=== PATIENT | female | born 1950 | race Caucasian/White ===

== ENCOUNTER → 2017-07-10 10:59 | Outpatient (CLI) | payer MEDICARE, MEDICAID, SELFPAY ==
[2017-06-26 13:13] VITALS: BMI 29.0
--- NOTE | 2017-07-10 11:12 | PCM.CR.ITP ---
Exercise - Initial Assessment - Visit Date of Eval: 07/10/17 Session #:: 0 - initial evaluation - Stages of Change Stages of Change:: Action - Exercise Prescription Mode:: Treadmill, Biodyne, Rower, Airdyne, NuStep Angina with exercise?: No - Hypertension Do any of the following apply?: Yes Resting Blood Pressure:: 130/64 - Intervention Home Exercise/Activity Goal:: Sitting Time <3 hrs/day - Education Goals:: Warm-up, RPE KALE Scale, S/S, Safe Exercise, Self-Monitoring - Exercise Program Goals Exercise Program Goals: Aerobic Activity >30 min Exercise - Final/Discharge - Hypertension Do any of the following apply?: Yes Nutrition - Initial Assessment - Program Goals Nutrition Program Goals: LDL <70. Total Cholesterol <200. HDL >45. Triglycerides <150. HgbA1C <7%. BMI <25 - Visit Date of Assessment:: 07/10/17 - initial evaluation - Stages of Change Stages of Change:: Action - Lipids HDL Cholesterol (mg/dL) Goal = less than 45 mg/dL: 45 LDL Cholesterol (mg/dL) Goal = less than 70 mg/dL: 103 - Diabetes Diabetes:: No - Weight Management Height: 5 ft 5.5 in Weight:: 84.368 kg Body Fat %:: 30.48 Total Score:: 3 - Intervention Referral to dietitian:: No Referral to Diabetic Clinic:: No Will attend diet classes:: Yes - Education Gave educational materials for:: Healthy eating Nutrition - 30-Day Assessment - Program Goals Nutrition Program Goals: LDL <70. Total Cholesterol <200. HDL >45. Triglycerides <150. HgbA1C <7%. BMI <25 - Diabetes Diabetes:: No - Intervention Referral to dietitian:: No Referral to Diabetic Clinic:: No Will attend diet classes:: Yes - Education Attended class for:: Healthy eating Nutrition - 60-Day Assessment - Program Goals Nutrition Program Goals: LDL <70. Total Cholesterol <200. HDL >45. Triglycerides <150. HgbA1C <7%. BMI <25 - Diabetes Diabetes:: No - Intervention Referral to dietitian:: No Referral to Diabetic Clinic:: No Will attend diet classes:: Yes - Education Attended class for:: Healthy eating Nutrition - 90-Day Assessment - Program Goals Nutrition Program Goals: LDL <70. Total Cholesterol <200. HDL >45. Triglycerides <150. HgbA1C <7%. BMI <25 - Diabetes Diabetes:: No - Intervention Referral to dietitian:: No Referral to Diabetic Clinic:: No Will attend diet classes:: Yes - Education Attended class for:: Healthy eating Nutrition - Final Assessment - Program Goals Nutrition Program Goals: LDL <70. Total Cholesterol <200. HDL >45. Triglycerides <150. HgbA1C <7%. BMI <25 - Diabetes Diabetes:: No - Weight Management Total Score:: 3 - Intervention Referral to dietitian:: No Referral to Diabetic Clinic:: No Will attend diet classes:: Yes Tobacco - Initial Assessment - Program Goals Tobacco Program Goals: Complete smoking cessation. Attend education classes. Improve Knowledge Test score - Stage of Change Stages of Change:: Action - Learning Barriers Learning Barriers: Vision, Ready to Learn Total Score:: 0 - Family Support Do you have family support?: Yes - Tobacco Use Tobacco Use: Non-smoker How long ago did you quit using tobacco products?: Greater than or equal to 6 months ago Do you use smokeless tobacco?: No - Intervention Smoking Cessation Referral:: No Individual Education/Counseling:: No Education Schedule Given:: Yes - Education Gave educational material for:: Coronary artery disease, Risk factors, Sexuality, Medical compliance, Cardiac A&P, Angina signs & symptoms Tobacco - 30-Day Assessment - Program Goals Tobacco Program Goals: Complete smoking cessation. Attend education classes. Improve Knowledge Test score - Family Support Do you have family support?: Yes - Tobacco Use Do you use smokeless tobacco?: No - Intervention Smoking Cessation Referral:: No Individual Education/Counseling:: No Education Schedule Given:: Yes - Education Attended class for:: Coronary artery disease, Risk factors, Sexuality, Medical compliance, Cardiac A&P, Angina signs & symptoms Tobacco - 60-Day Assessment - Program Goals Tobacco Program Goals: Complete smoking cessation. Attend education classes. Improve Knowledge Test score - Family Support Do you have family support?: Yes - Tobacco Use Do you use smokeless tobacco?: No - Intervention Smoking Cessation Referral:: No Individual Education/Counseling:: No Education Schedule Given:: Yes - Education Attended class for:: Coronary artery disease, Risk factors, Sexuality, Medical compliance, Cardiac A&P, Angina signs & symptoms Tobacco - 90-Day Assessment - Program Goals Tobacco Program Goals: Complete smoking cessation. Attend education classes. Improve Knowledge Test score - Family Support Do you have family support?: Yes - Tobacco Use Do you use smokeless tobacco?: No - Intervention Smoking Cessation Referral:: No Individual Education/Counseling:: No Education Schedule Given:: Yes - Education Attended class for:: Coronary artery disease, Risk factors, Sexuality, Medical compliance, Cardiac A&P, Angina signs & symptoms Tobacco - Final Assessment - Program Goals Tobacco Program Goals: Complete smoking cessation. Attend education classes. Improve Knowledge Test score - Learning Barriers Cardiac Knowledge Test Score:: 0 - Family Support Do you have family support?: Yes - Tobacco Use Do you use smokeless tobacco?: No - Intervention Smoking Cessation Referral:: No Individual Education/Counseling:: No Education Schedule Given:: Yes Psychosocial - Initial Assess - Target Goals Target Goals: Assess presence or absence of depression. Using a valid screening tool, maximizes coping skills. Positive support system - Stages of Change Stages of Change:: Action - Psychosocial Test Tool Used:: HANDS Depression Questionnaire Self-reported stress:: none Tests Completed: SF - 36 survey completed, Mood Scale Test Total Mood Screening Score:: 0 Self-Efficacy Score:: 0 - Intervention PS - Interventions: Yes Attend Stress Management Classes, Yes Uses Stress Management Skills, No Referral to Mental Health, No Referral to [facility] Case Management, No Referral to Physician - Education Gave educational materials for:: Coping techniques, Signs & symptoms of depression, Stress management, Relaxation techniques - Patient/Program Goal Preventative Medication(s):: Aspirin, TIM inhibitor, Clopidogrel, Beta maggy, Statin/lipid - Assistive Devices Assistive Devices:: None Fall Risk Assessed:: Yes Psychosocial - 30-Day Assess - Target Goals Target Goals: Assess presence or absence of depression. Using a valid screening tool, maximizes coping skills. Positive support system - Psychosocial Test Tool Used:: HANDS Depression Questionnaire Total Mood Screening Score:: 0 Self-Efficacy Score:: 0 - Patient/Program Goal Preventative Medication(s):: Aspirin, TIM inhibitor, Clopidogrel, Beta maggy, Statin/lipid - Assistive Devices Assistive Devices:: None Fall Risk Assessed:: Yes Psychosocial - 60-Day Assess - Target Goals Target Goals: Assess presence or absence of depression. Using a valid screening tool, maximizes coping skills. Positive support system - Psychosocial Test Tool Used:: HANDS Depression Questionnaire Total Mood Screening Score:: 0 Self-Efficacy Score:: 0 - Education Attended classes for:: Coping techniques, Signs & symptoms of depression, Stress management, Relaxation techniques - Patient/Program Goal Preventative Medication(s):: Aspirin, TIM inhibitor, Clopidogrel, Beta maggy, Statin/lipid - Assistive Devices Assistive Devices:: None Fall Risk Assessed:: Yes Psychosocial - 90-Day Assess - Target Goals Target Goals: Assess presence or absence of depression. Using a valid screening tool, maximizes coping skills. Positive support system - Psychosocial Test Tool Used:: HANDS Depression Questionnaire Total Mood Screening Score:: 0 Self-Efficacy Score:: 0 - Education Attended classes for:: Coping techniques, Signs & symptoms of depression, Stress management, Relaxation techniques - Patient/Program Goal Preventative Medication(s):: Aspirin, TIM inhibitor, Clopidogrel, Beta maggy, Statin/lipid - Assistive Devices Assistive Devices:: None Fall Risk Assessed:: Yes Psychosocial - Final Assessmen - Target Goals Target Goals: Assess presence or absence of depression. Using a valid screening tool, maximizes coping skills. Positive support system - Psychosocial Test Tool Used:: HANDS Depression Questionnaire Tests Completed: SF - 36 survey completed, Mood Scale Test Total Mood Screening Score:: 0 Self-Efficacy Score:: 0 - Patient/Program Goal Preventative Medication(s):: Aspirin, TIM inhibitor, Clopidogrel, Beta maggy, Statin/lipid - Assistive Devices Assistive Devices:: None Fall Risk Assessed:: Yes Patient Health Questionnaire Initial Assessment 1. Little interest or pleasure in doing things: More than half the days 2. Feeling down, depressed, or hopeless: More than half the days 3. Trouble falling or staying asleep, or sleeping too much: Nearly every day 4. Feeling tired or having little energy: Nearly every day 5. Poor appetite or overeating: Not at all 6. Feeling bad about yourself -- or that you are a failure or have let yourself or your family down: More than half the days 7. Trouble concentrating on things, such as reading the newspaper or watching television: More than half the days 8. Moving or speaking so slowly that other people could have noticed. Or the opposite - being so fidgety or restless that you have been moving around a lot more than usual: Not at all 9. Thoughts that you would be better off , or of hurting yourself in some way: Not at all How difficult have these problems made it for you to do your work, take care of things at home, or get along with other people?: Very difficult Total Score: 14 Knowledge Test - Check your knowledge Initial The #1 cause of in the [place] each year is:: Heart disease Which of the following is a common treatment for heart disease?: All of the above The arteries that feed the heart are called:: Radial arteries HDL cholesterol is known as the good cholesterol.: False What disease increases your risk for heart disease?: Diabetes What food product raises blood cholesterol level the most?: Carbohydrates The bad cholesterol in the blood is called:: HDL Hypertension is another word for:: High blood pressure A blood pressure reading of 148/88 is considered normal.: False Exercise will only benefit your health when your heart rate reaches a target level.: True Total Score:: 5 Self-Efficacy Initial Assessment We would like to know how confident you are in doing certain activities. Please select your confidence level for:: Select your confidence level for the following using the scale 1-10 where 1 is not at all confident and 10 is totally confident. Your score is the average of all 6 responses. Fatigue: How confident are you that you can keep the fatigue caused by your disease from interfering with the things you want to do? Select Number: 4 Physical Discomfort or Pain: How confident are you that you can keep the physical discomfort or pain of your disease from interfering with the things you want to do? Select Number: 4 Emotional Distress: How confident are you that you can keep the emotional distress caused by your disease from interfering with the things you want to do? Select Number: 4 Other Symptoms or Health Problems: How confident are you that you can keep other symptoms or health problems from interfering with the things you want to do? Select Number: 4 Different Tasks and Activities: How confident are you that you can do the different tasks and activities needed to manage your health condition so as to reduce your need to see a doctor? Select Number: 6 Medication: How confident are you that you can do things other than just taking medication to reduce how much your illness affects your everyday life? Select Number: 6 Total Score:: 4 Nutrition Survey - Nutrition Survey Instructions Scoring Instructions: Scoring is as follows: Yes = 1 points. No = 0 point. Patient score that is >/=12 is considered to be at potential nutritional risk and could benefit from a referral to a registered dietitian. - Nutrition Survey Initial Have you lost >10 lbs over the past 2 months without trying?: No Are you following a special diet at home for diabetes, low fat, or low salt?: No Are you interested in meeting with a dietitian for help understanding your diet?: Yes Do you eat less than 3 meals a day?: No Do you eat fatty meats (membreno, sausage, ribs, etc), fried foods, desserts, large amounts of salad dressings, margarine, butter, or cheese most days?: Yes Do you have food allergies? [Enter types in comment field]: Yes Do you eat in restaurants more than 3 times a week?: No Do you season food with salt, seasoning salt, or garlic salt?: Yes Do you used canned, boxed, frozen meals, or soups, seasoning packets?: No Total Score:: 4 Cardiac Rehabilitation Goals - Cardiac Rehab Goals Cardiac Rehabilitation Goals: 1. Maintain the individual as the primary focus of care. 2. To improve the patient's quality of life. 3. Identification of cardiac risk factors and provide cardiac risk factor management. 4. Enhance the psychosocial status of the patient. 5. Reconditioning enough to allow the patient to resume customary activities. 6. Control symptoms of cardiac disease - Scale Scale for measuring improvement of personal goals: Enter appropriate number in Comments. 2 = Unchanged. 3 = Slightly Better. 4 = Moderate Improvement. 5 = Met my Goal Initial Assessment Personal Goals: 30-day Re-assessment: Improve management of stress and emotions, Improve energy level, Improve muscle strength and endurance, Improve diet and eating habits (eat healthier), Control risk factors (learn risk factor modification)
--- NOTE | 2017-07-10 11:13 | PCM.CR.HP2 ---
CR - History & Physical - General Arrival date:: 07/10/17 Arrival time:: 11:14 Date of Admission: 07/10/17 Referring Physician: DR. JUAN SINGH Primary Diagnosis: NSTEMI w/PCI-SOLOMON 06/26/2017 - History of Present Cardiac Event Onset Date: Enter Onset Date of cardiac illnesses in Comment field below [place]:: Yes - NSTEMI 06/26/2017 PTCA:: Yes - 06/26/2017 Type of Symptoms:: CHEST PAIN, SHORTNESS OF BREATH Interventions with present event:: PCI-SOLOMON to the distal RCA - Medications Home Medications: Ambulatory Orders Medication Instructions Recorded Famotidine [Pepcid] 20 mg PO DAILY 10/02/15 Losartan/Hydrochlorothiazide 1 tab PO DAILY 10/02/15 [Hyzaar 50-12.5 Tablet] Aspirin [Adult Low Dose Aspirin EC] 81 mg PO DAILY 01/20/16 Ezetimibe [Zetia] 10 mg PO DAILY 05/13/16 Glucosamine/MSM/Chondroitin A 1 ea PO DAILY 08/26/16 [Glucosamine Chondroit MSM Tab] Paxil 20 mg PO DAILY 06/26/17 Carvedilol [Coreg (Beta Juvenal)] 3.125 mg PO BID #60 tab 06/27/17 Nitroglycerin [Nitrostat] 0.4 mg SUBLINGUAL Q5M PRN #1 bottle 06/27/17 Potassium Chloride 10 meq PO BID #60 capsule.er 06/27/17 Ticagrelor [Brilinta] 90 mg PO BID #60 tab 06/27/17 clopidogrel 75 mg tablet 75 mg PO QDAY 07/01/17 paroxetine 10 mg tablet 10 mg PO QDAY 07/01/17 Potassium Chloride [Klor-Con 10] 10 meq PO 07/10/17 Simvastatin [Zocor] 5 mg PO 07/10/17 Tramadol HCl [Ultram] 50 mg PO 07/10/17 - Allergies Allergies/Adverse Reactions: Allergies venom-honey bee [bee venom (honey bee)] Allergy (Severe, Verified 06/25/17 19:08) Anaphylaxis atorvastatin Allergy (Unknown, Verified 06/25/17 19:08) Unknown Penicillins Allergy (Unknown, Verified 06/25/17 19:08) Unknown strawberry Allergy (Verified 06/25/17 19:08) Anaphylaxis oxycodone HCl [From Percocet] Adverse Reaction (Verified 06/25/17 19:08) Vomiting - Sleep Disorder Evaluation Hx of Sleep Apnea: No Do you snore loudly (louder than talking or can be heard through closed doors)?: Yes - daytime somnolence Do you often feel tired/ fatigued/ sleepy during daytime?: Yes Has anyone observed you stop breathing during sleep?: No History of Hypertension (for STOP score): Yes STOP Results: Positive Advanced Directives - Advanced Directives Power of Special Trackwork Blacksmith: No Living Will: No Advance Directives Information Provided: Yes Advance Directives on File: No DNR Order?:: No Past Medical History - Problems and Co-Morbidities Problems & Co-Morbidities: Smoking - 20 pack year history 1PPD. , Dyslipidemia, Obesity - BMI 29.0-29.9%, Hypertension, Anxiety - Past Medical Illness Past Medical Illness: Back Problems - chronic back pain, angiomyoma left kidney, RSD, COPD. Other Medical Illnesses:: daytime somnolence, RSD, COPD, asthma. 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 - Cardiology Procedures/Interventions Cardiology Procedures/Interventions: Angioplasty, PCI w/Stenting, Heart Catheterization, Echocardiogram - Past Surgical History Surgical History: angioplasty, appendectomy - In addition to salpingectomy w/ tubal , unsure which side., - - Cervical C5-6 surgery, Microdiscectemy L4-L5, L hand surgery following trauma, T+A, PCI x 1. - Family History Summary Additional Family History: Father FH of CAD heart transplant age 65, Brother FH of A-Fib. Review of Systems - Review of Systems Hints: Right click = Denies (Slash). Left click = Reports ([place]) Review of Present Symptoms: Reports: Shortness of Breath with Exertion, Angina - questionable if actually angina or if simply over did it., Fatigue, Appetite - Normal. Denies: Shortness of Breath at Rest, Dizziness/Lightheadedness, Heart Arrhythmia/Irregularities, Appetite - Special Diet, Sleep - Normal - never been normal, sometimes have periods of insomnia and then will sleep for two days. Risk Factor Assessment - Chief Complaint Chief Complaint: Patient is a pleasent 67 year old female patient under the care of Dr. Juan Singh following a recent NSTEMI and another PTCA. - Pulse Pulse Rate: 74 Pulse Rhythm: Regular - Hypertension How long have you been treated?: been along time On medication(s)?: yes Blood Pressure Sitting - Right Arm: 130/64 - Blood Cholesterol/Lipids HDL Cholesterol (mg/dL) Goal = less than 40 mg/dL: 45 - 01/29/2017 LDL Cholesterol (mg/dL) Goal = less than 70 mg/dL: 103 - 01/29/2017 - Diabetes Nutrition Referral for Diabetes: No - Obesity Height: 5 ft 5 in Weight:: 84.395 kg Weight in Pounds: 186.1 lbs Body Mass Index (BMI): 30.9 Nutritional Referral for Obesity: Yes - Physical Inactivity Physical Inactivity: None Exercise Limitations: chronic back pain - Risk Stratification Risk Guidelines: Lowest Risk: Risk Factor for Smoking, Risk Factor for Dyslipidemia, Risk Factor for Diabetes, Risk Factor for Hypertension, Risk Factor for Depression, Highest Risk: Risk Factor for Obesity, Risk Factor for Sedentary Lifestyle - For Smoking Smoking Risk Guidelines: Smoking Low Risk: None or quit greater than 6 months ago. Smoking Moderate Risk: Smoker or quit 6 months or less ago. Smoking High Risk: Smoker - For Dyslipidemia Dyslipidemia Risk Guidelines: Low Risk: Moderate Risk: High Risk: 15-25% fat 25.1-29% fat >/= 30% fat. <7% sat fat 7-9% sat fat >9% sat fat. <150 mg chol 150-299 mg chol >/= 300 mg chol. LDL <100 LDL 100-129 LDL >/= 130. Chol/HDL ratio <5.0 Chol/HDL ratio 5.0-6.0 Chol/HDL ratio >6.0. Triglycerides <100 Triglycerides 100-149 Triglycerides >/= 150 - For Diabetes Mellitus Diabetes Risk Guidelines: Diabetes Low Risk: HgA1c <6.5% and/or FBG <120. Diabetes Moderate Risk: HgA1c 6.6-7.9% and/or FBG 120-180. Diabetes High Risk: HgA1c >/= 8% and/or FBG >180 - For Obesity/Overweight Obesity/Overweight Risk Guidelines: Obesity Low Risk: BMI <25.0. Obesity Moderate Risk: BMI 25-29.9. Obesity High Risk: BMI >/= 30.0 - For Hypertension Hypertension Risk Guidelines: Hypertension Low Risk: Systolic <120 and Diastolic <80. Hypertension Moderate Risk: Systolic 120-139 and Diastolic 80-89. Hypertension High Risk: Systolic >/= 140 and Diastolic >/= 90 - For Sedentary Lifestyle Sedentary Lifestyle Risk Guidelines: Sedentary Lifestyle Low Risk: >/= 1,500 kcal/week. Sedentary Lifestyle Moderate Risk: 700-1,499 kcal/week. Sedentary Lifestyle High Risk: < 700 kcal/week - For Depression Depression Risk Guidelines: Depression Low Risk: Not clinically depressed. Depression Moderate Risk: Mildly depressed. Depression High Risk: Clinically depressed Social History - Smoking History Smoking Status: Former smoker Years Smokin Packs Smoked per Day: 1 Hx Smoking Cessation Date: quit a while ago Hx Tobacco Use: Yes Hx Smoking Exposure: Yes - passive smoke exposure. - Alcohol Use Alcohol Usage: Yes - socially-infrequent - Substance Abuse Hx Substance Use: Yes - yes, rukhsana quit 2015. - Occupation Occupation (List type of work in comments):: Retired - Hobbies, Recreation, Social Activities Hobbies: Other - knit, lizeth, beading, coloring, nails, crafts. Recreational Activities: I am able to engage in most, but not all activities - feels like my concentration is off, can't seem to stay focused. Marital Status - Status Marital Status: - Current Living Arrangements Living Environment:: Family - brother lives with her. - Children How many children do you have?: 0 Do any of your children live nearby?: No - Safety Do you feel safe in your surroundings?: Yes - Assistance Do you need any assistance at home?: none
--- NOTE | 2017-07-10 11:23 | CR.HP_ITS ---
CR - History & Physical - General Arrival date:: 07/10/17 Arrival time:: 11:14 Date of Admission: 07/10/17 Referring Physician: DR. JUAN SINGH Primary Diagnosis: NSTEMI w/PCI-SOLOMON 06/26/2017 - History of Present Cardiac Event Onset Date: Enter Onset Date of cardiac illnesses in Comment field below [place]:: Yes - NSTEMI 06/26/2017 PTCA:: Yes - 06/26/2017 Type of Symptoms:: CHEST PAIN, SHORTNESS OF BREATH Interventions with present event:: PCI-SOLOMON to the distal RCA - Medications Home Medications: Ambulatory Orders Medication Instructions Recorded Famotidine [Pepcid] 20 mg PO DAILY 10/02/15 Losartan/Hydrochlorothiazide 1 tab PO DAILY 10/02/15 [Hyzaar 50-12.5 Tablet] Aspirin [Adult Low Dose Aspirin EC] 81 mg PO DAILY 01/20/16 Ezetimibe [Zetia] 10 mg PO DAILY 05/13/16 Glucosamine/MSM/Chondroitin A 1 ea PO DAILY 08/26/16 [Glucosamine Chondroit MSM Tab] Paxil 20 mg PO DAILY 06/26/17 Carvedilol [Coreg (Beta Juvenal)] 3.125 mg PO BID #60 tab 06/27/17 Nitroglycerin [Nitrostat] 0.4 mg SUBLINGUAL Q5M PRN #1 bottle 06/27/17 Potassium Chloride 10 meq PO BID #60 capsule.er 06/27/17 Ticagrelor [Brilinta] 90 mg PO BID #60 tab 06/27/17 clopidogrel 75 mg tablet 75 mg PO QDAY 07/01/17 paroxetine 10 mg tablet 10 mg PO QDAY 07/01/17 Potassium Chloride [Klor-Con 10] 10 meq PO 07/10/17 Simvastatin [Zocor] 5 mg PO 07/10/17 Tramadol HCl [Ultram] 50 mg PO 07/10/17 - Allergies Allergies/Adverse Reactions: Allergies venom-honey bee [bee venom (honey bee)] Allergy (Severe, Verified 06/25/17 19:08 ) Anaphylaxis atorvastatin Allergy (Unknown, Verified 06/25/17 19:08) Unknown Penicillins Allergy (Unknown, Verified 06/25/17 19:08) Unknown strawberry Allergy (Verified 06/25/17 19:08) Anaphylaxis oxycodone HCl [From Percocet] Adverse Reaction (Verified 06/25/17 19:08) Vomiting - Sleep Disorder Evaluation Hx of Sleep Apnea: No Do you snore loudly (louder than talking or can be heard through closed doors)? : Yes - daytime somnolence Do you often feel tired/ fatigued/ sleepy during daytime?: Yes Has anyone observed you stop breathing during sleep?: No History of Hypertension (for STOP score): Yes STOP Results: Positive Advanced Directives - Advanced Directives Power of General Education Instructor: No Living Will: No Advance Directives Information Provided: Yes Advance Directives on File: No DNR Order?:: No Past Medical History - Problems and Co-Morbidities Problems & Co-Morbidities: Smoking - 20 pack year history 1PPD. , Dyslipidemia, Obesity - BMI 29.0-29.9%, Hypertension, Anxiety - Past Medical Illness Past Medical Illness: Back Problems - chronic back pain, angiomyoma left kidney , RSD, COPD. Other Medical Illnesses:: daytime somnolence, RSD, COPD, asthma. 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 - Cardiology Procedures/Interventions Cardiology Procedures/Interventions: Angioplasty, PCI w/Stenting, Heart Catheterization, Echocardiogram - Past Surgical History Surgical History: angioplasty, appendectomy - In addition to salpingectomy w/ tubal , unsure which side., - - Cervical C5-6 surgery, Microdiscectemy L4-L5, L hand surgery following trauma, T+A, PCI x 1. - Family History Summary Additional Family History: Father FH of CAD heart transplant age 65, Brother FH of A-Fib. Review of Systems - Review of Systems Hints: Right click = Denies ([place]). Left click = Reports ([place]) Review of Present Symptoms: Reports: Shortness of Breath with Exertion, Angina - questionable if actually angina or if simply over did it., Fatigue, Appetite - Normal. Denies: Shortness of Breath at Rest, Dizziness/Lightheadedness, Heart Arrhythmia/Irregularities, Appetite - Special Diet, Sleep - Normal - never been normal, sometimes have periods of insomnia and then will sleep for two days. Risk Factor Assessment - Chief Complaint Chief Complaint: Patient is a pleasent 67 year old female patient under the care of Dr. Juan Singh following a recent NSTEMI and another PTCA. - Pulse Pulse Rate: 74 Pulse Rhythm: Regular - Hypertension How long have you been treated?: been along time On medication(s)?: yes Blood Pressure Sitting - Right Arm: 130/64 - Blood Cholesterol/Lipids HDL Cholesterol (mg/dL) Goal = less than 40 mg/dL: 45 - 01/29/2017 LDL Cholesterol (mg/dL) Goal = less than 70 mg/dL: 103 - 01/29/2017 - Diabetes Nutrition Referral for Diabetes: No - Obesity Height: 5 ft 5 in Weight:: 84.395 kg Weight in Pounds: 186.1 lbs Body Mass Index (BMI): 30.9 Nutritional Referral for Obesity: Yes - Physical Inactivity Physical Inactivity: None Exercise Limitations: chronic back pain - Risk Stratification Risk Guidelines: Lowest Risk: Risk Factor for Smoking, Risk Factor for Dyslipidemia, Risk Factor for Diabetes, Risk Factor for Hypertension, Risk Factor for Depression, Highest Risk: Risk Factor for Obesity, Risk Factor for Sedentary Lifestyle - For Smoking Smoking Risk Guidelines: Smoking Low Risk: None or quit greater than 6 months ago. Smoking Moderate Risk: Smoker or quit 6 months or less ago. Smoking High Risk: Smoker - For Dyslipidemia Dyslipidemia Risk Guidelines: Low Risk: Moderate Risk: High Risk: 15-25% fat 25.1-29% fat >/= 30% fat. <7% sat fat 7-9% sat fat >9% sat fat. <150 mg chol 150-299 mg chol >/= 300 mg chol. LDL <100 LDL 100-129 LDL >/= 130. Chol/HDL ratio <5.0 Chol/HDL ratio 5.0-6.0 Chol/HDL ratio >6.0. Triglycerides <100 Triglycerides 100-149 Triglycerides >/= 150 - For Diabetes Mellitus Diabetes Risk Guidelines: Diabetes Low Risk: HgA1c <6.5% and/or FBG <120. Diabetes Moderate Risk: HgA1c 6.6-7.9% and/or FBG 120-180. Diabetes High Risk: HgA1c >/= 8% and/or FBG >180 - For Obesity/Overweight Obesity/Overweight Risk Guidelines: Obesity Low Risk: BMI <25.0. Obesity Moderate Risk: BMI 25-29.9. Obesity High Risk: BMI >/= 30.0 - For Hypertension Hypertension Risk Guidelines: Hypertension Low Risk: Systolic <120 and Diastolic <80. Hypertension Moderate Risk: Systolic 120-139 and Diastolic 80-89. Hypertension High Risk: Systolic >/= 140 and Diastolic >/= 90 - For Sedentary Lifestyle Sedentary Lifestyle Risk Guidelines: Sedentary Lifestyle Low Risk: >/= 1 ,500 kcal/week. Sedentary Lifestyle Moderate Risk: 700-1,499 kcal/week. Sedentary Lifestyle High Risk: < 700 kcal/week - For Depression Depression Risk Guidelines: Depression Low Risk: Not clinically depressed. Depression Moderate Risk: Mildly depressed. Depression High Risk: Clinically depressed Social History - Smoking History Smoking Status: Former smoker Years Smokin Packs Smoked per Day: 1 Hx Smoking Cessation Date: quit a while ago Hx Tobacco Use: Yes Hx Smoking Exposure: Yes - passive smoke exposure. - Alcohol Use Alcohol Usage: Yes - socially-infrequent - Substance Abuse Hx Substance Use: Yes - yes, rukhsana quit 2015. - Occupation Occupation (List type of work in comments):: Retired - Hobbies, Recreation, Social Activities Hobbies: Other - knit, lizeth, beading, coloring, nails, crafts. Recreational Activities: I am able to engage in most, but not all activities - feels like my concentration is off, can't seem to stay focused. Marital Status - Status Marital Status: - Current Living Arrangements Living Environment:: Family - brother lives with her. - Children How many children do you have?: 0 Do any of your children live nearby?: No - Safety Do you feel safe in your surroundings?: Yes - Assistance Do you need any assistance at home?: none
[2017-07-10 11:42] VITALS: BP 130/64; PULSE 74; BMI 30.9
[2017-07-10 12:17] VITALS: BP 130/64
== END ==
PROVIDERS: Family Provider Family Medicine; PCP Family Medicine; Visit Provider Internal Medicine Cardiovascular Disease
DX: I25.2 Old myocardial infarction (principal)

== ENCOUNTER 2017-07-16 18:07 | Emergency (ER) | payer MEDICARE, MEDICAID, SELFPAY ==
[2017-06-26 13:13] VITALS: BMI 29.0
[2017-07-14 13:45] VITALS: BP 110/74; BMI 28.6
[2017-07-16 18:08] VITALS: BP 155/90; PULSE 67; RESP 16; TEMP 36.9; O2SAT 97; BMI 29.0
--- NOTE | 2017-07-16 18:28 | RAD_ITS ---
XR Chest 1 View INDICATION: CHEST PAIN, NECK PAIN, [place] SYMPTOMS COMPARISON: June 25, 2017 TECHNIQUE: Portable chest x-ray FINDINGS: Stable platelike atelectasis is seen at the left lung base, lungs are otherwise clear. Heart size and pulmonary vascularity remain within normal limits. Osseous structures are grossly unremarkable. RAD/Chest 1 View (Portable) IMPRESSION: Stable examination. No radiographic evidence of acute intrathoracic disease. at 1856 Reported and signed by: Nia Woo MD Electronically Signed: Nia Woo MD at 17:55 EST Tel , Service support ,
--- NOTE | 2017-07-16 18:28 | EKG12_ITS ---
Test Reason : NECK PAIN Blood Pressure : / mmHG Vent. Rate : 064 BPM Atrial Rate : 064 BPM P-R Int : 166 ms QRS Dur : 090 ms QT Int : 436 ms P-R-T Axes : 042 050 046 degrees QTc Int : 449 ms Normal sinus rhythm Nonspecific T wave abnormality Abnormal ECG Confirmed by SUDHIR OLIVEROS, VEE ([id number]), business editor NIRMALA HALL ([id number] on 07/18/2017 2:22:27 PM Referred By: Juan Singh Confirmed By:VEE PEGUERO MD
[2017-07-16 18:44] VITALS: PULSE 68; RESP 15; O2SAT 98
[2017-07-16 18:45] LABS: Absolute Lymphocyte Count 1.49 X10^3/ul (0.83-4.51); Absolute Neutrophil Count 3.3 X10^3/uL (2.0-7.7); Basophil# 0.04 X10^3/uL; Basophil% 0.7 % (0-1); Eosinophil# 0.14 X10^3/uL; Eosinophils% 2.5 % (0-5); Hematocrit 43.4 % (37-47); Hemoglobin 14.4 g/dl (12.0-15.0); Lymphocyte # 1.49 X10^3/ul (4.0); Lymphocyte % 26.1 % (19-41); Mean Corp Hgb Conc 33.2 g/gl (32-36); Mean Corpuscular Hgb 27.4 pg (27.0-32.0); Mean Corpuscular Volume 82.7 fL (81-99); Mean Platelet Vol. 9.7 fl (6.2-12.0); Monocyte# 0.69 X10^3/uL; Monocyte% 12.1 % (0-10); Neutrophil # 3.34 X10^3/uL (2.7-7.7); Neutrophil % 58.6 % (47-70); Platelet Count 243 K/mm3 (150-450); RBC Distribution Width CV 13.6 % (11.6-14.6); RBC Distribution Width SD 40.7 fl (35.1-43.9); Red Blood Count 5.25 M/mm3 (4.2-5.4); White Blood Count 5.7 K/mm3 (4.4-11.0)
[2017-07-16 18:47] LABS: POSITIVE COUNT NO; POSITIVE DIFFERENTIAL NO; POSITIVE MORPHOLOGY NO
[2017-07-16] MEDS: 0.9% Normal Saline 1,000 ML 150 ML IV (18:47)
[2017-07-16 19:05] LABS: Anion Gap 6 (5-15); BUN 16 mg/dL (7-18); BUN/Creat Ratio 15.8 RATIO (10-20); Calcium,Total 8.7 mg/dL (8.5-10.1); Chloride 105 mmol/L (98-107); Creatinine, Serum 1.01 mg/dL (0.55-1.02); EST Glomerular Filtration Rate 58 mL/min (>60); Est Glom Filt Rate - Afr Amer 71 mL/min (>60); Estimated Creatinine Clearance 51.99 ml/min; Glucose 91 mg/dL (74-106); Potassium 3.4 mmol/L (3.5-5.1); Sodium Level 142 mmol/L (136-145)
--- NOTE | 2017-07-16 19:37 | ED.VISSUMM ---
- ER Visit Summary Date of Service: 07/16/17 Chief Complaint: [Neck pain] History of Present Illness: The patient is a 67 F [to the emergency department with complaint of left-sided neck pain ?3 weeks. Patient is concerned about her heart because she had a heart attack 3 weeks ago that required a stent. Patient states that at the time of her heart attack she had chest discomfort that radiated into her neck and down both arms. Patient states that the neck pain never left. Patient has been going through cardiac rehab. Patient has taken Ultram at home for the pain but does not resolve it. Patient states that it is not made worse by movement. Patient has no exertional symptoms. She is not been having chest pain. Patient states that she has been more anxious than usual since her heart attack. Patient really cannot describe the pain. Describes it as mild and just more annoying than anything.] Physical Examination: [HEENT-PERRLA, EOMI. Cranial nerves II through XII grossly intact. TMs clear. Mucous membranes moist. No adenopathy. Left anterior neck appears normal without any masses palpated. No bruits auscultated. I cannot reproduce her pain with palpation of the left side of the neck. Cardiovascular-regular rate and rhythm without murmur or ectopy Lungs-clear to auscultation, chest wall stable without crepitus or subcu emphysema Abdomen-normoactive bowel sounds, soft, nontender, no rebound or rigidity, no peritoneal signs. Extremities-intact ?4, normal range of motion, normal pulses, atraumatic] Test Results: [EKG obtained on arrival shows sinus rhythm with a ventricular rate of 64 bpm with some nonspecific ST changes noted in the anterior leads. When compared with prior EKG from June 27 no new changes are noted. CBC with differential was normal. Chemistries were normal. Troponin was less than 0.02. Chest x-ray showed nothing acute.] Emergency Department Course and Treatment: [None] Treatment Plan: [Was discussed with Dr. Bernabe Melendez who was covering for Dr. Singh. At this point it is felt that her symptoms are noncardiac and patient will be discharged home without any further treatment at this time. I did advise patient to attempt to use some warm heat to the area. Patient will also try to use a different pillow to sleep on.] Disposition: [Discharged home in stable condition. Patient advised to follow-up with her primary care physician or Dr. Singh within next 5-7 days. Patient advised to return if chest pain, shortness of breath, exertional symptoms, or condition should worsen in any way.] Impression: [Neck Pain-etiology uncertain] This note was generated with [employer] dictation software. It may contain incorrect words, spelling, and punctuation that were not noted in review of the chart prior to signing ED Disposition - Plan for ED Patient: Chief Complaint: Other, Pain/Inj Referrals: Hussein Tidwell MD [Primary Care Provider] -
--- NOTE | 2017-07-16 19:41 | ED.DEP ---
ED Disposition - Plan for ED Patient: Chief Complaint: Other, Pain/Inj Instructions: ED Neck Pain No Trauma Referrals: Hussein Tidwell MD [Primary Care Provider] - 3-5 Days
[2017-07-16 19:53] VITALS: BP 150/76; PULSE 69; RESP 17; O2SAT 94
--- NOTE | 2017-07-16 19:53 | ED.RN ---
PT GIVEN WRITTEN AND VERBAL DISCHARGE INSTRUCTIONS. PT VERBALIZES UNDERSTANDING. TOLD TO RETURN TO ED FOR ANY NEW OR WORSENED SX. IV D/C AND COVERED WITH 2X2 GAUZE. PRESSURE HELD BECAUSE PT ON BLOOD THINNERS. MINIMAL BLEEDING NOTED. PT DRESSES SELF AND IS AMBULATORY HOME WITH FAMILY.
== END 2017-07-16 19:56 | disposition home or self-care (01) ==
PROVIDERS: Emergency Provider Emergency Medicine; Family Provider Family Medicine; PCP Family Medicine
DX: M54.2 Cervicalgia (principal); I25.10 Atherosclerotic heart disease of native coronary artery without angina pectoris; J44.9 Chronic obstructive pulmonary disease, unspecified; I10 Essential (primary) hypertension; E78.00 Pure hypercholesterolemia, unspecified
CPT/HCPCS: 71045; 80048; 84484; 85025; 93005; 93798; 99284; J7030; A4216

== ENCOUNTER 2017-08-06 10:15 | Outpatient (RCR) | payer MEDICARE, MEDICAID, SELFPAY ==
[2017-06-26 13:13] VITALS: BMI 29.0
[2017-07-10 11:42] VITALS: BMI 30.9
--- NOTE | 2017-08-05 10:24 | PCM.CR.ITP ---
Exercise - Initial Assessment - Stages of Change Stages of Change:: Action - Exercise Prescription Mode:: Treadmill, Biodyne, Rower, Airdyne, NuStep Angina with exercise?: No - Hypertension Do any of the following apply?: Yes - Intervention Home Exercise/Activity Goal:: Sitting Time <3 hrs/day - Education Goals:: Warm-up, RPE KALE Scale, S/S, Safe Exercise, Self-Monitoring - Exercise Program Goals Exercise Program Goals: Aerobic Activity >30 min Exercise - 30-day Assessment - Visit Date of Eval: 08/05/17 Session #:: - 07/14/17-08/04/17 - Stages of Change Stages of Change:: Action - Exercise Prescription Mode:: Treadmill, Rower, Airdyne, NuStep Frequency (x/week): 3 Duration:: 30 METs - Progression: 0.5-1 MET as tolerated: 4 Target Heart Rate:: 108-116 w/ max HR 101 - Hypertension Resting Blood Pressure:: 124/76 Peak Exercise Blood Pressure:: 130/64 Medication Changes:: No - Intervention Home Exercise/Activity Goal:: Moderate Exercise 30 min/day x 5 days/wk - Education Goals:: Warm-up, RPE KALE Scale, S/S, Safe Exercise, Self-Monitoring - Exercise Program Goals Exercise Program Goals: Aerobic Activity >30 min Exercise - Final/Discharge - Hypertension Do any of the following apply?: Yes Nutrition - Initial Assessment - Program Goals Nutrition Program Goals: LDL <70. Total Cholesterol <200. HDL >45. Triglycerides <150. HgbA1C <7%. BMI <25 - Stages of Change Stages of Change:: Action - Lipids Total Cholesterol (mg/dL) Goal = less than 200 mg/dL: 230 HDL Cholesterol (mg/dL) Goal = less than 45 mg/dL: 45 LDL Cholesterol (mg/dL) Goal = less than 70 mg/dL: 103 - Diabetes Diabetes:: No - Weight Management Body Fat %:: 30.48 Total Score:: 3 - Intervention Referral to dietitian:: No Referral to Diabetic Clinic:: No Will attend diet classes:: Yes - Education Gave educational materials for:: Healthy eating Nutrition - 30-Day Assessment - Program Goals Nutrition Program Goals: LDL <70. Total Cholesterol <200. HDL >45. Triglycerides <150. HgbA1C <7%. BMI <25 - Visit Date of Eval: 08/05/17 - Stages of Change Stages of Change:: Action - Lipids Has the patient seen the dietitian?: No - Diabetes Diabetes:: No Insulin: No Non-Insulin Dependent?: No - Weight Management Weight:: 81.873 kg - Intervention Referral to dietitian:: No Referral to Diabetic Clinic:: No Will attend diet classes:: Yes - Education Attended class for:: Healthy eating Nutrition - 60-Day Assessment - Program Goals Nutrition Program Goals: LDL <70. Total Cholesterol <200. HDL >45. Triglycerides <150. HgbA1C <7%. BMI <25 - Diabetes Diabetes:: No - Intervention Referral to dietitian:: No Referral to Diabetic Clinic:: No Will attend diet classes:: Yes - Education Attended class for:: Healthy eating Nutrition - 90-Day Assessment - Program Goals Nutrition Program Goals: LDL <70. Total Cholesterol <200. HDL >45. Triglycerides <150. HgbA1C <7%. BMI <25 - Diabetes Diabetes:: No - Intervention Referral to dietitian:: No Referral to Diabetic Clinic:: No Will attend diet classes:: Yes - Education Attended class for:: Healthy eating Nutrition - Final Assessment - Program Goals Nutrition Program Goals: LDL <70. Total Cholesterol <200. HDL >45. Triglycerides <150. HgbA1C <7%. BMI <25 - Diabetes Diabetes:: No - Weight Management Body Fat %:: 30.48 Total Score:: 3 - Intervention Referral to dietitian:: No Referral to Diabetic Clinic:: No Will attend diet classes:: Yes Tobacco - Initial Assessment - Program Goals Tobacco Program Goals: Complete smoking cessation. Attend education classes. Improve Knowledge Test score - Stage of Change Stages of Change:: Action - Learning Barriers Learning Barriers: Vision, Ready to Learn Total Score:: 0 - Family Support Do you have family support?: Yes - Tobacco Use Tobacco Use: Non-smoker How long ago did you quit using tobacco products?: Greater than or equal to 6 months ago Do you use smokeless tobacco?: No - Intervention Smoking Cessation Referral:: No Individual Education/Counseling:: No Education Schedule Given:: Yes - Education Gave educational material for:: Coronary artery disease, Risk factors, Sexuality, Medical compliance, Cardiac A&P, Angina signs & symptoms Tobacco - 30-Day Assessment - Program Goals Tobacco Program Goals: Complete smoking cessation. Attend education classes. Improve Knowledge Test score - Stage of Change Stages of Change:: Action - Learning Barriers Learning Barriers: Participates in education - Family Support Do you have family support?: Yes - Tobacco Use Tobacco Use: Non-smoker Do you use smokeless tobacco?: No - Intervention Smoking Cessation Referral:: No Individual Education/Counseling:: No Education Schedule Given:: Yes - Education Attended class for:: Coronary artery disease, Risk factors, Sexuality, Medical compliance, Cardiac A&P, Angina signs & symptoms Tobacco - 60-Day Assessment - Program Goals Tobacco Program Goals: Complete smoking cessation. Attend education classes. Improve Knowledge Test score - Family Support Do you have family support?: Yes - Tobacco Use Do you use smokeless tobacco?: No - Intervention Smoking Cessation Referral:: No Individual Education/Counseling:: No Education Schedule Given:: Yes - Education Attended class for:: Coronary artery disease, Risk factors, Sexuality, Medical compliance, Cardiac A&P, Angina signs & symptoms Tobacco - 90-Day Assessment - Program Goals Tobacco Program Goals: Complete smoking cessation. Attend education classes. Improve Knowledge Test score - Family Support Do you have family support?: Yes - Tobacco Use Do you use smokeless tobacco?: No - Intervention Smoking Cessation Referral:: No Individual Education/Counseling:: No Education Schedule Given:: Yes - Education Attended class for:: Coronary artery disease, Risk factors, Sexuality, Medical compliance, Cardiac A&P, Angina signs & symptoms Tobacco - Final Assessment - Program Goals Tobacco Program Goals: Complete smoking cessation. Attend education classes. Improve Knowledge Test score - Learning Barriers Cardiac Knowledge Test Score:: 0 - Family Support Do you have family support?: Yes - Tobacco Use Do you use smokeless tobacco?: No - Intervention Smoking Cessation Referral:: No Individual Education/Counseling:: No Education Schedule Given:: Yes Psychosocial - Initial Assess - Target Goals Target Goals: Assess presence or absence of depression. Using a valid screening tool, maximizes coping skills. Positive support system - Stages of Change Stages of Change:: Action - Psychosocial Test Tool Used:: HANDS Depression Questionnaire Self-reported stress:: none Tests Completed: SF - 36 survey completed, Mood Scale Test Total Mood Screening Score:: 0 Self-Efficacy Score:: 0 - Intervention PS - Interventions: Yes Attend Stress Management Classes, Yes Uses Stress Management Skills, No Referral to Mental Health, No Referral to [facility] Case Management, No Referral to Physician - Education Gave educational materials for:: Coping techniques, Signs & symptoms of depression, Stress management, Relaxation techniques - Patient/Program Goal Preventative Medication(s):: Aspirin, TIM inhibitor, Clopidogrel, Beta maggy, Statin/lipid - Assistive Devices Assistive Devices:: None Fall Risk Assessed:: Yes Psychosocial - 30-Day Assess - Target Goals Target Goals: Assess presence or absence of depression. Using a valid screening tool, maximizes coping skills. Positive support system - Stages of Change Stages of Change:: Action - Psychosocial Test Tool Used:: HANDS Depression Questionnaire Total Mood Screening Score:: 0 Self-Efficacy Score:: 0 - Intervention PS - Interventions: Yes Referral to Mental Health - already seen professional counseling, Yes Attend Stress Management Classes, Yes Uses Stress Management Skills, No Referral to [facility] Case Management, No Referral to Physician - Education Attended classes for:: Coping techniques, Signs & symptoms of depression, Stress management, Relaxation techniques - Patient/Program Goal Preventative Medication(s):: Aspirin, TIM inhibitor, Clopidogrel, Beta maggy, Statin/lipid - Assistive Devices Assistive Devices:: None Fall Risk Assessed:: Yes Psychosocial - 60-Day Assess - Target Goals Target Goals: Assess presence or absence of depression. Using a valid screening tool, maximizes coping skills. Positive support system - Psychosocial Test Tool Used:: HANDS Depression Questionnaire Total Mood Screening Score:: 0 Self-Efficacy Score:: 0 - Education Attended classes for:: Coping techniques, Signs & symptoms of depression, Stress management, Relaxation techniques - Patient/Program Goal Preventative Medication(s):: Aspirin, TIM inhibitor, Clopidogrel, Beta maggy, Statin/lipid - Assistive Devices Assistive Devices:: None Fall Risk Assessed:: Yes Psychosocial - 90-Day Assess - Target Goals Target Goals: Assess presence or absence of depression. Using a valid screening tool, maximizes coping skills. Positive support system - Psychosocial Test Tool Used:: HANDS Depression Questionnaire Total Mood Screening Score:: 0 Self-Efficacy Score:: 0 - Education Attended classes for:: Coping techniques, Signs & symptoms of depression, Stress management, Relaxation techniques - Patient/Program Goal Preventative Medication(s):: Aspirin, TIM inhibitor, Clopidogrel, Beta maggy, Statin/lipid - Assistive Devices Assistive Devices:: None Fall Risk Assessed:: Yes Psychosocial - Final Assessmen - Target Goals Target Goals: Assess presence or absence of depression. Using a valid screening tool, maximizes coping skills. Positive support system - Psychosocial Test Tool Used:: HANDS Depression Questionnaire Tests Completed: SF - 36 survey completed, Mood Scale Test Total Mood Screening Score:: 0 Self-Efficacy Score:: 0 - Patient/Program Goal Preventative Medication(s):: Aspirin, TIM inhibitor, Clopidogrel, Beta maggy, Statin/lipid - Assistive Devices Assistive Devices:: None Fall Risk Assessed:: Yes Patient Health Questionnaire 30-Day Re-eval Assessment 1. Little interest or pleasure in doing things: Several days 2. Feeling down, depressed, or hopeless: Several days 3. Trouble falling or staying asleep, or sleeping too much: More than half the days 4. Feeling tired or having little energy: More than half the days 5. Poor appetite or overeating: Not at all 6. Feeling bad about yourself -- or that you are a failure or have let yourself or your family down: Several days 7. Trouble concentrating on things, such as reading the newspaper or watching television: Several days 8. Moving or speaking so slowly that other people could have noticed. Or the opposite - being so fidgety or restless that you have been moving around a lot more than usual: Not at all 9. Thoughts that you would be better off , or of hurting yourself in some way: Not at all How difficult have these problems made it for you to do your work, take care of things at home, or get along with other people?: Somewhat difficult Total Score: 8 Self-Efficacy 30-Day Re-eval Assessment We would like to know how confident you are in doing certain activities. Please select your confidence level for:: Select your confidence level for the following using the scale 1-10 where 1 is not at all confident and 10 is totally confident. Your score is the average of all 6 responses. Fatigue: How confident are you that you can keep the fatigue caused by your disease from interfering with the things you want to do? Select Number: 5 Physical Discomfort or Pain: How confident are you that you can keep the physical discomfort or pain of your disease from interfering with the things you want to do? Select Number: 6 Emotional Distress: How confident are you that you can keep the emotional distress caused by your disease from interfering with the things you want to do? Select Number: 5 Other Symptoms or Health Problems: How confident are you that you can keep other symptoms or health problems from interfering with the things you want to do? Select Number: 7 Different Tasks and Activities: How confident are you that you can do the different tasks and activities needed to manage your health condition so as to reduce your need to see a doctor? Select Number: 7 Medication: How confident are you that you can do things other than just taking medication to reduce how much your illness affects your everyday life? Select Number: 7 Total Score:: 6
[2017-08-05 10:27] VITALS: BP 124/76; BP 130/64
== END 2017-08-06 23:59 ==
LOC: CR 10:15
PROVIDERS: Family Provider Family Medicine; PCP Family Medicine; Visit Provider Internal Medicine Cardiovascular Disease
DX: Z95.5 Presence of coronary angioplasty implant and graft (principal)
CPT/HCPCS: 93798

== ENCOUNTER 2017-09-05 10:15 | Outpatient (RCR) | payer MEDICARE, MEDICAID, SELFPAY ==
[2017-06-26 13:13] VITALS: BMI 29.0
[2017-08-07 01:01] VITALS: BP 124/76; BP 130/64; BMI 30.9
[2017-08-08 12:42] LABS: AST(SGOT) 13 U/L (15-37); Alanine Aminotransfer ALT/SGPT 24 U/L (13-56); Albumin, Serum 3.5 g/dL (3.2-5.0); Alkaline Phosphatase 83 U/L (45-117); Bilirubin, Direct 0.12 mg/dL (0.00-0.30); Cholesterol 128 mg/dL (200); Globulin 3.9 g/dL (2.2-4.2); High Density Lipoprotein 42 mg/dL; Protein, Total 7.4 g/dL (6.4-8.2); Triglycerides 200 mg/dL; Very Low Density Lipoprotein 40 mg/dL (5-40)
--- NOTE | 2017-09-01 15:25 | PCM.CR.ITP ---
Exercise - Initial Assessment - Stages of Change Stages of Change:: Action - Exercise Prescription Mode:: Treadmill, Biodyne, Rower, Airdyne, NuStep Angina with exercise?: No - Hypertension Do any of the following apply?: Yes - Intervention Home Exercise/Activity Goal:: Sitting Time <3 hrs/day - Education Goals:: Warm-up, RPE KALE Scale, S/S, Safe Exercise, Self-Monitoring - Exercise Program Goals Exercise Program Goals: Aerobic Activity >30 min Exercise - 30-day Assessment - Visit Date of Eval: 08/05/17 - Stages of Change Stages of Change:: Action - Exercise Prescription Mode:: Treadmill, Rower, Airdyne, NuStep Frequency (x/week): 3 Duration:: 30 METs - Progression: 0.5-1 MET as tolerated: 4 Target Heart Rate:: 108-116 w/ max HR 101 - Intervention Home Exercise/Activity Goal:: Moderate Exercise 30 min/day x 5 days/wk - Education Goals:: Warm-up, RPE KALE Scale, S/S, Safe Exercise, Self-Monitoring - Exercise Program Goals Exercise Program Goals: Aerobic Activity >30 min Exercise - 60-Day Assessment - Visit Date of Eval: 09/01/17 - 08/04/2017-08/29/2017 Session #:: 21 - Stages of Change Stages of Change:: Action - Exercise Prescription Mode:: Biodyne, Rower, NuStep Frequency (x/week): 3 Duration:: 30 METs: 5 Target Heart Rate:: 108-116 Max HR 101 - Hypertension Resting Blood Pressure:: 118/78 Peak Exercise Blood Pressure:: 138/80 Medication Changes:: No - Intervention Home Exercise/Activity Goal:: Sitting Time <3 hrs/day - Education Goals:: Warm-up, RPE KALE Scale, S/S, Safe Exercise - Exercise Program Goals Exercise Program Goals: Aerobic Activity >30 min Exercise - Final/Discharge - Hypertension Do any of the following apply?: Yes Nutrition - Initial Assessment - Program Goals Nutrition Program Goals: LDL <70. Total Cholesterol <200. HDL >45. Triglycerides <150. HgbA1C <7%. BMI <25 - Stages of Change Stages of Change:: Action - Lipids Total Cholesterol (mg/dL) Goal = less than 200 mg/dL: 230 HDL Cholesterol (mg/dL) Goal = less than 45 mg/dL: 45 LDL Cholesterol (mg/dL) Goal = less than 70 mg/dL: 103 - Diabetes Diabetes:: No Non-Insulin Dependent?: No - Weight Management Body Fat %:: 30.48 Total Score:: 3 - Intervention Referral to dietitian:: No Referral to Diabetic Clinic:: No Will attend diet classes:: Yes - Education Gave educational materials for:: Healthy eating Nutrition - 30-Day Assessment - Program Goals Nutrition Program Goals: LDL <70. Total Cholesterol <200. HDL >45. Triglycerides <150. HgbA1C <7%. BMI <25 - Stages of Change Stages of Change:: Action - Lipids Has the patient seen the dietitian?: No - Diabetes Diabetes:: No Insulin: No Non-Insulin Dependent?: No - Intervention Referral to dietitian:: No Referral to Diabetic Clinic:: No Will attend diet classes:: Yes - Education Attended class for:: Healthy eating Nutrition - 60-Day Assessment - Program Goals Nutrition Program Goals: LDL <70. Total Cholesterol <200. HDL >45. Triglycerides <150. HgbA1C <7%. BMI <25 - Visit Date of Eval: 09/01/17 - 08/04/2017-08/29/2017 - Stages of Change Stages of Change:: Action - Lipids Has the patient seen the dietitian?: No - Diabetes Diabetes:: No Insulin: No Non-Insulin Dependent?: No - Weight Management Weight:: 82.327 kg - Intervention Referral to dietitian:: No Referral to Diabetic Clinic:: No Will attend diet classes:: Yes - Education Attended class for:: Healthy eating Nutrition - 90-Day Assessment - Program Goals Nutrition Program Goals: LDL <70. Total Cholesterol <200. HDL >45. Triglycerides <150. HgbA1C <7%. BMI <25 - Lipids Has the patient seen the dietitian?: No - Diabetes Diabetes:: No Insulin: No Non-Insulin Dependent?: No - Intervention Referral to dietitian:: No Referral to Diabetic Clinic:: No Will attend diet classes:: Yes - Education Attended class for:: Healthy eating Nutrition - Final Assessment - Program Goals Nutrition Program Goals: LDL <70. Total Cholesterol <200. HDL >45. Triglycerides <150. HgbA1C <7%. BMI <25 - Diabetes Diabetes:: No Insulin: No Non-Insulin Dependent?: No - Weight Management Body Fat %:: 30.48 Total Score:: 3 - Intervention Referral to dietitian:: No Referral to Diabetic Clinic:: No Will attend diet classes:: Yes Tobacco - Initial Assessment - Program Goals Tobacco Program Goals: Complete smoking cessation. Attend education classes. Improve Knowledge Test score - Stage of Change Stages of Change:: Action - Learning Barriers Learning Barriers: Vision, Ready to Learn Total Score:: 0 - Family Support Do you have family support?: Yes - Tobacco Use Tobacco Use: Non-smoker How long ago did you quit using tobacco products?: Greater than or equal to 6 months ago Do you use smokeless tobacco?: No - Intervention Smoking Cessation Referral:: No Individual Education/Counseling:: No Education Schedule Given:: Yes - Education Gave educational material for:: Coronary artery disease, Risk factors, Sexuality, Medical compliance, Cardiac A&P, Angina signs & symptoms Tobacco - 30-Day Assessment - Program Goals Tobacco Program Goals: Complete smoking cessation. Attend education classes. Improve Knowledge Test score - Stage of Change Stages of Change:: Action - Learning Barriers Learning Barriers: Participates in education - Family Support Do you have family support?: Yes - Tobacco Use Tobacco Use: Non-smoker Do you use smokeless tobacco?: No - Intervention Smoking Cessation Referral:: No Individual Education/Counseling:: No Education Schedule Given:: Yes - Education Attended class for:: Coronary artery disease, Risk factors, Sexuality, Medical compliance, Cardiac A&P, Angina signs & symptoms Tobacco - 60-Day Assessment - Program Goals Tobacco Program Goals: Complete smoking cessation. Attend education classes. Improve Knowledge Test score - Stage of Change Stages of Change:: Action - Learning Barriers Learning Barriers: Participates in education - Family Support Do you have family support?: Yes - Tobacco Use Tobacco Use: Non-smoker Do you use smokeless tobacco?: No - Intervention Smoking Cessation Referral:: No Individual Education/Counseling:: No Education Schedule Given:: Yes - Education Attended class for:: Coronary artery disease, Risk factors, Sexuality, Medical compliance, Cardiac A&P, Angina signs & symptoms Tobacco - 90-Day Assessment - Program Goals Tobacco Program Goals: Complete smoking cessation. Attend education classes. Improve Knowledge Test score - Family Support Do you have family support?: Yes - Tobacco Use Tobacco Use: Non-smoker Do you use smokeless tobacco?: No - Intervention Smoking Cessation Referral:: No Individual Education/Counseling:: No Education Schedule Given:: Yes - Education Attended class for:: Coronary artery disease, Risk factors, Sexuality, Medical compliance, Cardiac A&P, Angina signs & symptoms Tobacco - Final Assessment - Program Goals Tobacco Program Goals: Complete smoking cessation. Attend education classes. Improve Knowledge Test score - Learning Barriers Cardiac Knowledge Test Score:: 0 - Family Support Do you have family support?: Yes - Tobacco Use Tobacco Use: Non-smoker Do you use smokeless tobacco?: No - Intervention Smoking Cessation Referral:: No Individual Education/Counseling:: No Education Schedule Given:: Yes Psychosocial - Initial Assess - Target Goals Target Goals: Assess presence or absence of depression. Using a valid screening tool, maximizes coping skills. Positive support system - Stages of Change Stages of Change:: Action - Psychosocial Test Tool Used:: HANDS Depression Questionnaire Self-reported stress:: none Tests Completed: SF - 36 survey completed, Mood Scale Test Total Mood Screening Score:: 0 Self-Efficacy Score:: 0 - Education Gave educational materials for:: Coping techniques, Signs & symptoms of depression, Stress management, Relaxation techniques - Patient/Program Goal Preventative Medication(s):: Aspirin, TIM inhibitor, Clopidogrel, Beta maggy, Statin/lipid - Assistive Devices Assistive Devices:: None Fall Risk Assessed:: Yes Psychosocial - 30-Day Assess - Target Goals Target Goals: Assess presence or absence of depression. Using a valid screening tool, maximizes coping skills. Positive support system - Stages of Change Stages of Change:: Action - Psychosocial Test Tool Used:: HANDS Depression Questionnaire Total Mood Screening Score:: 0 Self-Efficacy Score:: 0 - Patient/Program Goal Preventative Medication(s):: Aspirin, TIM inhibitor, Clopidogrel, Beta maggy, Statin/lipid - Assistive Devices Assistive Devices:: None Fall Risk Assessed:: Yes Psychosocial - 60-Day Assess - Target Goals Target Goals: Assess presence or absence of depression. Using a valid screening tool, maximizes coping skills. Positive support system - Stages of Change Stages of Change:: Action - Psychosocial Test Tool Used:: HANDS Depression Questionnaire Total Mood Screening Score:: 0 Self-Efficacy Score:: 0 - Intervention PS - Interventions: Yes Attend Stress Management Classes, Yes Uses Stress Management Skills, No Referral to Mental Health, No Referral to [facility] Case Management, No Referral to Physician - Education Attended classes for:: Coping techniques, Signs & symptoms of depression, Stress management, Relaxation techniques - Patient/Program Goal Preventative Medication(s):: Aspirin, TIM inhibitor, Clopidogrel, Beta maggy, Statin/lipid - Assistive Devices Assistive Devices:: None Fall Risk Assessed:: Yes Psychosocial - 90-Day Assess - Target Goals Target Goals: Assess presence or absence of depression. Using a valid screening tool, maximizes coping skills. Positive support system - Psychosocial Test Tool Used:: HANDS Depression Questionnaire Total Mood Screening Score:: 0 Self-Efficacy Score:: 0 - Education Attended classes for:: Coping techniques, Signs & symptoms of depression, Stress management, Relaxation techniques - Patient/Program Goal Preventative Medication(s):: Aspirin, TIM inhibitor, Clopidogrel, Beta maggy, Statin/lipid - Assistive Devices Assistive Devices:: None Fall Risk Assessed:: Yes Psychosocial - Final Assessmen - Target Goals Target Goals: Assess presence or absence of depression. Using a valid screening tool, maximizes coping skills. Positive support system - Psychosocial Test Tool Used:: HANDS Depression Questionnaire Tests Completed: SF - 36 survey completed, Mood Scale Test Total Mood Screening Score:: 0 Self-Efficacy Score:: 0 - Patient/Program Goal Preventative Medication(s):: Aspirin, TIM inhibitor, Clopidogrel, Beta maggy, Statin/lipid - Assistive Devices Assistive Devices:: None Fall Risk Assessed:: Yes Patient Health Questionnaire 60-Day Re-eval Assessment 1. Little interest or pleasure in doing things: Not at all 2. Feeling down, depressed, or hopeless: Several days 3. Trouble falling or staying asleep, or sleeping too much: Several days 4. Feeling tired or having little energy: Several days 5. Poor appetite or overeating: Not at all 6. Feeling bad about yourself -- or that you are a failure or have let yourself or your family down: Not at all 7. Trouble concentrating on things, such as reading the newspaper or watching television: Not at all 8. Moving or speaking so slowly that other people could have noticed. Or the opposite - being so fidgety or restless that you have been moving around a lot more than usual: Not at all 9. Thoughts that you would be better off , or of hurting yourself in some way: Not at all Total Score: 3 Self-Efficacy 60-Day Re-eval Assessment We would like to know how confident you are in doing certain activities. Please select your confidence level for:: Select your confidence level for the following using the scale 1-10 where 1 is not at all confident and 10 is totally confident. Your score is the average of all 6 responses. Fatigue: How confident are you that you can keep the fatigue caused by your disease from interfering with the things you want to do? Select Number: 8 Physical Discomfort or Pain: How confident are you that you can keep the physical discomfort or pain of your disease from interfering with the things you want to do? Select Number: 8 Emotional Distress: How confident are you that you can keep the emotional distress caused by your disease from interfering with the things you want to do? Select Number: 8 Other Symptoms or Health Problems: How confident are you that you can keep other symptoms or health problems from interfering with the things you want to do? Select Number: 7 Different Tasks and Activities: How confident are you that you can do the different tasks and activities needed to manage your health condition so as to reduce your need to see a doctor? Select Number: 8 Medication: How confident are you that you can do things other than just taking medication to reduce how much your illness affects your everyday life? Select Number: 7 Total Score:: 7 Cardiac Rehabilitation Goals - Cardiac Rehab Goals Cardiac Rehabilitation Goals: 1. Maintain the individual as the primary focus of care. 2. To improve the patient's quality of life. 3. Identification of cardiac risk factors and provide cardiac risk factor management. 4. Enhance the psychosocial status of the patient. 5. Reconditioning enough to allow the patient to resume customary activities. 6. Control symptoms of cardiac disease - Scale Scale for measuring improvement of personal goals: Enter appropriate number in Comments. 2 = Unchanged. 3 = Slightly Better. 4 = Moderate Improvement. 5 = Met my Goal 60-Day Re-eval Assessment Personal Goals: 60-day Re-assessment: Improve management of stress and emotions, Improve energy level, Get back to work, or to resume activities faster
[2017-09-01 15:30] VITALS: BP 118/78; BP 138/80
== END 2017-09-06 23:59 ==
LOC: CR 10:15
PROVIDERS: Family Provider Family Medicine; PCP Family Medicine; Visit Provider Internal Medicine Cardiovascular Disease
DX: Z95.5 Presence of coronary angioplasty implant and graft (principal); E78.5 Hyperlipidemia, unspecified
CPT/HCPCS: 36415; 80061; 80076; 93798

== ENCOUNTER 2017-10-03 10:15 | Outpatient (RCR) | payer MEDICARE, MEDICAID, SELFPAY ==
[2017-06-26 13:13] VITALS: BMI 29.0
[2017-09-07 00:50] VITALS: BP 118/78; BP 138/80; BMI 30.9
[2017-09-29 13:16] VITALS: BP 110/68; BP 118/58
--- NOTE | 2017-09-29 13:17 | CR.ITP_ITS ---
General Information - General Information Admitting Diagnosis: NSTEMI, PCI with coronary stenting - Education/Goals Barriers to Learning: Vision Impairment Individual Counseling: Discharge Assessment: Abnormal Cholesterol Levels, High Blood Pressure Cardiac Rehabilitation Goals: 1. Maintain the individual as the primary focus of care. 2. To improve the patient's quality of life. 3. Identification of cardiac risk factors and provide cardiac risk factor management. 4. Enhance the psychosocial status of the patient. 5. Reconditioning enough to allow the patient to resume customary activities. 6. Control symptoms of cardiac disease Scale for measuring improvement of personal goals: Enter appropriate number in Comments. 2 = Unchanged. 3 = Slightly Better. 4 = Moderate Improvement. 5 = Met my Goal Personal Goals: Discharge Reassessment: Improve management of stress and emotions, Improve energy level, Participate in home exercise program, Improve diet and eating habits (eat healthier) Exercise - 90-Day Assessment - Visit Date of Eval: 09/29/17 Session #:: 33 - Stages of Change Stages of Change:: Action - Exercise Prescription Mode:: Anh, Amrita Brink Frequency (x/week): 3 Duration:: 30 METs: 5 Target Heart Rate:: 108-116 - Hypertension Resting Blood Pressure:: 110/68 Peak Exercise Blood Pressure:: 118/58 Medication Changes:: No - Intervention Home Exercise/Activity Goal:: Sitting Time <3 hrs/day - Education Goals:: Warm-up, RPE KALE Scale, S/S, Safe Exercise, Self-Monitoring - Exercise Program Goals Exercise Program Goals: Aerobic Activity >30 min, B/P <140/90 Nutrition - 90-Day Assessment - Program Goals Nutrition Program Goals: LDL <70. Total Cholesterol <200. HDL >45. Triglycerides <150. HgbA1C <7%. BMI <25 - Visit Date of Eval: 09/29/17 - Stages of Change Stages of Change:: Action - Lipids Has the patient seen the dietitian?: No - Diabetes Diabetes:: No - Weight Management Weight:: 81.42 kg - Intervention Referral to dietitian:: No Referral to Diabetic Clinic:: No Will attend diet classes:: Yes - Education Attended class for:: Signs & symptoms of hypoglycemia, Signs & symptoms of hyperglycemia, Relate diabetes to coronary artery disease, Healthy eating Tobacco - Initial Assessment - Program Goals Tobacco Program Goals: Complete smoking cessation. Attend education classes. Improve Knowledge Test score - Learning Barriers Learning Barriers: Vision, Ready to Learn Tobacco - 90-Day Assessment - Program Goals Tobacco Program Goals: Complete smoking cessation. Attend education classes. Improve Knowledge Test score - Stage of Change Stages of Change:: Action - Learning Barriers Learning Barriers: Participates in education - Family Support Do you have family support?: Yes - Tobacco Use Tobacco Use: Non-smoker Do you use smokeless tobacco?: No - Intervention Smoking Cessation Referral:: No Individual Education/Counseling:: No Education Schedule Given:: Yes - Education Attended class for:: Tobacco triggers, Coronary artery disease, Risk factors, Sexuality, Cardiac A&P, Angina signs & symptoms Psychosocial - Initial Assess - Target Goals Target Goals: Assess presence or absence of depression. Using a valid screening tool, maximizes coping skills. Positive support system - Psychosocial Test Tool Used:: HANDS Depression Questionnaire - Assistive Devices Fall Risk Assessed:: Yes Psychosocial - 90-Day Assess - Target Goals Target Goals: Assess presence or absence of depression. Using a valid screening tool, maximizes coping skills. Positive support system - Stages of Change Stages of Change:: Action - Psychosocial Test Tool Used:: HANDS Depression Questionnaire - Intervention PS - Interventions: Yes Attend Stress Management Classes, Yes Uses Stress Management Skills, No Referral to Mental Health, No Referral to [facility] Case Management, No Referral to Physician - Education Attended classes for:: Coping techniques, Stress management, Relaxation techniques - Assistive Devices Assistive Devices:: None Fall Risk Assessed:: Yes Patient Health Questionnaire 90-Day Re-eval Assessment 1. Little interest or pleasure in doing things: Not at all 2. Feeling down, depressed, or hopeless: Several days 3. Trouble falling or staying asleep, or sleeping too much: More than half the days 4. Feeling tired or having little energy: Several days 5. Poor appetite or overeating: Not at all 6. Feeling bad about yourself -- or that you are a failure or have let yourself or your family down: Not at all 7. Trouble concentrating on things, such as reading the newspaper or watching television: Several days 8. Moving or speaking so slowly that other people could have noticed. Or the opposite - being so fidgety or restless that you have been moving around a lot more than usual: Not at all 9. Thoughts that you would be better off , or of hurting yourself in some way: Not at all How difficult have these problems made it for you to do your work, take care of things at home, or get along with other people?: Somewhat difficult Total Score: 5 Self-Efficacy 90-Day Re-eval Assessment We would like to know how confident you are in doing certain activities. Please select your confidence level for:: Select your confidence level for the following using the scale 1-10 where 1 is not at all confident and 10 is totally confident. Your score is the average of all 6 responses. Fatigue: How confident are you that you can keep the fatigue caused by your disease from interfering with the things you want to do? Select Number: 7 Physical Discomfort or Pain: How confident are you that you can keep the physical discomfort or pain of your disease from interfering with the things you want to do? Select Number: 7 Emotional Distress: How confident are you that you can keep the emotional distress caused by your disease from interfering with the things you want to do? Select Number: 7 Other Symptoms or Health Problems: How confident are you that you can keep other symptoms or health problems from interfering with the things you want to do? Select Number: 7 Different Tasks and Activities: How confident are you that you can do the different tasks and activities needed to manage your health condition so as to reduce your need to see a doctor? Select Number: 7 Medication: How confident are you that you can do things other than just taking medication to reduce how much your illness affects your everyday life? Select Number: 7 Total Score:: 7
== END 2017-10-06 23:59 ==
LOC: CR 10:15
PROVIDERS: Family Provider Family Medicine; PCP Family Medicine; Visit Provider Internal Medicine Cardiovascular Disease
DX: Z95.5 Presence of coronary angioplasty implant and graft (principal)
CPT/HCPCS: 93798

== ENCOUNTER → 2017-10-08 10:19 | Outpatient (CLI) | payer MEDICARE, MEDICAID, SELFPAY ==
[2017-06-26 13:13] VITALS: BMI 29.0
--- NOTE | 2017-10-08 10:21 | STE_ITS ---
Reason For Study: CAD/ASHD Stress Results Protocol: Dobutamine Maximum Predicted HR: 155 bpm Target HR: 132 bpm% Maximum Predicted HR: 93 % DurationHeart Rate Stage (mm:ss) (bpm) BPDos eComment BASELINE 61 145/93 STAGE 1 3:00 61 125/7010.00 STAGE 2 3:00 90 128/6620.00 STAGE 3 3:00 13 7 132/7130.000.25 MG ATROPINE STAGE 4 1:39 14 4 / 40. 00 RECOVERY 99 150/66 Stress Duration: 10:39 mm:ss Maximum Stress HR: 144 bpm Baseline Echocardiogram Findings The estimated ejection fraction is 65 %. Stress Echo Wall motion Data Resting WMIntermediate WMStress WM Resting Wall Motion Wall Motion Stress No regional wall motion No regional wall motion abnormalities noted. abnormalities noted. EKG Data The baseline ECG demonstrates normal sinus rhythm with at rate of _ beats per minute. At peak infusion, upsloping ST changes only were noted, which did not meet the criteria for ischemia. Interpretation Summary The estimated ejection fraction is 65 %. Normal, adequate, dobutamine echocardiogram. Negative for ischemia by EKG and echocardiographic anterior. No anginal symptoms noted. Rare PVCs noted. Excellent heart rate response to dobutamine. Final LVEF is 75%. Appropriate blood pressure response to dobutamine. No complications. Ordering Physician: Juan Singh Referring Physician: Juan Singh Performed By: Che Johansen RDCS
== END ==
PROVIDERS: Family Provider Family Medicine; PCP Family Medicine; Visit Provider Internal Medicine Cardiovascular Disease
DX: I25.10 Atherosclerotic heart disease of native coronary artery without angina pectoris (principal); R06.09 Other forms of dyspnea; Z95.5 Presence of coronary angioplasty implant and graft
CPT/HCPCS: 93017; 93350; A4216

== ENCOUNTER 2018-01-29 21:32 | Emergency (ER) | payer MEDICARE, MEDICAID, SELFPAY ==
[2017-06-26 13:13] VITALS: BMI 29.0
[2018-01-29 21:34] VITALS: BP 154/85; PULSE 68; RESP 18; TEMP 37.1; O2SAT 95; BMI 29.9
--- NOTE | 2018-01-29 23:17 | ED.DCSUM_ITS ---
- ER Visit Summary Date of Service: 01/29/18 Chief Complaint: Right shoulder pain History of Present Illness: The patient is a [address] Hussein Tidwell. She reports that she has pain in her right shoulder that began approximately 1 month ago. She denies any trauma. No fall, MVA, or change in activity. She does report she had shingles in this area approximately 1 month ago and was on Z acyclovir. However, this seemed to resolve. She has no rash. Patient claims of a sharp pain in her shoulder is 10 out of 10 severity. Is worsened by movement relieved by rest. She is not taking anything for pain. She denies any paresthesias or weakness. Her review of systems is negative. Physical Examination: Vitals: Stable. Afebrile. General: Well-nourished and well-developed. Head: Normocephalic atraumatic. Neck: Supple, no lymphadenopathy. No JVD. Nontender. Cardiovascular: Regular rate and rhythm. No murmurs. Respiratory: No respiratory distress. Clear to auscultation bilaterally. Abdominal: Soft, nontender, nondistended, normal bowel sounds. No guarding, rebound, or peritoneal signs. Back: Nontender. Extremities: Moderate tenderness palpation over her right deltoid. She has pain with range of motion active much greater than passive. There is no overlying erythema or warmth to suggest a septic joint. She has 2+ radial pulse. She has normal sensation light touch. Skin: Normal color, no rash. Neurologic: Alert and oriented ?3. Cranial nerves II through XII are intact. Normal strength and sensation. Psych: Normal affect. Test Results: X-ray shows calcific tendinitis. Emergency Department Course and Treatment: Patient was placed in a sling. She is resting comfortably. Treatment Plan: Patient will be discharged with Bouse and Colace. She is instructed to follow-up with her orthopedic surgeon is [facility] within a week for another exam. Return to the emergency department for any worsening symptoms. Disposition: To home in improved and stable condition. Impression: 1. Calcific tendinitis right shoulder. This note was generated with [employer] software. It may contain incorrect words, spelling, and punctuation that were not noted in review of the chart prior to signing ED Disposition - Plan for ED Patient: Disposition: Home or Assisted Living Chief Complaint: Upper Extremity Injury Instructions: ED Tendinitis Calcific Prescriptions: Docusate Sodium [Colace] 100 mg PO DAILY #20 capsule Hydrocodone/Acetaminophen [Bouse 5-325 Tablet] 1 - 2 each PO 4X/DAY PRN PRN 5 Days #20 tablet PRN Reason: Pain Referrals: Doctor,Your [STAFF PHYSICIAN] - 1 Week
[2018-01-29] MEDS: HYDROcodone Bitartrate/Apap 5/325 Tablet PO (23:51)
== END 2018-01-29 23:52 | disposition home or self-care (01) ==
LOC: ED 22:16
PROVIDERS: Emergency Provider Emergency Medicine; Family Provider Family Medicine; PCP Family Medicine
DX: M75.31 Calcific tendinitis of right shoulder (principal); I25.10 Atherosclerotic heart disease of native coronary artery without angina pectoris; I10 Essential (primary) hypertension; E78.00 Pure hypercholesterolemia, unspecified; Z87.891 Personal history of nicotine dependence
CPT/HCPCS: 73030; 99283

== ENCOUNTER 2018-01-31 20:08 | Emergency (ER) | payer MEDICARE, MEDICAID, SELFPAY ==
[2017-06-26 13:13] VITALS: BMI 29.0
[2018-01-31 20:08] VITALS: PULSE 85; RESP 16; TEMP 36.9; O2SAT 96; BMI 29.3
[2018-01-31] MEDS: morphine 10 MG/ML Syringe 4 MG SC (20:39)
[2018-01-31] MEDS: Triamcinolone Acetonide 40 MG/ML Vial IM (20:39)
[2018-01-31 20:45] VITALS: PULSE 83; RESP 16; O2SAT 97
--- NOTE | 2018-01-31 20:47 | ED.VISSUMM ---
- ER Visit Summary Date of Service: 01/31/18 Chief Complaint: Right shoulder pain History of Present Illness: The patient is a 68 F persistent right shoulder pain for 2 days. No falls or injuries. Seen 2 days ago in the ED with x-rays that were negative. Prescription for [place] and Colace, states no improvement. She was prescribed a sling however states it made it worse therefore threw it away. She does follow [facility] orthopedist, has not made an appointment. Allergy to oxycodone. He states that shingles a month ago however is in her axilla not on her shoulder. X-ray reviewed, had calcified tendinitis of the shoulder. Patient requests direct shoulder injection. Physical Examination: General: Alert and oriented ?3, no acute distress HEENT: Normocephalic, atraumatic. Moist mucosa membranes Neck: supple, nontender. Cardiovascular: Regular rate and rhythm, no murmurs Respiratory: Normal breath sounds, symmetric, no distress Abdomen: Soft, nontender, nondistended Extremities: Right upper extremity: Tender palpation proximal shoulder with no deformities. No rash. Pain worse with abduction. Distal pulse and sensation intact. Neuro: no focal neurological deficits. Test Results: [] Emergency Department Course and Treatment: X-ray reviewed from 2 days ago, there is no new injuries. She has persistent symptoms. Her shingles were in her axilla therefore not likely neuropathic pain. She is not a diabetic. Discussed with patient we will give Kenalog injection with the subcu morphine for comfort. She does have [place]. Discussed with patient to call her orthopedist for outpatient follow-up for direct injections as indicated. Patient understands and agrees with plan. Treatment Plan: [] Disposition: Discharge Impression: Calcific tendinitis right shoulder, subsequent encounter This note was generated with TuneCore dictation software. It may contain incorrect words, spelling, and punctuation that were not noted in review of the chart prior to signing ED Disposition - Plan for ED Patient: Disposition: Home or Assisted Living Chief Complaint: Upper Extremity Injury Diagnosis: Calcific tendinitis of right shoulder Instructions: ED Tendinitis Calcific Referrals: Hussein Tidwell MD [Primary Care Provider] - Additional Instructions: Take your medications as prescribed. Call your orthopedist for follow-up.
--- NOTE | 2018-01-31 21:03 | ED.RN ---
PT GIVEN WRITTEN AND VERBAL DISCHARGE INSTRUCTIONS AND VERBALIZES UNDERSTANDING. PT REFUSED D/C VITALS AND AMBULATED OUT OF DEPT WITH FRIEND.
== END 2018-01-31 21:04 | disposition home or self-care (01) ==
PROVIDERS: Emergency Provider Emergency Medicine; Family Provider Family Medicine; PCP Family Medicine
DX: M75.31 Calcific tendinitis of right shoulder (principal); I25.10 Atherosclerotic heart disease of native coronary artery without angina pectoris; I25.2 Old myocardial infarction; E78.00 Pure hypercholesterolemia, unspecified; I10 Essential (primary) hypertension
CPT/HCPCS: 96361; 96372; 96374; 96375; 99283

== ENCOUNTER → 2018-03-04 10:22 | Outpatient (CLI) | payer MEDICARE, MEDICAID, SELFPAY ==
[2017-06-26 13:13] VITALS: BMI 29.0
[2018-03-04 12:08] LABS: Absolute Lymphocyte Count 1.32 X10^3/ul (0.83-4.51); Absolute Neutrophil Count 3.4 X10^3/uL (2.0-7.7); Basophil# 0.02 X10^3/uL; Basophil% 0.4 % (0-1); Eosinophil# 0.11 X10^3/uL; Hematocrit 43.4 % (37-47); Hemoglobin 14.3 g/dl (12.0-15.0); Lymphocyte # 1.32 X10^3/ul (4.0); Lymphocyte % 24.5 % (19-41); Mean Corp Hgb Conc 32.9 g/gl (32-36); Mean Corpuscular Hgb 28.3 pg (27.0-32.0); Mean Corpuscular Volume 85.8 fL (81-99); Mean Platelet Vol. 9.4 fl (6.2-12.0); Monocyte# 0.54 X10^3/uL; Neutrophil # 3.38 X10^3/uL (2.7-7.7); Neutrophil % 62.9 % (47-70); Platelet Count 199 K/mm3 (150-450); RBC Distribution Width CV 14.1 % (11.6-14.6); Red Blood Count 5.06 M/mm3 (4.2-5.4); White Blood Count 5.4 K/mm3 (4.4-11.0)
[2018-03-04 12:12] LABS: POSITIVE COUNT NO; POSITIVE DIFFERENTIAL NO; POSITIVE MORPHOLOGY NO
[2018-03-04 12:38] LABS: ALB/GLOB Ratio 0.9 RATIO (0.9-2.4); AST(SGOT) 8 U/L (15-37); Alanine Aminotransfer ALT/SGPT 28 U/L (13-56); Albumin, Serum 3.3 g/dL (3.2-5.0); Alkaline Phosphatase 79 U/L (45-117); Anion Gap 8 (5-15); BUN 20 mg/dL (7-18); BUN/Creat Ratio 24.2 RATIO (10-20); Calcium,Total 8.8 mg/dL (8.5-10.1); Chloride 106 mmol/L (98-107); Cholesterol 128 mg/dL (200); Creatinine, Serum 0.83 mg/dL (0.55-1.02); EST Glomerular Filtration Rate 74 mL/min (>60); Est Glom Filt Rate - Afr Amer 89 mL/min (>60); Globulin 3.8 g/dL (2.2-4.2); Glucose 97 mg/dL (74-106); High Density Lipoprotein 54 mg/dL; Potassium 3.8 mmol/L (3.5-5.1); Protein, Total 7.1 g/dL (6.4-8.2); Sodium Level 141 mmol/L (136-145); T4 Free Direct 1.02 ng/dL (0.76-1.46); Triglycerides 104 mg/dL; Very Low Density Lipoprotein 21 mg/dL (5-40)
== END ==
PROVIDERS: Family Provider Family Medicine; PCP Family Medicine; Visit Provider Family Medicine
DX: I10 Essential (primary) hypertension (principal); E78.5 Hyperlipidemia, unspecified; I25.10 Atherosclerotic heart disease of native coronary artery without angina pectoris
CPT/HCPCS: 36415; 80053; 80061; 84439; 84443; 85025

== ENCOUNTER 2018-05-08 18:34 | Emergency (ER) | payer MEDICARE, MEDICAID, SELFPAY ==
[2017-06-26 13:13] VITALS: BMI 29.0
[2018-05-08 18:34] VITALS: BMI 29.0
[2018-05-08 18:37] VITALS: BP 130/71; PULSE 83; RESP 17; TEMP 36.1; O2SAT 97; BMI 30.7
--- NOTE | 2018-05-08 18:59 | CT_ITS ---
STUDY: CT SOFT TISSUE NECK WITH CONTRAST REASON FOR EXAM: Female, 68 years old. Lump in throat RADIATION DOSAGE (If Supplied By Facility): CTDIvol = ( 20.76 ) mGy, DLP = ( 616.99 ) mGycm TECHNIQUE: The patient was scanned in a multi-detector CT scanner. High resolution transaxial imaging was performed following intravenous administration of 75 ml of Isovue 300 contrast material. Sagittal and coronal images were reconstructed. Individualized dose optimization techniques were used for this CT. COMPARISON: None. FINDINGS: Normal bilateral parotid glands. Normal bilateral pediatric dentist spaces. Normal bilateral parapharyngeal spaces. Normal bilateral carotid spaces. Normal bilateral sublingual and submandibular glands and spaces. Normal visualized nasopharynx. Normal retropharyngeal space. Normal perivertebral space. Irregular soft tissue density within the left side of the vallecula possibly representing a slightly prominent lingual tonsil. The visualized tongue, tongue base and oropharynx are normal. 1 cm submental node is noted. There is no demonstrated solid or cystic mass lesion. There is no abnormal contrast enhancement. Normal epiglottis and hypopharynx. The pre-epiglottic and paraglottic adipose spaces are normal. Normal visualized bilateral piriform sinuses, aryepiglottic folds, vocal cords, and arytenoid-cricoid articulations. Normal subglottic trachea. Complex, cystic and solid centimeter nodular lesions are noted within the bilateral lobes of the thyroid gland. Normal visualized pulmonary apices. Normal visualized paranasal sinuses. Degenerative changes of the visualized cervical spine. CT/Soft Tissue Neck WITH Contrast IMPRESSION: Slightly prominent lingual tonsil extending into the left side of the vallecula. Direct visualization is recommended. Thyroid nodules bilaterally. Electronically Signed: Jordy Branch DO at 20:12 EST Tel [phone], Service support ,
[2018-05-08 19:24] LABS: Absolute Lymphocyte Count 1.09 X10^3/ul (0.83-4.51); Absolute Neutrophil Count 4.8 X10^3/uL (2.0-7.7); Basophil# 0.03 X10^3/uL; Basophil% 0.4 % (0-1); Eosinophil# 0.16 X10^3/uL; Eosinophils% 2.4 % (0-5); Hemoglobin 13.8 g/dl (12.0-15.0); Lymphocyte # 1.09 X10^3/ul (4.0); Lymphocyte % 16.2 % (19-41); Mean Corp Hgb Conc 33.7 g/gl (32-36); Mean Corpuscular Hgb 28.5 pg (27.0-32.0); Mean Corpuscular Volume 84.5 fL (81-99); Mean Platelet Vol. 9.1 fl (6.2-12.0); Monocyte# 0.59 X10^3/uL; Monocyte% 8.8 % (0-10); Neutrophil # 4.84 X10^3/uL (2.7-7.7); Neutrophil % 72.2 % (47-70); Platelet Count 216 K/mm3 (150-450); RBC Distribution Width CV 13.3 % (11.6-14.6); Red Blood Count 4.85 M/mm3 (4.2-5.4); White Blood Count 6.7 K/mm3 (4.4-11.0)
[2018-05-08 19:25] LABS: POSITIVE COUNT NO; POSITIVE DIFFERENTIAL NO; POSITIVE MORPHOLOGY NO
[2018-05-08 19:36] LABS: Anion Gap 8 (5-15); BUN 10 mg/dL (7-18); BUN/Creat Ratio 10.9 RATIO (10-20); Calcium,Total 8.6 mg/dL (8.5-10.1); Chloride 108 mmol/L (98-107); Creatinine, Serum 0.92 mg/dL (0.55-1.02); EST Glomerular Filtration Rate 65 mL/min (>60); Est Glom Filt Rate - Afr Amer 79 mL/min (>60); Estimated Creatinine Clearance 56.31 ml/min; Glucose 119 mg/dL (74-106); Potassium 3.3 mmol/L (3.5-5.1); Sodium Level 144 mmol/L (136-145)
--- NOTE | 2018-05-08 20:45 | ED.DCSUM_ITS ---
- ER Visit Summary Date of Service: 05/08/18 Chief Complaint: [Swelling to anterior aspect of throat] History of Present Illness: The patient is a 68 F [presents to the emergency department complaint of swelling underneath her chin that started earlier today when she woke up. Patient states that yesterday she developed a small what she thought was pimple on the left side of her chin. Patient's not had any fevers. She denies recent illness. She denies any trauma. She denies difficulty swallowing.] Physical Examination: [HEENT-PERRLA, EOMI. Cranial nerves II through XII grossly intact. TMs clear. Mucous membranes moist. No adenopathy. Anterior submental space has an area of soft tissue swelling but slightly tender to palpation slightly erythematous. Area of swelling measures approximately 2.5 x 3 cm. Patient also has small superficial ulceration on the left anterior chin. Thyroid does not appear enlarged and freely mobile when she swallows. Pharynx not erythematous. Uvula midline with no trismus. Patient has no tenderness to the floor the mouth and she is able to touch her tongue to the roof of her mouth without difficulty. Cardiovascular-regular rate and rhythm without murmur or ectopy Lungs-clear to auscultation, chest wall stable without crepitus or subcu emphysema Abdomen-normoactive bowel sounds, soft, nontender, no rebound or rigidity, no peritoneal signs. Extremities-intact ?4, normal range of motion, normal pulses, atraumatic] Test Results: [CBC with differential obtained showed a white count 6.7, hemoglobin 13.8, hematocrit 41, platelets 216. Chemistries unremarkable. CT scan soft tissue neck with IV contrast obtained showed slightly prominent lingual tonsil extending into the left side of the vallecula. Direct visualization recommended. Patient also noted to have thyroid nodules bilaterally. Patient had a 1 cm submental node noted.] Emergency Department Course and Treatment: [Patient had results discussed with her. At this point I suspect she may have a reactive lymph node that is becoming cellulitic and I will cover her with antibiotics. Patient is allergic to penicillin therefore I will start her on clindamycin. Patient will be referred to ear nose and throat for follow-up as she has a relationship with Dr. Rocky Fajardo.] Treatment Plan: [Clindamycin and follow-up with ENT] Disposition: [Discharged home in stable condition] Impression: [Adenitis Cellulitis] This note was generated with Filecubed dictation software. It may contain incorrect words, spelling, and punctuation that were not noted in review of the chart prior to signing ED Disposition - Plan for ED Patient: Chief Complaint: Other, Pain/Inj Referrals: Hussein Tidwell MD [Primary Care Provider] -
--- NOTE | 2018-05-08 20:45 | ED.DEP ---
ED Disposition - Plan for ED Patient: Chief Complaint: Other, Pain/Inj Instructions: ED Cervical Adenitis Abx Tx, ED Cellulitis Facial Prescriptions: Clindamycin HCl [Cleocin] 300 mg PO Q6H #40 cap Referrals: Hussein Tidwell MD [Primary Care Provider] - Rocky Fajardo MD [STAFF PHYSICIAN] - 3-5 Days
[2018-05-08 21:40] VITALS: BP 148/86; PULSE 88; RESP 16; O2SAT 100
--- OUTSIDE RECORDS SUMMARY | 2018-07-03 16:40 | XMS RPT_ITS ---
:1950 Author Organization [facility] Address [address] [place] [phone] Phone Care Team Providers Name Role Phone Prashant Jordan MD Unavailable Reason for Visit Reason For Visit Description Start Date New/Est - 1st visit with physician Preliminary reason for visit data, not yet signed by the author as of right shoulder pain Preliminary reason for visit data, not yet signed by the author as of Chief Complaint Chief Complaint Description Start Date right shoulder pain Preliminary chief complaint data, not yet signed by the author as of Instructions Instruction Description Start Date Patient advised to follow-up with Primary Care Physician for BMI management. Plan of Care Type Date Detail Appointment 01:00 PM Prashant Jordan MD, [address], [address], Pending order XR SHOULDER 2 VWS-RT Patient education [email or web address] Medications Medication Instructions Start Stop Generic Name NDC Provider Date Date MEDROL 4 MG Take by mouth METHYLPREDNISOLONE 55116936757 Prashant Merida TBPK daily as 30 Julian OLIVEROS directed ASPIRIN ADULT 1 tablet daily ASPIRIN 32259689270 Prashant Merida LOW DOSE 81 30 Julian OLIVEROS MG TBEC Conditions or Problems Problem Name Problem Code Onset Status Entry Provider Comment Standard Annotate Date Date Description Calcific 72093131 Active Prashant Merida Calcific right tendinitis (SNOMED CT) 02/05 02/05 Julian OLIVEROS tendinitis shoulder History of 037978471133 Active Prashant Merida History of shingles 108 (SNOMED 02/05 02/05 Julian OLIVEROS herpes zoster CT) Status post 192236659 Active Nadiya History of lumbar (SNOMED CT) 07/17 07/17 Opsitnick operative microdiscect 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 procedure on [place]ward lumbar spinal structure Lumbar disc 675252847 Active Scot D 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, 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 Kelsey DO lumbar left intervertebral disc Allergies, Adverse Reactions, Alerts Allergy Name Reaction Start Date Severity Status Provider Description MORPHINE SULFATE rash Severe Active Prashant Jordan MD PERCOCET rash Severe Active Prashant Merida (OXYCODONE-ACETAMI Julian CARDONA TABS) BEE STINGS swelling, Severe Active Prashant Jordan MD STRAWBERRIES anaphylaxis Critical Active Prashant Jordan MD CODEINE PHOSPHATE rash, hives Severe Active Prashant Jordan MD PENICILLIN as child Severe Active Prashant Jordan MD NORCO blisters Severe Active Prashant Jordan MD Social History No information available. Vital Signs Date Name Value Unit Description BMI (Body Mass 28.35 kg/m2 Body Mass Index Index) [Ratio] Preliminary vital sign data, not yet signed by the author as of BP Diastolic 99 mm[Hg] blood pressure, diastolic Preliminary vital sign data, not yet signed by the author as of BP Systolic 149 mm[Hg] blood pressure, systolic Preliminary vital sign data, not yet signed by the author as of Heart Rate 63 /min pulse rate E&M Preliminary vital sign data, not yet signed by the author as of Height 66 [in_us] height E&M Preliminary vital sign data, not yet signed by the author as of Height 168 cm height in centimeters E&M Preliminary vital sign data, not yet signed by the author as of Weight Measured 175 [lb_av] weight E&M Preliminary vital sign data, not yet signed by the author as of Weight Measured 80 kg weight in kilograms E&M Preliminary vital sign data, not yet signed by the author as of Results Date Name Value Unit Range Flag Description Office Visit: New/Est - 1st visit with physician, Rm: 14 MEDS REVIEW Done Documentation of current medications (procedure) Preliminary observation data, not yet signed by the author as of Preliminary observation data, not yet signed by the author as of XRAY HX of the right xray history shoulder on 01/29/2018 at [facility] Preliminary observation data, not yet signed by the author as of Clinical Summary: HMSPatientID OOP account number Procedures Code Procedure Name Date Entry Date G8730 Pain assessment documented as positive - follow-up documented G8427 Current medications documented 1036F Tobacco screening was negative - non user G8417 BMI documented as above normal parameters - follow-up documented [id number] Patient Encounter Medications Administered No information available. Immunizations No information available. Advance Directives There may be information available, but it has not been provided by the sender. Assessments There may be information available, but it has not been provided by the sender. Review of Systems There may be information available, but it has not been provided by the sender. Family History There may be information available, but it has not been provided by the sender. History of Past Illness There may be information available, but it has not been provided by the sender. History of Present Illness There may be information available, but it has not been provided by the sender.
--- OUTSIDE RECORDS SUMMARY | 2018-07-03 16:40 | XMS RPT_ITS ---
:1950 Author Organization [employer] Address [address] [place] [phone] Phone Care Team Providers Name Role Phone Julian OLIVEROS, Prashant Thomas Reason for Visit Reason For Visit Description Start Date Follow-up by complaint Preliminary reason for visit data, not yet [...] Plan of Care Type Date Detail Appointment 11:00 AM Prashant Jordan MD, [address] [address], [place], [address], Medications Medication Instructions Start Stop Generic Name NDC Provider Date Date SIMVASTATIN 5 MG 1 tablet daily / SIMVASTATIN [id number] Millicent TABS 30 Albrecht CLOTH MERCERIZING SUPERVISOR FAMOTIDINE 20 MG 1 tablet daily / FAMOTIDINE 33151028802 Millicent TABS 30 Albrecht CLOTH MERCERIZING SUPERVISOR PAROXETINE HCL 1 tablet daily / PAROXETINE HCL 21770740553 Millicent 20 MG TABS 30 Albrecht CLOTH MERCERIZING SUPERVISOR EZETIMIBE 10 MG 1 tablet daily / EZETIMIBE 82192013210 Millicent TABS 30 Albrecht CLOTH MERCERIZING SUPERVISOR CARVEDILOL 3.125 1 tablet twice / CARVEDILOL 79442741239 [employer]ent MG TABS daily 30 Albrecht CLOTH MERCERIZING SUPERVISOR LOSARTAN 1 tablet daily / LOSARTAN 70545632920 Mill[employer]ent POTASSIUM-HCTZ 30 POTASSIUM-HCTZ Albrecht CLOTH MERCERIZING SUPERVISOR 50-12.5 MG TABS VENTOLIN HFA 108 as needed / ALBUTEROL 95971900667 Millicent (90 Base) 30 SULFATE Albrecht CLOTH MERCERIZING SUPERVISOR MCG/ACT AERS POTASSIUM 1 tablet twice / POTASSIUM 73832507771 [employer]ent CHLORIDE ER 10 daily 30 CHLORIDE Albrecht CLOTH MERCERIZING SUPERVISOR MEQ CR-TABS BRILINTA 90 MG 1 tablet twice / TICAGRELOR 70134140300 Millicent TABS daily 30 Albrecht CLOTH MERCERIZING SUPERVISOR NITROGLYCERIN as needed / NITROGLYCERIN 86018288862 Mill[employer]ent 0.4 MG SUBL 30 Albrecht CLOTH MERCERIZING SUPERVISOR ASPIRIN ADULT 1 tablet daily / ASPIRIN 35180319696 Prashant Merida LOW DOSE 81 MG 30 Julian OLIVEROS TBE Conditions or Problems Problem Name Problem Code Onset Status Entry Provider Comment Standard Annotate Date Date Description Calcific 39757183 Active Prashant Merida Calcific right tendinitis (SNOMED CT) 02/05 02/05 Julian OLIVEROS tendinitis shoulder History of 893223299008 Active Prashant Merida History of shingles 108 (SNOMED 02/05 02/05 Julian OLIVEROS herpes zoster CT) Status post 717413293 Active Nadiya History of lumbar (SNOMED CT) 07/17 07/17 Opsitnick 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 procedure on [place] lumbar spinal structure Lumbar disc 982845006 Active Scot D 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, 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 Kelsey DO lumbar left intervertebral disc Allergies, Adverse Reactions, Alerts Allergy Name Reaction Start Date Severity Status Provider Description MORPHINE SULFATE rash Severe Active Prashant Jordan MD PERCOCET rash Severe Active Prashant Merida (OXYCODONE-ACETAMI Julian OLIVEROS NOPHEN TABS) BEE STINGS swelling, Severe Active Prashant Jordan MD STRAWBERRIES anaphylaxis Critical Active Prashant Jordan MD CODEINE PHOSPHATE rash, hives Severe Active Prashant Jordan MD PENICILLIN as child Severe Active Prashant Jordan MD NORCO blisters Severe Active Prashant Jordan MD Social History No information available. Vital Signs Date Name Value Unit Description BMI (Body Mass 28.56 kg/m2 Body Mass Index Index) [Ratio] Preliminary vital sign data, not yet signed by the author as of BP Diastolic 86 mm[Hg] blood pressure, diastolic Preliminary vital sign data, not yet signed by the author as of BP Systolic 135 mm[Hg] blood pressure, systolic Preliminary vital sign data, not yet signed by the author as of Heart Rate 60 /min pulse rate E&M Preliminary vital sign data, not yet signed by the author as of Height 66.941680 [in_us] height E&M Preliminary vital sign data, not yet signed by the author as of Height 169 cm height in centimeters E&M Preliminary vital sign data, not yet signed by the author as of Weight Measured 179 [lb_av] weight E&M Preliminary vital sign data, not yet signed by the author as of Weight Measured 81 kg weight in kilograms E&M Preliminary vital sign data, not yet signed by the author as of Results Date Name Value Unit Range Flag Description Office Visit: Follow-up by shabbir, Rm: 14 MEDS REVIEW Done Documentation of current medications (procedure) Preliminary observation data, not yet signed by the author as of Preliminary observation data, not yet signed by the author as of Clinical Summary: HMSPatientID OOP account number Procedures Code Procedure Name Date Entry Date G8731 Pain assessment documented as negative - follow-up not required G8427 Current medications documented 1036F Tobacco screening was negative - non user G8417 BMI documented as above normal parameters - follow-up documented G8783 Blood pressure within normal parameters - no follow-up required [id number] Patient Encounter Medications Administered No information available. [...]
--- OUTSIDE RECORDS SUMMARY | 2018-07-03 16:41 | XMS RPT_ITS ---
:1950 Author Organization OHIP Support Name Relationship Address Phone LLUVIA TONIE OSMAN Unavailable . + [place] [address] PILSITZ, RUSH Unavailable . + [place] [address] R Unavailable Unavailable Unavailable LLUVIA OSMANTONIE Unavailable . + [place] [address] PILSITZ, RUSH Unavailable . + [place] [address] R Unavailable Unavailable Unavailable LLUVIA OSMANTONIE Unavailable Unavailable + [place] [address] PILSITZ, RUSH Unavailable Unavailable + [place] [address] R Unavailable Unavailable Unavailable TONIE TEIXEIRA JR Unavailable Unavailable + [place] [address] PILSITZ, RUSH Unavailable Unavailable + [place] [address] R Unavailable Unavailable Unavailable TONIE TEIXEIRA JR Unavailable Unavailable + [place] [address] PILSITZ, RUSH Unavailable Unavailable + [place] [address] R Unavailable Unavailable Unavailable LLUVIA OSMANTONIE Unavailable Unavailable + [place] [address] PILSITZ, RUSH Unavailable Unavailable + [place] [address] R Unavailable Unavailable Unavailable LLUVIA TONIE OSMAN Unavailable Unavailable + [place] [address] PILSITZ, RUSH Unavailable Unavailable + [place] [address] R Unavailable Unavailable Unavailable LLUVIA JRTONIE Unavailable Unavailable + [place] [address] PILSITZ, RUSH Unavailable Unavailable + [place] [address] R Unavailable Unavailable Unavailable TONIE TEIXEIRA JR Unavailable Unavailable + [place] [address] PILSITZ, RUSH Unavailable Unavailable + [place] [address] R Unavailable Unavailable Unavailable TONIE TEIXEIRA JR Unavailable . + [place] [address] PILSITZ, RUSH Unavailable . + [place] [address] R Unavailable Unavailable Unavailable TONIE TEIXEIRA JR Unavailable Unavailable + PILSITZ, RUSH Unavailable Unavailable + R Unavailable Unavailable Unavailable TONIE TEIXEIRA JR Unavailable NA + [place], [place] PILSITZ, RUSH Unavailable NA + [place], [place] R Unavailable Unavailable Unavailable TONIE TEIXEIRA JR Unavailable NA + [place], [place] PILSITZ, RUSH Unavailable NA + [place], [place] R Unavailable Unavailable Unavailable LLUVIA TONIE OSMAN Unavailable NA + [place], [place] PILSITZ, RUSH Unavailable NA + [place], [place] R Unavailable Unavailable Unavailable TONIE TEIXEIRA JR Unavailable NA + [place], [place] PILSITZ, RUSH Unavailable NA + [place], [place] R Unavailable Unavailable Unavailable TONIE TEIXEIRA JR Unavailable [address] + [place] [address] PILSITZ, RUSH Unavailable [address] [facility] + [place] [address] R Unavailable Unavailable Unavailable LLUVIA TONIE OSMAN Unavailable [address] + [place] [address] PILSITZ, RUSH Unavailable [address] + [place] [address] R Unavailable Unavailable Unavailable LLUVIA OSMAN TONIE Unavailable [address] + [place] [address] PILSITZ, RUSH Unavailable [address] + [place] [address] R Unavailable Unavailable Unavailable TONIE TEIXEIRA JR Unavailable [address] + [place] [address] PILSITZ, RUSH Unavailable [address] + [place] [address] R Unavailable Unavailable Unavailable TONIE TEIXEIRA JR Unavailable [address] + [place] [address] PILSITZ, RUSH Unavailable [address] + [place] [address] R Unavailable Unavailable Unavailable TONIE TEIXEIRA JR Unavailable [address] + [place] [address] PILSITZ, RUSH Unavailable [address] + [place] [address] R Unavailable Unavailable Unavailable TONIE TEIXEIRA JR Unavailable [address] + [place] [address] PILSITZ, RUSH Unavailable [address] + [place] [address] R Unavailable Unavailable Unavailable TONIE TEIXEIRA JR Unavailable [address] + [place] [address] PILSITZ, RUSH Unavailable [address] + [place] [address] R Unavailable Unavailable Unavailable TONIE TEIXEIRA JR Unavailable [address] + [place] [address] PILSITZ, RUSH Unavailable [address] + [place] [address] R Unavailable Unavailable Unavailable TONIE TEIXEIRA JR Unavailable [address] + [place] [address] PILSITZ, RUSH Unavailable [address] + [place] [address] R Unavailable Unavailable Unavailable Care Team Providers Name Role Phone [facility] Unavailable CRISTOFER VELASQUEZ Attending [facility]available [facility] Un[facility] White, Stacy Admitting Unavailable Moodbrooke, Alberto Consulting Unavailable Monica Shankar Attending Unavailable White, Stacy Admitting Unavailable White, Stacy Attending Unavailable [facility] Unavailable White, Stacy Consulting Unavailable White, Stacy Admitting Unavailable Layla Alberto Attending [facility]available [facility] Layla, Alberto Consulting Unavailable Monica Shankar Consulting Unavailable White, Stacy Admitting Unavailable Layla Alberto Attending Unavailable [facility] Unavailable Moodispaw, Alberto Consulting Unavailable Sementi, Monica Consulting Unavailable White, Stacy Admitting Unavailable Sementi, Monica Attending Unavailable Yaw, [facility] Unavailable Moodispaw, Alberto Consulting Unavailable Sementi, Monica Consulting Unavailable White, Stacy Admitting Unavailable Sementi, Monica Attending Unavailable Yaw, [facility] Unavailable Moodispaw, Alberto Consulting Unavailable Sementi, Monica Consulting Unavailable Juan Gan Attending Unavailable Yaw, Hussein Referring Unavailable Juan Gan Attending Unavailable Juan Gan Referring Unavailable Yaw, [facility] Unavailable Juan Gan Attending Unavailable Yaw, [facility] Unavailable Gisselle Julian Attending Unavailable Tonie Duque Attending Unavailable Yaw, Hussein Referring Unavailable Yaw, [facility] Unavailable [facility], [facility] Unavailable Lincoln Haines Attending Unavailable Juan Gan Attending Unavailable Yaw, [facility] Unavailable Juan Gan Attending Unavailable Yaw, [facility] Unavailable Sil Combs Attending Unavailable Juan Gan Attending Unavailable Yaw, Hussein Referring Unavailable Yaw, [facility] Unavailable Juan Gan Attending Unavailable Juan Gan Referring Unavailable Yaw, Hussein [facility] Unavailable Juan Gan Attending Unavailable Yaw, [facility] Unavailable Juan Gan Attending Unavailable Juan Gan Referring Unavailable Yaw, [facility] Unavailable Cyrus Sales Attending Unavailable Yaw, [facility] Unavailable Alec Norris Attending Unavailable Yaw, Hussein Attending Unavailable Yaw, Hussein [facility] Unavailable Juan Gan Attending Unavailable Yaw, Hussein Referring Unavailable Yaw, Hussein [facility] Unavailable Ungramesh, Lincoln Attending Unavailable PROBLEMS PROBLEMS DATE TYPE CONDITION / CODE ATTENDING STATUS SOURCE 01/29/2018 Unknown M75.31 - Calcific Cyrus Sales Active [place] tendinitis of right [facility] shoulder / Hospital M75.31(ICD-10) Repository 10/07/2017 Unknown Z95.5 - Presence of Juan Gan Active [place] coronary angioplasty Community implant and graft / Hospital Z95.5(ICD-10) Repository 09/11/2017 Unknown I25.10 - Juan Gan Active [place] Atherosclerotic heart [facility] disease [facility] coronary artery Repository without angina pectoris / I25.10(ICD-10) 09/11/2017 Unknown R06.09 - Other forms Juan Gan Active [place] of dyspnea / Community R06.09(ICD-10) Hospital Repository 07/14/2017 Unknown Z98.61 - Coronary Tonie Duque Active [place] angioplasty status / Community Z98.61(ICD-10) Hospital Repository 07/14/2017 Unknown I25.2 - Old Tonie Duque Active [place] myocardial infarction Community / I25.2(ICD-10) Hospital Repository 07/14/2017 Unknown I10 - Essential Tonie Duque Active [place] (primary) Community hypertension / Hospital I10(ICD-10) Repository 07/14/2017 Unknown E78.5 - Tonie Duque Active [place] Hyperlipidemia, Community unspecified / Hospital E78.5(ICD-10) Repository 07/14/2017 Unknown Z79.899 - Other long Tonie Duque Active [place] term (current) drug Community therapy / Hospital Z79.899(ICD-10) Repository 06/30/2017 Unknown I21.4 - Non-ST Sementi, Active [place] elevation (NSTEMI) [facility] myocardial infarction Hospital / I21.4(ICD-10) Repository 06/13/2017 Unknown K52.9 - Noninfective CRISTOFER VELASQUEZ Active [place] gastroenteritis and Community colitis, unspecified Hospital / K52.9(ICD-10) Repository PROCEDURES PROCEDURES No Procedure Records FoundRESULTS RESULTS DISCHARGE INSTRUCTION Observed: 05/08/2018 Status: F Source: [place] 8:47 PM [facility] REPOSITORY [facility] Medical Records Department [address] [place] [address] Discharge Instruction 05/08/182044 MR#: [id number] Acct: [id number] Name: PRISCILA TEIXEIRA Pradeep Rep #: [id number] : 1950 68 From: Lincoln Haines DO PCP: Hussein Tidwell MD Status: REG ER ED Disposition - Plan for ED Patient: Chief Complaint: Other, Pain/Inj Instructions: ED Cervical Adenitis Abx Tx, ED Cellulitis Facial Prescriptions: Clindamycin HCl [Cleocin] 300 mg PO Q6H #40 cap Referrals: Hussein Tidwell MD [Primary Care Provider] - Rocky Fajardo MD [STAFF PHYSICIAN] - 3-5 Days What to do if you have Problems For any increased pain, shortness of breath, bleeding, nausea or vomiting, chest pain, or any unexpected problems, contact your Primary Care Provider. Call [facility] ([phone]) or report to the closest Emergency Room. Call 911 if necessary. 05/08/182046 <Electronically signed by Lincoln Haines DO> Date Lincoln Haines DO Cosigner Signature (If Indicated): Date CC: Hussein Tidwell MD EMERGENCY DEPARTMENT Observed: 05/08/2018 Status: F Source: [place] SUMMARY 8:45 PM [facility] REPOSITORY [facility] Medical Records Department [address] [place] [address] Emergency Department Summary 05/08/182039 MR#: [id number] Acct: [id number] Name: PRISCILA TEIXEIRA Rep #: [id number] : 1950 68 From: Lincoln Haines DO PCP: Hussein Tidwell MD Status: REG ER - ER Visit Summary Date of Service: 05/08/18 Chief Complaint: [Swelling to anterior aspect of throat] History of Present Illness: The patient is a 68 F [presents to the emergency department complaint of swelling underneath her chin that started earlier today when she woke up. Patient states that yesterday she developed a small what she thought was pimple on the left side of her chin. Patient's not had any fevers. She denies recent illness. She denies any trauma. She denies difficulty swallowing.] Physical Examination: [HEENT-PERRLA, EOMI. Cranial nerves II through XII grossly intact. TMs clear. Mucous membranes moist. No adenopathy. Anterior submental space has an area of soft tissue swelling but slightly tender to palpation slightly erythematous. Area of swelling measures approximately 2.5 x 3 cm. Patient also has small superficial ulceration on the left anterior chin. Thyroid does not appear enlarged and freely mobile when she swallows. Pharynx not erythematous. Uvula midline with no trismus. Patient has no tenderness to the floor the mouth and she is able to touch her tongue to the roof of her mouth without difficulty. Cardiovascular-regular rate and rhythm without murmur or ectopy Lungs-clear to auscultation, chest wall stable without crepitus or subcu emphysema Abdomen-normoactive bowel sounds, soft, nontender, no rebound or rigidity, no peritoneal signs. Extremities-intact 4, normal range of motion, normal pulses, atraumatic] Test Results: [CBC with differential obtained showed a white count 6.7, hemoglobin 13.8, hematocrit 41, platelets 216. Chemistries unremarkable. CT scan soft tissue neck with IV contrast obtained showed slightly prominent lingual tonsil extending into the left side of the vallecula. Direct visualization recommended. Patient also noted to have thyroid nodules bilaterally. Patient had a 1 cm submental node noted.] Emergency Department Course and Treatment: [Patient had results discussed with her. At this point I suspect she may have a reactive lymph node that is becoming cellulitic and I will cover her with antibiotics. Patient is allergic to penicillin therefore I will start her on clindamycin. Patient will be referred to ear nose and throat for follow-up as she has a relationship with Dr. Rocky Fajardo.] Treatment Plan: [Clindamycin and follow-up with ENT] Disposition: [Discharged home in stable condition] Impression: [Adenitis Cellulitis] This note was generated with [employer] dictation software. It may contain incorrect words, spelling, and punctuation that were not noted in review of the chart prior to signing ED Disposition - Plan for ED Patient: Chief Complaint: Other, Pain/Inj Referrals: Hussein Tidwell MD [Primary Care Provider] - What to do if you have Problems For any increased pain, shortness of breath, bleeding, nausea or vomiting, chest pain, or any unexpected problems, contact your Primary Care Provider. Call [facility] ([phone]) or report to the closest Emergency Room. Call 911 if necessary. 05/08/182044 <Electronically signed by Lincoln Haines DO> Date Lincoln Haines DO Cosigner Signature (If Indicated): Date CC: Hussein Tidwell MD CBC W/DIFF, AUTOMATED Collected: 05/08/2018 Status: F Source: [place] 7:20 PM [facility] REPOSITORY TYPE CODE TESTS RESULT OUT OF RANGE REFERENCE UNITS LAB L100.1000 4.4-11.0 K/mm3 Normal WBC 6.7 LAB L100.1200 4.2-5.4 M/mm3 Normal RBC 4.85 LAB L100.1300 12.0-15.0 g/dl Normal HGB 13.8 LAB L100.1400 37-47 % Normal HCT 41.0 LAB L100.1500 81-99 fL Normal MCV 84.5 LAB L100.1600 27.0-32.0 pg Normal MCH 28.5 LAB L100.1700 32-36 g/gl Normal MCHC 33.7 LAB L100.1810 11.6-14.6 % Normal RDW CV 13.3 LAB L100.1820 35.1-43.9 fl Normal RDW SD 41.0 LAB L100.1900 150-450 K/mm3 Normal PLT 216 LAB L100.2000 6.2-12.0 fl Normal MPV 9.1 LAB L100.2100 47-70 % High NEUT% 72.2 LAB L100.2200 19-41 % Low LY% 16.2 LAB L100.2300 0-10 % Normal MONO% 8.8 LAB L100.2400 0-5 % Normal EO% 2.4 LAB L100.2500 0-1 % Normal BASO% 0.4 LAB L100.2550 0.0-0.9 % Normal IM GRAN % 0.000 Result Comment: IG% - Immature Granulocytes (promyelocytes, myelocytes and metamyelocytes) > 1% indicates that a LEFT SHIFT is Present. LAB L100.2620 2.0-7.7 X10 3/uL Normal Absolute Neut 4.8 LAB L100.2720 0.83-4.51 X10 3/ul Normal Absolute Lymph 1.09 Performed By: #### L100.0100 #### [facility] [place], [address] BASIC METABOLIC Collected: 05/08/2018 Status: F Source: [place] PROFILE (BMP) 7:20 PM [facility] REPOSITORY TYPE CODE TESTS RESULT OUT OF RANGE REFERENCE UNITS LAB L501.0100 74-106 mg/dL High GLU 119 Result Comment: Fasting Glucose result from 100 to 125 mg/dL suggests IMPAIRED HOMEOSTASIS per A.D.A. criteria. Please note revised GLUCOSE reference range effective 2017. LAB L501.1000 7-18 mg/dL Normal BUN 10 LAB L501.1100 0.55-1.02 mg/dL Normal CREAT,SERUM 0.92 Result Comment: The validity of the calculated GFR AND GFRAA in patients over 70 years has not been determined. Clinical correlation is essential. LAB L501.1110 >60 mL/min Normal EST GFR 65 Result Comment: Non- GFR Calc LAB L501.1115 >60 mL/min Normal EST GFR - AA 79 Result Comment: GFR Calc LAB L501.1255 ml/min Normal Estimated CRCL 56.31 LAB L501.1300 10-20 RATIO Normal BUN/CRE 10.9 LAB L501.2200 8.5-10 mg/dL Normal .1 CA 8.6 LAB L501.5300 136-14 mmol/L Normal 5 NA 144 LAB L501.5600 3.5-5. mmol/L Low 1 K 3.3 LAB L501.5900 98-107 mmol/L High CL 108 LAB L501.6100 21.0-3 mmol/L Normal 2.0 CO2 28.0 LAB L501.6200 5-15 Normal GAP 8 Performed By: #### L500.2500 #### [facility] [address] [place], [address] SOFT TISSUE NECK WITH Observed: 05/08/2018 Status: F Source: [place] CONTRAST 7:00 PM [facility] REPOSITORY [facility] Imaging Services [address] [place] [address] Soft Tissue Neck WITH Contrast MR#: [id number] Acct: [id number] Name: PRISCILA TEIXEIRA Pradeep Rep #: [id number] : 1950 F 68 From: Jordy Branch DO PCP: Hussein Tidwell MD Status: REG ER Study: Soft Tissue Neck WITH Contrast Date of Exam: 05/08/18 Exam# [id number] Ordering Dr: Lincoln Haines DO STUDY: CT SOFT TISSUE NECK WITH CONTRAST REASON FOR EXAM: Female, 68 years old. Lump in throat RADIATION DOSAGE (If Supplied By Facility): CTDIvol = ( 20.76 ) mGy, DLP = ( 616.99 ) mGycm TECHNIQUE: The patient was scanned in a multi-detector CT scanner. High resolution transaxial imaging was performed following intravenous administration of 75 ml of Isovue 300 contrast material. Sagittal and coronal images were reconstructed. Individualized dose optimization techniques were used for this CT. COMPARISON: None. FINDINGS: Normal bilateral parotid glands. Normal bilateral inker machine spaces. Normal bilateral parapharyngeal spaces. Normal bilateral carotid spaces. Normal bilateral sublingual and submandibular glands and spaces. Normal visualized nasopharynx. Normal retropharyngeal space. Normal perivertebral space. Irregular soft tissue density within the left side of the vallecula possibly representing a slightly prominent lingual tonsil. The visualized tongue, tongue base and oropharynx are normal. 1 cm submental node is noted. There is no demonstrated solid or cystic mass lesion. There is no abnormal contrast enhancement. Normal epiglottis and hypopharynx. The pre-epiglottic and paraglottic adipose spaces are normal. Normal visualized bilateral piriform sinuses, aryepiglottic folds, vocal cords, and arytenoid-cricoid articulations. Normal subglottic trachea. Complex, cystic and solid centimeter nodular lesions are noted within the bilateral lobes of the thyroid gland. Normal visualized pulmonary apices. Normal visualized paranasal sinuses. Degenerative changes of the visualized cervical spine. CT/Soft Tissue Neck WITH Contrast IMPRESSION: Slightly prominent lingual tonsil extending into the left side of the vallecula. Direct visualization is recommended. Thyroid nodules bilaterally. Electronically Signed: Jordy Branch DO at 20:12 EST Tel [phone], Service support , CC: Lincoln Haines DO; Hussein Tidwell MD Dampener: Signed CARDIOLOGY VISIT Observed: 04/20/2018 Status: F Source: [place] REPORT 1:44 PM [facility] REPOSITORY [facility] [address] [place] [address] OFFICE VISIT Date of Service: 04/20/18 MR#: [id number] Acct: [id number] Name: PRISCILA TEIXEIRA Rep #: [id number] : 1950 Provider: Juan Gan MD Age/Sex: 68/F Location: [facility] Status: Signed HPI HPI Chief Complaint: routine f/u Details: Referring physician: Dr. Hussein Tidwell Mrs. Celeste is a very pleasant 68-year-old nondiabetic previous tobacco smoker who quit around 1984 after a 99-mvoc-ulop smoking history, previous THC user, subsequently quit after her non-STEMI. Patient was admitted to [facility] with new onset chest pain described as a 10 out of 10 radiating to the inside portion of her left arm but no associated shortness of breath. Her EKG was negative and her enzymes are negative 3. She had decreased exercise capacity at that time over the last year. I recommended a stress test which was abnormal, followed by direct angiography that same day. No stress test was performed at that time. Patient underwent left heart catheterization by myself on 08/28/15 which demonstrated a critical 90% stenosis in the proximal LAD nonobstructive disease of the left circumflex and RCA. Patient was transferred to [facility] where she underwent successful angioplasty and drug-eluting stenting to the proximal LAD receiving a 2.5X 33 Xience Alpine drug-eluting stent, with mild compromise of a small diagonal branch. Her peak troponin was 4.0 and she was subsequently discharged. Patient was doing well when she began developing generalized muscle aches with increased and her Pravachol, fatigue, and decreased energy levels. She also complained of substernal chest pressure which was dissimilar to her previous angina. This precipitated a visit to the emergency room on 01/21/16. at that time her EKG and troponins were negative. She underwent a non-walking nuclear stress test which was deemed negative for inducible ischemia. nonetheless she was set up for her catheterization in January but did not show up for the procedure and canceled it on her own. Patient underwent a stress test on 08/21/16 in which only went 4 minutes and 35 seconds and due to her poor exercise capacity and profound dyspnea she was referred for repeat catheterization. Patient underwent repeat catheterization at [facility] on 08/27/16. This demonstrated nonobstructive coronary disease and a widely patent proximal and mid LAD stent with preserved LV function and normal LVEDP. He has been under a significant amount of stress taking care of her bipolar brother who also has recently been found to have Alzheimer's disease. She complains of panic attacks and shortness of breath similar to her presentation initially in 2015. She occasionally has substernal chest pain although this appears to be without exertion. She is taking and tolerating her medicines well. She does complain of feeling tired and request evaluation of her medicines. In our office today her blood pressure is 104/60 pulse is 76 and regular. Her physical exam is as below. Her lipids as of 12/14/2015 show an LDL of 94 and HDL of 41. Repeat lipid profile After switching to Zetia showed an LDL of 122 and an HDL of 42 as of 05/06/16.repeat lipids as of 01/29/17 shown LDL 103 and HDL 45. Lipids as of 08/08/17 show an LDL of 46 and HDL of 42. EKG dated 01/20/16 showed normal sinus rhythm, normal axis, normal intervals, no acute changes. Intake Vital Signs04/20/18 Height 5 ft 6 in 04/20/18 Weight: 185 lb 04/20/18 Body Mass Index (BMI) 29.8 04/20/18 Blood Pressure 104/60 Intake Visit Reasons: 6 M Shoe Repair Cobbler Required: No Is patient in pain?: No Allergies venom-honey bee [bee venom (honey bee)] Allergy (Severe, Verified 04/17/18 09:45) Anaphylaxis atorvastatin Allergy (Unknown, Verified 04/17/18 09:45) Unknown Penicillins Allergy (Unknown, Verified 04/17/18 09:45) Unknown strawberry Allergy (Verified 04/17/18 09:45) Anaphylaxis oxycodone HCl [From Percocet] Adverse Reaction (Verified 04/17/18 09:45) Vomiting Medications Famotidine [Pepcid] 20 mg PO DAILY 10/02/15 [History Confirmed 04/20/18] Aspirin [Adult Low Dose Aspirin EC] 81 mg PO DAILY 01/20/16 [History Confirmed 04/20/18] Glucosamine/MSM/Chondroitin A [Glucosamine Chondroit MSM Tab] 1 ea PO DAILY 08/26/16 [History Confirmed 04/20/18] Nitroglycerin [Nitrostat] 0.4 mg SUBLINGUAL Q5M PRN #1 bottle 06/27/17 [Rx Confirmed 04/20/18] Tramadol HCl [Ultram] 50 mg PO PRN PRN 07/10/17 [History Confirmed 04/20/18] albuterol sulfate HFA 90 mcg/actuation aerosol inhaler 2 puff INHALATION Q6H PRN 07/14/17 [History Confirmed 04/20/18] fluticasone 50 mcg/actuation nasal spray,suspension 50 mcg INTRANASAL QDAY PRN 07/14/17 [History Confirmed 04/20/18] paroxetine 20 mg tablet 20 mg PO QDAY 07/14/17 [History Confirmed 04/20/18] carvedilol 3.125 mg tablet 3.125 mg PO BID #180 tab 07/25/17 [Rx Confirmed 04/20/18] ticagrelor 90 mg tablet 90 mg PO BID #180 tab 07/25/17 [Rx Confirmed 04/20/18] simvastatin 5 mg tablet 5 mg PO QPM 09/11/17 [History Confirmed 04/20/18] potassium chloride ER 10 mEq capsule,extended release 10 meq PO BID #180 cap 09/30/17 [Rx Confirmed 04/20/18] losartan 50 mg-hydrochlorothiazide 12.5 mg tablet 1 tab PO DAILY #90 tab 01/05/18 [Rx Confirmed 04/20/18] Docusate Sodium [Colace] 100 mg PO DAILY #20 cap 01/29/18 [Rx Confirmed 04/20/18] Hydrocodone/Acetaminophen [[place] 5-325 Tablet] 1 - 2 ea PO 4X/DAY PRN PRN 5 Days #20 tab 01/29/18 [Rx Confirmed 04/20/18] ezetimibe 10 mg tablet 10 mg PO DAILY #90 tab 03/02/18 [Rx Confirmed 04/20/18] [facility] Atherosclerotic heart disease of [place] coronary artery without angina pectoris (Chronic) Nonrheumatic tricuspid (valve) insufficiency (Chronic) Old myocardial infarction (Chronic) Daytime somnolence (Chronic) Dyspnea on exertion (Chronic) Obesity (BMI 30.0-34.9) (Chronic) NSTEMI (non-ST elevated myocardial infarction) (Chronic) HTN (hypertension) (Chronic) HLD (hyperlipidemia) (Chronic) COPD (chronic obstructive pulmonary disease) (Chronic) Angiomyoma (Chronic) Chronic back pain (Chronic) RSD (reflex sympathetic dystrophy) (Chronic) Surgical History History of coronary artery stent placement (Chronic 06/26/17) History of back surgery (Chronic) left hand surgery (Chronic) Family History Father CAD (coronary artery disease) Brother Afib Social History Smoking Status: Never smoker alcohol intake: current substance use type: former substance user Date of last use: 2015, marijuana caffeine: Yes Type: coffee, carbonated beverages, tea what type of physical activity do you participate in: none seatbelt use: always do you feel safe at home: Yes ROS Const Const: Positive for other (Feels well); negative for fatigue, weakness, body ache, fever(s), headache(s), chills, frequent falls, night sweats, daytime sleepiness, difficulty sleeping, excessive sweating, weight gain, weight loss, increased appetite, poor appetite or anorexia Eyes Eyes: Negative for blind spots, loss of peripheral vision, transient loss of vision, blurry vision, change in vision, double vision, floaters, tunnel vision or other ENT ENT: Negative for dizziness, hearing loss, tinnitus, Nosebleed/epistaxis, balance problems, post nasal drip, lip swelling, tongue swelling, bleeding gums, hoarseness, neck pain, dry mouth, other or headache(s) Cardio Chest Pain: No Palpitations: No Edema: None Muscle aches with walking: None Resp Respiratory: Negative for SOB with activity, SOB at rest, SOB orthopnea\SOB lying down, Cough, Coughing up blood/hemoptysis, chest congestion, pain on inspiration, snoring, stridor, wheezing, crackles, paroxysmal nocturnal dyspnea or other GI GI: Negative nausea, vomiting, heartburn, constipation, belching, bloating, cramping, vomiting blood/hematemesis, bright, red blood in stools, black,tarry stools, loose stools, Difficulty Swallowing or other : Negative for hematuria, frequent nighttime urination/ nocturia, erectile dysfunction or abnormal vaginal bleeding Musc Musc: Negative for balance problems, muscle aches/ myalgia, muscle weakness or joint pain Skin Skin: Negative redness, non-healing lesions, rash, unusual bruising, skin ulcer, wounds, jaundice or other Neuro Neuro: Negative for blurry vision, double vision, dizziness, lightheadedness, near syncope, syncope, orthostatic symptoms, confusion, memory loss, restless legs, vertigo, seizures, lack of coordination, other, weakness, headache(s) or frequent falls Axel Hematologic/Lymphatic: Negative for easy bleeding, easy bruising, enlarged lymph nodes or other Endo Endo: Negative for cold intolerance, heat intolerance, flushing, increased thirst/drinking, increased hunger, hair loss, hair growth, other, fatigue or excessive sweating Psych Psych: Negative for anxiety, depression, thoughts of harming anyone, thoughts of harming yourself, visual hallucinations, panic attacks or audible hallucinations Allergy Allergy/Immunology: Negative for lip swelling, Negative for tongue swelling, Negative for rash, Negative for throat swelling, Negative for hives Cardiology Exam Const Appearance: cooperative, healthy appearing and no acute distress Nutritional Appearance: well nourished Orientation: alert, oriented x3 and oriented to person Head Head: normal to inspection, atraumatic and normocephalic Nose: external nose normal Face and Sinus: face symmetric Mouth: oral mucosae normal Eyes General: appearance normal, both eyes and all related structures Eyelids: eyelids normal Conjunctivae: conjunctivae normal Pupils: PERRL and normal by confrontation EOM: EOM intact bilaterally Neck Neck: normal visual inspection and full ROM Carotids: normal carotid upstroke Chest Chest inspection: normal inspection of the chest Auscultation: Bilateral: Clear to Auscultation Cardio Palpation: normal PMI Rate: regular rate Rhythm: regular rhythm Heart sounds: S1 normal and S2 normal GI GI: normal to inspection, no hepatosplenomegaly and bowel sounds present Neuro General: alert, oriented x3, awake, CN's II-XI intact bilaterally and moves all extremities Skin Skin: no rashes or lesions noted Extremities Pulses: Normal: Right Femoral Pulse, Left Femoral Pulse, Right Dorsalis Pedis Pulse, Left Dorsalis Pedis Pulse, Right Posterior Tibial Pulse, Left Posterior Tibial Pulse, Right Radial Pulse, Left Radial Pulse Lower Extremity Edema: None: Bilateral Psych Psychological: normal affect Assessment AND Plan 1. Atherosclerosis of [place] coronary artery of [place] heart without angina pectoris I25.10 PCI-SOLOMON-LAD 08/28/15 @ [facility]; PTCA/SOLOMON of the distal RCA 06/26/2017. Plan 1. Coronary artery disease: She has no exertional anginal symptoms at this time. No indication for any additional testing. Her blood pressure and heart rate are fairly well-controlled. Although the patient does complain of fatigue, she is at the lower end of most of her medications including her Coreg and Hyzaar. Recommend continuing Coreg and Hyzaar as described. In addition she has a history of drug-eluting stent to the proximal LAD, and nonobstructive disease of her circumflex and RCA. Recommend continuing baby aspirin for life and Brilinta at least for 1 more year. 2. Hyperlipidemia, unspecified hyperlipidemia type E78.5 Plan 2. Hyperlipidemia: Her LDL and HDL cholesterol are fairly well-controlled. Continue Zetia and Zocor. 3. Return office in 6 months. This note was generated using a voice recognition system and there may be incorrect words, spelling or punctuation that were not noted when reviewing the office note prior to saving. Plan Detail Follow Up +6M (Francisco) Coding Level of Care Code Off vis,est,level 3 Diagnoses Atherosclerosis of [place] coronary artery of [place] heart without angina pectoris I25.10 [place] vs. transplanted heart: [place] heart Hyperlipidemia, unspecified hyperlipidemia type E78.5 Hyperlipidemia type: unspecified Coding Level of Care Code Off vis,est,level 3 Diagnoses Atherosclerosis of [place] coronary artery of [place] heart without angina pectoris I25.10 [place] vs. transplanted heart: [place] heart Hyperlipidemia, unspecified hyperlipidemia type E78.5 Hyperlipidemia type: unspecified 04/20/18 1344 <Electronically signed by Juan Gan MD> Date Juan Gan MD Cosigner Signature: Date (if applicable) CC: Hussein Tidwell MD CBC W/DIFF, AUTOMATED Collected: 03/04/2018 Status: F Source: [place] 10:24 AM [facility] [place] REPOSITORY TYPE CODE TESTS RESULT OUT OF RANGE REFERENCE UNITS LAB L100.1000 4.4-11.0 K/mm3 Normal WBC 5.4 LAB L100.1200 4.2-5.4 M/mm3 Normal RBC 5.06 LAB L100.1300 12.0-15.0 g/dl Normal HGB 14.3 LAB L100.1400 37-47 % Normal HCT 43.4 LAB L100.1500 81-99 fL Normal MCV 85.8 LAB L100.1600 27.0-32.0 pg Normal MCH 28.3 LAB L100.1700 32-36 g/gl Normal MCHC 32.9 LAB L100.1810 11.6-14.6 % Normal RDW CV 14.1 LAB L100.1820 35.1-43.9 fl High RDW SD 44.0 LAB L100.1900 150-450 K/mm3 Normal PLT 199 LAB L100.2000 6.2-12.0 fl Normal MPV 9.4 LAB L100.2100 47-70 % Normal NEUT% 62.9 LAB L100.2200 19-41 % Normal LY% 24.5 LAB L100.2300 0-10 % Normal MONO% 10.0 LAB L100.2400 0-5 % Normal EO% 2.0 LAB L100.2500 0-1 % Normal BASO% 0.4 LAB L100.2550 0.0-0.9 % Normal IM GRAN % 0.200 Result Comment: IG% - Immature Granulocytes (promyelocytes, myelocytes and metamyelocytes) > 1% indicates that a LEFT SHIFT is Present. LAB L100.2620 2.0-7.7 X10 3/uL Normal Absolute Neut 3.4 LAB L100.2720 0.83-4.51 X10 3/ul Normal Absolute Lymph 1.32 Performed By: #### L100.0100 #### [facility] [address] [place], [address] COMPREHENSIVE METABOLIC Collected: 03/04/2018 Status: F Source: [place] 10:24 AM [facility] [place] REPOSITORY TYPE CODE TESTS RESULT OUT OF RANGE REFERENCE UNITS LAB L501.0100 74-106 mg/dL Normal GLU 97 Result Comment: Please note revised GLUCOSE reference range effective 2017. LAB L501.1000 7-18 mg/dL High BUN 20 LAB L501.1100 0.55-1.02 mg/dL Normal CREAT,SERUM 0.83 Result Comment: The validity of the calculated GFR AND GFRAA in patients over 70 years has not been determined. Clinical correlation is essential. LAB L501.1110 >60 mL/min Normal EST GFR 74 Result Comment: Non- GFR Calc LAB L501.1115 >60 mL/min Normal EST GFR - AA 89 Result Comment: GFR Calc LAB L501.1300 10-20 RATIO High BUN/CRE 24.2 LAB L501.1500 6.4-8.2 g/dL T Normal PROT 7.1 LAB L501.1800 3.2-5.0 g/dL Normal ALB 3.3 LAB L501.1950 2.2-4.2 g/dL Normal GLOB 3.8 LAB L501.2000 0.9-2.4 RATIO Normal A/G 0.9 LAB L501.2200 8.5-10.1 mg/dL CA Normal 8.8 LAB L501.4100 15-37 U/L Low AST 8 LAB L501.4305 45-117 U/L Normal ALK P 79 LAB L501.4405 13-56 U/L Normal ALT 28 LAB L501.4600 0.20-1.00 mg/dL T Normal BILI 0.70 LAB L501.5300 136-145 mmol/L NA Normal 141 LAB L501.5600 3.5-5.1 mmol/L K Normal 3.8 LAB L501.5900 98-107 mmol/L CL Normal 106 LAB L501.6100 21.0-32.0 mmol/L Normal CO2 27.0 LAB L501.6200 5-15 Normal GAP 8 Performed By: #### L500.4050, L500.4100, L501.9520, L506.0400 #### [facility] [address] [place], [place], [address] LIPID PROFILE Collected: 03/04/2018 Status: F Source: [place] 10:24 AM [facility] [place] REPOSITORY TYPE CODE TESTS RESULT OUT OF RANGE REFERENCE UNITS LAB L501.4900 200 mg/dL Normal CHOL 128 Result Comment: <200 mg/dL Desirable 200-240 mg/dL Borderline >240 mg/dL High Risk LAB L501.5000 mg/dL Normal TRIG 104 Result Comment: The drugs N-Acetylcysteine and Metamizole may falsely depress this assay. Serum Triglycerides Reference Interval Normal <150 mg/dL Borderline high 150 - 199 mg/dL High 200 - 499 mg/dL Very High > or = 500 mg/dL LAB L501.6400 mg/dL Normal HDL 54 Result Comment: The drugs N-Acetylcysteine and Metamizole may falsely depress this assay. Reference Range HDL <40 mg/dL Low HDL Cholesterol HDL >or= 60 mg/dL High HDL Cholesterol LAB L501.6500 0-130 mg/dL Normal LDL 53 LAB L501.6600 5-40 mg/dL Normal VLDL 21 Performed By: #### L500.4050, L500.4100, L501.9520, L506.0400 #### [facility] [address] [place], [place], [id number] THYROID STIM HORMONE Collected: 03/04/2018 Status: F Source: [place] (T[place]) 10:24 AM [facility] [place] REPOSITORY TYPE CODE TESTS RESULT OUT OF RANGE REFERENCE UNITS LAB L501.9520 0.358-3.74 uIU/mL Normal TSH 1.60 Performed By: #### L500.4050, L500.4100, L501.9520, L506.0400 #### [facility] [address] [facility] [place], [place], [id number] T4 FREE DIRECT Collected: 03/04/2018 Status: F Source: [place] 10:24 AM [facility] [place] REPOSITORY TYPE CODE TESTS RESULT OUT OF RANGE REFERENCE UNITS LAB L506.0400 0.76-1.46 ng/dL Normal T4 FREE 1.02 DIRECT Performed By: #### L500.4050, L500.4100, L501.9520, L506.0400 #### [facility] [address] [place], [address] EMERGENCY DEPARTMENT Observed: 01/31/2018 Status: F Source: [place] 8:51 PM [facility] [place] REPOSITORY [facility] Medical Records Department [address] [place] [address] Emergency Department Summary 01/31/182046 MR#: [id number] Acct: [id number] Name: PRISCILA TEIXEIRA Rep #: [id number] : 1950 68 From: Alec Edge PCP: Hussein Tidwell MD Status: REG ER - ER Visit Summary Date of Service: 01/31/18 Chief Complaint: Right shoulder pain History of Present Illness: The patient is a 68 F persistent right shoulder pain for 2 days. No falls or injuries. Seen 2 days ago in the ED with x-rays that were negative. Prescription for Houston and Colace, states no improvement. She was prescribed a sling however states it made it worse therefore threw it away. She does follow [facility] orthopedist, has not made an appointment. Allergy to oxycodone. He states that shingles a month ago however is in her axilla not on her shoulder. X-ray reviewed, had calcified tendinitis of the shoulder. Patient requests direct shoulder injection. Physical Examination: General: Alert and oriented 3, no acute distress HEENT: Normocephalic, atraumatic. Moist mucosa membranes Neck: supple, nontender. Cardiovascular: Regular rate and rhythm, no murmurs Respiratory: Normal breath sounds, symmetric, no distress Abdomen: Soft, nontender, nondistended Extremities: Right upper extremity: Tender palpation proximal shoulder with no deformities. No rash. Pain worse with abduction. Distal pulse and sensation intact. Neuro: no focal neurological deficits. Test Results: [] Emergency Department Course and Treatment: X-ray reviewed from 2 days ago, there is no new injuries. She has persistent symptoms. Her shingles were in her axilla therefore not likely neuropathic pain. She is not a diabetic. Discussed with patient we will give Kenalog injection with the subcu morphine for comfort. She does have Houston. Discussed with patient to call her orthopedist for outpatient follow-up for direct injections as indicated. Patient understands and agrees with plan. Treatment Plan: [] Disposition: Discharge Impression: Calcific tendinitis right shoulder, subsequent encounter This note was generated with [employer] dictation software. It may contain incorrect words, spelling, and punctuation that were not noted in review of the chart prior to signing ED Disposition - Plan for ED Patient: Disposition: Home or Assisted Living Chief Complaint: Upper Extremity Injury Diagnosis: Calcific tendinitis of right shoulder Instructions: ED Tendinitis Calcific Referrals: Hussein Tidwell MD [Primary Care Provider] - Additional Instructions: Take your medications as prescribed. Call your orthopedist for follow-up. What to do if you have Problems For any increased pain, shortness of breath, bleeding, nausea or vomiting, chest pain, or any unexpected problems, contact your Primary Care Provider. Call [facility] ([phone]) or report to the closest Emergency Room. Call 911 if necessary. 01/31/182050 <Electronically signed by Alec Edge> Date Alec Edge Cosigner Signature (If Indicated): Date CC: Hussein Tidwell MD EMERGENCY DEPARTMENT Observed: 01/30/2018 Status: F Source: [place] SUMMARY 12:26 AM [facility] Medical Records Department [address] [place] [address] Emergency Department Summary 01/29/18 2315 MR#: [id number] Acct: [id number] Name: PRISCILA TEIXEIRA Rep #: [id number] : 1950 68 From: Cyrus Sales MD PCP: Hussein Tidwell MD Status: DEP ER - ER Visit Summary Date of Service: 01/29/18 Chief Complaint: Right shoulder pain History of Present Illness: The patient is a [address] Hussein Tidwell. She reports that she has pain in her right shoulder that began approximately 1 month ago. She denies any trauma. No fall, MVA, or change in activity. She does report she had shingles in this area approximately 1 month ago and was on Z acyclovir. However, this seemed to resolve. She has no rash. Patient claims of a sharp pain in her shoulder is 10 out of 10 severity. Is worsened by movement relieved by rest. She is not taking anything for pain. She denies any paresthesias or weakness. Her review of systems is negative. Physical Examination: Vitals: Stable. Afebrile. General: Well-nourished and well-developed. Head: Normocephalic atraumatic. Neck: Supple, no lymphadenopathy. No JVD. Nontender. Cardiovascular: Regular rate and rhythm. No murmurs. Respiratory: No respiratory distress. Clear to auscultation bilaterally. Abdominal: Soft, nontender, nondistended, normal bowel sounds. No guarding, rebound, or peritoneal signs. Back: Nontender. Extremities: Moderate tenderness palpation over her right deltoid. She has pain with range of motion active much greater than passive. There is no overlying erythema or warmth to suggest a septic joint. She has 2+ radial pulse. She has normal sensation light touch. Skin: Normal color, no rash. Neurologic: Alert and oriented 3. Cranial nerves II through XII are intact. Normal strength and sensation. Psych: Normal affect. Test Results: X-ray shows calcific tendinitis. Emergency Department Course and Treatment: Patient was placed in a sling. She is resting comfortably. Treatment Plan: Patient will be discharged with Houston and Colace. She is instructed to follow-up with her orthopedic surgeon is [facility] within a week for another exam. Return to the emergency department for any worsening symptoms. Disposition: To home in improved and stable condition. Impression: 1. Calcific tendinitis right shoulder. This note was generated with [employer] dictation software. It may contain incorrect words, spelling, and punctuation that were not noted in review of the chart prior to signing ED Disposition - Plan for ED Patient: Disposition: Home or Assisted Living Chief Complaint: Upper Extremity Injury Instructions: ED Tendinitis Calcific Prescriptions: Docusate Sodium [Colace] 100 mg PO DAILY #20 capsule Hydrocodone/Acetaminophen [Houston 5-325 Tablet] 1 - 2 each PO 4X/DAY PRN PRN 5 Days #20 tablet PRN Reason: Pain Referrals: Doctor,Your [STAFF PHYSICIAN] - 1 Week What to do if you have Problems For any increased pain, shortness of breath, bleeding, nausea or vomiting, chest pain, or any unexpected problems, contact your Primary Care Provider. Call [facility] ([phone]) or report to the closest Emergency Room. Call 911 if necessary. 01/30/18 0026 <Electronically signed by Cyrus Sales MD> Date Cyrus Sales MD Cosigner Signature (If Indicated): Date CC: Hussein Tidwell MD SHOULDER MIN 2 VIEWS Observed: 01/29/2018 Status: F Source: [place] 10:04 PM [facility] [place] REPOSITORY [facility] Imaging Services [address] [place] [id number] Shoulder min 2 Views MR#: [id number] Acct: [id number] Name: PRISCILA TEIXEIRA Pradeep Rep #: [id number] : 1950 F 68 From: Fab Armijo DO PCP: Hussein Tidwell MD Status: REG ER Study: Shoulder min 2 Views Date of Exam: 01/29/18 Exam# [id number] Ordering Dr: Cyrus Sales MD STUDY: X-RAY - RIGHT SHOULDER REASON FOR EXAM: Female, 68 years old. Right arm pain worsens with movement. TECHNIQUE: 4 view(s) of the shoulder. COMPARISON: None. FINDINGS: Normal glenohumeral articulation. There is degenerative arthrosis of the acromioclavicular joint without inferior osseous spur formation. Normal acromion. Normal humeral head and visualized proximal humerus. There is periarticular soft tissue calcification consistent with a calcific tendinitis. Normal visualized pulmonary apex. RAD/Shoulder min 2 Views IMPRESSION: Findings concerning for calcific tendinitis in the appropriate clinical setting. Mild arthrosis as above. Electronically Signed: Fab ArmijoDO at 22:53 EDT , Service support , CC: Cyrus Sales MD; Hussein Tidwell MD Dampener: Signed PROGRESS Observed: 12/01/2017 Status: COMPLETED Source: [place] 6:08 PM [facility] [place] REPOSITORY O ID: [id number] Author: Margy Rawls) Maribell Service: (none) Author Type: Nurse Practitioner Type: Progress Notes Filed: 12/01/2017 6:34 PM Note Text: Subjective HPI Priscila Teixeira is a 67 year old female who presents with right shoulder pain at night, and states her right shoulder locks up, states it happens quite frequently, every day. She describes the pain as an aching/burning pain. She has RSD in left arm, thinks she may be overusing right arm. She denies any trauma or injury to the arm/shoulder. She also has a rash on her right armpit present for 2 weeks, it has some burning pain and itching. She has used Gold Smith powder. No new detergents, soaps, deodorants, etc. She states the rash appeared around the same time as the shoulder pain. She has noted some new smaller blisters that have appeared in the last few days. She also notes some scattered red spots and blisters that have appeared on her right cheek, also present on and off for the past 2 weeks. She is currently caring for her older brother who has multiple medical issues. He is living with her. She admits to quite a lot of stress related to this situation. Review of Systems Constitutional: Positive for malaise/fatigue. Negative for fever. Respiratory: Negative. Cardiovascular: Negative. Gastrointestinal: Negative. Negative for nausea and vomiting. Skin: Positive for itching and rash. BP 120/78 Pulse 68 Temp 36.4 ?C (97.6 ?F) Resp 16 Wt 81.6 kg (180 lb) BMI 28.62 kg/m? 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 - Pure hypercholesterolemia - Reflex sympathetic dystrophy of other specified site left lower arm - Restless leg syndrome - Synovial cyst of popliteal space see 08/18/06 (solorzano's cyst, per MRI 03/24/06 @ [facility]--see ortho/sports med notes 08/18/06) PAST SURGICAL HISTORY Procedure Laterality Date - COLONOS W/REM POLYP SNARE 03/16/07 Pt having a BA Enema 03-17-07 at [facility] - COLONOSCOP W/ OR W/O [facility] SPEC 01/15/2010 - EGD W/O [facility] SPECIMEN W/BX 01/15/2010 - LIGATE FALLOPIAN TUBE Tubal ligation - PAST SURGICAL HISTORY OF left hand surgery - PAST SURGICAL HISTORY OF nerve blocks x 10 - PAST SURGICAL HISTORY OF 04/16 Left medial meniscus (arthroscopy), Dr. Cedeño - PAST SURGICAL HISTORY OF 07/20/2010 aspirate left breast cyst ALLERGIES Bees; Codeine; Cymbalta [Duloxetine]; Darvon [Propoxyphene Hcl]; Demerol [Meperidine (Pf)]; Lisinopril; Morphine; Penicillins; Percocet [Oxycodone-Acetaminophen]; Strawberries MEDICATIONS ticagrelor (BRILINTA) 90 mg tablet Take 90 mg by mouth twice daily. carvedilol (COREG) 3.125 mg tablet Take 3.125 mg by mouth twice daily with meals. simvastatin (ZOCOR) 5 mg tablet Take 5 mg by mouth daily at bedtime. aspirin, enteric coated (ASPIRIN, ENTERIC COATED) 81 mg EC tablet Take 81 mg by mouth once daily. famotidine (PEPCID) 20 mg tablet Take 20 mg by mouth twice daily. losartan-hydrochlorothiazide (HYZAAR) 50-12.5 mg per tablet Take 1 tablet by mouth once daily. PARoxetine (PAXIL) 10 mg tablet Take 20 mg by mouth once daily. potassium chloride SR (MICRO-K) 10 mEq CR capsule Take 10 mEq by mouth twice daily. ezetimibe (ZETIA) 10 mg tablet Take 10 mg by mouth once daily. fluticasone (FLONASE) 50 mcg/actuation NASAL nasal spray Use 2 Sprays in each nostril once daily. EPINEPHrine 0.3 mg/0.3 mL INTRAMUSC. PnIj Inject subcutaneously. use as needed, as directed for bee sting clopidogrel (PLAVIX) 75 mg tablet Take 75 mg by mouth once daily. Glucosamine HCl 1,500 mg tab Take by mouth. triamcinolone acetonide (KENALOG) 0.1 % cream Apply 1 application to affected area three times daily. Apply sparingly to area for rash/itching. clindamycin (CLEOCIN) 300 mg capsule Take 1 capsule by mouth four times daily. azithromycin (ZITHROMAX Z-RAOUL) 250 mg tablet TAKE 2 TABS ON THE FIRST DAY, THEN ONE TAB DAILY FOR 4 DAYS. guaiFENesin (MUCINEX) 600 mg 12 hr tablet Take 2 tablets by mouth twice daily. celecoxib (CELEBREX) 200 mg capsule Take 200 mg by mouth once daily. hydrochlorothiazide 25 mg tablet Take 0.5 tablets by mouth once daily. amLODIPine (NORVASC) 5 mg tablet Take 1 tablet by mouth once daily. clonazePAM 1 mg tablet Take 1 tablet by mouth at bedtime as needed (for restless legs). cyclobenzaprine 10 mg tablet Take 1 tablet by mouth three times daily as needed for Muscle Spasm. hydrocodone bit/acetaminophen(VICODIN 5 MG-500 MG TAB) Take 1-2 tablet's) every six(6) hours as needed for pain. FAMILY HISTORY Problem Relation Age of Onset - Diabetes Other - Colon Cancer Other - Allergies Brother - Coronary Artery Disease Father - Diabetes Brother - Ischemic Heart Disease Brother - Other [Other] [OTHER] No breast/educational technology specialist cancer - Psychiatry Father bipolar - Thyroid Mother - ALS [Other] [OTHER] Aunt, cousin Social History Substance Use Topics - Smoking status: Former Smoker Packs/day: 1.00 Years: 30.00 Types: Cigarettes Quit date: 07/12/1997 - Smokeless tobacco: Never Used - Alcohol use No Objective Physical Exam Constitutional: She is well-developed, well-nourished, and in no distress. HENT: Head: Cardiovascular: Normal rate. Pulmonary/Chest: Effort normal. Musculoskeletal: Right shoulder: She exhibits tenderness and pain. She exhibits normal range of motion, no bony tenderness, no swelling, no effusion, no crepitus, no deformity, no spasm and normal strength. Arms: Neurological: She is alert. Skin: Skin is warm and dry. Rash noted. There is erythema. Nursing note and vitals reviewed. ASSESSMENT/PLAN: 1. Herpes zoster without complication - ICD9: 053.9, ICD10: B02.9 (primary diagnosis) - VALACYCLOVIR 1 GRAM TABLET - TRIAMCINOLONE ACETONIDE 0.025 % TOPICAL CREAM 2. Acute pain of right shoulder - ICD9: 719.41, ICD10: M25.511 - likely related to shingles rash. - Follow-up with your PCP in 3-5 days if symptoms have not improved or sooner if symptoms worsen - Discussed red flags and need for immediate medical evaluation if any occur. - Discussed supportive care treatment with fluids, rest and analgesia. - Discussed expected course of illness Margy Reyna APRN.CNP CNOV Observed: 12/01/2017 Status: COMPLETED Source: [place] 5:45 PM [facility] REPOSITORY Office Visit (WSTR) PRISCILA TEIXEIRA ([id number]) 1950 F Date Time Provider Department 12/01/17 5:45 PM MARGY REYNA ([facility]) [facility] During your visit today, we recorded the following information about you: Temperature Pulse Respiration Blood pressure 97.6 degrees 68/minute 16/minute 120/78 Weight 81.6 kg Margy Reyna APRN.CNP 12/01/2017 6:34 PM Signed Subjective HPI Priscila Fernández Lluvia is a 67 year old female who presents with right shoulder pain at night, and states her right shoulder locks up, states it happens quite frequently, every day. She describes the pain as an aching/burning pain. She has RSD in left arm, thinks she may be overusing right arm. She denies any trauma or injury to the arm/shoulder. She also has a rash on her right armpit present for 2 weeks, it has some burning pain and itching. She has used [place] powder. No new detergents, soaps, deodorants, etc. She states the rash appeared around the same time as the shoulder pain. She has noted some new smaller blisters that have appeared in the last few days. She also notes some scattered red spots and blisters that have appeared on her right cheek, also present on and off for the past 2 weeks. She is currently caring for her older brother who has multiple medical issues. He is living with her. She admits to quite a lot of stress related to this situation. Review of Systems Constitutional: Positive for malaise/fatigue. Negative for fever. Respiratory: Negative. Cardiovascular: Negative. Gastrointestinal: Negative. Negative for nausea and vomiting. Skin: Positive for itching and rash. BP 120/78 Pulse 68 Temp 36.4 ?C (97.6 ?F) Resp 16 Wt 81.6 kg (180 lb) BMI 28.62 kg/m? 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 - Pure hypercholesterolemia - Reflex sympathetic dystrophy of other specified site left lower arm - Restless leg syndrome - Synovial cyst of popliteal space see 08/18/06 (solorzano's cyst, per MRI 03/24/06 @ [facility]--see ortho/sports med notes 08/18/06) PAST SURGICAL HISTORY Procedure Laterality Date - COLONOS W/REM POLYP SNARE 03/16/07 Pt having a BA Enema 03-17-07 at [facility] - COLONOSCOP W/ OR W/O [facility] SPEC 01/15/2010 - EGD W/O [facility] SPECIMEN W/BX 01/15/2010 - LIGATE FALLOPIAN TUBE Tubal ligation - PAST SURGICAL HISTORY OF left hand surgery - PAST SURGICAL HISTORY OF nerve blocks x 10 - PAST SURGICAL HISTORY OF 04/16 Left medial meniscus (arthroscopy), Dr. Cedeño - PAST SURGICAL HISTORY OF 07/20/2010 aspirate left breast cyst ALLERGIES Bees; Codeine; Cymbalta [Duloxetine]; Darvon [Propoxyphene Hcl]; Demerol [Meperidine (Pf)]; Lisinopril; Morphine; Penicillins; Percocet [Oxycodone-Acetaminophen]; Strawberries MEDICATIONS ticagrelor (BRILINTA) 90 mg tablet Take 90 mg by mouth twice daily. carvedilol (COREG) 3.125 mg tablet Take 3.125 mg by mouth twice daily with meals. simvastatin (ZOCOR) 5 mg tablet Take 5 mg by mouth daily at bedtime. aspirin, enteric coated (ASPIRIN, ENTERIC COATED) 81 mg EC tablet Take 81 mg by mouth once daily. famotidine (PEPCID) 20 mg tablet Take 20 mg by mouth twice daily. losartan-hydrochlorothiazide (HYZAAR) 50-12.5 mg per tablet Take 1 tablet by mouth once daily. PARoxetine (PAXIL) 10 mg tablet Take 20 mg by mouth once daily. potassium chloride SR (MICRO-K) 10 mEq CR capsule Take 10 mEq by mouth twice daily. ezetimibe (ZETIA) 10 mg tablet Take 10 mg by mouth once daily. fluticasone (FLONASE) 50 mcg/actuation NASAL nasal spray Use 2 Sprays in each nostril once daily. EPINEPHrine 0.3 mg/0.3 mL INTRAMUSC. PnIj Inject subcutaneously. use as needed, as directed for bee sting clopidogrel (PLAVIX) 75 mg tablet Take 75 mg by mouth once daily. Glucosamine HCl 1,500 mg tab Take by mouth. triamcinolone acetonide (KENALOG) 0.1 % cream Apply 1 application to affected area three times daily. Apply sparingly to area for rash/itching. clindamycin (CLEOCIN) 300 mg capsule Take 1 capsule by mouth four times daily. azithromycin (ZITHROMAX Z-RAOUL) 250 mg tablet TAKE 2 TABS ON THE FIRST DAY, THEN ONE TAB DAILY FOR 4 DAYS. guaiFENesin (MUCINEX) 600 mg 12 hr tablet Take 2 tablets by mouth twice daily. celecoxib (CELEBREX) 200 mg capsule Take 200 mg by mouth once daily. hydrochlorothiazide 25 mg tablet Take 0.5 tablets by mouth once daily. amLODIPine (NORVASC) 5 mg tablet Take 1 tablet by mouth once daily. clonazePAM 1 mg tablet Take 1 tablet by mouth at bedtime as needed (for restless legs). cyclobenzaprine 10 mg tablet Take 1 tablet by mouth three times daily as needed for Muscle Spasm. hydrocodone bit/acetaminophen(VICODIN 5 MG-500 MG TAB) Take 1-2 tablet's) every six(6) hours as needed for pain. FAMILY HISTORY Problem Relation Age of Onset - Diabetes Other - Colon Cancer Other - Allergies Brother - Coronary Artery Disease Father - Diabetes Brother - Ischemic Heart Disease Brother - Other [Other] [OTHER] No breast/educational technology specialist cancer - Psychiatry Father bipolar - Thyroid Mother - ALS [Other] [OTHER] Aunt, cousin Social History Substance Use Topics - Smoking status: Former Smoker Packs/day: 1.00 Years: 30.00 Types: Cigarettes Quit date: 07/12/1997 - Smokeless tobacco: Never Used - Alcohol use No Objective Physical Exam Constitutional: She is well-developed, well-nourished, and in no distress. HENT: Head: Cardiovascular: Normal rate. Pulmonary/Chest: Effort normal. Musculoskeletal: Right shoulder: She exhibits tenderness and pain. She exhibits normal range of motion, no bony tenderness, no swelling, no effusion, no crepitus, no deformity, no spasm and normal strength. Arms: Neurological: She is alert. Skin: Skin is warm and dry. Rash noted. There is erythema. Nursing note and vitals reviewed. ASSESSMENT/PLAN: 1. Herpes zoster without complication - ICD9: 053.9, ICD10: B02.9 (primary diagnosis) - VALACYCLOVIR 1 GRAM TABLET - TRIAMCINOLONE ACETONIDE 0.025 % TOPICAL CREAM 2. Acute pain of right shoulder - ICD9: 719.41, ICD10: M25.511 - likely related to shingles rash. - Follow-up with your PCP in 3-5 days if symptoms have not improved or sooner if symptoms worsen - Discussed red flags and need for immediate medical evaluation if any occur. - Discussed supportive care treatment with fluids, rest and analgesia. - Discussed expected course of illness BETSEY Mccann APRN.CNP 12/01/2017 6:20 PM Signed [facility] PATIENT INFO SHINGLES Shingles (Herpes Zoster) What is shingles? Shingles is an infection caused by the same virus that causes chickenpox. This virus is called varicella zoster. You cannot develop shingles unless you have had a previous infection of chickenpox (usually as a child). Shingles is also called herpes zoster. This infection is most common in people over 60 years of age, but young people can have it as well. How does it occur? After you recover from chickenpox, the chickenpox virus is not destroyed. It moves back to the roots of your nerve cells (near the spinal cord) and becomes inactive (dormant). Later, if the virus is reactivated, the symptoms are called shingles. What exactly causes the reactivation of the virus is not known. A weakened immune system seems to allow reactivation of the virus. Advancing age and chronic use of cortisone-type drugs may trigger shingles. The virus may also become active again after the skin is injured or sunburned. Emotional stress seems to be a common trigger as well. What are the symptoms? The first sign of shingles is often burning, sharp pain, tingling, or numbness in or under your skin on one side of your body or face. The most common site is the back or upper abdomen. You may have severe itching or aching. You also may feel tired and ill with fever, chills, headache, and upset stomach. After several days, you will notice a rash of small, clear, fluid- filled blisters on reddened skin. Within 3 days after they appear, the blisters will turn yellow, then dry and crust over. Over the next 2 weeks the crusts will drop off, sometimes leaving small, pitted scars. Because they tend to follow nerve paths, the blisters are usually found in a line, often extending from the back or flank around to the abdomen, just on one side. Shingles usually doesn't cross the midline of the body. (The word shingles comes from the Latin word for belt or girdle.) The rash also may appear on one side of your face. Some people have painful eye inflammations and infections. Is shingles contagious? You can't get shingles from someone else, but you may get chickenpox from contact with shingles blisters if you have not had chickenpox before. The shingles virus is in the blister fluid. The virus can spread by direct contact with a blister. It can also be spread by indirect contact, for example, if you use a washcloth that has blister fluid on it. If you have shingles, avoid contact with infants, children, women, and adults who have never had chickenpox or the chickenpox shot until your blisters are completely dry. How is shingles diagnosed? Your health care provider will ask about your symptoms and examine you. Your provider may order lab tests to look for the virus in fluid from a blister. How is it treated? It is best to start treatment within 24 to 48 hours after symptoms start. Your health care provider may prescribe: -an antiviral drug, such as acyclovir, to speed recovery and lessen the chance of prolonged symptoms from nerve inflammation -painkillers for more serious discomfort if nonprescription painkillers are not helping enough -antibacterial salves or lotions to help prevent bacterial infection of the blisters -capsaicin cream for pain How long will the effects last? The rash from shingles will heal in 1 to 2 weeks and the pain or irritation will usually disappear within 3 to 5 weeks. If the virus damages a nerve, you may have pain, numbness, or tingling for months or even years after the rash is healed. This is a condition called postherpetic neuralgia. It is most likely to occur after a shingles outbreaks in people over 50 years old. Antiviral medicine prescribed at the time the shingles is diagnosed and taken for 7 days can help prevent this problem. How can I take care of myself? -Take a pain relief medicine such as acetaminophen. Take other medicine as prescribed by your health care provider. -Put a cool compress on the rash (such as a cool, moist washcloth). -Rest in bed during the early stages if you have fever and other symptoms. -Try to avoid having clothing or bed linens rubbing against the rash, which might irritate it. Call your health care provider if: -You develop worsening pain or fever. -The blisters show signs of bacterial infection, such as increasing pain or redness, or milky yellow drainage from the blister sites. -The blisters are close to the eyes. How can I help prevent shingles? -If you have never had chickenpox, you can get a shot to help prevent infection with the chickenpox virus. -You can protect your immune system and lessen your chances of getting shingles by trying to keep your stress under control Referring Provider: SELF [[id number]] Allergies As of Date: 12/01/2017 Noted Allergy Reaction BEES 12/07/2007 10 - Anaphylaxis CODEINE 11/21/2006 CYMBALTA (DULOXETINE) 03/13/2012 8 - GI Upset DARVON (PROPOXYPHENE HCL) 07/12/2005 5 - Intolerance DEMEROL (MEPERIDINE (PF)) 07/12/2005 9 - Itching LISINOPRIL 05/14/2010 5 - Intolerance Comments: white spots in mouth MORPHINE 07/12/2005 11 - Vomiting PENICILLINS 08/08/2005 PERCOCET (OXYCODONE-ACETAMINOPHEN)07/12/2005 11 - Vomiting STRAWBERRIES 11/30/2008 4 - Hives 9 - Itching Date Reviewed: 12/01/2017 Reviewed by: Margy ([facility]) [place] - Fully Assessed Reason for Visit: Rash [1087] Cmt: x 2 weeks in right axilla Pain (Shoulder Pain) [1343] Cmt: x 2 weeks right shoulder pain and locks up Primary Visit Diagnosis:Herpes zoster without complication [B02.9] Other Visit Diagnosis:Acute pain of right shoulder [M25.511] Order(s):valACYclovir (VALTREX) 1 gram tabTake 1 tablet by mouth three times daily for 7 days.Disp: 21 tabletRfl: 0 triamcinolone (KENALOG) 0.025 % creamApply 1 application to affected area twice daily.Disp: 30 gRfl: 0 Prescriptions as of 12/01/2017 Sig: TICAGRELOR 90 MG TABLET Take 90 mg by mouth twice evert* CARVEDILOL 3.125 MG TABLET Take 3.125 mg by mouth twice * SIMVASTATIN 5 MG TABLET Take 5 mg by mouth daily at b* ASPIRIN 81 MG TABLET,DELAYED * Take 81 mg by mouth once pattie* FAMOTIDINE 20 MG TABLET Take 20 mg by mouth twice evert* LOSARTAN 50 MG-HYDROCHLOROTHI* Take 1 tablet by mouth once d* PAROXETINE 10 MG TABLET Take 20 mg by mouth once pattie* POTASSIUM CHLORIDE ER 10 MEQ * Take 10 mEq by mouth twice da* EZETIMIBE 10 MG TABLET Take 10 mg by mouth once pattie* * FLUTICASONE 50 MCG/ACTUATION * Use 2 Sprays in each nostril * * EPINEPHRINE 0.3 MG/0.3 ML INJ* Inject subcutaneously. use a* VALACYCLOVIR 1 GRAM TABLET Take 1 tablet by mouth three * TRIAMCINOLONE ACETONIDE 0.025* Apply 1 application to affect* CLOPIDOGREL 75 MG TABLET Take 75 mg by mouth once pattie* GLUCOSAMINE HCL 1,500 MG TABL* Take by mouth. TRIAMCINOLONE ACETONIDE 0.1 %* Apply 1 application to affect* Patient not taking: Reported on 12/01/2017 AMLODIPINE 5 MG TABLET Take 1 tablet by mouth once d* Medication notes this encounter EPINEPHRINE 0.3 MG/0.3 ML INJECTION, AUTO-INJECTOR >> Tiesha Kline LPN 12/01/2017 6:02 PM >> TIESHA KLINE LPN FriDec 01, 2017 6:02 PM Problem List As Of Date 12/01/2017 Noted Resolved Reflex sympathetic dystrophy of the upper limb *INVALID FOR* Priority: Severe More... Synovial cyst of popliteal space [M71.20] Priority: B More... Adjustment disorder with depressed mood [F43.21] Priority: A PURE HYPERCHOLESTEROLEM [E78.00] 09/04/2007 Unspecified essential hypertension [I10] INVALID FOR* Priority: A LOC OSTEOARTH NOS-L/LEG [M17.10] More... BENIGN HYPERTENSION [I10] 09/04/2007 BENIGN NEOPLASM LG BOWEL [D12.6] INVALID FOR* More... 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 Mixed hyperlipidemia [E78.2] INVALID FOR* Priority: A More... ALLERGIC RHINITIS NOS [J30.9] INVALID FOR* TORN MEDIAL MENISCUS, LEFT KNEE [IVT8015] INVALID FOR* Priority: B More... More... Routine gynecological examination [Z01.419] INVALID FOR* Class: Chronic More... Acute gastritis without mention of hemorrhage [*INVALID FOR*03/13/2012 Abdominal pain, unspecified site [R10.9] INVALID FOR* Diverticulosis of colon (without mention of hem*INVALID FOR* Axillary pain [M79.629] INVALID FOR*03/13/2012 Solitary cyst of breast [N60.09] INVALID FOR* More... Impaired fasting glucose [R73.01] INVALID FOR* Priority: A More... Sprain of lumbar region [S33.5XXA] INVALID FOR*03/13/2012 Lumbago [M54.5] INVALID FOR* Panic attack [F41.0] Restless leg syndrome [G25.81] Kidney mass [N28.89] INVALID FOR* Angiomyolipoma [D17.9] INVALID FOR* Urgency of urination [R39.15] INVALID FOR* Frequency of urination [R35.0] INVALID FOR* Other instructions from your clinician: [facility] PATIENT INFO SHINGLES Shingles (Herpes Zoster) What is shingles? Shingles is an infection caused by the same virus that causes chickenpox. This virus is called varicella zoster. You cannot develop shingles unless you have had a previous infection of chickenpox (usually as a child). Shingles is also called herpes zoster. This infection is most common in people over 60 years of age, but young people can have it as well. How does it occur? After you recover from chickenpox, the chickenpox virus is not destroyed. It moves back to the roots of your nerve cells (near the spinal cord) and becomes inactive (dormant). Later, if the virus is reactivated, the symptoms are called shingles. What exactly causes the reactivation of the virus is not known. A weakened immune system seems to allow reactivation of the virus. Advancing age and chronic use of cortisone- type drugs may trigger shingles. The virus may also become active again after the skin is injured or sunburned. Emotional stress seems to be a common trigger as well. What are the symptoms? The first sign of shingles is often burning, sharp pain, tingling, or numbness in or under your skin on one side of your body or face. The most common site is the back or upper abdomen. You may have severe itching or aching. You also may feel tired and ill with fever, chills, headache, and upset stomach. After several days, you will notice a rash of small, clear, fluid-filled blisters on reddened skin. Within 3 days after they appear, the blisters will turn yellow, then dry and crust over. Over the next 2 weeks the crusts will drop off, sometimes leaving small, pitted scars. Because they tend to follow nerve paths, the blisters are usually found in a line, often extending from the back or flank around to the abdomen, just on one side. Shingles usually doesn't cross the midline of the body. (The word shingles comes from the Latin word for belt or girdle.) The rash also may appear on one side of your face. Some people have painful eye inflammations and infections. Is shingles contagious? You can't get shingles from someone else, but you may get chickenpox from contact with shingles blisters if you have not had chickenpox before. The shingles virus is in the blister fluid. The virus can spread by direct contact with a blister. It can also be spread by indirect contact, for example, if you use a washcloth that has blister fluid on it. If you have shingles, avoid contact with infants, children, women, and adults who have never had chickenpox or the chickenpox shot until your blisters are completely dry. How is shingles diagnosed? Your health care provider will ask about your symptoms and examine you. Your provider may order lab tests to look for the virus in fluid from a blister. How is it treated? It is best to start treatment within 24 to 48 hours after symptoms start. Your health care provider may prescribe: -an antiviral drug, such as acyclovir, to speed recovery and lessen the chance of prolonged symptoms from nerve inflammation -painkillers for more serious discomfort if nonprescription painkillers are not helping enough -antibacterial salves or lotions to help prevent bacterial infection of the blisters -capsaicin cream for pain How long will the effects last? The rash from shingles will heal in 1 to 2 weeks and the pain or irritation will usually disappear within 3 to 5 weeks. If the virus damages a nerve, you may have pain, numbness, or tingling for months or even years after the rash is healed. This is a condition called postherpetic neuralgia. It is most likely to occur after a shingles outbreaks in people over 50 years old. Antiviral medicine prescribed at the time the shingles is diagnosed and taken for 7 days can help prevent this problem. How can I take care of myself? -Take a pain relief medicine such as acetaminophen. Take other medicine as prescribed by your health care provider. -Put a cool compress on the rash (such as a cool, moist washcloth). -Rest in bed during the early stages if you have fever and other symptoms. -Try to avoid having clothing or bed linens rubbing against the rash, which might irritate it. Call your health care provider if: -You develop worsening pain or fever. -The blisters show signs of bacterial infection, such as increasing pain or redness, or milky yellow drainage from the blister sites. -The blisters are close to the eyes. How can I help prevent shingles? -If you have never had chickenpox, you can get a shot to help prevent infection with the chickenpox virus. -You can protect your immune system and lessen your chances of getting shingles by trying to keep your stress under control Prescriptions ordered this encounter Disp Refills Start End VALACYCLOVIR 1 GRAM TABLET 21 t* 0 12/01/2017 12/08/2017 Route: ORAL Sig: Take 1 tablet by mouth three times daily for 7 days. TRIAMCINOLONE ACETONIDE 0.025 % TOPI* 30 g 0 12/01/2017 Route: TOPICAL Sig: Apply 1 application to affected area twice daily. Medications Discontinued During This Encounter azithromycin (ZITHROMAX Z-RAOUL) 250 m* 1 Pa* 0 10/02/2014 12/01/2017 Sig: TAKE 2 TABS ON THE FIRST DAY, THEN ONE TAB DAILY FOR 4 DAYS. Disc: Reason for discontinue is not on file. clindamycin (CLEOCIN) 300 mg capsule 40 c* 0 07/01/2015 12/01/2017 Route: ORAL Sig: Take 1 capsule by mouth four times daily. Disc: Reason for discontinue is not on file. guaiFENesin (MUCINEX) 600 mg 12 hr t* 20 t* 0 10/02/2014 12/01/2017 Route: ORAL Sig: Take 2 tablets by mouth twice daily. Disc: Reason for discontinue is not on file. celecoxib (CELEBREX) 200 mg capsule 12/01/2017 Class: Historical Med Route: ORAL Sig: Take 200 mg by mouth once daily. Disc: Reason for discontinue is not on file. hydrochlorothiazide 25 mg tablet 30 t* 3 09/08/2012 12/01/2017 Route: ORAL Sig: Take 0.5 tablets by mouth once daily. Disc: Reason for discontinue is not on file. clonazePAM 1 mg tablet 30 t* 3 03/13/2012 12/01/2017 Class: Print RX Route: ORAL Sig: Take 1 tablet by mouth at bedtime as needed (for restless legs). Disc: Reason for discontinue is not on file. cyclobenzaprine 10 mg tablet 20 t* 0 01/21/2012 12/01/2017 Route: ORAL Sig: Take 1 tablet by mouth three times daily as needed for Muscle Spasm. Disc: Reason for discontinue is not on file. hydrocodone bit/acetaminophen(VICODI* 180 5 08/08/2008 12/01/2017 Class: Print RX Route: ORAL Sig: Take 1-2 tablet's) every six(6) hours as needed for pain. Disc: Reason for discontinue is not on file. Encounter Status:Closed by MARGY REYNA on 12/01/17 STRESS TEST ECHO W/O Observed: 10/09/2017 Status: F Source: [place] [facility] 12:42 PM [facility] [place] REPOSITORY [facility] Cardiovascular Services [address] [place] [id number] Stress Test Echo w/o Contrast MR#: [id number] Acct: [id number] Name: PRISCILA TEIXEIRA Rep #: [id number] : 1950 67 From: Juan Gan MD Primary Care: Hussein Tidwell Status: REG CLI Ordering Dr: Juan Gan MD Sex: F C Reason For Study: CAD/ASHD Stress Results Protocol: Dobutamine Maximum Predicted HR: 155 bpm Target HR: 132 bpm% Maximum Predicted HR: 93 % DurationHeart Rate Stage (mm:ss) (bpm) BPDos eComment BASELINE 61 145/93 STAGE 1 3:00 61 125/7010.00 STAGE 2 3:00 90 128/6620.00 STAGE 3 3:00 13 7 132/7130.000.25 MG ATROPINE STAGE 4 1:39 14 4 / 40. 00 RECOVERY 99 150/66 Stress Duration: 10:39 mm:ss Maximum Stress HR: 144 bpm Baseline Echocardiogram Findings The estimated ejection fraction is 65 %. Stress Echo Wall motion Data Resting WMIntermediate WMStress WM Resting Wall Motion Wall Motion Stress No regional wall motion No regional wall motion abnormalities noted. abnormalities noted. EKG Data The baseline ECG demonstrates normal sinus rhythm with at rate of _ beats per minute. At peak infusion, upsloping ST changes only were noted, which did not meet the criteria for ischemia. Interpretation Summary The estimated ejection fraction is 65 %. Normal, adequate, dobutamine echocardiogram. Negative for ischemia by EKG and echocardiographic anterior. No anginal symptoms noted. Rare PVCs noted. Excellent heart rate response to dobutamine. Final LVEF is 75%. Appropriate blood pressure response to dobutamine. No complications. Ordering Physician: Juan Gan Referring Physician: Juan Gan Performed By: Che Johansen RDCS 10/09/17 1241 Date Juan Gan MD CC: Juan Gan MD; Hussein Tidwell Date Dictated: 10/08/17 1040 Date Transcribed: 10/09/17 1241 Dampener: Signed CARDIOLOGY VISIT Observed: 09/11/2017 Status: F Source: [place] REPORT 3:56 PM [facility] REPOSITORY [facility] [address] [place] [address] OFFICE VISIT Date of Service: 09/11/17 MR#: [id number] Acct: [id number] Name: PRISCILA TEIXEIRA Rep #: [id number] : 1950 Provider: Juan Gan MD Age/Sex: 67/F [place] [facility] [place]: Signed HPI HPI Chief Complaint: Routine f/u Details: Referring physician: Dr. Hussein Tidwell Mrs. Celeste is a very pleasant 67-year-old nondiabetic previous tobacco smoker who quit around 1984 after a [id number] smoking history, previous THC user, subsequently quit after her non-STEMI. Patient was admitted to [facility] with new onset chest pain described as a 10 out of 10 radiating to the inside portion of her left arm but no associated shortness of breath. Her EKG was negative and her enzymes are negative 3. She had decreased exercise capacity at that time over the last year. I recommended a stress test which was abnormal, followed by direct angiography that same day. No stress test was performed at that time. Patient underwent left heart catheterization by myself on 08/28/15 which demonstrated a critical 90% stenosis in the proximal LAD nonobstructive disease of the left circumflex and RCA. Patient was transferred to [facility] where she underwent successful angioplasty and drug-eluting stenting to the proximal LAD receiving a 2.5X 33 Xience Alpine drug-eluting stent, with mild compromise of a small diagonal branch. Her peak troponin was 4.0 and she was subsequently discharged. Patient was doing well when she began developing generalized muscle aches with increased and her Pravachol, fatigue, and decreased energy levels. She also complained of substernal chest pressure which was dissimilar to her previous angina. This precipitated a visit to the emergency room on 01/21/16. at that time her EKG and troponins were negative. She underwent a non-walking nuclear stress test which was deemed negative for inducible ischemia. nonetheless she was set up for her catheterization in January but did not show up for the procedure and canceled it on her own. Patient underwent a stress test on 08/21/16 in which only went 4 minutes and 35 seconds and due to her poor exercise capacity and profound dyspnea she was referred for repeat catheterization. Patient underwent repeat catheterization at [facility] on 08/27/16. This demonstrated nonobstructive coronary disease and a widely patent proximal and mid LAD stent with preserved LV function and normal LVEDP. He has been under a significant amount of stress taking care of her bipolar brother who also has recently been found to have Alzheimer's disease. She complains of panic attacks and shortness of breath similar to her presentation initially in 2016. She occasionally has substernal chest pain although this appears to be without exertion. She is taking and tolerating her medicines well. In our office today her blood pressure is 132/70 pulse is 66 and regular. Her physical exam is as below. Her lipids as of 12/14/2015 show an LDL of 94 and HDL of 41. Repeat lipid profile After switching to Zetia showed an LDL of 122 and an HDL of 42 as of 05/06/16.repeat lipids as of 01/29/17 shown LDL 103 and HDL 45. Lipids as of 08/08/17 show an LDL of 46 and HDL of 42. EKG dated 01/20/16 showed normal sinus rhythm, normal axis, normal intervals, no acute changes. Intake Vital Signs09/11/17 Height 5 ft 6 in Intake Visit Reasons: 6 M FU Allergies venom-honey bee [bee venom (honey bee)] Allergy (Severe, Verified 09/11/17 15:20) Anaphylaxis atorvastatin Allergy (Unknown, Verified 09/11/17 15:20) Unknown Penicillins Allergy (Unknown, Verified 09/11/17 15:20) Unknown strawberry Allergy (Verified 09/11/17 15:20) Anaphylaxis oxycodone HCl [From Percocet] Adverse Reaction (Verified 09/11/17 15:20) Vomiting Medications Famotidine [Pepcid] 20 mg PO DAILY 10/02/15 [History Confirmed 09/11/17] Losartan/Hydrochlorothiazide [Hyzaar 50-12.5 Tablet] 1 tab PO DAILY 10/02/15 [History Confirmed 09/11/17] Aspirin [Adult Low Dose Aspirin EC] 81 mg PO DAILY 01/20/16 [History Confirmed 09/11/17] Ezetimibe [Zetia] 10 mg PO DAILY 05/13/16 [History Confirmed 09/11/17] Glucosamine/MSM/Chondroitin A [Glucosamine Chondroit MSM Tab] 1 ea PO DAILY 08/26/16 [History Confirmed 09/11/17] Nitroglycerin [Nitrostat] 0.4 mg SUBLINGUAL Q5M PRN #1 bottle 06/27/17 [Rx Confirmed 09/11/17] Potassium Chloride 10 meq PO BID #60 capsule.er 06/27/17 [Rx Confirmed 09/11/17] Tramadol HCl [Ultram] 50 mg PO PRN PRN 07/10/17 [History Confirmed 09/11/17] albuterol sulfate HFA 90 mcg/actuation aerosol inhaler 2 puff INHALATION Q6H PRN 07/14/17 [History Confirmed 09/11/17] fluticasone 50 mcg/actuation nasal spray,suspension 50 mcg INTRANASAL QDAY PRN 07/14/17 [History Confirmed 09/11/17] paroxetine 20 mg tablet 20 mg PO QDAY 07/14/17 [History Confirmed 09/11/17] carvedilol 3.125 mg tablet 3.125 mg PO BID #180 tab 07/25/17 [Rx Confirmed 09/11/17] ticagrelor 90 mg tablet 90 mg PO BID #180 tab 07/25/17 [Rx Confirmed 09/11/17] simvastatin 5 mg tablet 5 mg PO QPM 09/11/17 [History Confirmed 09/11/17] [facility] Medical History Atherosclerotic heart disease of [place] coronary artery without angina pectoris (Chronic) Nonrheumatic tricuspid (valve) insufficiency (Chronic) Old myocardial infarction (Chronic) Daytime somnolence (Chronic) Dyspnea on exertion (Chronic) Obesity (BMI 30.0-34.9) (Chronic) NSTEMI (non-ST elevated myocardial infarction) (Chronic) HTN (hypertension) (Chronic) HLD (hyperlipidemia) (Chronic) COPD (chronic obstructive pulmonary disease) (Chronic) Angiomyoma (Chronic) Chronic back pain (Chronic) RSD (reflex sympathetic dystrophy) (Chronic) Surgical History History of coronary artery stent placement (Chronic 06/2017) History of back surgery (Chronic) left hand surgery (Chronic) Family History Father CAD (coronary artery disease) Brother Afib Social History Smoking Status: Former smoker alcohol intake: current substance use type: former substance user Date of last use: 2015, marijuana caffeine: Yes Type: coffee, carbonated beverages, tea what type of physical activity do you participate in: none seatbelt use: always do you feel safe at home: Yes ROS Const Const: Positive for fatigue; negative for weakness, difficulty sleeping, frequent falls, headache(s) or excessive sweating Eyes Eyes: Negative for loss of peripheral vision, transient loss of vision, blurry vision or double vision ENT ENT: Negative for headache(s), dizziness, Nosebleed/epistaxis or balance problems Cardio Chest Pain: No Edema: None Muscle aches with walking: None Resp Respiratory: Negative for SOB with activity, SOB at rest, SOB orthopnea\SOB lying down or paroxysmal nocturnal dyspnea GI GI: Negative nausea or heartburn : Negative for hematuria Musc Musc: Negative for muscle aches/ myalgia, muscle weakness, joint pain or balance problems Skin Skin: Negative non-healing lesions, unusual bruising or rash Neuro Neuro: Negative for weakness, frequent falls, blurry vision, headache(s), dizziness, lightheadedness, orthostatic symptoms or double vision Axel Hematologic/Lymphatic: Negative for easy bruising Endo Endo: Positive for fatigue; negative for excessive sweating or increased thirst/drinking Psych Psych: Positive for anxiety; negative for depression Allergy Allergy/Immunology: Negative for hives, Negative for rash Cardiology Exam Const Appearance: cooperative, healthy appearing and no acute distress Nutritional Appearance: well nourished Orientation: alert, oriented x3 and oriented to person Head Head: normal to inspection, atraumatic and normocephalic Nose: external nose normal Face and Sinus: face symmetric Mouth: oral mucosae normal Eyes General: appearance normal, both eyes and all related structures Eyelids: eyelids normal Conjunctivae: conjunctivae normal Pupils: PERRL and normal by confrontation EOM: EOM intact bilaterally Neck Neck: normal visual inspection and full ROM Carotids: normal carotid upstroke Chest Chest inspection: normal inspection of the chest Auscultation: Bilateral: Clear to Auscultation Cardio Palpation: normal PMI Rate: regular rate Rhythm: regular rhythm Heart sounds: S1 normal and S2 normal GI GI: normal to inspection, no hepatosplenomegaly and bowel sounds present Neuro General: alert, oriented x3, awake, CN's II-XI intact bilaterally and moves all extremities Skin Skin: no rashes or lesions noted Extremities Pulses: Normal: Right Femoral Pulse, Left Femoral Pulse, Right Dorsalis Pedis Pulse, Left Dorsalis Pedis Pulse, Right Posterior Tibial Pulse, Left Posterior Tibial Pulse, Right Radial Pulse, Left Radial Pulse Lower Extremity Edema: None: Bilateral Psych Psychological: normal affect Assessment AND Plan 1. Atherosclerosis of [place] coronary artery of [place] heart without angina pectoris I25.10 PCI-SOLOMON-LAD 08/28/15 @ [facility]; PTCA/SOLOMON of the distal RCA 06/26/2017. Plan 1. Coronary artery disease: I am concerned that the patient's shortness of breath, and panic-like attacks may be anginal equivalents. Patient had a unique presentation in 2016 with shortness of breath as her anginal equivalent. She is unfortunately unable to walk on a treadmill as she had a traumatic hand injury and a mechanical machine at work, which is similar to the treadmill, and therefore she is scared to walk on it. I recommended that she undergo a debridement echocardiogram to determine if she has any ischemia either of the anterior wall where her previous stent was placed or in the left circumflex or right coronary territories where she had nonobstructive 50% disease. In the meantime her blood pressure is well-controlled and I recommended that she continue her antihypertensive medications of carvedilol, and losartan/hydrochlorothiazide. I recommended she continue baby aspirin and Brilinta in the event that she may require repeat catheterization. If her stress test is even remotely abnormal, I would have a low threshold for repeat catheterization. Orders Orders: 2. Hyperlipidemia, unspecified hyperlipidemia type E78.5 Plan 2. Hyperlipidemia: Her LDL and HDL cholesterol are at goal. Continue Zocor. 3. Return office in 6 month This note was generated using a voice recognition system and there may be incorrect words, spelling or punctuation that were not noted when reviewing the office note prior to saving. Plan Detail Other Orders Orders: Follow Up +6m (Francisco) Coding Level of Care Code Off vis,est,level 3 Diagnoses Atherosclerosis of [place] coronary artery of [place] heart without angina pectoris I25.10 [place] vs. transplanted heart: [place] heart Hyperlipidemia, unspecified hyperlipidemia type E78.5 Hyperlipidemia type: unspecified Coding Level of Care Code Off vis,est,level 3 Diagnoses Atherosclerosis of [place] coronary artery of [place] heart without angina pectoris I25.10 [place] vs. transplanted heart: [place] heart Hyperlipidemia, unspecified hyperlipidemia type E78.5 Hyperlipidemia type: unspecified 09/11/17 1556 <Electronically signed by Juan Gan MD> Date Juan Gan MD Cosigner Signature: Date (if applicable) CC: LIVER PROFILE Collected: 08/08/2017 Status: F Source: [place] 10:48 AM [facility] REPOSITORY TYPE CODE TESTS RESULT OUT OF RANGE REFERENCE UNITS LAB L501.1500 6.4-8.2 g/dL Normal T PROT 7.4 LAB L501.1800 3.2-5.0 g/dL Normal ALB 3.5 LAB L501.1950 2.2-4.2 g/dL Normal GLOB 3.9 LAB L501.4100 15-37 U/L Low AST 13 LAB L501.4305 45-117 U/L Normal ALK P 83 LAB L501.4405 13-56 U/L Normal ALT 24 Result Comment: Please note revised ALT reference range effective 2017. LAB L501.4600 0.20-1.00 mg/dL Normal T BILI 0.70 LAB L501.4700 0.00-0.30 mg/dL Normal D BILI 0.12 Performed By: #### L500.3400, L500.4100 #### [facility] [address] [place], [place], [address] LIPID PROFILE Collected: 08/08/2017 Status: F Source: [place] 10:48 AM [facility] REPOSITORY TYPE CODE TESTS RESULT OUT OF RANGE REFERENCE UNITS LAB L501.4900 200 mg/dL Normal CHOL 128 Result Comment: <200 mg/dL Desirable 200-240 mg/dL Borderline >240 mg/dL High Risk LAB L501.5000 mg/dL High TRIG 200 Result Comment: The drugs N-Acetylcysteine and Metamizole may falsely depress this assay. Serum Triglycerides Reference Interval Normal <150 mg/dL Borderline high 150 - 199 mg/dL High 200 - 499 mg/dL Very High > or = 500 mg/dL LAB L501.6400 mg/dL Normal HDL 42 Result Comment: The drugs N-Acetylcysteine and Metamizole may falsely depress this assay. Reference Range HDL <40 mg/dL Low HDL Cholesterol HDL >or= 60 mg/dL High HDL Cholesterol LAB L501.6500 0-130 mg/dL Normal LDL 46 LAB L501.6600 5-40 mg/dL Normal VLDL 40 Performed By: #### L500.3400, L500.4100 #### [facility] [address] [place], [address] 12 LEAD ELECTROCARDIOGRAM Observed: 07/18/2017 Status: F Source: [place] 2:22 PM [facility] REPOSITORY [facility] Cardiovascular Services [address] [place] [address] 12 Lead EKG 07/16/17 1841 MR#: [id number] Acct: [id number] Name: LLUVIA,PRISCILA P Rep #: [id number] : 1950 67 From: Alberto Peguero MD Attending Dr: Status: DEP ER Ordering Dr: Lincoln Haines DO Date: 07/16/17 Location: ED Sex: F C Admitted: Test Reason : NECK PAIN Blood Pressure : / mmHG Vent. Rate : 064 BPM Atrial Rate : 064 BPM P-R Int : 166 ms QRS Dur : 090 ms QT Int : 436 ms P-R-T Axes : 042 050 046 degrees QTc Int : 449 ms Normal sinus rhythm Nonspecific T wave abnormality Abnormal ECG Confirmed by LAYLA OLIVEROS, ALBERTO ([id number]), editorial clerk NIA HALL ([id number]) on 07/18/2017 2:22:27 PM Referred By: Juan Gan Confirmed By:ALBERTO PEGUERO MD 07/18/17 1422 Date Alberto Peguero MD CC: Lincoln Haines DO; Hussein Tidwell Signed EMERGENCY DEPARTMENT Observed: 07/16/2017 Status: F Source: [place] 7:41 PM [facility] REPOSITORY [facility] Medical Records Department [address] [place] [address] Emergency Department Summary 07/16/17 193 MR#: [id number] Acct: [id number] Name: LLUVIAPRISCILA Rep #: [id number] : 1950 67 From: Lincoln Haines DO PCP: Hussein Tidwell Status: REG ER - ER Visit Summary Date of Service: 07/16/17 Chief Complaint: [Neck pain] History of Present Illness: The patient is a 67 F [to the emergency department with complaint of left-sided neck pain 3 weeks. Patient is concerned about her heart because she had a heart attack 3 weeks ago that required a stent. Patient states that at the time of her heart attack she had chest discomfort that radiated into her neck and down both arms. Patient states that the neck pain never left. Patient has been going through cardiac rehab. Patient has taken Ultram at home for the pain but does not resolve it. Patient states that it is not made worse by movement. Patient has no exertional symptoms. She is not been having chest pain. Patient states that she has been more anxious than usual since her heart attack. Patient really cannot describe the pain. Describes it as mild and just more annoying than anything.] Physical Examination: [HEENT-PERRLA, EOMI. Cranial nerves II through XII grossly intact. TMs clear. Mucous membranes moist. No adenopathy. Left anterior neck appears normal without any masses palpated. No bruits auscultated. I cannot reproduce her pain with palpation of the left side of the neck. Cardiovascular-regular rate and rhythm without murmur or ectopy Lungs-clear to auscultation, chest wall stable without crepitus or subcu emphysema Abdomen-normoactive bowel sounds, soft, nontender, no rebound or rigidity, no peritoneal signs. Extremities-intact 4, normal range of motion, normal pulses, atraumatic] Test Results: [EKG obtained on arrival shows sinus rhythm with a ventricular rate of 64 bpm with some nonspecific ST changes noted in the anterior leads. When compared with prior EKG from June 27 no new changes are noted. CBC with differential was normal. Chemistries were normal. Troponin was less than 0.02. Chest x-ray showed nothing acute.] Emergency Department Course and Treatment: [None] Treatment Plan: [Was discussed with Dr. Bernabe Melendez who was covering for Dr. Gan. At this point it is felt that her symptoms are noncardiac and patient will be discharged home without any further treatment at this time. I did advise patient to attempt to use some warm heat to the area. Patient will also try to use a different pillow to sleep on.] Disposition: [Discharged home in stable condition. Patient advised to follow-up with her primary care physician or Dr. Gan within next 5-7 days. Patient advised to return if chest pain, shortness of breath, exertional symptoms, or condition should worsen in any way.] Impression: [Neck Pain-etiology uncertain] This note was generated with RealDation software. It may contain incorrect words, spelling, and punctuation that were not noted in review of the chart prior to signing ED Disposition - Plan for ED Patient: Chief Complaint: Other, Pain/Inj Referrals: Hussein Tidwell MD [Primary Care Provider] - What to do if you have Problems For any increased pain, shortness of breath, bleeding, nausea or vomiting, chest pain, or any unexpected problems, contact your Primary Care Provider. Call [facility] ([phone]) or report to the closest Emergency Room. Call 911 if necessary. 07/16/171940 <Electronically signed by Lincoln Haines DO> Date Lincoln Haines DO Cosigner Signature (If Indicated): Date CC: Hussein Tidwell DISCHARGE INSTRUCTION Observed: 07/16/2017 Status: F Source: [place] 7:41 PM [facility] REPOSITORY [facility] Medical Records Department [address] [place] [address] Discharge Instruction 07/16/171940 MR#: [id number] Acct: [id number] Name: PRISCILA TEIXEIRA Pradeep Rep #: [id number] : 1950 67 From: Lincoln Haines DO PCP: Hussein Tidwell Status: REG ER ED Disposition - Plan for ED Patient: Chief Complaint: Other, Pain/Inj Instructions: ED Neck Pain No Trauma Referrals: Hussein Tidwell MD [Primary Care Provider] - 3-5 Days What to do if you have Problems For any increased pain, shortness of breath, bleeding, nausea or vomiting, chest pain, or any unexpected problems, contact your Primary Care Provider. Call [facility] ([phone]) or report to the closest Emergency Room. Call 911 if necessary. 07/16/171940 <Electronically signed by Lincoln Haines DO> Date Lincoln Haines DO Cosigner Signature (If Indicated): Date CC: Hussein Tidwell CBC W/DIFF, AUTOMATED Collected: 07/16/2017 Status: F Source: [place] 6:35 PM [facility] REPOSITORY TYPE CODE TESTS RESULT OUT OF RANGE REFERENCE UNITS LAB L100.1000 4.4-11.0 K/mm3 Normal WBC 5.7 LAB L100.1200 4.2-5.4 M/mm3 Normal RBC 5.25 LAB L100.1300 12.0-15.0 g/dl Normal HGB 14.4 LAB L100.1400 37-47 % Normal HCT 43.4 LAB L100.1500 81-99 fL Normal MCV 82.7 LAB L100.1600 27.0-32.0 pg Normal MCH 27.4 LAB L100.1700 32-36 g/gl Normal MCHC 33.2 LAB L100.1810 11.6-14.6 % Normal RDW CV 13.6 LAB L100.1820 35.1-43.9 fl Normal RDW SD 40.7 LAB L100.1900 150-450 K/mm3 Normal PLT 243 LAB L100.2000 6.2-12.0 fl Normal MPV 9.7 LAB L100.2100 47-70 % Normal NEUT% 58.6 LAB L100.2200 19-41 % Normal LY% 26.1 LAB L100.2300 0-10 % High MONO% 12.1 LAB L100.2400 0-5 % Normal EO% 2.5 LAB L100.2500 0-1 % Normal BASO% 0.7 LAB L100.2550 0.0-0.9 % Normal IM GRAN % 0.000 Result Comment: IG% - Immature Granulocytes (promyelocytes, myelocytes and metamyelocytes) > 1% indicates that a LEFT SHIFT is Present. LAB L100.2620 2.0-7.7 X10 3/uL Normal Absolute Neut 3.3 LAB L100.2720 0.83-4.51 X10 3/ul Normal Absolute Lymph 1.49 Performed By: #### L100.0100 #### [facility] [address] [place], [place], [address] BASIC METABOLIC Collected: 07/16/2017 Status: F Source: [place] PROFILE (BMP) 6:35 PM [facility] REPOSITORY Order Comment: 'TROP' Serial specimen #1, #2, #3, or #4: 1 TYPE CODE TESTS RESULT OUT OF RANGE REFERENCE UNITS LAB L501.0100 74-106 mg/dL Normal GLU 91 LAB L501.1000 7-18 mg/dL Normal BUN 16 LAB L501.1100 0.55-1.02 mg/dL Normal 1.01 CREAT,SERUM Result Comment: The validity of the calculated GFR AND GFRAA in patients over 70 years has not been determined. Clinical correlation is essential. LAB L501.1110 >60 mL/min Low EST GFR 58 Result Comment: Non- GFR Calc LAB L501.1115 >60 mL/min Normal EST GFR - AA 71 Result Comment: GFR Calc LAB L501.1255 ml/min Normal Estimated CRCL 51.99 LAB L501.1300 10-20 RATIO Normal BUN/CRE 15.8 LAB L501.2200 8.5-10 mg/dL Normal .1 CA 8.7 LAB L501.5300 136-14 mmol/L Normal 5 NA 142 LAB L501.5600 3.5-5. mmol/L Low 1 K 3.4 LAB L501.5900 98-107 mmol/L Normal CL 105 LAB L501.6100 21.0-3 mmol/L Normal 2.0 CO2 31.0 LAB L501.6200 5-15 Normal GAP 6 Performed By: #### L500.2500, L501.4010 #### [facility] [address] [place], [place], [address] TROPONIN-I Collected: 07/16/2017 Status: F Source: [place] 6:35 PM [facility] REPOSITORY Order Comment: 'TROP' Serial specimen #1, #2, #3, or #4: 1 TYPE CODE TESTS RESULT OUT OF RANGE REFERENCE UNITS LAB L501.4010 <0.06 ng/mL Normal < 0.02 TROPONIN-I Result Comment: TROPONIN-I EXPECTED VALUES <0.05 NEGATIVE 0.06 - 0.59 AT RISK OF VT > OR = 0.60 SUGGEST VT Performed By: #### L500.2500, L501.4010 #### [facility] [address] [place], [address] CHEST 1 VIEW Observed: 07/16/2017 Status: F Source: [place] (PORTABLE) 6:29 PM [facility] REPOSITORY [facility] Imaging Services [address] [place] [address] Chest 1 View (Portable) MR#: [id number] Acct: [id number] Name: INO TEIXEIRATessy Fernández Rep #: [id number] : 1950 F 67 From: Nia Woo MD PCP: Hussein Tidwell Status: PRE ER Study: Chest 1 View (Portable) Date of Exam: 07/16/17 Exam# [id number] Ordering Dr: Lincoln Haines Chest 1 View INDICATION: CHEST PAIN, NECK PAIN, VT SYMPTOMS COMPARISON: June 25, 2017 TECHNIQUE: Portable chest x-ray FINDINGS: Stable platelike atelectasis is seen at the left lung base, lungs are otherwise clear. Heart size and pulmonary vascularity remain within normal limits. Osseous structures are grossly unremarkable. RAD/Chest 1 View (Portable) IMPRESSION: Stable examination. No radiographic evidence of acute intrathoracic disease. at 1856 Reported and signed by: Nia Woo MD Electronically Signed: Nia Woo MD at 17:55 EST Tel , Service support , CC: Lincoln Hianes DO; Hussein Tidwell Dampener: Signed CARDIOLOGY VISIT Observed: 07/15/2017 Status: F Source: [place] REPORT 10:44 AM [facility] REPOSITORY [facility] [address] [place] [address] OFFICE VISIT Date of Service: 07/14/17 MR#: [id number] Acct: [id number] Name: PRISCILA TEIXEIRA Rep #: [id number] : 1950 Provider: ALEX Duque Age/Sex: 67/F Location: [facility] Status: Signed HPI HPI Details: PRISCILA TEIXEIRA, is a 67 F who presents to the office today for a cardiovascular outpatient follow-up. Patient has a history of coronary artery disease status post stenting to LAD in August 2015 at [facility], hypertension, hyperlipidemia, and COPD. Patient presented to [facility] in June 2017 with waxing and waning chest pain. She underwent a heart catheterization and received a drug-eluting stent to her RCA. She is here for follow-up. Pt. denies arm, or jaw pain. Prior to most recent PCI she had diffuse chest pain and bilateral neck pain. Her exercise tolerance is stable. Pt. denies symptoms of CHF, palpitations, lightheadedness, dizziness, near syncope, or syncopal episodes. Pt. denies edema or claudication issues. Pt. denies orthopnea, PND, fever, chills, blood in urine, blood in stool, myalgia, or unexplainable fatigue. Pt. states when reaching down she noticed a pain across her chest that was relieved instantly. She denies any secondary symptoms during this episode. This has happened twice. She states a constant left side neck pain at times. She denies any symptoms during cardiac rehab. Pt. states SOB with anxiety episodes. Echocardiogram from June 2017 showed an estimated ejection fraction 55%. 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: No Accompanied by: None Is patient in pain?: Yes (nerve pain, stabbing, burning, RSD.) Pain scale (1-10): 5 Allergies venom-honey bee [bee venom (honey bee)] Allergy (Severe, Verified 07/14/17 12:48) Anaphylaxis atorvastatin Allergy (Unknown, Verified 07/14/17 12:48) Unknown Penicillins Allergy (Unknown, Verified 07/14/17 12:48) Unknown strawberry Allergy (Verified 07/14/17 12:48) Anaphylaxis oxycodone HCl [From Percocet] Adverse Reaction (Verified 07/14/17 12:48) Vomiting Medications Famotidine [Pepcid] 20 mg PO DAILY 10/02/15 [History Confirmed 07/01/17] Losartan/Hydrochlorothiazide [Hyzaar 50-12.5 Tablet] 1 tab PO DAILY 10/02/15 [History Confirmed 07/01/17] Aspirin [Adult Low Dose Aspirin EC] 81 mg PO DAILY 01/20/16 [History Confirmed 07/01/17] Ezetimibe [Zetia] 10 mg PO DAILY 05/13/16 [History Confirmed 07/01/17] Glucosamine/MSM/Chondroitin A [Glucosamine Chondroit MSM Tab] 1 ea PO DAILY 08/26/16 [History Confirmed 07/01/17] Carvedilol [Coreg (Beta Maggy)] 3.125 mg PO BID #60 tab 06/27/17 [Rx Confirmed 07/14/17] Nitroglycerin [Nitrostat] 0.4 mg SUBLINGUAL Q5M PRN #1 bottle 06/27/17 [Rx Confirmed 07/01/17] Potassium Chloride 10 meq PO BID #60 capsule.er 06/27/17 [Rx Confirmed 07/01/17] Ticagrelor [Brilinta] 90 mg PO BID #60 tab 06/27/17 [Rx Confirmed 07/14/17] Simvastatin [Zocor] 5 mg PO 07/10/17 [History Confirmed 07/14/17] Tramadol HCl [Ultram] 50 mg PO 07/10/17 [History Confirmed 07/14/17] albuterol sulfate HFA 90 mcg/actuation aerosol inhaler 2 puff INHALATION Q6H PRN 07/14/17 [History Confirmed 07/14/17] fluticasone 50 mcg/actuation nasal spray,suspension 50 mcg INTRANASAL QDAY PRN 07/14/17 [History Confirmed 07/14/17] paroxetine 20 mg tablet 20 mg PO QDAY 07/14/17 [History Confirmed 07/14/17] Ejection fraction %: 65 to 70 PFSH Medical History Atherosclerotic heart disease of [place] coronary artery without angina pectoris (Chronic) Nonrheumatic tricuspid (valve) insufficiency (Chronic) Old myocardial infarction (Chronic) Daytime somnolence (Chronic) Dyspnea on exertion (Chronic) HTN (hypertension) (Chronic) HLD (hyperlipidemia) (Chronic) Surgical History S/P PTCA (percutaneous transluminal coronary angioplasty) (Chronic) Family History Father CAD (coronary artery disease) Brother Afib Social History Smoking Status: Former smoker alcohol intake: current substance use type: former substance user Date of last use: 2015, marijuana caffeine: Yes Type: coffee, carbonated beverages, tea what type of physical activity do you participate in: none seatbelt use: always do you feel safe at home: Yes ROS Const Const: Negative for fatigue, weakness, body ache, fever(s) or chills ENT ENT: Negative for dizziness Cardio Chest Pain: Yes (When reaching, twice) Palpitations: Positive for Yes (one episode of palpitation after drinking coffee) Edema: None Muscle aches with walking: None Resp Respiratory: Negative for SOB with activity, SOB at rest, SOB orthopnea\SOB lying down or paroxysmal nocturnal dyspnea GI GI: Negative nausea, black,tarry stools, bright, red blood in stools or vomiting blood/hematemesis : Negative for hematuria or frequent nighttime urination/ nocturia Musc Musc: Positive for muscle aches/ myalgia (left neck pain) Neuro Neuro: Negative for weakness, Negative for dizziness, Negative for lightheadedness, Negative for near syncope, Negative for syncope, Negative for orthostatic symptoms Endo Endo: Negative for fatigue Cardiology Exam Const Appearance: cooperative, healthy appearing, comfortable and no acute distress Orientation: alert, awake and oriented x3 Head Head: normal to inspection Mouth: oral mucosae normal Neck Neck: no JVD and normal visual inspection Carotids: normal carotid upstroke Chest Chest inspection: normal inspection of the chest and normal respiratory effort Auscultation: Bilateral: Clear to Auscultation Cardio Rate: regular rate Rhythm: regular rhythm Heart sounds: S1 normal and S2 normal; negative rub or gallop GI GI: normal to inspection Neuro General: alert, awake, oriented x3 and CN's II-XI intact bilaterally Skin Skin: no rashes or lesions noted Extremities Pulses: Normal: Right Posterior Tibial Pulse, Left Posterior Tibial Pulse, Right Radial Pulse, Left Radial Pulse Lower Extremity Edema: None: Bilateral Psych Psychological: normal affect Assessment AND Plan 1. Atherosclerosis of [place] coronary artery of [place] heart without angina pectoris I25.10 PCI-SOLOMON-LAD 08/28/15 @ [facility]; PTCA/SOLOMON of the distal RCA 06/26/2017. Plan - GAVIN Rodrigues Patient denies any arm pain, jaw pain, shortness of breath, or fatigue suggestive of angina at this time. And left-sided neck pain to be atypical and noncardiogenic in nature. She denies any symptoms during cardiac rehab. We will continue to monitor this. We will not make any medication regimen changes and will continue risk factor modification. Orders Orders: 2. Essential hypertension I10 Plan - GAVIN Rodrigues Patient's blood pressure is well-controlled today in the office. We will continue to monitor this. We will not make any medication regimen changes. 3. Hyperlipidemia, unspecified hyperlipidemia type E78.5 Plan - GAVIN Rodrigues Patient's most recent lipid panel from June 2017 show cholesterol: 137, HDL: 39, LDL: 74, and triglycerides: 120. Patient states this is being managed by her primary care physician. We will continue current cholesterol medication. Patient is scheduled to repeat both lipid and liver profile in January 2018. Plan Detail Other Orders Orders: Additional Comments - GAVIN Rodrigues Patient is will keep her appointment with Dr. Gan for further evaluation. Discussed the above patient with Dr. Gan he agrees with the plan of care. Thank you for allowing us to participate in the patients plan of care, if you have any questions please do not hesitate to call. This note was generated using a voice recognition system and there may be incorrect words, spelling or punctuation that were not noted when reviewing the office note prior to saving. Coding Level of Care Code Off vis,est,level 3 Diagnoses Atherosclerosis of [place] coronary artery of [place] heart without angina pectoris I25.10 [place] vs. transplanted heart: [place] heart Essential hypertension I10 Hypertension type: essential hypertension Hyperlipidemia, unspecified hyperlipidemia type E78.5 Hyperlipidemia type: unspecified Coding Level of Care Code Off vis,est,level 3 Diagnoses Atherosclerosis of [place] coronary artery of [place] heart without angina pectoris I25.10 [place] vs. transplanted heart: [place] heart Essential hypertension I10 Hypertension type: essential hypertension Hyperlipidemia, unspecified hyperlipidemia type E78.5 Hyperlipidemia type: unspecified 07/14/17 1539 <Electronically signed by Tonie Duque PROMOTIONAL ADVERTISING ASSISTANT-C> Date Tonie Duque PROMOTIONAL ADVERTISING ASSISTANT-C 07/15/17 1044<Electronically signed by Juan Gan MD> Cosigner Signature: Date (if applicable) Juan Gan MD CC: Hussein Tidwell CR - HISTORY AND Observed: 07/15/2017 Status: F Source: [place] [facility] 10:44 AM [facility] REPOSITORY [facility] Cardiac Rehab [address] [place] [address] CR - History AND Physical MR#: [id number] Acct: [id number] Name: INO TEIXEIRATessy Fernández Rep #: [id number] : 1950 67 From: Dusty Perez FARM OPERATIONS MANAGER, COMPANION, BS PCP: Hussein Tidwell DOS: 07/10/17 CR - History AND Physical - General Arrival date:: 07/10/17 Arrival time:: 11:14 Date of Admission: 07/10/17 Referring Physician: DR. JUAN GAN Primary Diagnosis: NSTEMI w/PCI-SOLOMON 06/26/2017 - History of Present Cardiac Event Onset Date: Enter Onset Date of cardiac illnesses in Comment field below VT:: Yes - NSTEMI 06/26/2017 PTCA:: Yes - 06/26/2017 Type of Symptoms:: CHEST PAIN, SHORTNESS OF BREATH Interventions with present event:: PCI-SOLOMON to the distal RCA - Medications Home Medications: Ambulatory Orders Medication Instructions Recorded Famotidine [Pepcid] 20 mg PO DAILY 10/02/15 - Allergies Allergies/Adverse Reactions: Allergies venom-honey bee [bee venom (honey bee)] Allergy (Severe, Verified 06/25/17 19:08) Anaphylaxis atorvastatin Allergy (Unknown, Verified 06/25/17 19:08) Unknown Penicillins Allergy (Unknown, Verified 06/25/17 19:08) Unknown strawberry Allergy (Verified 06/25/17 19:08) Anaphylaxis oxycodone HCl [From Percocet] Adverse Reaction (Verified 06/25/17 19:08) Vomiting - Sleep Disorder Evaluation Hx of Sleep Apnea: No Do you snore loudly (louder than talking or can be heard through closed doors)?: Yes - daytime somnolence Do you often feel tired/ fatigued/ sleepy during daytime?: Yes Has anyone observed you stop breathing during sleep?: No History of Hypertension (for STOP score): Yes STOP Results: Positive Advanced Directives - Advanced Directives Power of Sole Blacker: No Living Will: No Advance Directives Information Provided: Yes Advance Directives on File: No DNR Order?:: No Past Medical History - Problems and Co-Morbidities Problems AND Co-Morbidities: Smoking - 20 pack year history 1PPD. , Dyslipidemia, Obesity - BMI 29.0-29.9%, Hypertension, Anxiety - Past Medical Illness Past Medical Illness: Back Problems - chronic back pain, angiomyoma left kidney, RSD, COPD. Other Medical Illnesses:: daytime somnolence, RSD, COPD, asthma. - Past Cardiac Illness Past Cardiac Illness: Valve Disorders - nonrheumatic tricuspid valve insufficiency, , Ejection Fraction - EF 65% per ECHO , Previous PCI w/Stent Other Cardiac Illnesses:: athersclerotic heart disease of [place] coronary artery with other forms of angina pectoris, old [place], status post coronary stent placement, - Other Other: Vision/Eye Problems - wears glasses at all times. - Cardiology Procedures/Interventions Cardiology Procedures/Interventions: Angioplasty, PCI w/Stenting, Heart Catheterization, Echocardiogram - Past Surgical History Surgical History: angioplasty, appendectomy - In addition to salpingectomy w/ tubal , unsure which side., - - Cervical C5-6 surgery, Microdiscectemy L4-L5, L hand surgery following trauma, T+A, PCI x 1. - Family History Summary Additional Family History: Father FH of CAD heart transplant age 65, Brother FH of A-Fib. Review of Systems - Review of Systems Hints: Right click = Denies (Slash). Left click = Reports ([place]) Review of Present Symptoms: Reports: Shortness of Breath with Exertion, Angina - questionable if actually angina or if simply over did it., Fatigue, Appetite - Normal. Denies: Shortness of Breath at Rest, Dizziness/Lightheadedness, Heart Arrhythmia/Irregularities, Appetite - Special Diet, Sleep - Normal - never been normal, sometimes have periods of insomnia and then will sleep for two days. Risk Factor Assessment - Chief Complaint Chief Complaint: Patient is a pleasent 67 year old female patient under the care of Dr. Juan Gan following a recent NSTEMI and another PTCA. - Pulse Pulse Rate: 74 Pulse Rhythm: Regular - Hypertension How long have you been treated?: been along time On medication(s)?: yes Blood Pressure Sitting - Right Arm: 130/64 - Blood Cholesterol/Lipids HDL Cholesterol (mg/dL) Goal = less than 40 mg/dL: 45 - 01/29/2017 LDL Cholesterol (mg/dL) Goal = less than 70 mg/dL: 103 - 01/29/2017 - Diabetes Nutrition Referral for Diabetes: No - Obesity Height: 5 ft 5 in Weight:: 84.395 kg Weight in Pounds: 186.1 lbs Body Mass Index (BMI): 30.9 Nutritional Referral for Obesity: Yes - Physical Inactivity Physical Inactivity: None Exercise Limitations: chronic back pain - Risk Stratification Risk Guidelines: Lowest Risk: Risk Factor for Smoking, Risk Factor for Dyslipidemia, Risk Factor for Diabetes, Risk Factor for Hypertension, Risk Factor for Depression, Highest Risk: Risk Factor for Obesity, Risk Factor for Sedentary Lifestyle - For Smoking Smoking Risk Guidelines: Smoking Low Risk: None or quit greater than 6 months ago. Smoking Moderate Risk: Smoker or quit 6 months or less ago. Smoking High Risk: Smoker - For Dyslipidemia Dyslipidemia Risk Guidelines: Low Risk: Moderate Risk: High Risk: 15-25% fat 25.1-29% fat >/= 30% fat. <7% sat fat 7-9% sat fat >9% sat fat. <150 mg chol 150-299 mg chol >/= 300 mg chol. LDL <100 LDL 100-129 LDL >/= 130. Chol/HDL ratio <5.0 Chol/HDL ratio 5.0-6.0 Chol/HDL ratio >6.0. Triglycerides <100 Triglycerides 100-149 Triglycerides >/= 150 - For Diabetes Mellitus Diabetes Risk Guidelines: Diabetes Low Risk: HgA1c <6.5% and/or FBG <120. Diabetes Moderate Risk: HgA1c 6.6-7.9% and/or FBG 120- 180. Diabetes High Risk: HgA1c >/= 8% and/or FBG >180 - For Obesity/Overweight Obesity/Overweight Risk Guidelines: Obesity Low Risk: BMI <25.0. Obesity Moderate Risk: BMI 25-29.9. Obesity High Risk: BMI >/= 30.0 - For Hypertension Hypertension Risk Guidelines: Hypertension Low Risk: Systolic <120 and Diastolic <80. Hypertension Moderate Risk: Systolic 120-139 and Diastolic 80-89. Hypertension High Risk: Systolic >/= 140 and Diastolic >/= 90 - For Sedentary Lifestyle Sedentary Lifestyle Risk Guidelines: Sedentary Lifestyle Low Risk: >/= 1,500 kcal/week. Sedentary Lifestyle Moderate Risk: 700-1,499 kcal/week. Sedentary Lifestyle High Risk: < 700 kcal/week - For Depression Depression Risk Guidelines: Depression Low Risk: Not clinically depressed. Depression Moderate Risk: Mildly depressed. Depression High Risk: Clinically depressed Social History - Smoking History Smoking Status: Former smoker Years Smokin Packs Smoked per Day: 1 Hx Smoking Cessation Date: quit a while ago Hx Tobacco Use: Yes Hx Smoking Exposure: Yes - passive smoke exposure. - Alcohol Use Alcohol Usage: Yes - socially-infrequent - Substance Abuse Hx Substance Use: Yes - yes, rukhsana quit 2015. - Occupation Occupation (List type of work in comments):: Retired - Hobbies, Recreation, Social Activities Hobbies: Other - knit, lizeth, beading, coloring, nails, crafts. Recreational Activities: I am able to engage in most, but not all activities - feels like my concentration is off, can't seem to stay focused. Marital Status - Status Marital Status: - Current Living Arrangements Living Environment:: Family - brother lives with her. - Children How many children do you have?: 0 Do any of your children live nearby?: No - Safety Do you feel safe in your surroundings?: Yes - Assistance Do you need any assistance at home?: none 07/10/17 1142 <Electronically signed by Dusty Perez FARM OPERATIONS MANAGER, COMPANION, BS> Date Dusty Perez FARM OPERATIONS MANAGER, COMPANION, BS Outcome assessment reviewed. Exercise plan approved as documented. Treatment plan and goals support patient needs/abilities. Continue with current plan. I certify the patient demonstrates improvement and remains willing and capable of participation. the patient continues to benefit from cardiac rehab services/training. The patient may continue at current intensity, endurance and modality and progress per protocol. 07/15/17 1044 <Electronically signed by Juan Gan MD> Cosigner Signature: Date Juan Gan MD CC: Signed 12 LEAD EKG PERFORMED Observed: 07/14/2017 Status: F Source: [facility] [place] 1:39 PM [facility] REPOSITORY [address] [address] 12 Lead EKG performed by [facility] 07/14/17 1337 MR#: [id number] Acct: [id number] Name: PRISCILA TEIXEIRA Rep #: [id number] : 1950 67 From: Tonie Duque NP-C Attending Dr: Tonie Duque NP Status: DEP AMB Ordering Dr: Tonie Duque PROMOTIONAL ADVERTISING ASSISTANTElvaC Date: 07/14/17 [place] [facility] [place] Sex: F C Admitted: BMS/12 Lead EKG performed by [facility] ECG Report Interpretation Sinus Rhythm - Nonspecific T-abnormality. Low voltage -possible pulmonary disease. ABNORMAL Electronically signed on 07/28/2017 at 13:52 by Juan Gan 07/28/17 1353 Date Tonie Duque PROMOTIONAL ADVERTISING ASSISTANT-C CC: Hussein Tidwell Date Dictated: 07/14/17 133 Date Transcribed: 07/14/171336 Dampener: SILVIA Signed 12 LEAD ELECTROCARDIOGRAM Observed: 07/04/2017 Status: F Source: [place] 11:57 AM [facility] HOSPITAL REPOSITORY [facility] Cardiovascular Services [address] [place] [address] 12 Lead EKG 06/26/17 1114 MR#: [id number] Acct: [id number] Name: PRISCILA TEIXEIRA P Rep #: [id number] : 1950 67 From: Bernabe Melendez MD Attending Dr: Monica Shankar Status: DIS IN Ordering Dr: Tashi Smith MD Date: 06/26/17 Location: ICU Sex: F C Admitted: 06/25/17 Test Reason : POST-PCI Blood Pressure : / mmHG Vent. Rate : 055 BPM Atrial Rate : 055 BPM P-R Int : 170 ms QRS Dur : 084 ms QT Int : 448 ms P-R-T Axes : 047 070 026 degrees QTc Int : 428 ms Sinus bradycardia Otherwise normal ECG When compared with ECG of 26-JUN-2017 04:54, MANUAL COMPARISON REQUIRED, DATA IS UNCONFIRMED Confirmed by BERNABE MELENDEZ MD ([id number]), editorial clerk NIA HALL ([id number]) on 07/04/2017 11:57:42 AM Referred By: LAYLA Confirmed By:BERNABE MELENDEZ MD 07/04/17 1157 Date Bernabe Melendez MD CC: Hussein Tidwell Signed 12 LEAD ELECTROCARDIOGRAM Observed: 07/02/2017 Status: F Source: [place] 11:33 AM [facility] HOSPITAL REPOSITORY [facility] Cardiovascular Services [address] [place] [address] 12 Lead EKG 06/26/17 0454 MR#: [id number] Acct: [id number] Name: INO TEIXEIRATessy P Rep #: [id number] : 1950 67 From: Alberto Peguero MD Attending Dr: Monica Shankar Status: DIS IN Ordering Dr: Stacy Richards Date: 06/26/17 Location: ICU Sex: F C Admitted: 06/25/17 Test Reason : MORNING EKG Blood Pressure : / mmHG Vent. Rate : 059 BPM Atrial Rate : 059 BPM P-R Int : 164 ms QRS Dur : 086 ms QT Int : 398 ms P-R-T Axes : 065 089 011 degrees QTc Int : 394 ms Sinus bradycardia Nonspecific T wave abnormality Abnormal ECG Confirmed by ALBERTO PEGUERO MD ([id number]), editorial clerk NIA HALL ([id number]) on 07/02/2017 11:32:57 AM Referred By: VERNA Confirmed By:ALBERTO PEGUERO MD 07/02/17 1133 Date Alberto Peguero MD CC: Hussein Tidwell Signed 12 LEAD ELECTROCARDIOGRAM Observed: 07/02/2017 Status: F Source: [place] 11:22 AM [facility] REPOSITORY [facility] Cardiovascular Services [address] [place] [address] 12 Lead EKG 06/27/17 0541 MR#: [id number] Acct: [id number] Name: PRISCILA TEIXEIRA Rep #: [id number] : 1950 67 From: Alberto Peguero MD Attending Dr: Monica Shankar Status: DIS IN Ordering Dr: Tashi Smith MD Date: 06/27/17 Location: ICU Sex: F C Admitted: 06/25/17 Test Reason : AM EKG Blood Pressure : / mmHG Vent. Rate : 060 BPM Atrial Rate : 060 BPM P-R Int : 166 ms QRS Dur : 086 ms QT Int : 422 ms P-R-T Axes : 049 069 001 degrees QTc Int : 422 ms Normal sinus rhythm Nonspecific T wave abnormality Abnormal ECG Confirmed by ALBERTO PEGUERO MD ([id number]), editorial clerk NIA HALL ([id number]) on 07/02/2017 11:21:42 AM Referred By: MIGUELITO Confirmed By:ALBERTO PEGUERO MD 07/02/17 1121 Date Alberto Peguero MD CC: Hussein Tidwell Signed 12 LEAD ELECTROCARDIOGRAM Observed: 06/30/2017 Status: F Source: [place] 3:30 PM [facility] REPOSITORY [facility] Cardiovascular Services [address] [place] [address] 12 Lead EKG 06/25/17 2141 MR#: [id number] Acct: [id number] Name: PRISCILA TEIXEIRA P Rep #: [id number] : 1950 67 From: Alberto Peguero MD Attending Dr: Monica Shankar Status: DIS IN Ordering Dr: Meghan Jaramillo MD Date: 06/25/17 Location: ICU Sex: F C Admitted: 06/25/17 Test Reason : REPEAT Blood Pressure : / mmHG Vent. Rate : 078 BPM Atrial Rate : 078 BPM P-R Int : 158 ms QRS Dur : 086 ms QT Int : 244 ms P-R-T Axes : 037 055 175 degrees QTc Int : 278 ms Normal sinus rhythm Nonspecific ST and T wave abnormality Abnormal ECG Confirmed by LAYLA OLIVEROS, ALBERTO ([id number]), editorial clerk NIA HALL ([id number]) on 06/30/2017 3:29:36 PM Referred By: [facility] Confirmed By:ALBERTO PEGUERO MD 06/30/17 1529 Date Alberto Peguero MD CC: Hussein Tidwell Signed 12 LEAD ELECTROCARDIOGRAM Observed: 06/30/2017 Status: F Source: [place] 3:30 PM [facility] HOSPITAL REPOSITORY [facility] Cardiovascular Services [address] [place] [address] 12 Lead EKG 06/25/17 1908 MR#: [id number] Acct: [id number] Name: PRISCILA TEIXEIRA P Rep #: [id number] : 1950 67 From: Alberto Peguero MD Attending Dr: Monica Shankar Status: DIS IN Ordering Dr: Meghan Jaramillo MD Date: 06/25/17 Location: ICU Sex: F C Admitted: 06/25/17 Test Reason : CP Blood Pressure : / mmHG Vent. Rate : 077 BPM Atrial Rate : 077 BPM P-R Int : 170 ms QRS Dur : 086 ms QT Int : 406 ms P-R-T Axes : 049 054 059 degrees QTc Int : 459 ms Normal sinus rhythm Nonspecific T wave abnormality Abnormal ECG Confirmed by LAYLA OLIVEROS, ALBERTO ([id number]), editorial clerk NIA HALL ([id number]) on 06/30/2017 3:29:51 PM Referred By: RON Confirmed By:ALBERTO PEGUERO MD 06/30/17 1529 Date Alberto Peguero MD CC: Hussein Tidwell Signed DISCHARGE SUMMARY Observed: 06/27/2017 Status: F Source: [place] 11:37 AM [facility] REPOSITORY [facility] Medical Records Department [address] [place] [address] Discharge Summary 06/27/17 1126 MR#: [id number] Acct: [id number] Name: PRISCILA TEIXEIRA Pradeep Rep #: [id number] : 1950 67 From: Neno Shankar DO PCP: Hussein Tidwell Status: ADM IN Location: ICU ICU02-1 Discharge Date and Diagnosis - Problem List Patient Problems: Active and Suspected Problems Hypokalemia (Acute) NSTEMI (non-ST elevated myocardial infarction) (Acute) Date of Admission: 06/25/17 Date of Discharge: 06/27/17 - Primary Discharge Diagnosis Active and Suspected Problems NSTEMI (non-ST elevated myocardial infarction) (Acute) Hypokalemia (Acute) Status post PTCA/SOLOMON RCA on 06/26/[address] Smith - Secondary Discharge Diagnosis Chronic Problems Obesity (BMI 30.0-34.9) (Chronic) CAD (coronary artery disease) (Chronic) 08/31/15 PTCA following w/ Dr. Gan. H/O heart artery stent (Chronic) HTN (hypertension) (Chronic) HLD (hyperlipidemia) (Chronic) Former tobacco use (Chronic) COPD (chronic obstructive pulmonary disease) (Chronic) Hospital Course and Treatment Imaging Results: Clinical Impression(s) from Imaging Studies Chest X-Ray 06/25/17 19:38 IMPRESSION: No acute cardiopulmonary abnormalities or changes. Electronically Signed: Sharon Escalante MD at 20:02 EST Tel Direct: [phone], Service support , Abnormal Lab Results WBC 5.6 RBC 4.64 Hgb 13.[address] [facility] Group interventionalist Operations: None Procedures: Cardiac catheterization Summary of Care Provided: Patient is a 67-year-old female with a past medical history of coronary artery disease, hypertension, obesity, hyperlipidemia, former smoker, COPD and PTCA on 08/31/2015 who presented to the emergency room at [facility] on 06/25/2017 complaining of intermittent chest pressure and tightness radiating into both arms and her neck. The pain was associated with nausea and diaphoresis. Troponin in the emergency room was increased at 0.60. Chest x-ray had no acute findings. EKG showed normal sinus rhythm with no obvious ischemia. She was started on a heparin drip in the emergency room and given Lopressor, aspirin and nitroglycerin. Troponin peaked at 0.77 and the third troponin was 0.71. LDL was 74 and the HDL was 39 with triglycerides of 120. she is on Zetia. she was taken to the crime lab analyst on 06/26/[address] Smith and had PTCA/SOLOMON to the distal RCA for a 95% occlusion. Post cath she was transferred to the ICU. Post cath course was unremarkable and Dr. Peguero recommended DC home on 06/27/2018. On that date she denied chest pain, back pain, nausea. Had no significant ectopy on telemetry overnight. Vital signs were stable and she denied any lightheadedness. She was discharged on ASA, Brilinta, Coreg, Cozaar and Zetia. She will follow up in [facility] office in 1 week for a groin check. She will follow up with Dr. Hussein Tidwell in 2 weeks. she was encouraged to start an exercise program and work up to walking, bicycling or swimming for 30 minutes daily. She met with Cardiac rehab quality assurance representative while in the hosptal. Physical exam at discharge: Alert and oriented 3, no apparent distress Lungs-clear to auscultation with good air exchange Heart-regular rate and rhythm, normal S1, normal S2, no rub, no gallop Abdomen-soft, nontender, nondistended, bowel sounds present, no guarding with palpation Extremities-no calf tenderness, no edema This note was generated with [employer] dictation software. It may contain incorrect words, spelling, and punctuation that were not noted in checking the note before signing. Discharge Activity: - - You may remove the dressing in 1 day. You may shower in 1 day. No sex for 10-14 days. Do not lift more than 10 pounds until seen in the cardiolgy office for a groin check in 1 week. No strenuous activity. You may start a walking program and work up to 30 minutes daily 5-6 times a week. You could also walk in the water....it offloads the weight and makes it easier on your knee. Another activity you could do is an elliptical or and exercycle......theses are all good options for people with bad knees. Call your doctor if your incision/area has: Continuous Slow Oozing, Sudden Increased Bleeding, Increased Pain/ Swelling, Increased Redness, Foul Smelling Discharge Call your doctor if you observe: Fever of 101 or Higher, Shortness of breath, Dizziness, Fainting spells, Swelling in the ankles, Chest pain Home Medications: Medications to take at Discharge Famotidine [Pepcid] 20 mg PO DAILY 10/02/15 Losartan/Hydrochlorothiazide [Hyzaar 50-12.5 Tablet] 1 tab PO DAILY 10/02/15 Nitroglycerin [Nitrostat] 0.4 mg SUBLINGUAL Q5M PRN 10/02/15 Aspirin [Adult Low Dose Aspirin EC] 81 mg PO DAILY 01/20/16 Ezetimibe [Zetia] 10 mg PO DAILY 05/13/16 Glucosamine/MSM/Chondroitin A [Glucosamine Chondroit MSM Tab] 1 each PO DAILY 08/26/16 Paxil 20 mg PO DAILY 06/26/17 Carvedilol [Coreg (Beta Maggy)] 3.125 mg PO BID #60 tab 06/27/17 Nitroglycerin [Nitrostat] 0.4 mg SUBLINGUAL Q5M PRN #1 bottle 06/27/17 Potassium Chloride 10 meq PO BID #60 capsule.er 06/27/17 Ticagrelor [Brilinta] 90 mg PO BID #60 tab 06/27/17 Following Prescrptions Were Given to Patient: Nitroglycerin [Nitrostat] 0.4 mg SUBLINGUAL Q5M PRN #1 bottle PRN Reason: Chest Pain Carvedilol [Coreg (Beta Maggy)] 3.125 mg PO BID #60 tab Potassium Chloride 10 meq PO BID #60 capsule.er Ticagrelor [Brilinta] 90 mg PO BID #60 tab Primary Care Physician: Hussein Tidwell MD [Primary Care Provider] - Please follow up with your Primary Care Physician in: 2 weeks Please Follow Up With: Juan Gan MD When: 1 week for a groin check Patient Instructions: What Is Angina?, Fast-Acting Nitroglycerin, Recognizing a Heart Attack or Angina, Discharge Instructions: Taking Fast-Acting Nitroglycerin Meaningful Use Info Meaningful Use Diagnoses (Choose all that apply): AMI - AMI Aspirin given w/in 24hrs of arrival?: Yes ASA at discharge?: Yes Statins at discharge?: Yes Marcial/ARB at discharge?: Yes Beta Maggy at discharge?: Yes Done w/ Acute VT measure.: Yes Code Visit Inpatient E AND M: [id number] Disch Hosp 06/27/17 1137 <Electronically signed by Neno Shankar DO> Date Neno Shankar DO Cosigner Signature (if applicable): Date CC: Monica Shankar; Juan Gan MD; Hussein Tidwell Signed DISCHARGE INSTRUCTION Observed: 06/27/2017 Status: F Source: LANCE 11:26 AM [facility] [place] REPOSITORY [facility] Medical Records Department [address] [place] [address] Instructions for Home/Discharge Instructions 06/27/17 1119 MR#: [id number] Acct: [id number] Name: PRISCILA TEIXEIRA Rep #: [id number] : 1950 67 From: Neno Shankar DO PCP: Hussein Tidwell Status: ADM IN - Discharge Diagnoses Current Active Problems: Current Active and Chronic Problems Obesity (BMI 30.0-34.9) (Chronic) NSTEMI (non-ST elevated myocardial infarction) (Acute) You will use the following diet at home:: Cardiac Your food should be the consistency of: Regular Your liquids should be the consistency of: Regular/Thin Discharge Activity: - - You may remove the dressing in 1 day. You may shower in 1 day. No sex for 10-14 days. Do not lift more than 10 pounds until seen in the cardiolgy office for a groin check in 1 week. No strenuous activity. You may start a walking program and work up to 30 minutes daily 5-6 times a week. You could also walk in the water....it offloads the weight and makes it easier on your knee. Another activity you could do is an elliptical or and exercycle......theses are all good options for people with bad knees. Call your doctor if your incision/area has: Continuous Slow Oozing, Sudden Increased Bleeding, Increased Pain/ Swelling, Increased Redness, Foul Smelling Discharge Call your doctor if you observe: Fever of 101 or Higher, Shortness of breath, Dizziness, Fainting spells, Swelling in the ankles, Chest pain Instructions: What Is Angina?, Fast-Acting Nitroglycerin, Recognizing a Heart Attack or Angina, Discharge Instructions: Taking Fast-Acting Nitroglycerin Allergies/Adverse Reactions: Allergies venom-honey bee [bee venom (honey bee)] Allergy (Severe, Verified 06/25/17 19:08) Anaphylaxis atorvastatin Allergy (Unknown, Verified 06/25/17 19:08) Unknown Penicillins Allergy (Unknown, Verified 06/25/17 19:08) Unknown strawberry Allergy (Verified 06/25/17 19:08) Anaphylaxis oxycodone HCl [From Percocet] Adverse Reaction (Verified 06/25/17 19:08) Vomiting Medications to take at Discharge Famotidine [Pepcid] 20 mg PO DAILY 10/02/15 Losartan/Hydrochlorothiazide [Hyzaar 50-12.5 Tablet] 1 tab PO DAILY 10/02/15 Nitroglycerin [Nitrostat] 0.4 mg SUBLINGUAL Q5M PRN 10/02/15 Aspirin [Adult Low Dose Aspirin EC] 81 mg PO DAILY 01/20/16 Ezetimibe [Zetia] 10 mg PO DAILY 05/13/16 Glucosamine/MSM/Chondroitin A [Glucosamine Chondroit MSM Tab] 1 each PO DAILY 08/26/16 Paxil 20 mg PO DAILY 06/26/17 Carvedilol [Coreg (Beta Maggy)] 3.125 mg PO BID #60 tab 06/27/17 Nitroglycerin [Nitrostat] 0.4 mg SUBLINGUAL Q5M PRN #1 bottle 06/27/17 Potassium Chloride 10 meq PO BID #60 capsule.er 06/27/17 Ticagrelor [Brilinta] 90 mg PO BID #60 tab 06/27/17 The following prescriptions were given: Nitroglycerin [Nitrostat] 0.4 mg SUBLINGUAL Q5M PRN #1 bottle PRN Reason: Chest Pain Carvedilol [Coreg (Beta Maggy)] 3.125 mg PO BID #60 tab Potassium Chloride 10 meq PO BID #60 capsule.er Ticagrelor [Brilinta] 90 mg PO BID #60 tab Primary Care Physician: Hussein Tidwell MD [Primary Care Provider] - Please follow up with your Primary Care Physician in: 2 weeks Please Follow Up With: Juan Gan MD When: 1 week for a groin check Proposed Discharge Date: 06/27/17 06/27/17 1126 <Electronically signed by Neno Shankar DO> Date Neno Shankar DO CC: Juan Gan MD; Alberto Peguero MD; Hussein Tidwell CBC-COMPLETE BLOOD CNT Collected: 06/27/2017 Status: F Source: LANCE NO DIFF 4:55 AM [facility] [place] REPOSITORY TYPE CODE TESTS RESULT OUT OF RANGE REFERENCE UNITS LAB L100.1000 4.4-11.0 K/mm3 Normal WBC 5.6 LAB L100.1200 4.2-5.4 M/mm3 Normal RBC 4.64 LAB L100.1300 12.0-15.0 g/dl Normal HGB 13.0 LAB L100.1400 37-47 % Normal HCT 38.2 LAB L100.1500 81-99 fL Normal MCV 82.3 LAB L100.1600 27.0-32.0 pg Normal MCH 28.0 LAB L100.1700 32-36 g/gl Normal MCHC 34.0 LAB L100.1810 11.6-14.6 % Normal RDW CV 13.0 LAB L100.1820 35.1-43.9 fl Normal RDW SD 38.4 LAB L100.1900 150-450 K/mm3 Normal PLT 214 LAB L100.2000 6.2-12.0 fl Normal MPV 9.5 Performed By: #### L100.0500 #### [facility] [address] [place], [place], [address] BASIC METABOLIC Collected: 06/27/2017 Status: F Source: [place] PROFILE (BMP) 4:55 AM [facility] REPOSITORY TYPE CODE TESTS RESULT OUT OF RANGE REFERENCE UNITS LAB L501.0100 70-110 mg/dL Normal GLU 84 LAB L501.1000 7-18 mg/dL Normal BUN 13 LAB L501.1100 0.55-1.02 mg/dL High 1.05 CREAT,SERUM Result Comment: The validity of the calculated GFR AND GFRAA in patients over 70 years has not been determined. Clinical correlation is essential. LAB L501.1110 >60 mL/min Low EST GFR 56 Result Comment: Non- GFR Calc LAB L501.1115 >60 mL/min Normal EST GFR - AA 68 Result Comment: GFR Calc LAB L501.1255 ml/min Normal Estimated CRCL 50.00 LAB L501.1300 10-20 RATIO Normal BUN/CRE 12.4 LAB L501.2200 8.5-10 mg/dL Low .1 CA 8.3 LAB L501.5300 136-14 mmol/L Normal 5 NA 141 LAB L501.5600 3.5-5. mmol/L Normal 1 K 3.7 LAB L501.5900 98-107 mmol/L Normal CL 107 LAB L501.6100 21.0-3 mmol/L Normal 2.0 CO2 26.0 LAB L501.6200 5-15 Normal GAP 8 Performed By: #### L500.2500 #### [facility] [address] [place], [address] ECHOCARDIOGRAM COMPLETE Observed: 06/26/2017 Status: F Source: LANCE 7:17 PM [facility] REPOSITORY [facility] Cardiovascular Services [address] [place] [address] Echo Complete 06/26/17 1522 MR#: [id number] Acct: [id number] Name: PRISCILA TEIXEIRA Rep #: [id number] : 1950 67 From: Alberto Peguero MD Attending Dr: Monica Shankar Status: ADM IN Ordering Dr: Stacy Richards Date: 06/25/17 Location: ICU Sex: F C Admitted: 06/25/17 Reason For Study: Arrhythmia Procedure This was a 2D Doppler, Color Flow transthoracic echocardiogram. Exam performed portable in ICU/CCU. Left Ventricle Normal LV size. Left ventricular systolic function is normal. The estimated ejection fraction is 55 %. No regional wall motion abnormalities noted. Right Ventricle Normal RV size. Normal systolic function. Atria Normal left atrium. Normal right atrium. No doppler evidence for ASD. Mitral Valve There is no mitral annular calcification. Normal mitral valve. Trivial mitral valve insufficiency. Tricuspid Valve Normal tricuspid valve. Trivial tricuspid valve insufficiency. Right ventricular systolic pressure estimated to be 20 mmHg. Aortic Valve Trisinus/trileaflet aortic valve. Normal aortic valve. Pulmonic Valve The pulmonic valve is not well visualized. Great Vessels Normal sized aortic root. Pericardium/Pleural No pericardial effusion. MMode/2D Measurements AND Calculations LVIDd: 4.6 cm IVSd: 1.2 cm Ao root diam: 3.3 cm LVIDs: 3.0 cm LVPWd: 1.3 cm LA dimension: 3.6 cm RVDd: 3.5 cm FS: 34.8 % LAV(MOD-bp): 34.6 ml LA A4 area: 13.8 cm2 RA A4 area: 12.1 cm2 LAV(MOD-bp) Indexed: 18.3 ml/m2 LAV(MOD-sp2): 36.1 ml LAV(MOD-sp4): 31.9 ml Time Measurements MV dec time: 0.19 sec Doppler Measurements AND Calculations MV E max valerie: 63.3 cm/sec MV V2 max: 84.1 cm/sec MV P1/2t max valerie: 53.5 cm/sec MV A max valerie: 75.6 cm/sec MV max P.8 mmHg MV P1/2t: 98.2 msec MV E/A: 0.84 MV V2 mean: 34.0 cm/sec MV dec slope: 159.5 cm/sec2 MV mean P.58 mmHg MVA(P1/2t): 2.2 cm2 MV V2 VTI: 22.4 cm Ao V2 max: 106.2 cm/sec LV V1 max: 96.7 cm/sec PA V2 max: 77.9 cm/sec Ao max P.5 mmHg LV V1 max P.7 mmHg Ao V2 mean: 67.9 cm/sec LV V1 mean P.4 mmHg Ao mean P.1 mmHg LV V1 mean: 52.4 cm/sec Ao V2 VTI: 20.5 cm LV V1 VTI: 19.5 cm PI dec slope: 115.4 cm/sec2 TR max valerie: 204.5 cm/sec TR max P.7 mmHg Interpretation Summary Left ventricular systolic function is normal. The estimated ejection fraction is 55 %. Trivial mitral valve insufficiency. Trivial tricuspid valve insufficiency. Right ventricular systolic pressure estimated to be 20 mmHg. Ordering Physician: Stacy Richards Referring Physician: Juan Gan Performed By: Ervin Mejia RCS 06/26/171915 Date Alberto Peguero MD CC: Stacy Richards; Hussein Tidwell Date Dictated: 06/26/171521 Date Transcribed: 06/26/171915 Dampener: Signed TROPONIN-I Collected: 06/26/2017 Status: F Source: LANCE 2:00 PM [facility] REPOSITORY Order Comment: PT IN HEART CATH [facility] WHEN PT RETURNS. 'TROP' Serial specimen #1, #2, #3, or #4: 4 TYPE CODE TESTS RESULT OUT OF RANGE REFERENCE UNITS LAB L501.4010 <0.06 ng/mL High alert 0.84 TROPONIN-I Result Comment: Critical Result(s) Called at: 14:49:15 06/26/2017 by: [facility] TROPONIN-I EXPECTED VALUES <0.05 NEGATIVE 0.06 - 0.59 AT RISK OF VT > OR = 0.60 SUGGEST VT Performed By: #### L501.4010 #### [facility] [address] [place], [address] M R STAPH AUREUS Collected: 06/26/2017 Status: F Source: LANCE DNA BY PCR 11:15 AM [facility] REPOSITORY TYPE CODE TESTS RESULT OUT OF RANGE REFERENCE UNITS LAB L8200.1100 Negative Normal MRSA Negative RESULT Performed By: #### L8200.1000 #### [facility] [address] [place], [address] ACT ACTIVATED CLOTTING Collected: 06/26/2017 Status: F Source: LANCE TIME 10:49 AM [facility] REPOSITORY TYPE CODE TESTS RESULT OUT OF RANGE REFERENCE UNITS LAB L9100.0100 74-137 sec High ACTk CLOT 235 TIME Performed By: #### L9100.0100 #### [facility] Point of Care [address] [place] [address] ACT ACTIVATED CLOTTING Collected: 06/26/2017 Status: F Source: LANCE TIME 10:18 AM [facility] REPOSITORY TYPE CODE TESTS RESULT OUT OF RANGE REFERENCE UNITS LAB L9100.0100 74-137 sec High ACTk CLOT 257 TIME Performed By: #### L9100.0100 #### [facility] Point of Care [address] [place] [address] CONSULTATION Observed: 06/26/2017 Status: F Source: LANCE 8:18 AM [facility] REPOSITORY [facility] Medical Records Department [address] [place] [address] Consultation 06/26/17 0800 MR#: [id number] Acct: [id number] Name: PRISCILA TEIXEIRA Rep #: [id number] : 1950 67 From: Alberto Peguero MD PCP: Hussein Tidwell Status: ADM IN Location: [place] [address] Problem List (1) NSTEMI (non-ST elevated myocardial infarction) Status: Acute (2) CAD (coronary artery disease) Status: Chronic Qualifiers: Coronary Disease-Associated Artery/Lesion type: unspecified vessel or lesion type [place] vs. transplanted heart: unspecified whether citizen [place] or transplanted heart Associated angina: angina presence unspecified Qualified Code(s): I25.10 - Atherosclerotic heart disease of citizen [place] coronary artery without angina pectoris Comment: 08/31/15 PTCA following viktoriya/ Dr. Gan. (3) H/O heart artery stent Status: Chronic (4) HLD (hyperlipidemia) Status: Chronic Qualifiers: Hyperlipidemia type: unspecified Qualified Code(s): E78.5 - Hyperlipidemia, unspecified (5) HTN (hypertension) Status: Chronic Qualifiers: Hypertension type: essential hypertension Qualified Code(s): I10 - Essential (primary) hypertension (6) COPD (chronic obstructive pulmonary disease) Status: Chronic Qualifiers: COPD type: unspecified COPD Qualified Code(s): J44.9 - Chronic obstructive pulmonary disease, unspecified Reason for Consult Date of Consultation: 06/26/17 History of Present Illness: The patient is a 67 year old white female with a past cardiovascular history which is included hyperlipidemia, hypertension, CAD, LAD PCI (performed at [facility] in [place], [place] on 08/28/2015 with a 2.5 mm x 33 mm Xience Alpine SOLOMON), and COPD who presents for concerns of chest discomfort concerning for angina pectoris and abnormal troponin I levels concerning for non-ST segment elevation VT. She has been following with Juan Gan MD of the [facility]. She states she had been doing well until recently. Over the last 24-48 hours she has noted waxing and waning episodes of chest discomfort. She describes a very uncomfortable sensation radiating across her chest, both upper extremities, and to her neck. She initially thought this may be musculoskeletal and then possibly gastrointestinal related. However she attempted anti-inflammatory therapy and antacid therapy with no significant relief. She noted this time when on her symptoms worsened. She had associated shortness of breath, nausea, and diaphoresis. She subsequently, via EMS, was brought to the emergency department for evaluation. Based upon the EMS records she had an ECG which demonstrated sinus rhythm with a nonspecific T-wave abnormality. Her ECG was repeated in the emergency department which continued to demonstrate evidence of underlying sinus rhythm with nonspecific ST and T-wave abnormalities. She underwent further evaluation with cardiac enzymes. She had an abnormal troponin I levels. She was treated with additional medical therapy with nitroglycerin supplements. She had improvement of her symptoms. She was subsequently placed in the PCU with additional medical management with IV heparin pending further evaluation and care. The present time she states she is symptomatically improved. She has describes no orthopnea, PND, or ongoing peripheral pitting edema. There has been no near syncope or syncope. [] Past Medical History Allergies/Adverse Reactions: Allergies venom-honey bee [bee venom (honey bee)] Allergy (Severe, Verified 06/25/17 19:08) Anaphylaxis atorvastatin Allergy (Unknown, Verified 06/25/17 19:08) Unknown Penicillins Allergy (Unknown, Verified 06/25/17 19:08) Unknown strawberry Allergy (Verified 06/25/17 19:08) Anaphylaxis oxycodone HCl [From Percocet] Adverse Reaction (Verified 06/25/17 19:08) Vomiting Home Medications: Ambulatory Orders Medication Instructions Recorded Clopidogrel Bisulfate [Plavix] 75 mg PO DAILY 10/02/15 Famotidine [Pepcid] 20 mg PO DAILY 10/02/15 Losartan/Hydrochlorothiazide 1 tab PO DAILY 10/02/15 Past Medical History (Chronic Problems): Chronic Problems Obesity (BMI 30.0-34.9) (Chronic) Back pain (Chronic) CAD (coronary artery disease) (Chronic) 08/31/15 PTCA following w/ Dr. Gan. H/O heart artery stent (Chronic) HTN (hypertension) (Chronic) HLD (hyperlipidemia) (Chronic) Former tobacco use (Chronic) COPD (chronic obstructive pulmonary disease) (Chronic) S/P PTCA (percutaneous transluminal coronary angioplasty) (Chronic) Surgical History: angioplasty, appendectomy - In addition to salpingectomy w/ tubal , unsure which side., - - Cervical C5-6 surgery, Microdiscectemy L4-L5, L hand surgery following trauma, T+A, PCI x 1. 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 Paternal History Items: - - Father w/ heart disease, s/p CABG. Lives: Alone Smoking Status: Former smoker Tobacco Use: Non-smoker Alcohol: None Drugs: None Review of Systems - Review of Systems General: Denies: Fever, Night Sweats, Fatigue Cardiovascular: Reports: Chest Discomfort, Chest Discomfort at Rest, Shortness of Breath, Shortness of Breath at Rest, - - Diaphoresis. Denies: Orthopnea, PND, Peripheral Edema, Palpitations, Lightheadedness, Dizziness, Near Syncope, Syncope Respiratory: Reports: Shortness of Breath. Denies: Cough, Sputum Production, Hemoptysis Gastrointestinal: Reports: Nausea. Denies: Hematemesis, Hematochezia, Melena Genitourinary: Denies: Dysuria, Hematuria Skin: Denies: Rash Subjectve: This is a 67-year-old white female who appears to be resting comfortably at the moment in no acute distress. Objective: Vital Signs Temp Pulse Resp BP Pulse Ox 98.1 F 60 16 109/67 94 06/26/17 04:46 06/26/17 07:42 06/26/17 04:46 06/26/17 04:46 06/26/17 04:46 Oxygen Delivery Method Room Air Weight: 180 lb 8.937 oz Body Mass Index (BMI) 28.7 Intake and Output for Last 24 Hours Intake Total 708 / 708 Output Total 0 / 0 Balance 708 / 708 General: Awake, Alert, Oriented x 3, Cooperative, No Acute Distress Neck: No JVD Lungs: Clear to auscultation Cardiovascular: Regular Rhythm, Normal S1, Normal S2, Positive S4 Vascular: No Carotid Bruits, Normal Femoral Pulses, Normal Radial Pulses, Normal Dorsalis Pedal Pulse, Normal Posterior Tibial Pulses Abdomen: Bowel Sounds Present, Soft, Non Tender, No HSM, No Organomegaly Extremities: No Cyanosis, No Clubbing, No edema Neurological: No Focal Motor or Sensory Deficit 06/25/17 23:25: Troponin I 0.77 H* 06/26/17 03:54: WBC 5.5, RBC 4.51, Hgb 12.6, Hct 37.1, MCV 82.3, MCH 27.9, MCHC 34.0, RDW 12.7, RDW Differential 37.7, Plt Count 222, MPV 9.6 06/26/17 03:54: Sodium 141, Potassium 3.4 L, Chloride 106, Carbon Dioxide 28.0, Anion Gap 7, BUN 21 H, Creatinine 0.93, Est GFR (MDRD) Af Amer 77, Est GFR (MDRD) Non-Af 64, BUN/Creatinine Ratio 22.5 H, Glucose 85, Calcium 8.3 L, Troponin I 0.71 H*, Triglycerides 120, Cholesterol 137, LDL Cholesterol 74, VLDL Cholesterol 24, HDL Cholesterol 39 L 06/26/17 03:54: APTT 139.7 H* Rhythm: Sinus Rhythm EKG: As noted above ECHO: 08/26/2015: Left ventricle: Normal with an LVEF of 65%; trivial MR; mild TR; trivial NC; estimated RV systolic pressure 30 mmHg Stress Test: 2016: Stress echocardiogram: Considered negative by ECG criteria and echo criteria for stress-induced myocardial ischemia. A comment was made that the study was terminated due to profound dyspnea which was considered and angina pectoris equivalent. Cardiac Cath: 01/27/2017: [facility]: Left ventricle normal with an LVEF of 65%; left main normal; LAD stent patent; LCx with no significant disease; RCA with mild luminal irregularities PCI: As noted above CXR: Preliminary evaluation: No acute cardiopulmonary disease process appreciated Assessment/Plan 1. Non-ST segment elevation VT Patient presents with symptoms and objective findings concerning for non-ST segment elevation VT. Thus far there is been no other etiology to explain her symptoms or her cardiac enzyme changes other than her underlying cardiovascular disease process. She has been treated medically with symptomatic improvement. The present time she will continue to be monitored. She will continue medical management as deemed appropriate. However it was felt reasonable the patient be reevaluated with diagnostic cardiac catheterization. The procedure and risks were discussed with her and she was agreeable to this approach. 2. CAD status post LAD PCI/SOLOMON-2015 The patient has had previous CAD diagnosis and PCI/SOLOMON as noted above. Again she presents with symptoms concerning for angina pectoris and laboratory findings concerning for non-ST segment elevation VT. She will continue evaluation care as noted above. 3. Hyperlipidemia The patient does have a history of hyperlipidemia. She will continue risk factor modification and medical therapy. 4. Hypertension The patient's blood pressures have been noted. She will continue medical management with adjustment of her medications as deemed appropriate. 5. COPD The patient does have history of underlying COPD. She will need to continue evaluation by her primary care physician. Comment: The above was discussed with patient and the [facility] emergency department staff. This note was generated with [employer] dictation software. It may contain incorrect words, spelling, and punctuation that were not noted in checking the note before signing. 06/26/17 0818 <Electronically signed by Alberto Peguero MD> Date Alberto Peguero MD Cosigner Signature (if applicable): Date CC: Juan Gan MD; Alberto Peguero MD; Hussein Tidwell Signed CBC-COMPLETE BLOOD CNT Collected: 06/26/2017 Status: F Source: [place] NO DIFF 3:54 AM [facility] REPOSITORY TYPE CODE TESTS RESULT OUT OF RANGE REFERENCE UNITS LAB L100.1000 4.4-11.0 K/mm3 Normal WBC 5.5 LAB L100.1200 4.2-5.4 M/mm3 Normal RBC 4.51 LAB L100.1300 12.0-15.0 g/dl Normal HGB 12.6 LAB L100.1400 37-47 % Normal HCT 37.1 LAB L100.1500 81-99 fL Normal MCV 82.3 LAB L100.1600 27.0-32.0 pg Normal MCH 27.9 LAB L100.1700 32-36 g/gl Normal MCHC 34.0 LAB L100.1810 11.6-14.6 % Normal RDW CV 12.7 LAB L100.1820 35.1-43.9 fl Normal RDW SD 37.7 LAB L100.1900 150-450 K/mm3 Normal PLT 222 LAB L100.2000 6.2-12.0 fl Normal MPV 9.6 Performed By: #### L100.0500 #### [facility] [address] [place], [place], [address] PARTIAL THROMBOPLAST Collected: 06/26/2017 Status: F Source: [place] TIME 3:54 AM [facility] REPOSITORY TYPE CODE TESTS RESULT OUT OF REFERENCE UNITS RANGE LAB L300.4310 24.1-36.2 Seconds High alert PTT 139.7 Result Comment: CRITICAL VALUE VERIFIED. CALLED TO SHEREEN AGUIAR 06/26/17 0426 Gretta Bruno. RESULTS READ BACK BY SAME . Performed By: #### L300.4310 #### [facility] [address] [place], [place], [address] BASIC METABOLIC Collected: 06/26/2017 Status: F Source: [place] PROFILE (BMP) 3:54 AM [facility] REPOSITORY Order Comment: 'TROP' Serial specimen #1, #2, #3, or #4: 3 TYPE CODE TESTS RESULT OUT OF RANGE REFERENCE UNITS LAB L501.0100 70-110 mg/dL Normal GLU 85 LAB L501.1000 7-18 mg/dL High BUN 21 LAB L501.1100 0.55-1.02 mg/dL Normal 0.93 CREAT,SERUM Result Comment: The validity of the calculated GFR AND GFRAA in patients over 70 years has not been determined. Clinical correlation is essential. LAB L501.1110 >60 mL/min Normal EST GFR 64 Result Comment: Non- GFR Calc LAB L501.1115 >60 mL/min Normal EST GFR - AA 77 Result Comment: GFR Calc LAB L501.1255 ml/min Normal Estimated CRCL 56.46 LAB L501.1300 10-20 RATIO High BUN/CRE 22.5 LAB L501.2200 8.5-10 mg/dL Low .1 CA 8.3 LAB L501.5300 136-14 mmol/L Normal 5 NA 141 LAB L501.5600 3.5-5. mmol/L Low 1 K 3.4 LAB L501.5900 98-107 mmol/L Normal CL 106 LAB L501.6100 21.0-3 mmol/L Normal 2.0 CO2 28.0 LAB L501.6200 5-15 Normal GAP 7 Performed By: #### L500.2500, L500.4100, L501.4010 #### [facility] [address] [place], [address] LIPID PROFILE Collected: 06/26/2017 Status: F Source: [place] 3:54 AM [facility] REPOSITORY Order Comment: 'TROP' Serial specimen #1, #2, #3, or #4: 3 TYPE CODE TESTS RESULT OUT OF RANGE REFERENCE UNITS LAB L501.4900 200 mg/dL Normal CHOL 137 Result Comment: <200 mg/dL Desirable 200-240 mg/dL Borderline >240 mg/dL High Risk LAB L501.5000 mg/dL Normal TRIG 120 Result Comment: The drugs N-Acetylcysteine and Metamizole may falsely depress this assay. Serum Triglycerides Reference Interval Normal <150 mg/dL Borderline high 150 - 199 mg/dL High 200 - 499 mg/dL Very High > or = 500 mg/dL LAB L501.6400 mg/dL Low HDL 39 Result Comment: The drugs N-Acetylcysteine and Metamizole may falsely depress this assay. Reference Range HDL <40 mg/dL Low HDL Cholesterol HDL >or= 60 mg/dL High HDL Cholesterol LAB L501.6500 0-130 mg/dL Normal LDL 74 LAB L501.6600 5-40 mg/dL Normal VLDL 24 Performed By: #### L500.2500, L500.4100, L501.4010 #### [facility] [address] [place], [address] TROPONIN-I Collected: 06/26/2017 Status: F Source: [place] 3:54 AM [facility] REPOSITORY Order Comment: 'TROP' Serial specimen #1, #2, #3, or #4: 3 TYPE CODE TESTS RESULT OUT OF RANGE REFERENCE UNITS LAB L501.4010 <0.06 ng/mL High alert 0.71 TROPONIN-I Result Comment: Critical Result(s) Called at: 04:34:15 06/26/2017 by: AMRIT RUIZ RN PCU TROPONIN-I EXPECTED VALUES <0.05 NEGATIVE 0.06 - 0.59 AT RISK OF VT > OR = 0.60 SUGGEST VT Performed By: #### L500.2500, L500.4100, L501.4010 #### [facility] [address] [place], [address] EMERGENCY DEPARTMENT Observed: 06/26/2017 Status: F Source: [place] SUMMARY 1:48 AM [facility] REPOSITORY [facility] Medical Records Department [address] [place] [address] Emergency Department Summary 06/25/171939 MR#: [id number] Acct: [id number] Name: PRISCILA TEIXEIRA Pradeep Rep #: [id number] : 1950 67 From: Meghan Jaramillo MD PCP: Hussein Tidwell Status: ADM IN - ER Visit Summary Date of Service: 06/25/17 Chief Complaint: Chest pain History of Present Illness: The patient is a 67 F with significant cardiac history who presents for intermittent chest pain since last night. Patient states at rest she had sudden onset of severe chest tightness and pressure across the entire chest radiating into both arms, and bilateral neck. Patient took a tramadol and a clonazepam, and her symptoms eventually relieved after approximately 1 hour. This morning while sitting at the kitchen table she had return of the symptoms. After approximately 1 hour they subsided but returned again this afternoon. Patient had complete resolution of her symptoms after nitro by EMS. She also was given baby aspirin by EMS. Patient has history of myocardial infarction status post stenting. She also has hypertension, asthma. Physical Examination: Vital signs: afebrile, hemodynamically stable, no hypoxia on room air General: well nourished, well developed, in no distress Skin: warm, dry, no rash, no pallor HEENT: normocephalic and atraumatic; PERRL, EOMI, moist mucous membranes Cardiovascular: regular rate and rhythm without murmurs, no peripheral edema, 2+ pulses all distal extremities Respiratory: No increased work of breathing, lungs are clear to auscultation bilaterally, no rales, rhonchi or wheezing Abdominal: Abdomen is soft, nontender with normoactive bowel sounds, no guarding or rebound, no masses MSK: Moves all extremities, no deformities, normal strength Neuro: Awake and alert, oriented 4. No facial droop, sensation and motor function intact and symmetric Test Results: Abnormal Lab Results Emergency Department Course and Treatment: Patient's story is concerning for possible acute coronary syndrome. EKG showed no ischemic changes and no ST elevation. Troponin was elevated at 0.6. Patient's labs were otherwise unremarkable. She was given aspirin prehospital and 1 nitro prehospital that had almost complete resolution of her pain. Because she still had discomfort radiating into her neck, she was given an additional nitro and had resolution of her symptoms. Her presentation is concerning for NSTEACS, she was discussed with Dr. Peguero, who will consult on her in the morning and determine if she needs to go to the Check Out Clerk. At this time she will be started on IV heparin, low-dose beta- maggy and kept n.p.o. at midnight except for medications. She was discussed with the hospitalist for admission for further management of acute coronary syndrome, NSTEMI. Treatment Plan: [] Disposition: [] Impression: NSTEACS This note was generated with [employer] dictation software. It may contain incorrect words, spelling, and punctuation that were not noted in review of the chart prior to signing ED Disposition - Plan for ED Patient: Disposition: Acute Care Hospital [facility] Chief Complaint: Chest Pain What to do if you have Problems For any increased pain, shortness of breath, bleeding, nausea or vomiting, chest pain, or any unexpected problems, contact your Primary Care Provider. Call [facility] ([phone]) or report to the closest Emergency Room. Call 911 if necessary. 06/26/17 0148 <Electronically signed by Meghan Jaramillo MD> Date Meghan Jaramillo MD Cosigner Signature (If Indicated): Date CC: Hussein Tidwell TROPONIN-I Collected: 06/25/2017 Status: F Source: [place] 11:25 PM [facility] REPOSITORY Order Comment: 'TROP' Serial specimen #1, #2, #3, or #4: 2 TYPE CODE TESTS RESULT OUT OF RANGE REFERENCE UNITS LAB L501.4010 <0.06 ng/mL High alert 0.77 TROPONIN-I Result Comment: Critical Result(s) Called at: 23:56:35 06/25/2017 by: BELINDA RUIZ RN [facility] TROPONIN-I EXPECTED VALUES <0.05 NEGATIVE 0.06 - 0.59 AT RISK OF VT > OR = 0.60 SUGGEST VT Performed By: #### L501.4010 #### [facility] [address] [facility] [place], [place], [address] HISTORY AND PHYSICAL Observed: 06/25/2017 Status: F Source: [place] EXAM 10:11 PM [facility] REPOSITORY [facility] Medical Records Department [address] [facility] [place] [address] History and Physical 06/25/174 MR#: [id number] Acct: [id number] Name: PRISCILA TEIXEIRA Pradeep Rep #: [id number] : 1950 67 From: Stacy Richards PCP: Hussein Tidwell Status: ADM IN [id number] Problem List (1) Obesity (BMI 30.0-34.9) Status: Chronic (2) Back pain Status: Chronic Qualifiers: Back pain location: back pain in unspecified location Chronicity: unspecified Back pain laterality: unspecified Qualified Code(s): M54.9 - Dorsalgia, unspecified (3) CAD (coronary artery disease) Status: Chronic Qualifiers: Coronary Disease-Associated Artery/Lesion type: unspecified vessel or lesion type [place] vs. transplanted heart: unspecified whether citizen [place] or transplanted heart Associated angina: angina presence unspecified Qualified Code(s): I25.10 - Atherosclerotic heart disease of citizen [place] coronary artery without angina pectoris Comment: 08/31/15 PTCA following w/ Dr. Gan. (4) HTN (hypertension) Status: Chronic Qualifiers: Hypertension type: essential hypertension Qualified Code(s): I10 - Essential (primary) hypertension (5) HLD (hyperlipidemia) Status: Chronic Qualifiers: Hyperlipidemia type: unspecified Qualified Code(s): E78.5 - Hyperlipidemia, unspecified (6) Former tobacco use Status: Chronic (7) COPD (chronic obstructive pulmonary disease) Status: Chronic Qualifiers: COPD type: unspecified COPD Qualified Code(s): J44.9 - Chronic obstructive pulmonary disease, unspecified (8) S/P PTCA (percutaneous transluminal coronary angioplasty) Status: Chronic History of Present Illness Date of Admission: 06/25/17 Chief Complaint: Chest Pain The patient is a 67 y/o F w/ PMHx: Obesity, Chronic back pain, CAD s/p PCI (08/31/15 PTCA following viktoriya/ Dr. 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 She does admit to notable recent stress with health of a sibling. In the ED work-up included AF, HR 80s, BP 126/75, RR 18, 98% on 2L NC, unremarkable CBC, BMP w/ BUN/Cr 16/1.04, trop 0.60, CXR without acute process, EKG w/ SR without acute findings of ischemia. In the ED patient administered tylenol, asa, lopressor, NG, NS, heparin drip. Past Medical History Past Medical History (Chronic Problems): Chronic Problems Obesity (BMI 30.0-34.9) (Chronic) Back pain (Chronic) CAD (coronary artery disease) (Chronic) 08/31/15 PTCA following w/ Dr. Gan. H/O heart artery stent (Chronic) HTN (hypertension) (Chronic) HLD (hyperlipidemia) (Chronic) Former tobacco use (Chronic) COPD (chronic obstructive pulmonary disease) (Chronic) S/P PTCA (percutaneous transluminal coronary angioplasty) (Chronic) Allergies venom-honey bee [bee venom (honey bee)] Allergy (Severe, Verified 06/25/17 19:08) Anaphylaxis atorvastatin Allergy (Unknown, Verified 06/25/17 19:08) Unknown Penicillins Allergy (Unknown, Verified 06/25/17 19:08) Unknown strawberry Allergy (Verified 06/25/17 19:08) Anaphylaxis oxycodone HCl [From Percocet] Adverse Reaction (Verified 06/25/17 19:08) Vomiting Home Medications: Ambulatory Orders Medication Instructions Recorded Clopidogrel Bisulfate [Plavix] 75 mg PO DAILY 10/02/15 Famotidine [Pepcid] 20 mg PO DAILY 10/02/15 Losartan/Hydrochlorothiazide 1 tab PO DAILY 10/02/15 Surgical History: angioplasty, appendectomy - In addition to salpingectomy w/ tubal , unsure which side., - - Cervical C5-6 surgery, Microdiscectemy L4-L5, L hand surgery following trauma, T+A, PCI x 1. Psychiatric History: Anxiety SOLE BLACKER History: ectopic Lives: Alone Smoking Status: Former smoker - Several year history, 1 ppd, quit 23-34 years prior. Tobacco Use: Non-smoker Alcohol: None Drugs: None - *Family History Maternal History Items: - - Mother w/ thyroid disease. Paternal History Items: - - Father w/ heart disease, s/p CABG. Review of Systems Constitutional: Reports: Weakness, Fatigue. Denies: Chills, Fever, Weight Change HEENT: Denies: Head Aches, Sinus Congestion, Sinus Drainage Cardiovascular: Reports: Chest Pain, Chest Pressure, Chest Tightness, Heaviness. Denies: Edema, Light Headedness, Orthopnea, Palpitations, Syncope Respiratory: Denies: Cough, Shortness of breath at rest, Sputum production Gastrointestinal: Denies: Abdominal Pain, Nausea, Vomiting Genitourinary: Denies: Dysuria Musculoskeletal: Denies: Joint Pain, Joint Tenderness Skin: Denies: Rash, Wounds Neurological: Denies: Numbness, Tingling, Focal weakness Psychiatric: Reports: Anxiety. Denies: Depression, Homicidal Ideations, Suicidal Ideations Hematologic/ Lymphatic: Denies: Easy Bruising, Easy Bleeding VTE Information - Inpt Only VTE Present on Admission: No VTE Mechan Device Prophylaxis: SCD's VTE Pharm Prophylaxis ordered?: Yes Subjective: Seated upright in the ED bed, NAD currently, resolution of chest pain currently, mild headache after NG. Objective: Physical Examination: General: awake, alert, oriented x 3 and cooperative, seated upright in the ED bed in no apparent distress. Skin: normal color, turgor, no icterus, cyanosis. HEENT: AT/NC, EOMI, PERRLA, MMM, no carotid bruits or JVD noted. Lungs: CTA bilaterally, moderate effort, mild decrease BL bases, no rales, ronchi or wheezing. Heart: Regular rate and rhythm; no gallop, rub audible. Abdomen: soft, obese, NTTP, ND, normal BS, no HSM. Extremities: no cyanosis, clubbing, or edema. Neurological: patient awake, alert, oriented x 3; cognitive function intact; pupils equally reactive to light and accomodation; cranial nerves II-XII grossly normal, moving all 4 extremities, no focal deficits, strength moderately decreased secondary to acute presentation. Psychiatric: affect appears normal, no acute evidence of depressive or anxiety feelings. - Physical Exam Vital Signs Temp Pulse Resp BP Pulse Ox 98.5 F 73 20 H 126/75 H 92 06/25/17 19:08 06/25/17 21:05 06/25/17 21:05 06/25/17 21:05 06/25/17 21:05 Oxygen Flow Rate 2 Oxygen Delivery Method Room Air Weight: 182 lb Body Mass Index (BMI) 30.2 Laboratory Tests Past 24 Hrs WBC 6.9 RBC 5.00 Hgb 13.8 Hct 41.7 MCV 83.4 MCH 27.6 MCHC 33.1 RDW 13.0 Assessment/Plan The patient is a 67 y/o F w/ PMHx: Obesity, Chronic back pain, CAD s/p PCI (08/31/15 PTCA following w/ Dr. 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 (1) Chest Pain w/ concern for NSTEMI: EKG in ED w/ SR without acute evidence of ischemia, repeat pending, CXR w/ unremarkable. Trop elevated, 0.60. Will admit to PCU, maintain on a monitored bed, continue serial cardiac enzymes and EKGs. Obtain magnesium level upon admission. Continue Heparin drip. Continue medical management w/ asa, plavix, BB, statin w/ AM FLP. Cardiology consulted, plan for evaluation in AM, possible cardiac catheterization. Maintain NPO after midnight. ASA, NG, morphine. ECHO ordered, pending. (2) CAD: s/p PCI, follows viktoriya/ Dr. Gan outpatient. Will continue home regimen asa, plavix, statin allergy, add BB. (3) Hypertension: Continue home regimen including add coreg, ARB/HCTZ, PRN hydralazine. (4) Hyperlipidemia: Continue home zetia regimen, statin allergy. FLP in AM. (5) Chronic Asthma/COPD w/ Former Tobacco use: CXR with chronic COPD changes, maintain on oxygen with wean as tolerated to room air, continue ATC duonebs, PRN albuterol, HOB, IS parameters. (6) Obesity: Weight loss and lifestyle changes encouraged. (7) DVT Prophylaxis: SCDs, heparin drip. Code Visit Inpatient E AND M: 07695 Init Hosp L3 06/25/17 5509 <Electronically signed by Stacy Richards > Date Stacy Richards Cosigner Signature: Date (if applicable) CC: Stacy Richards; Hussein Tidwell Signed PROTHROMBIN TIME W/INR Collected: 06/25/2017 Status: F Source: [place] 8:00 PM [facility] REPOSITORY TYPE CODE TESTS RESULT OUT OF RANGE REFERENCE UNITS LAB L300.4150 11.7-14.9 SECONDS Normal PROTIME 12.6 LAB L300.4200 Normal INR 1.0 Performed By: #### L300.3900, L300.4310 #### [facility] [address] [place], [address] PARTIAL THROMBOPLAST Collected: 06/25/2017 Status: F Source: [place] TIME 8:00 PM [facility] REPOSITORY TYPE CODE TESTS RESULT OUT OF RANGE REFERENCE UNITS LAB L300.4310 24.1-36.2 Seconds Normal PTT 35.5 Performed By: #### L300.3900, L300.4310 #### [facility] [address] [place], [address] CHEST 1 VIEW Observed: 06/25/2017 Status: F Source: [place] (PORTABLE) 7:39 PM [facility] REPOSITORY [facility] Imaging Services [address] [place] [address] Chest 1 View (Portable) MR#: [id number] Acct: [id number] Name: LLUVIAPRISCILA Rep #: [id number] : 1950 F 67 From: Sharon Escalante MD PCP: Hussein Tidwell Status: REG ER Study: Chest 1 View (Portable) Date of Exam: 06/25/17 Exam# [id number] Ordering Dr: Meghan Jaramillo MD STUDY: X-RAY CHEST REASON FOR EXAM: Female, 67 years old. Chest pain TECHNIQUE: A single frontal view of the chest was obtained. COMPARISON: February 01, 2017 FINDINGS: The lungs are adequately aerated. There are no focal airspace opacities. There is no demonstrated pleural abnormality. There is stable scarring in the left lung base. The cardiac silhouette is normal in size. The mediastinum and hilar regions are unremarkable. Normal visualized pulmonary arteries. Normal visualized aortic arch and descending thoracic aorta. There are diffuse degenerative changes of the visualized spine. The visualized ribs, clavicles, and shoulders are unremarkable. There is no demonstrated abnormality of the visualized upper abdomen. RAD/Chest 1 View (Portable) IMPRESSION: No acute cardiopulmonary abnormalities or changes. Electronically Signed: Sharon Escalante MD at 20:02 EST Tel Direct: [phone], Service support , CC: Meghan Jaramillo MD; Hussein Tidwell Dampener: Signed CBC W/DIFF, AUTOMATED Collected: 06/25/2017 Status: F Source: [place] 7:35 PM [facility] REPOSITORY TYPE CODE TESTS RESULT OUT OF RANGE REFERENCE UNITS LAB L100.1000 4.4-11.0 K/mm3 Normal WBC 6.9 LAB L100.1200 4.2-5.4 M/mm3 Normal RBC 5.00 LAB L100.1300 12.0-15.0 g/dl Normal HGB 13.8 LAB L100.1400 37-47 % Normal HCT 41.7 LAB L100.1500 81-99 fL Normal MCV 83.4 LAB L100.1600 27.0-32.0 pg Normal MCH 27.6 LAB L100.1700 32-36 g/gl Normal MCHC 33.1 LAB L100.1810 11.6-14.6 % Normal RDW CV 13.0 LAB L100.1820 35.1-43.9 fl Normal RDW SD 38.9 LAB L100.1900 150-450 K/mm3 Normal PLT 246 LAB L100.2000 6.2-12.0 fl Normal MPV 9.9 LAB L100.2100 47-70 % Normal NEUT% 64.1 LAB L100.2200 19-41 % Normal LY% 26.2 LAB L100.2300 0-10 % Normal MONO% 7.8 LAB L100.2400 0-5 % Normal EO% 1.2 LAB L100.2500 0-1 % Normal BASO% 0.4 LAB L100.2550 0.0-0.9 % Normal IM GRAN % 0.300 Result Comment: IG% - Immature Granulocytes (promyelocytes, myelocytes and metamyelocytes) > 1% indicates that a LEFT SHIFT is Present. LAB L100.2620 2.0-7.7 X10 3/uL Normal Absolute Neut 4.4 LAB L100.2720 0.83-4.51 X10 3/ul Normal Absolute Lymph 1.81 Performed By: #### L100.0100 #### [facility] [address] [place], [address] BASIC METABOLIC Collected: 06/25/2017 Status: F Source: [place] PROFILE (BMP) 7:35 PM [facility] REPOSITORY Order Comment: 'TROP' Serial specimen #1, #2, #3, or #4: 1 TYPE CODE TESTS RESULT OUT OF RANGE REFERENCE UNITS LAB L501.0100 70-110 mg/dL Normal GLU 96 LAB L501.1000 7-18 mg/dL Normal BUN 16 LAB L501.1100 0.55-1.02 mg/dL High 1.04 CREAT,SERUM Result Comment: The validity of the calculated GFR AND GFRAA in patients over 70 years has not been determined. Clinical correlation is essential. LAB L501.1110 >60 mL/min Low EST GFR 56 Result Comment: Non- GFR Calc LAB L501.1115 >60 mL/min Normal EST GFR - AA 68 Result Comment: GFR Calc LAB L501.1255 ml/min Normal Estimated CRCL 48.53 LAB L501.1300 10-20 RATIO Normal BUN/CRE 15.4 LAB L501.2200 8.5-10 mg/dL Normal .1 CA 8.9 LAB L501.5300 136-14 mmol/L Normal 5 NA 142 LAB L501.5600 3.5-5. mmol/L Normal 1 K 3.7 LAB L501.5900 98-107 mmol/L Normal CL 106 LAB L501.6100 21.0-3 mmol/L Normal 2.0 CO2 27.0 LAB L501.6200 5-15 Normal GAP 9 Performed By: #### L500.2500, L501.4010 #### [facility] [address] [place], [address] TROPONIN-I Collected: 06/25/2017 Status: F Source: [place] 7:35 PM [facility] REPOSITORY Order Comment: 'TROP' Serial specimen #1, #2, #3, or #4: 1 TYPE CODE TESTS RESULT OUT OF RANGE REFERENCE UNITS LAB L501.4010 <0.06 ng/mL High alert 0.60 TROPONIN-I Result Comment: Critical Result(s) Called at: 20:49:17 06/25/2017 by: Lily WATTS TROPONIN-I EXPECTED VALUES <0.05 NEGATIVE 0.06 - 0.59 AT RISK OF VT > OR = 0.60 SUGGEST VT Performed By: #### L500.2500, L501.4010 #### [facility] [address] [facility] [place], [address] MAGNESIUM Collected: 06/25/2017 Status: F Source: [place] 7:35 PM [facility] REPOSITORY TYPE CODE TESTS RESULT OUT OF RANGE REFERENCE UNITS LAB L501.5200 1.6-2.6 mg/dL Normal MG 1.8 Result Comment: Please note revised Magnesium reference range effective 2017. Performed By: #### L501.5200 #### [facility] [place], [address] EMERGENCY DEPARTMENT Observed: 06/07/2017 Status: F Source: [place] SUMMARY 8:37 PM [facility] REPOSITORY [facility] Medical Records Department [address] [place], [place] [address] [address] Emergency Department Summary 06/07/17 1620 MR#: [id number] Acct: [id number] Name: PRISCILA TEIXEIRA Rep #: [id number] : 1950 67 From: Cristofer Velasquez MD PCP: Hussein Tidwell Status: REG ER - ER Visit Summary Date of Service: 06/07/17 Chief Complaint: Vomiting/diarrhea History of Present Illness: The patient is a 67 F with 3 days of vomiting, diarrhea, fevers and chills, myalgias with malaise. Friend of hers has the same symptoms at the same time. Denies any suspicious food ingestions, recent antibiotics, recent travel, new ground water ingestion. She took a bunch of Pepto-Bismol for 2 days straight and in the next day her stool was black. She denies seeing any blood. She denies any syncopal episodes. No abdominal pain. Physical Examination: Temp is 100.3, tachycardic 118, otherwise vital signs are unremarkable. She is well-appearing in no distress. Mildly dry mucous membranes with a film on her tongue that is nontender. Mild tachycardia. Lungs are clear, abdomen soft nontender nondistended with normal bowel sounds present. No rashes. Test Results: Potassium 2.7, creatinine 1.22. No anion gap acidosis. Blood counts are okay. Emergency Department Course and Treatment: Patient was given IV fluids, Zofran, Toradol for myalgias and fever, and a bolus of IV potassium. On reevaluation she is feeling better and drink some fluid. We will send her home with some potassium pills. Treatment Plan: Supportive, prescription Zofran Disposition: Discharge home Impression: Gastroenteritis, viral Hypokalemia from GI losses Mild dehydration This note was generated with [employer] dictation software. It may contain incorrect words, spelling, and punctuation that were not noted in review of the chart prior to signing ED Disposition - Plan for ED Patient: Disposition: Home or Assisted Living Chief Complaint: Nausea/Vomiting/Diarrhea Instructions: ED Gastroenteritis Viral, ED Potassium Deficiency Prescriptions: Ondansetron HCl [Zofran] 8 mg PO Q8H PRN #12 tab PRN Reason: Nausea Referrals: Hussein Tidwell MD [Primary Care Provider] - Additional Instructions: take 4 of your potassium pills per day for at least the next 2-3 days; take them one, every 4 hrs or so x 4 per day. What to do if you have Problems For any increased pain, shortness of breath, bleeding, nausea or vomiting, chest pain, or any unexpected problems, contact your Primary Care Provider. Call [facility] ([phone]) or report to the closest Emergency Room. Call 911 if necessary. 06/07/172036 <Electronically signed by Cristofer Velasquez MD> Date Cristofer Velasquez MD Cosigner Signature (If Indicated): Date CC: Hussein Tidwell CBC W/DIFF, AUTOMATED Collected: 06/07/2017 Status: F Source: [place]ANCE 4:35 PM [facility] REPOSITORY TYPE CODE TESTS RESULT OUT OF RANGE REFERENCE UNITS LAB L100.1000 4.4-11.0 K/mm3 Normal WBC 6.0 LAB L100.1200 4.2-5.4 M/mm3 Normal RBC 5.34 LAB L100.1300 12.0-15.0 g/dl Normal HGB 15.0 LAB L100.1400 37-47 % Normal HCT 43.3 LAB L100.1500 81-99 fL Normal MCV 81.1 LAB L100.1600 27.0-32.0 pg Normal MCH 28.1 LAB L100.1700 32-36 g/gl Normal MCHC 34.6 LAB L100.1810 11.6-14.6 % Normal RDW CV 13.3 LAB L100.1820 35.1-43.9 fl Normal RDW SD 39.0 LAB L100.1900 150-450 K/mm3 Normal PLT 160 LAB L100.2000 6.2-12.0 fl Normal MPV 10.0 LAB L100.2100 47-70 % High NEUT% 81.2 LAB L100.2200 19-41 % Low LY% 6.3 LAB L100.2300 0-10 % High MONO% 12.1 LAB L100.2400 0-5 % Normal EO% 0.0 LAB L100.2500 0-1 % Normal BASO% 0.2 LAB L100.2550 0.0-0.9 % Normal IM GRAN % 0.200 Result Comment: IG% - Immature Granulocytes (promyelocytes, myelocytes and metamyelocytes) > 1% indicates that a LEFT SHIFT is Present. LAB L100.2620 2.0-7.7 X10 3/uL Normal Absolute Neut 4.9 LAB L100.2720 0.83-4.51 X10 3/ul Low Absolute Lymph 0.38 Performed By: #### L100.0100 #### [facility] [address] [place], [place], [address] BASIC METABOLIC Collected: 06/07/2017 Status: F Source: [place] PROFILE (BMP) 4:35 PM [facility] REPOSITORY TYPE CODE TESTS RESULT OUT OF RANGE REFERENCE UNITS LAB L501.0100 70-110 mg/dL Normal GLU 99 LAB L501.1000 7-18 mg/dL Normal BUN 15 LAB L501.1100 0.55-1.02 mg/dL High 1.22 CREAT,SERUM Result Comment: The validity of the calculated GFR AND GFRAA in patients over 70 years has not been determined. Clinical correlation is essential. LAB L501.1110 >60 mL/min Low EST GFR 47 Result Comment: Non- GFR Calc LAB L501.1115 >60 mL/min Low EST GFR - AA 57 Result Comment: GFR Calc LAB L501.1255 ml/min Normal Estimated CRCL 43.04 LAB L501.1300 10-20 RATIO Normal BUN/CRE 12.3 LAB L501.2200 8.5-10 mg/dL Low .1 CA 7.9 LAB L501.5300 136-14 mmol/L Low 5 NA 134 LAB L501.5600 3.5-5. mmol/L Low 1 K alert 2.7 Result Comment: Critical Result(s) Called at: 17:17:36 06/07/2017 by: Danial winslow LAB L501.5900 98-107 mmol/L Normal CL 99 LAB L501.6100 21.0-32.0 mmol/L Normal CO2 26.0 LAB L501.6200 5-15 Normal GAP 9 Performed By: #### L500.2500 #### [facility] [address], [address] ALLERGIES ALLERGIES DATE TYPE / NAME / CODE REACTION SEVERITY SOURCE CODE 05/08/2018 Drug oxycodone Vomiting Unknown [place] Allergy/41 HCl/[id number](RXN Community 7799295([facility]) Repository 05/08/2018 Drug Penicillins/P75693 Unknown Unknown [place] Allergy/41 0476(RXNORM) Community 1702712([facility]) Repository 05/08/2018 Drug atorvastatin/F0060 Unknown Unknown [place] Allergy/41 14004(RXNORM) Community 8746625([facility]) Repository 05/08/2018 Drug venom-honey Anaphylaxis SV [place] Allergy/41 bee/[id number](RXN Community 5890197([facility] Repository 05/08/2018 Drug strawberry/K255230 Anaphylaxis Unknown [place] Allergy/41 637(RXNORM) [facility] 0323417([facility]) Repository 03/13/2012 DRUG DULOXETINE GI UPSET [place] [address] [address] [place] 5912275(SN Repository OMED CT) 05/14/2010 DRUG LISINOPRIL INTOLERANCE [place] [address] [address] [place] 9863623(SN Repository OMED CT) 11/30/2008 Food/39070 STRAWBERRIES HIVES [facility] 1000([facility] [place] D [place]) Repository 12/07/2007 Environ/42 BEES ANAPHYLAXIS [facility] 6922450( [place] OMED CT) Repository 11/21/2006 DRUG CODEINE [place] [address] [address] [place] 4497884(SN Repository OMED CT) 08/08/2005 Drug PENICILLINS [facility] Class/4195 [place] [address](SNOM Repository ED CT) 07/12/2005 DRUG PROPOXYPHENE HCL INTOLERANCE [place] [address] [address] [place] 0113445(SN Repository OMED CT) 07/12/2005 DRUG/30370 MEPERIDINE (PF) ITCHING [facility] 1003([facility] [place] D [place]) Repository 07/12/2005 DRUG MORPHINE Vomiting [place] [address] [address] [place] 7294714(SN Repository OMED CT) 07/12/2005 DRUG/69150 OXYCODONE-ACETAMIN Vomiting [facility] 1003([facility] OPHEN [place] D [address]) Repository ENCOUNTERS ENCOUNTERS ADMIT/DISCHARGE ACCOUNT ADMITTING ENCOUNTER LOCATION SOURCE NUMBER CLASS 05/08/2018/05/08/20 [id number] Emergency [place] 18 [facility] ing:ED Repository 04/20/2018/04/20/20 [id number] Ambulatory BMSBuilding:B Lance 18 [facility] Repository 03/04/2018 [id number] [facility] ing:BFHLAB Repository 01/31/2018/02/01/20 [id number] Emergency [address] [facility] ing[facility]ED Repository 01/29/2018/01/30/20 [id number] Emergency [address] [facility] Hospital ing:ED Repository 12/01/2017/12/03/19 [id number] Ambulatory [address] Repository 10/17/2017 [id number] Ambulatory [facility] Hospital ing:CR Repository 10/08/2017 [id number] [facility]ulatory [facility] Hospital ing:CVS Repository 10/08/2017 [id number] Ambulatory BMSBuilding:W [place] [facility] Repository 10/03/2017/10/07/19 [id number] Ambulatory [address] [facility]ild Hospital ing:CR Repository 09/11/2017/09/12/19 [id number] Ambulatory BMSBuilding:B [place] 18 [facility] Repository 09/08/2017 [id number] Ambulatory BMSBuilding:B [place] [facility] Repository 09/05/2017/09/07/19 [id number] Ambulatory [address] Hospitalild Hospital ing:CR Repository 08/06/2017/08/06/19 [id number] Ambulatory [address] [facility] Hospital ing:CR Repository 07/16/2017/07/16/19 [id number] Emergency [address] HospitalBuild Hospital ing:ED Repository 07/14/2017/07/14/19 [id number] Ambulatory BMSBuilding:B Lance 18 [facility] Repository 07/14/2017 [id number] Ambulatory BMSBuilding:B [place] [facility] Repository 07/10/2017 [id number] [facility]ulatory [facility] Hospital ing:CR Repository 07/04/2017 [id number] Ambulatory BMSBuilding:B [place] [facility] Repository 06/25/2017/06/27/19 [id number] White, Stacy Inpatient [place] 18 Encounter [facility] ing:ICURoom: Repository RNM70Plh: 1 06/25/2017 [id number] White, Stacy Ambulatory BMSBuilding:B [place] [facility] Repository 06/25/2017 [id number] White, Ambulatory BMSBuilding:W [facility] Repository 06/25/2017 [id number] White, Stacy Ambulatory BMSBuilding:W [facility] Repository 06/25/2017 [id number] White, Stacy Ambulatory BMSBuilding:Nusrat Lucas MS.[facility] Repository 06/25/2017 [id number] White, Ambulatory BMSBuilding:Nusrat Lucas MS.[facility] Repository 06/07/2017/06/07/20 [id number] Emergency [place] 17 [facility] ing:ED Repository PAYERS PAYERS ENCOUNTER GUARANTOR PAYER SUBSCRIBER SOURCE 05/08/2018 GAYLENA P Primary GAYLENA P [place] [id number] Insurance:MEDICARE CARLYDOB: [facility] [id number] Number: Repository 14863Hzb: 330 [id number] [phone] () Date:2018-05-08 05/08/2018 Secondary GAYLENA P [place] Insurance:MEDICAIDSpecial Care HospitalOB: [facility] Number: [id number] Hospital [id number] Repository Date:2018-05-08 05/08/2018 Tertiary NOT GIVENUNK [place] Insurance:SELF PAY [facility] Number: Effective Repository Date:2018-05-08 04/20/2018 GAYLENA P Primary GAYLENA P [place] [id number] Insurance:MEDICARE CARLYDOB: [facility] [id number] Number: Repository [address]Kja: 330 [id number] [phone] () Date:2017-09-11 04/20/2018 Secondary GAYLENA P [place] Insurance:MEDICAIDPol CARLYDOB: Community icy Number: [id number] Hospital [id number] Repository Date:2017-09-11 04/20/2018 Tertiary NOT GIVENUNK [place] Insurance:SELF PAY [facility] Number: Effective Repository Date:2018-04-20 03/04/2018 GAYLENA P Primary GAYLENA P [place] [id number] Insurance:MEDICARE CARLYDOB: Community [place] PART A [facility] [id number] Number: Repository 47091Wlr: 330 [id number] [phone] (HP) Date:2018-03-04 03/04/2018 Secondary GAYLENA P [place] Insurance:MEDICAIDPol CARLYDOB: [facility] icy Number: [id number] Hospital [id number] Repository Date:2018-03-04 03/04/2018 Tertiary NOT GIVENUNK [place] Insurance:SELF PAY [facility] Number: Effective Repository Date:2018-03-04 01/31/2018 GAYLENA P Primary GAYLENA P [place] [id number] Insurance:MEDICARE CARLYDOB: [facility] PART A [facility] [id number] Number: Repository 969[address]Atv: 330 [id number] [phone] (HP) Date:2018-01-31 01/31/2018 Secondary GAYLENA P [place] Insurance:MEDICAIDPol CARLYDOB: [facility] icy Number: [id number] Hospital [id number] Repository Date:2018-01-31 01/31/2018 Tertiary NOT GIVENUNK [place] Insurance:SELF PAY [facility] Number: Effective Repository Date:2018-01-31 01/29/2018 GAYLENA P Primary GAYLENA P [place] [id number] Insurance:MEDICARE CARLYDOB: Community [place] PART A [facility] [id number] Number: Repository 801[address]Fcf: 330 [id number] [phone] (HP) Date:2018-01-29 01/29/2018 Secondary GAYLENA P [place] Insurance:MEDICAIDPol CARLYDOB: Community icy Number: [id number] Hospital [id number] Repository Date:2018-01-29 01/29/2018 Tertiary NOT GIVENUNK [place] Insurance:SELF PAY [facility] Number: Effective Repository Date:2018-01-29 10/17/2017 GAYLENA P Primary GAYLENA P [place] [id number] Insurance:MEDICARE CARLYDOB: Community [place] PART A [facility] [id number] Number: Repository 24892Bhb: 330 [id number] [phone] (HP) Date:2017-07-10 10/17/2017 Secondary GAYLENA P [place] Insurance:MEDICAIDPol CARLYDOB: [facility] icy Number: [id number] Hospital [id number] Repository Date:2017-07-10 10/17/2017 Tertiary NOT GIVENUNK [place] Insurance:SELF PAY [facility] Number: Effective Repository Date:2017-10-07 10/08/2017 GAYLENA P Primary GAYLENA P [place] [id number] Insurance:MEDICARE CARLYDOB: [place] PART A [facility] [id number] [place] Number: Repository [address]Ctl: 330 [id number] [phone] (HP) Date:2017-09-11 10/08/2017 Secondary GAYLENA P [place] Insurance:MEDICAIDPol CARLYDOB: [facility] icy Number: [id number] Hospital [id number] Repository Date:2017-09-11 10/08/2017 Tertiary NOT GIVENUNK [place] Insurance:SELF PAY [facility] Number: Effective Repository Date:2017-09-11 10/08/2017 GAYLENA P Primary GAYLENA P [place] [id number] Insurance:MEDICARE CARLYDOB: Community [place] PART A [facility] [id number] Number: Repository [address]Kkc: 330 [id number] [phone] (HP) Date:2017-09-11 10/08/2017 Secondary GAYLENA P [place] Insurance:MEDICAIDPol CARLYDOB: Community icy Number: [id number] Hospital [id number] Repository Date:2017-09-11 10/08/2017 Tertiary NOT GIVENUNK [place] Insurance:SELF PAY [facility] Number: Effective Repository Date:2017-10-08 10/03/2017 GAYLENA P Primary GAYLENA P [place] [id number] Insurance:MEDICARE [facility] [id number], [place] Number: Repository [address]Crt: 330 [id number] [phone] (HP) Date:2017-07-10 10/03/2017 Secondary GAYLENA P [place] Insurance:MEDICAIDPol CARLYDOB: [facility] icy Number: [id number] Hospital [id number] Repository Date:2017-07-10 10/03/2017 Tertiary NOT GIVENUNK [place] Insurance:SELF PAY [facility] Number: Effective Repository Date:2017-09-07 09/11/2017 GAYLENA P Primary GAYLENA P [place] [id number] Insurance:MEDICARE CARLYDOB: Community [place] PART A [facility] [id number] Number: Repository 17675Yit: 330 [id number] [phone] (HP) Date:2017-05-19 09/11/2017 Secondary GAYLENA P [place] Insurance:MEDICAIDPol CARLYDOB: [facility] icy Number: [id number] Hospital [id number] Repository Date:2017-05-19 09/11/2017 Tertiary NOT GIVENUNK [place] Insurance:SELF PAY [facility] Number: Effective Repository Date:2017-05-19 09/08/2017 GAYLENA P Primary GAYLENA P [place] [id number] Insurance:MEDICARE CARLYDOB: Community [place] PART A [facility] [id number], [place] Number: Repository 308[address]Pdr: 330 [id number] [phone] (HP) Date:2017-09-08 09/08/2017 Secondary GAYLENA P [place] Insurance:MEDICAIDPol CARLYDOB: Community icy Number: [id number] Hospital [id number] Repository Date:2017-09-08 09/08/2017 Tertiary NOT GIVENUNK [place] Insurance:SELF PAY [facility] Number: Effective Repository Date:2017-09-08 09/05/2017 GAYLENA P Primary GAYLENA P [place] [id number] Insurance:MEDICARE CARLYDOB: Community [place] PART A [facility] [id number] Number: Repository [address]Spo: 330 [id number] [phone] (HP) Date:2017-07-10 09/05/2017 Secondary GAYLENA P [place] Insurance:MEDICAIDPol CARLYDOB: [facility] icy Number: [id number] Hospital [id number] Repository Date:2017-07-10 09/05/2017 Tertiary NOT GIVENUNK [place] Insurance:SELF PAY [facility] Number: Effective Repository Date:2017-08-07 08/06/2017 GAYLENA P Primary GAYLENA P [place] [id number] Insurance:MEDICARE CARLYDOB: Community [place] PART A [facility] [id number] Number: Repository 54[address]Eun: 330 [id number] [phone] (HP) Date:2017-07-10 08/06/2017 Secondary GAYLENA P [place] Insurance:MEDICAIDPol CARLYDOB: Community icy Number: [id number] Hospital [id number] Repository Date:2017-07-10 08/06/2017 Tertiary NOT GIVENUNK [place] Insurance:SELF PAY [facility] Number: Effective Repository Date:2017-07-10 07/16/2017 GAYLENA P Primary GAYLENA P [place] [id number] Insurance:MEDICARE CARLYDOB: Community [place] PART A [facility] [id number] Number: Repository 8[address]Loa: 330 [id number] [phone] (HP) Date:2017-07-16 07/16/2017 Secondary GAYLENA P [place] Insurance:MEDICAIDPol CARLYDOB: Community icy Number: [id number] Hospital [id number] Repository Date:2017-07-16 07/16/2017 Tertiary NOT GIVENUNK [place] Insurance:SELF PAY [facility] Number: Effective Repository Date:2017-07-16 07/14/2017 GAYLENA P Primary GAYLENA P [place] [id number] Insurance:MEDICARE CARLYDOB: Community [place] PART A [facility] [id number], [place] Number: Repository 20079Ydj: 330 [id number] [phone] (HP) Date:2017-06-30 07/14/2017 Secondary GAYLENA P [place] Insurance:MEDICAIDPol CARLYDOB: Community icy Number: [id number] Hospital [id number] Repository Date:2017-06-30 07/14/2017 Tertiary NOT GIVENUNK [place] Insurance:SELF PAY [facility] Number: Effective Repository Date:2017-06-30 07/14/2017 Gaylena P Primary Gaylena P [place] [id number] Insurance:MEDICARE CarlyDOB: Community [place] PART A [facility] [id number] Number: Repository [address]Srf: 330 [id number] [phone] (HP) Date:2017-07-14 07/14/2017 Secondary Gaylena P [place] Insurance:MEDICAIDPol CarlyDOB: Community icy Number: [id number] Hospital [id number] Repository Date:2017-07-14 07/14/2017 Tertiary NOT GIVENUNK [place] Insurance:SELF PAY [facility] Number: Effective Repository Date:2017-07-14 07/10/2017 Gaylena P Primary Gaylena P [place] [id number] Insurance:MEDICARE CarlyDOB: Community [place] PART A [facility] [id number], [place] Number: Repository 43080Qcx: 330 [id number] [phone] (HP) Date:2017-07-01 07/10/2017 Secondary Gaylena P [place] Insurance:MEDICAIDPol CarlyDOB: Community icy Number: [id number] Hospital [id number] Repository Date:2017-07-01 07/10/2017 Tertiary NOT GIVENUNK [place] Insurance:SELF PAY [facility] Number: Effective Repository Date:2017-07-01 07/04/2017 Gaylena P Primary Gaylena P [place] [id number] Insurance:MEDICARE CarlyDOB: Community [place] PART A [facility] [id number], [place] Number: Repository 23397Lut: 330 [id number] [phone] (HP) Date:2017-06-27 07/04/2017 Secondary Gaylena P [place] Insurance:MEDICAIDPol CarlyDOB: [facility] icy Number: [id number] Hospital [id number] Repository Date:2017-06-27 07/04/2017 Tertiary NOT GIVENUNK [place] Insurance:SELF PAY [facility] Number: Effective Repository Date:2017-06-27 06/25/2017 Gaylena P Primary Gaylena P [place] [id number] Insurance:MEDICARE CarlyDOB: Community [place] PART A [id number] [place] Number: Repository [address]Bcy: 330 [id number] [phone] (HP) Date:2017-06-25 06/25/2017 Secondary Gaylena P [place] Insurance:MEDICAIDPol CarlyDOB: Community icy Number: [id number] Hospital [id number] Repository Date:2017-06-25 06/25/2017 Tertiary NOT GIVENUNK [place] Insurance:SELF PAY [facility] Number: Effective Repository Date:2017-06-25 06/25/2017 Gaylena P Primary Gaylena P [place] [id number] Insurance:MEDICARE CarlyDOB: Community [place] PART A [facility] [id number] Number: Repository 95806Emx: 330 [id number] [phone] (HP) Date:2017-06-25 06/25/2017 Secondary Gaylena P [place] Insurance:MEDICAIDPol CarlyDOB: Community icy Number: [id number] Hospital [id number] Repository Date:2017-06-25 06/25/2017 Tertiary NOT GIVENUNK [place] Insurance:SELF PAY [facility] Number: Effective Repository Date:2017-06-25 06/25/2017 Gaylena P Primary Gaylena P [place] [id number] Insurance:MEDICARE CarlyDOB: Community [place] PART A [facility] [id number], [place] Number: Repository 7[address]Bgj: 330 [id number] [phone] (HP) Date:2017-06-25 06/25/2017 Secondary Gaylena P [place] Insurance:MEDICAIDPol CarlyDOB: Community icy Number: [id number] Hospital [id number] Repository Date:2017-06-25 06/25/2017 Tertiary NOT GIVENUNK [place] Insurance:SELF PAY [facility] Number: Effective Repository Date:2017-06-25 06/25/2017 Gaylena P Primary Gaylena P [place] [id number] Insurance:MEDICARE CarlyDOB: Community [place] PART A [facility] [id number] [place] Number: Repository [address]Lvc: 330 [id number] [phone] (HP) Date:2017-06-25 06/25/2017 Secondary Gaylena P [place] Insurance:MEDICAIDPol CarlyDOB: Community icy Number: [id number] Hospital [id number] Repository Date:2017-06-25 06/25/2017 Tertiary NOT GIVENUNK [place] Insurance:SELF PAY [facility] Number: Effective Repository Date:2017-06-25 06/25/2017 Gaylena P Primary Gaylena P [place] [id number] Insurance:MEDICARE CarlyDOB: Community [place] PART A [facility] [id number] [place] Number: Repository [address]Hov: 330 [id number] [phone] (HP) Date:2017-06-25 06/25/2017 Secondary Gaylena P [place] Insurance:MEDICAIDPol CarlyDOB: Community icy Number: [id number] Hospital [id number] Repository Date:2017-06-25 06/25/2017 Tertiary NOT GIVENUNK [place] Insurance:SELF PAY [facility] Number: Effective Repository Date:2017-06-25 06/25/2017 Gaylena P Primary Gaylena P [place] [id number] Insurance:MEDICARE CarlyDOB: [facility] PART A [facility] [id number] Number: Repository 354[address]Qfn: (861) [id number] [phone] (HP) Date:2017-06-25 06/25/2017 Secondary Gaylena P [place] Insurance:MEDICAIDPol CarlyDOB: [facility] icy Number: [id number] Hospital [id number] Repository Date:2017-06-25 06/25/2017 Tertiary NOT GIVENUNK [place] Insurance:SELF PAY [facility] Number: Effective Repository Date:2017-06-25 06/07/2017 Gaylena P Primary Gaylena P [place] [id number] Insurance:MEDICARE CarlyDOB: [facility] PART A [facility] [id number] Number: Repository 7[address]Fsu: 330 [id number] [phone] (HP) Date:2017-06-07 06/07/2017 Secondary Gaylena P [place] Insurance:MEDICAIDPol CarlyDOB: Community icy Number: [id number] Hospital [id number] Repository Date:2017-06-07 06/07/2017 Tertiary NOT GIVENUNK [place] Insurance:SELF PAY [facility] Number: Effective Repository Date:2017-06-07
== END 2018-05-08 22:09 | disposition home or self-care (01) ==
LOC: ED 19:04
PROVIDERS: Emergency Provider Emergency Medicine; Family Provider Family Medicine; PCP Family Medicine
DX: L03.211 Cellulitis of face (principal); I88.9 Nonspecific lymphadenitis, unspecified; Z88.0 Allergy status to penicillin; I25.10 Atherosclerotic heart disease of native coronary artery without angina pectoris; E04.2 Nontoxic multinodular goiter
CPT/HCPCS: 70491; 80048; 85025; 99284; Q9967; A4216

== ENCOUNTER 2018-06-01 20:41 | Emergency (ER) | payer MEDICARE, MEDICAID, SELFPAY ==
[2017-06-26 13:13] VITALS: BMI 29.0
[2018-06-01 20:42] VITALS: BP 145/90; PULSE 74; RESP 18; TEMP 36.3; O2SAT 96; BMI 29.3
--- NOTE | 2018-06-01 21:01 | RAD_ITS ---
STUDY: X-RAY - LEFT HIP REASON FOR EXAM: Female, 68 years old. Fall. Left hip pain TECHNIQUE: 2 views of the hip. COMPARISON: 02/01/2017. FINDINGS: There are osteoarthritic changes of the femoral head with marginal osteophyte formation. Sclerotic acetabulum. There is moderate articular joint space narrowing. Normal visualized superior and inferior pubic rami and ischial tuberosities. There is no demonstrated hip fracture. RAD/HIP, UNI W/ Pelvis 2-3 Views IMPRESSION: No acute fracture or dislocation is seen. Osteoarthritis of the left hip, worse than on the previous exam Electronically Signed: Ernesto Sheth MD at 21:38 EST , Service support ,
--- NOTE | 2018-06-01 21:02 | ED.VISSUMM ---
- ER Visit Summary Date of Service: 06/01/18 Chief Complaint: [] Left hip pain after jumping up in the air today History of Present Illness: The patient is a 68 F [] history of RSD, history of AL on [place], reports she stepped on her dog's foot when the dog screamed she jumped up in the air suffering pain to the left hip she is able to walk she holds the hip medially and flex the pain is improved she is able to walk no back pain no fall no direct trauma no numbness weakness or paresthesias prior nonspecific joint aches but no specific issues with her hip Physical Examination: [] 140/90 General, no distress resting comfortably HEENT is generally unremarkable The neck is supple no adenopathy Cardiovascular, regular rate and rhythm Lungs, clear bilateral Abdomen, soft nontender Extremities, no clubbing cyanosis or edema she has full range of motion of the hip she has some very mild discomfort there is no shortening or rotation, her back is nontender again if she A DD the hip she feels better Neurologic, awake alert answering questions appropriately moving all 4 extremities X-ray showed per radiology DJD that is worse than normal no signs of fracture per radiology however given her pain and the possible occult fracture I ordered CT of that hip Explained to her that CT shows fracture she will be admitted if the CT is negative she will be discharged home which is her wish as tomorrow is [place], but she could still have an occult injury I explained to the concept of an occult injury she has walking device she can use at home she is able to take [place] she is given 4 tablets to use if Tylenol is not effective and follow-up with her family doctors for further management she was also given a referral to [facility] Test Results: [] Emergency Department Course and Treatment: [] Treatment Plan: [] Disposition: [] Pending results of CT left hip Impression: [] Left hip injury, CT pending to evaluate for hip fracture This note was generated with DescribeMe dictation software. It may contain incorrect words, spelling, and punctuation that were not noted in review of the chart prior to signing ED Disposition - Plan for ED Patient: Chief Complaint: Other, Pain/Inj Instructions: ED Sprain Hip Prescriptions: Hydrocodone Bitart/Apap 5-325 [[place] 5MG-325MG] 1 tab PO Q4H PRN PRN 2 Days #7 tab PRN Reason: Pain Referrals: Hussein Tidwell MD [Primary Care Provider] -
--- NOTE | 2018-06-01 21:05 | DCINST.ED_ITS ---
ED Disposition - Plan for ED Patient: Chief Complaint: Other, Pain/Inj Instructions: ED Sprain Hip Prescriptions: Hydrocodone Bitart/Apap 5-325 [[place] 5MG-325MG] 1 tab PO Q4H PRN PRN 2 Days #7 tab PRN Reason: Pain Referrals: Hussein Tidwell MD [Primary Care Provider] -
--- NOTE | 2018-06-01 21:06 | DCINST.ED_ITS ---
ED Disposition - Plan for ED Patient: Chief Complaint: Other, Pain/Inj Instructions: ED Sprain Hip Prescriptions: Hydrocodone Bitart/Apap 5-325 [[place] 5MG-325MG] 1 tab PO Q4H PRN PRN 2 Days #7 tab PRN Reason: Pain Referrals: Hussein Tidwell MD [Primary Care Provider] -
[2018-06-01] MEDS: HYDROcodone Bitartrate/Apap 5/325 Tablet PO (21:09)
--- NOTE | 2018-06-01 22:20 | CT_ITS ---
STUDY: CT OF THE HIP WITHOUT CONTRAST, LEFT REASON FOR EXAM: Female, 68 years old. Tripped and twisting injury RADIATION DOSAGE (If Supplied By Facility): CTDIvol = ( 24.24 ) mGy, DLP = ( 794.92 ) mGycm. Individualized dose optimization techniques were used for this CT.? TECHNIQUE: Axial CT images of the hip were performed without contrast followed by sagittal and coronal reconstructions. Individualized dose optimization techniques were used for this CT. COMPARISON: Radiographs 06/01/2018 FINDINGS: Moderate to severe left hip osteoarthritis. No fractures or dislocations are seen. No hemorrhages are seen. Visualized pelvic bowel is intact. Visualized musculature is intact. CT/Extremity Lower without Contra IMPRESSION: No acute osseous injury is evident. Electronically Signed: Sander Moss MD at 23:43 EST Tel , Service support ,
[2018-06-01 22:38] LABS: Bacteria 0 SEEN /hpf (None Seen); Mucous, Urine 0 SEEN /hpf (<or=2+)
[2018-06-01 22:40] LABS: Absolute Lymphocyte Count 1.58 X10^3/ul (0.83-4.51); Absolute Neutrophil Count 3.9 X10^3/uL (2.0-7.7); Basophil# 0.04 X10^3/uL; Basophil% 0.6 % (0-1); Eosinophil# 0.16 X10^3/uL; Eosinophils% 2.5 % (0-5); Hematocrit 40.3 % (37-47); Hemoglobin 13.8 g/dl (12.0-15.0); Lymphocyte # 1.58 X10^3/ul (4.0); Mean Corp Hgb Conc 34.2 g/gl (32-36); Mean Corpuscular Hgb 28.9 pg (27.0-32.0); Mean Corpuscular Volume 84.3 fL (81-99); Mean Platelet Vol. 9.2 fl (6.2-12.0); Monocyte# 0.66 X10^3/uL; Monocyte% 10.4 % (0-10); Neutrophil # 3.88 X10^3/uL (2.7-7.7); Neutrophil % 61.3 % (47-70); Platelet Count 233 K/mm3 (150-450); RBC Distribution Width CV 13.2 % (11.6-14.6); RBC Distribution Width SD 40.1 fl (35.1-43.9); Red Blood Count 4.78 M/mm3 (4.2-5.4); White Blood Count 6.3 K/mm3 (4.4-11.0)
[2018-06-01 22:41] LABS: POSITIVE COUNT NO; POSITIVE DIFFERENTIAL NO; POSITIVE MORPHOLOGY NO
[2018-06-01 22:42] LABS: Color, Urine Yellow (Yellow); Glucose, Dipstick Normal (Normal); Ketone-Dipstick Negative (Negative); Leukocyte Esterase-Dipstick 25 /ul (Negative); Nitrite-Dipstick Negative (Negative); Occult Blood-Urine 10 /ul (Negative); Protein-Dipstick Negative (Negative); Urine Bilirubin Dipstick Negative (Negative); Urine Clarity Clear (Clear); Urine Urobilinogen Normal (Normal)
[2018-06-01 22:48] LABS: Red Blood Cells-Urine 0-5 SEEN /hpf (0-5); Squamous Epithelial Cells - UA 0-5 SEEN /hpf (5-10); White Blood Cells 0-5 SEEN /hpf (0-5)
[2018-06-01 22:54] LABS: Anion Gap 9 (5-15); BUN 17 mg/dL (7-18); Calcium,Total 8.4 mg/dL (8.5-10.1); Chloride 105 mmol/L (98-107); Creatinine, Serum 0.95 mg/dL (0.55-1.02); EST Glomerular Filtration Rate 63 mL/min (>60); Est Glom Filt Rate - Afr Amer 76 mL/min (>60); Estimated Creatinine Clearance 54.53 ml/min; Glucose 113 mg/dL (74-106); Potassium 3.1 mmol/L (3.5-5.1); Sodium Level 141 mmol/L (136-145)
[2018-06-01 23:57] VITALS: BP 122/66; PULSE 74; RESP 18; O2SAT 95
[2018-06-02] MEDS: HYDROcodone Bitartrate/Apap 5/325 Tablet PO ×2
== END 2018-06-02 00:07 | disposition home or self-care (01) ==
LOC: ED 21:08
PROVIDERS: Emergency Provider Emergency Medicine; Family Provider Family Medicine; PCP Family Medicine
DX: S79.912A Unspecified injury of left hip, initial encounter (principal); W54.8XXA Other contact with dog, initial encounter; Y93.9 Activity, unspecified; Y92.9 Unspecified place or not applicable; Y99.9 Unspecified external cause status; I25.2 Old myocardial infarction; I25.10 Atherosclerotic heart disease of native coronary artery without angina pectoris; G90.50 Complex regional pain syndrome I, unspecified
CPT/HCPCS: 73502; 73700; 80048; 81001; 85025; 99283; A4216

== ENCOUNTER 2018-06-02 18:39 | Emergency (ER) | payer MEDICARE, MEDICAID, SELFPAY ==
[2017-06-26 13:13] VITALS: BMI 29.0
[2018-06-01 20:42] VITALS: BMI 29.3
[2018-06-02 18:40] VITALS: BP 146/73; PULSE 73; RESP 18; TEMP 36.2; O2SAT 97; BMI 29.3
--- NOTE | 2018-06-02 19:01 | ED.DCSUM_ITS ---
- ER Visit Summary Date of Service: 06/02/18 Chief Complaint: Left hip pain History of Present Illness: The patient is a 68 F history of RSD, CAD with MIs and cardiac stents. Patient states she was seen in the ER yesterday. Patient stepped on her dog's foot dog barking jumped she jumped when she landed she had pain in her left hip. She did not fall. She denies other areas of injury. She was seen in the emergency department yesterday and an x-ray which showed degenerative arthritis but no fracture. Had a CT of her left hip again showed arthritis but no acute fracture. Both already read by the radiologist. She states she can walk with more uncomfortable and she would like something stronger for the pain in the [place]. She denies any other injuries. Physical Examination: Older female no acute distress vital signs are stable and afebrile. H EENT exam unremarkable atraumatic. C-spine nontender. Lungs clear to auscultation bilaterally. Heart regular rate and rhythm no murmur. Abdomen soft nontender. Normal bowel sounds no peritoneal signs. Pelvic girdle intact. She has mild tenderness over left lateral posterior buttock. There is no ecchymosis or bruising. No redness or warmth. There is no shortening or external rotation to either hip. She has flexion-extension of both hips, knees and ankles. Left foot is neurovascularly intact with DP pulse. Dorsi and plantar flexion. Also sensation left foot intact. Back exam nontender. Neurologically she is awake alert with no focal motor deficits. Test Results: I reviewed the patient's x-rays from yesterday. The pelvis and left hip x-ray shows significant arthritis but no obvious fracture. CT of the left hip again shows arthritis but no obvious fracture. Again both are already read by the radiologist which I reviewed there interpretation. Emergency Department Course and Treatment: I discussed the prior x-rays with the patient. Explained to if this is not improving she may need an MRI but that is very unlikely given that the x-rays and CT were both negative but there is a small percentage of people that CAT scan would miss a nondisplaced fracture. Treatment Plan: Percocet home pack. Otherwise [place] for pain. Ice to her hip. Follow-up with her primary care physician if not improving. Disposition: Discharge Impression: Acute left hip strain and pain secondary to osteoarthritis flare This note was generated with Atamasoft dictation software. It may contain incorrect words, spelling, and punctuation that were not noted in review of the chart prior to signing ED Disposition - Plan for ED Patient: Chief Complaint: Lower Extremity Injury Referrals: Hussein Tidwell MD [Primary Care Provider] -
--- NOTE | 2018-06-02 19:01 | ED.DEP ---
ED Disposition - Plan for ED Patient: Disposition: Home or Assisted Living Chief Complaint: Lower Extremity Injury Instructions: ED Contusion Hip Referrals: Hussein Tidwell MD [Primary Care Provider] - 3-5 Days if not improving Additional Instructions: Ice to the left hip. Percocet for more severe pain otherwise 1-2 [place] every 6 hours for pain. Follow-up if pain is not improving with your primary care physician. Very unlikely but possible that the x-ray and CAT scan could have missed a nondisplaced fracture if you are still having a lot of pain he may need to get an MRI
[2018-06-02] MEDS: oxyCODONE 5 MG Tablet 10 MG PO (19:10)
== END 2018-06-02 19:10 | disposition home or self-care (01) ==
PROVIDERS: Emergency Provider Emergency Medicine; Family Provider Family Medicine; PCP Family Medicine
DX: S76.012A Strain of muscle, fascia and tendon of left hip, initial encounter (principal); W54.8XXA Other contact with dog, initial encounter; Y93.9 Activity, unspecified; Y92.89 Other specified places as the place of occurrence of the external cause; Y99.9 Unspecified external cause status; I25.10 Atherosclerotic heart disease of native coronary artery without angina pectoris; G90.50 Complex regional pain syndrome I, unspecified; I25.2 Old myocardial infarction; Z87.891 Personal history of nicotine dependence; Z95.5 Presence of coronary angioplasty implant and graft; J45.909 Unspecified asthma, uncomplicated
CPT/HCPCS: 99282

== ENCOUNTER → 2018-06-05 14:03 | Outpatient (CLI) | payer MEDICARE, MEDICAID, SELFPAY ==
[2017-06-26 13:13] VITALS: BMI 29.0
[2018-06-02 18:40] VITALS: BMI 29.3
--- NOTE | 2018-06-05 14:08 | RAD_ITS ---
STUDY: X-RAY - LEFT HIP REASON FOR EXAM: Female, 68 years old. Pain after recent fall TECHNIQUE: 3 views of the hip. COMPARISON: 06/01/2018 FINDINGS: There is diffuse demineralization of the osseous structures. Normal femoral head, neck, intertrochanteric region and visualized proximal femur. Normal acetabulum. Normal hip joint. Normal visualized superior and inferior pubic rami and ischial tuberosities. Arthritic changes also noted in the right hip but changes in the left hip are more severe. RAD/HIP, UNI W/ Pelvis 2-3 Views IMPRESSION: Stable degenerative arthrosis, no demonstrated fracture or significant interval change since the previous study. However, hip and pelvic fractures in patients of this age can be subtle, if there is strong clinical concern of a fracture, recommend further evaluation with CT Electronically Signed: Silviano Doe MD at 14:47 EST , Service support ,
== END ==
PROVIDERS: Family Provider Family Medicine; PCP Family Medicine; Referring Provider Family Medicine; Visit Provider Family Medicine
DX: M25.552 Pain in left hip (principal)
CPT/HCPCS: 73502

== ENCOUNTER 2018-06-15 11:45 | Emergency (ER) | payer MEDICARE, MEDICAID, SELFPAY ==
[2017-06-26 13:13] VITALS: BMI 29.0
[2018-06-15 11:47] VITALS: BP 131/79; PULSE 97; RESP 14; TEMP 35.9; BMI 28.8
--- NOTE | 2018-06-15 13:43 | MRI_ITS ---
STUDY: MRI LEFT HIP REASON FOR EXAM: Left hip pain, injury 06/03/2018. TECHNIQUE: Standardized fat and water weighted pulse sequences were obtained in all 3 orthogonal planes. COMPARISON: Radiographs 06/05/2018. FINDINGS: There is left hip arthrosis with marginal osteophytes and chondral thinning (proton-density sagittal images 9, 10). There is an intra-articular body in the inferior posterior aspect of the left hip joint (T2 axial image 16) measuring 0.5 cm in maximal dimension. Normal acetabulum. Normal labrum. Normal femoral head. Normal femoral neck and intratrochanteric region. Normal gluteus minimus, medius and iliopsoas tendons and distal insertions. There is no trochanteric, iliopsoas or iliopectineal bursitis. Normal superior and inferior pubic rami. Normal pubic symphysis. Normal ischial tuberosity. Normal origin of the hamstring tendons. Normal visualized iliac wing, sacroiliac joint, and sacral ala. There is a soft tissue mass in the proximal anterior musculature of the contralateral right thigh with increased inversion recovery signal (inversion recovery coronal images 22, 23) and intermediate T1 signal (T1 coronal images 22, 23) measuring 2.7 cm in length. MRI/Lower Ext/No Jt/w/o IMPRESSION: Left hip arthrosis with intra-articular body. Soft tissue mass in the proximal contralateral right thigh without specific imaging characteristics. Electronically Signed: Salomon Melendez MD at 15:49 EST Tel , Service support ,
[2018-06-15] MEDS: HYDROmorphone 1 MG/ML Syringe SC (15:23)
--- NOTE | 2018-06-15 16:34 | ED.DCSUM_ITS ---
- ER Visit Summary Date of Service: 06/15/18 Chief Complaint: Pain History of Present Illness: The patient is a 68 F with left hip pain. This has been going on for several weeks after a mild trauma when she jumped to avoid her pet. She complains of continued pain in the left hip since then. No other inju avelino or complaints. She has had multiple x-rays which were concerning for fracture. She also had a CAT scan which was unremarkable. Her physician ordered an MRI, but she has not had this done yet. She has continued pain despite taking pain medication at home. Physical Examination: Afebrile and vital signs unremarkable. Pain on palpation over her left hip greater trochanter region. Positive logroll. No shortening or abnormal rotation. She is neurovascular intact distally. Abdomen soft. Test Results: MRI shows a loose foreign body in her left hip intra-articular space. She also has a soft tissue mass in her left thigh. Emergency Department Course and Treatment: Patient received pain medication he re. She was discussed with Dr. Jordan as the patient said she was following up with him. He is going to refer the patient to Dr. Aguilar. She will use her walker at home and she has pain medication. Follow-up for further care. Follow-up with primary care regarding the soft tissue mass. Treatment Plan: As above Disposition: Discharge Impression: 1. Left hip intra-articular foreign body 2. Right thigh soft tissue mass This note was generated with [employer] dictation software. It may contain incorrect words, spelling, and punctuation that were not noted in review of the chart prior to signing ED Disposition - Plan for ED Patient: Chief Complaint: Lower Extremity Injury Referrals: Hussein Tidwell MD [Primary Care Provider] -
--- NOTE | 2018-06-15 16:34 | ED.DEP ---
ED Disposition - Plan for ED Patient: Chief Complaint: Lower Extremity Injury Referrals: Topher Aguilar MD [NON-STAFF] - (at [facility]) Additional Instructions: Follow-up with your doctor regarding the soft tissue mass in your right thigh.
[2018-06-15 17:00] VITALS: BP 115/71; PULSE 76; RESP 16; O2SAT 95
[2018-06-15 17:04] VITALS: BP 115/71; PULSE 73; RESP 16; TEMP -12.7; TEMP 9; O2SAT 95
== END 2018-06-15 17:18 | disposition home or self-care (01) ==
PROVIDERS: Emergency Provider Emergency Medicine; Family Provider Family Medicine; PCP Family Medicine
DX: S70.252A Superficial foreign body, left hip, initial encounter (principal); R22.31 Localized swelling, mass and lump, right upper limb; G90.50 Complex regional pain syndrome I, unspecified
CPT/HCPCS: 73718; 96372; 99282

== ENCOUNTER → 2018-07-24 09:31 | Outpatient (CLI) | payer MEDICARE, MEDICAID, SELFPAY ==
[2017-06-26 13:13] VITALS: BMI 29.0
[2018-07-24 09:31] VITALS: BMI 28.8
[2018-07-24 11:13] LABS: BUN 13 mg/dL (7-18); Creatinine, Serum 0.87 mg/dL (0.55-1.02); Glucose 89 mg/dL (74-106)
[2018-07-24 11:14] LABS: Anion Gap 8 (5-15); BUN/Creat Ratio 14.9 RATIO (10-20); Calcium,Total 8.7 mg/dL (8.5-10.1); Chloride 108 mmol/L (98-107); EST Glomerular Filtration Rate 69 mL/min (>60); Est Glom Filt Rate - Afr Amer 84 mL/min (>60); Potassium 4.1 mmol/L (3.5-5.1); Sodium Level 142 mmol/L (136-145)
== END ==
PROVIDERS: Family Provider Family Medicine; PCP Family Medicine; Referring Provider Physician Assistant Medical; Visit Provider Physician Assistant Medical
DX: E87.6 Hypokalemia (principal)
CPT/HCPCS: 36415; 80048

== ENCOUNTER 2018-07-27 07:10 | Day surgery (SDC) | payer MEDICARE, MEDICAID, SELFPAY ==
[2017-06-26 13:13] VITALS: BMI 29.0
--- NOTE | 2018-07-20 11:02 | EKG12_ITS ---
Test Reason : Blood Pressure : / mmHG Vent. Rate : 073 BPM Atrial Rate : 073 BPM P-R Int : 158 ms QRS Dur : 084 ms QT Int : 398 ms P-R-T Axes : 044 055 074 degrees QTc Int : 438 ms Normal sinus rhythm Nonspecific T wave abnormality Abnormal ECG Confirmed by JACKY OLIVEROS, YOGI ([id number]), writer editor NIRMALA HALL ([id number]) on 07/23/2018 1:16:35 PM Referred By: Rocky Fajardo Confirmed By:YOGI RICO MD
[2018-07-20 11:31] VITALS: BP 121/79; PULSE 75; RESP 18; TEMP 36.5; O2SAT 94; BMI 29.7
[2018-07-20 12:10] LABS: Absolute Lymphocyte Count 1.21 X10^3/ul (0.83-4.51); Absolute Neutrophil Count 3.6 X10^3/uL (2.0-7.7); Basophil# 0.04 X10^3/uL; Basophil% 0.7 % (0-1); Eosinophil# 0.14 X10^3/uL; Eosinophils% 2.6 % (0-5); Hematocrit 45.2 % (37-47); Hemoglobin 14.9 g/dl (12.0-15.0); Lymphocyte # 1.21 X10^3/ul (4.0); Mean Corpuscular Hgb 27.9 pg (27.0-32.0); Mean Corpuscular Volume 84.5 fL (81-99); Mean Platelet Vol. 9.4 fl (6.2-12.0); Monocyte# 0.53 X10^3/uL; Monocyte% 9.7 % (0-10); Neutrophil # 3.56 X10^3/uL (2.7-7.7); Neutrophil % 64.8 % (47-70); POSITIVE COUNT NO; POSITIVE DIFFERENTIAL NO; POSITIVE MORPHOLOGY NO; Platelet Count 276 K/mm3 (150-450); RBC Distribution Width CV 12.9 % (11.6-14.6); RBC Distribution Width SD 39.7 fl (35.1-43.9); Red Blood Count 5.35 M/mm3 (4.2-5.4); White Blood Count 5.5 K/mm3 (4.4-11.0)
[2018-07-20 12:16] LABS: Prothrombin Time (Protime)PT. 12.8 SECONDS (11.7-14.9)
[2018-07-20 12:17] LABS: Partial Thromboplast Time 31.7 Seconds (24.1-36.2)
[2018-07-20 13:09] LABS: AST(SGOT) 14 U/L (15-37); Alanine Aminotransfer ALT/SGPT 24 U/L (13-56); Albumin, Serum 3.3 g/dL (3.2-5.0); Alkaline Phosphatase 93 U/L (45-117); Anion Gap 14 (5-15); BUN 8 mg/dL (7-18); BUN/Creat Ratio 7.7 RATIO (10-20); Bilirubin, Direct 0.15 mg/dL (0.00-0.30); Calcium,Total 8.6 mg/dL (8.5-10.1); Chloride 108 mmol/L (98-107); Creatinine, Serum 1.04 mg/dL (0.55-1.02); EST Glomerular Filtration Rate 56 mL/min (>60); Est Glom Filt Rate - Afr Amer 68 mL/min (>60); Estimated Creatinine Clearance 49.81 ml/min; Globulin 3.7 g/dL (2.2-4.2); Glucose 143 mg/dL (74-106); Potassium 2.8 mmol/L (3.5-5.1); Sodium Level 144 mmol/L (136-145)
[2018-07-24 09:31] VITALS: BMI 28.8
[2018-07-27] VITALS (10 sets, daily range): BP systolic 94–150; BP diastolic 60–88; PULSE 60–76; RESP 14–16; TEMP 36.2–36.7; O2SAT 91–96; BMI 29.7
--- NOTE | 2018-07-27 08:31 | DCINST_ITS ---
Your food should be the consistency of: Mechanical soft (ground) Discharge Activity: Return to Normal Activity Allergies/Adverse Reactions: Allergies venom-honey bee [bee venom (honey bee)] Allergy (Severe, Verified 07/27/18 07:28) Anaphylaxis atorvastatin Allergy (Unknown, Verified 07/27/18 07:28) Unknown Penicillins Allergy (Unknown, Verified 07/27/18 07:28) Unknown strawberry Allergy (Verified 07/27/18 07:28) Anaphylaxis oxycodone HCl [From Percocet] Adverse Reaction (Verified 07/27/18 07:28) Vomiting Medications to take at Discharge Famotidine [Pepcid] 20 mg PO DAILY 10/02/15 Aspirin [Adult Low Dose Aspirin EC] 81 mg PO DAILY 01/20/16 Glucosamine/MSM/Chondroitin A [Glucosamine Chondroit MSM Tab] 1 ea PO DAILY 08/26/16 Nitroglycerin [Nitrostat] 0.4 mg SUBLINGUAL Q5M PRN #1 bottle 06/27/17 albuterol sulfate HFA 90 mcg/actuation aerosol inhaler 2 puff INHALATION Q6H PRN 07/14/17 fluticasone 50 mcg/actuation nasal spray,suspension 50 mcg INTRANASAL QDAY PRN 07/14/17 paroxetine 20 mg tablet 20 mg PO QDAY 07/14/17 carvedilol 3.125 mg tablet 3.125 mg PO BID #180 tab 07/25/17 simvastatin 5 mg tablet 5 mg PO QPM 09/11/17 ezetimibe 10 mg tablet 10 mg PO DAILY #90 tab 03/02/18 Ticagrelor [Brilinta] 90 mg PO BID 07/20/18 losartan 50 mg tablet 50 mg PO DAILY #90 tab 07/21/18 potassium chloride ER 10 mEq capsule,extended release 30 meq PO BID #180 cap 07/21/18 Primary Care Physician: Hussein Tidwell MD [Primary Care Provider] - Test Results: Test results from this visit will be discussed in further detail at your follow- up appointment, if applicable.
--- NOTE | 2018-07-27 08:50 | TONS_PTH ---
PATIENT: ANGELINA TEIXEIRA [place] [facility] [id number] AGE/SX: 68/F ROOM: RE07/27/[address]: Dr. Rocky Fajardo MD : [id number] BED: DIS: 07/27/2018 SPEC #: [id number] RECD: 07/27/18 10:56 STATUS: VIKAS SAMANTHA #: [id number] KANDY: 07/27/18 08:[address]: Rocky Fajardo DEPT: SURGICAL PATHOLOGY RECD BY: Duarte Guaman ENTERED: 07/27/18 13:01 SP TYPE: TONSILS OTHR DR: Dr. Hussein Tidwell MD Tissues: Tonsil, NOS Procedures: Surgery Specimen Level IV HEADER OPERATION: Direct laryngoscopy with biopsy PRE-OP DIAGNOSIS: Hypertrophy of tonsils TISSUE SUBMITTED: Left lingual tonsil MICROSCOPIC DIAGNOSIS Left lingual tonsil, biopsy: Reactive lymphoid hyperplasia. Negative for malignancy. SJ:cam 07/28/18 COMMENT Correlation with clinical findings and appropriate follow up are necessary. Case has been reviewed in consultation with Dr. Guillaume who concurs with the above diagnosis. IDC:AM MICROSCOPIC DESCRIPTION Slides are reviewed. GROSS DESCRIPTION Received in fixative is one container labeled with the patient's name and designated left lingual tonsil. The specimen consists of two pieces of carson-pink soft tissue that in aggregate measure 1 x 0.5 x 0.3 cm. The specimen is totally submitted in one cassette. / SJ:rg 07/27/18 TC:5 CPT: 65574
--- NOTE | 2018-07-27 08:53 | PCM.OPRPT ---
Report of Operation Date of Procedure: 07/27/18 Pre-Operative Diagnosis: left lingual tonsil hypertrophy Post-Operative Diagnosis: same Surgery/Procedure Performed:: direct laryngoscopy with biopsy Description of Surgical Findings:: left lingual tonsil hypertrophy Type of Anesthesia:: General Anesthesiologist: Jose Agustin Specimen's removed: yes Estimated Blood Loss (mL): minimal Description of Procedure: The patient was taken to the OR on 07/27/18. She was placed in the supine position on the OR table. She was given sufficient general endotracheal anesthesia. The table was turned 90 degrees clockwise. She was draped steriley. A gum guard was placed on the upper dentition. A dedo laryngoscope was inserted into the mouth. The larynx, epiglottis, pyriform sinuses were all examined. Next, the left lingual tonsil was exposed. I then took large straight cup forceps and took multiple biopsies of the left lingual tonsil. Hemostasis was achieved with topical adrenaline on Codman's. The Codman's were then removed. All old blood was suctioned from the oropharynx. All instrumentation was removed. The procedure was terminated. She was awoken and brought to the recovery room in stable condition. Blood loss minimal, replacement none. Sponge, needle and instrument count were correct at the end of the procedure.
== END 2018-07-27 12:15 | disposition home or self-care (01) ==
LOC: SDC 07:11 → AC 07:11
PROVIDERS: Anesthesiology; Family Provider Family Medicine; PCP Family Medicine; Referring Provider Otolaryngology; Visit Provider Otolaryngology
PROC: 0CJS8ZZ Inspection of Larynx, Via Natural or Artificial Opening Endoscopic (ICD-10-PCS; CPT 31575; principal; 2018-07-27 08:35)
DX: J35.1 Hypertrophy of tonsils (principal); I10 Essential (primary) hypertension; M79.2 Neuralgia and neuritis, unspecified; I25.2 Old myocardial infarction; J45.909 Unspecified asthma, uncomplicated; Z87.891 Personal history of nicotine dependence; Z95.5 Presence of coronary angioplasty implant and graft; R06.02 Shortness of breath
CPT/HCPCS: 31535; 80048; 80076; 85025; 85610; 85730; 88304; 88305; 93005; J7120

== ENCOUNTER → 2018-08-10 09:36 | Outpatient (CLI) | payer MEDICARE, MEDICAID, SELFPAY ==
[2017-06-26 13:13] VITALS: BMI 29.0
[2018-07-27 07:32] VITALS: BMI 29.7
--- NOTE | 2018-08-10 09:41 | STE_ITS ---
Reason For Study: CAD/ASHD Stress Results Protocol: Dobutamine Maximum Predicted HR: 154 bpm Target HR: 131 bpm % Maximum Predicted HR: 84 % DurationHeart Rate Stage (mm:ss) (bpm) BP Dose Comment BASELINE 65 148/73 STAGE 1 3:30 62 154/6410.00 STAGE 2 3:00 78 155/6220.00 STAGE 3 3:29 130 142/6830.000.25 MG ATROPINE RECOVERY 100 134/67 Stress Duration: 9:59 mm:ss Maximum Stress HR: 130 bpm Baseline Echocardiogram Findings The estimated ejection fraction is 65 %. Stress Echo Wall motion Data Resting WM Intermediate WM Stress WM Resting Wall Motion Wall Motion Stress No regional wall motion No regional wall motion abnormalities noted. abnormalities noted. EKG Data The baseline ECG displays normal sinus rhythm. The patient was titrated from 10 mcg to a maximun of 30 mcg of dobutamine during the stress. The maximum heart rate attained was 136 beats per minute. This was 88% of maximum predicted heart rate. At peak infusion, upsloping ST changes only were noted, which did not meet the criteria for ischemia. No clinical angina was noted. Interpretation Summary The estimated ejection fraction is 65 %. Normal, adequate, dobutamine echocardiogram. Negative for ischemia by EKG and echocardiographic criteria. No anginal symptoms noted. Rare PVCs noted. Appropriate blood pressure response to dobutamine. Final LVEF is 75%. Test terminated due to the attainment of target heart rate. No complications. Ordering Physician: Juan Singh MD Referring Physician: Juan Singh Performed By: Che Johansen RDCS
== END ==
PROVIDERS: Family Provider Family Medicine; PCP Family Medicine; Referring Provider Internal Medicine Cardiovascular Disease; Visit Provider Internal Medicine Cardiovascular Disease
DX: Z01.810 Encounter for preprocedural cardiovascular examination (principal); Z95.5 Presence of coronary angioplasty implant and graft; I25.10 Atherosclerotic heart disease of native coronary artery without angina pectoris; I25.2 Old myocardial infarction
CPT/HCPCS: 93017; 93350; J7040; A4216

== ENCOUNTER 2018-08-22 15:40 | Inpatient (IN) | payer MEDICARE, MEDICAID, SELFPAY ==
[2017-06-26 13:13] VITALS: BMI 29.0
[2018-07-27 07:32] VITALS: BMI 29.7
[2018-08-22 16:14] VITALS: BP 156/93; PULSE 74; RESP 18; TEMP 36.5; O2SAT 92; O2SAT 93; BMI 31.5; BMI 31.6
--- NOTE | 2018-08-22 17:29 | NURSING ---
Patient admitted to room 5 from [facility] via wheelchair. Oriented to room and call light system explained.
--- NOTE | 2018-08-22 17:30 | NURSING ---
Pt has not had BM since 08/17. States she does not want to take any laxatives until the morning. Dr. Curry notified, order for magnesium citrate 300mL x1 now, educate patient on importance of taking today to prevent further complications.
--- NOTE | 2018-08-22 17:36 | NURSING ---
Per Dr. Curry, change vicodin 5/300mg order to [place] 5/325mg PO [id number] PRN
[2018-08-22] MEDS: HYDROcodone Bitartrate/Apap 5/325 Tablet PO (17:39)
[2018-08-22] MEDS: TICAGRELOR 90 MG TABLET PO (18:22)
[2018-08-22] MEDS: Carvedilol 3.125 MG TABLET PO (18:22)
[2018-08-22] MEDS: Senna/Docusate Sodium 1 Tablet 2 TABLET PO (18:22)
[2018-08-22] MEDS: Magnesium Citrate 300 ML PO (18:26)
--- NOTE | 2018-08-22 19:57 | PCM.HP.STD ---
Problem List (1) Osteoarthritis of left hip Status: Chronic (2) Angiomyolipoma of kidney Status: Chronic (3) GERD (gastroesophageal reflux disease) Status: Chronic (4) Restless leg syndrome Status: Chronic (5) Complex regional pain syndrome type 1 affecting left hand Status: Chronic (6) Anxiety Status: Chronic (7) Depression Status: Chronic (8) Asthma Status: Chronic (9) Coronary artery disease Status: Chronic (10) Myocardial infarction Status: Chronic (11) HTN (hypertension) Status: Chronic Qualifiers: (12) HLD (hyperlipidemia) Status: Chronic Qualifiers: History of Present Illness Date of Admission: 08/22/18 Chief Complaint: Here for rehabilitation, strengthening, prior to discharge home alone. The patient is a 68 year old Female with below past medical history hospitalized at [facility], underwent left total hip replacement with Dr. Aguilar, admitted to TCU with debility, here for rehabilitation, strengthening, prior to discharge home alone. Past Medical History Past Medical History (Chronic Problems): Chronic Problems (Last Updated 08/04/18 @ 14:52 by Bre Gallegos) Osteoarthritis of left hip (Chronic) Angiomyolipoma of kidney (Chronic) GERD (gastroesophageal reflux disease) (Chronic) Restless leg syndrome (Chronic) Complex regional pain syndrome type 1 affecting left hand (Chronic) Anxiety (Chronic) Depression (Chronic) Asthma (Chronic) Coronary artery disease (Chronic) Myocardial infarction (Chronic) History of coronary artery stent placement (Chronic 06/26/17) PCI-SOLOMON-LAD 08/28/15 @ [place]; PTCA/SOLOMON of the distal RCA 06/26/2017. Atherosclerotic heart disease of [place] coronary artery without angina pectoris (Chronic) PCI-SOLOMON-LAD 08/28/15 @ [facility]; PTCA/SOLOMON of the distal RCA 06/26/2017. Nonrheumatic tricuspid (valve) insufficiency (Chronic) Old myocardial infarction (Chronic) Daytime somnolence (Chronic) Dyspnea on exertion (Chronic) Obesity (BMI 30.0-34.9) (Chronic) NSTEMI (non-ST elevated myocardial infarction) (Chronic) HTN (hypertension) (Chronic) HLD (hyperlipidemia) (Chronic) Former tobacco use (Chronic) COPD (chronic obstructive pulmonary disease) (Chronic) Medical History: Medical History (Last Updated 08/04/18 @ 14:52 by Bre Gallegos) Pre-operative cardiovascular examination (Acute) Z01.810 Atherosclerotic heart disease of [place] coronary artery without angina pectoris (Chronic) I25.10 PCI-SOLOMON-LAD 08/28/15 @ [facility]; PTCA/SOLOMON of the distal RCA 06/26/2017. Nonrheumatic tricuspid (valve) insufficiency (Chronic) I36.1 Old myocardial infarction (Chronic) I25.2 Daytime somnolence (Chronic) R40.0 Dyspnea on exertion (Chronic) R06.09 Obesity (BMI 30.0-34.9) (Chronic) E66.9 NSTEMI (non-ST elevated myocardial infarction) (Chronic) I21.4 HTN (hypertension) (Chronic) I10 HLD (hyperlipidemia) (Chronic) E78.5 COPD (chronic obstructive pulmonary disease) (Chronic) J44.9 Angiomyoma D21.9 left kidney Chronic back pain M54.9, G89.29 RSD (reflex sympathetic dystrophy) G90.50 Allergies venom-honey bee [bee venom (honey bee)] Allergy (Severe, Verified 07/27/18 07:28) Anaphylaxis atorvastatin Allergy (Unknown, Verified 07/27/18 07:28) Unknown Penicillins Allergy (Unknown, Verified 07/27/18 07:28) Unknown strawberry Allergy (Verified 07/27/18 07:28) Anaphylaxis oxycodone HCl [From Percocet] Adverse Reaction (Verified 07/27/18 07:28) Vomiting Home Medications: Ambulatory Orders Medication Instructions Recorded Famotidine [Pepcid] 20 mg PO DAILY 10/02/15 Aspirin [Adult Low Dose Aspirin EC] 81 mg PO DAILY 01/20/16 Nitroglycerin [Nitrostat] 0.4 mg SUBLINGUAL Q5M PRN #1 bottle 06/27/17 albuterol sulfate HFA 90 2 puff INHALATION DAILY PRN PRN 07/14/17 mcg/actuation aerosol inhaler paroxetine 20 mg tablet 20 mg PO QDAY 07/14/17 ezetimibe 10 mg tablet 10 mg PO DAILY #90 tab 03/02/18 Ticagrelor [Brilinta] 90 mg PO BID 07/20/18 Carvedilol [Coreg (Beta Juvenal)] 3.125 mg PO BID 08/22/18 Hydrocodone/Acetaminophen [Vicodin 1 tablet PO Q6H PRN PRN 08/22/18 5-300 mg Tablet] Losartan Potassium 50 mg PO DAILY 08/22/18 Potassium Chloride 10 meq PO BID 08/22/18 Simvastatin 5 mg PO QHS 08/22/18 traMADol [Ultram (G)] 50 mg PO DAILY PRN PRN 08/22/18 Surgical History: Surgical History (Last Reviewed 04/20/18 @ 13:23 by Bre Gallegos) History of coronary artery stent placement (Chronic) Onset Date: 06/26/17 Z95.5 PCI-SOLOMON-LAD 08/28/15 @ [place]; PTCA/SOLOMON of the distal RCA 06/26/2017. History of back surgery Z98.890 L4-L5 micro disectomy left hand surgery multiple surgeries secondary to trauma Surgical History: angioplasty, appendectomy - In addition to salpingectomy w/ tubal , unsure which side., - - Cervical C5-6 surgery, Microdiscectemy L4-L5, L hand surgery following trauma, T+A, PCI x 1. 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 Paternal Family History: Family History (Last Reviewed 04/20/18 @ 13:23 by Bre Gallegos) Father CAD (coronary artery disease) Brother Afib History Items: - - Father w/ heart disease, s/p CABG. Review of Systems Constitutional: Denies: Chills, Fever, Weight Change HEENT: Denies: Head Aches, Sinus Congestion, Sinus Drainage Cardiovascular: Denies: Chest Pain, Palpitations Respiratory: Denies: Cough, Shortness of breath at rest, Sputum production Gastrointestinal: Denies: Abdominal Pain, Nausea, Vomiting Genitourinary: Denies: Dysuria Musculoskeletal: Denies: Joint Pain, Joint Tenderness Skin: Denies: Rash, Wounds Neurological: Denies: Numbness, Tingling, Focal weakness Psychiatric: Denies: Anxiety, Depression, Homicidal Ideations, Suicidal Ideations Hematologic/ Lymphatic: Denies: Easy Bruising, Easy Bleeding VTE Information - Inpt Only VTE Present on Admission: No VTE Mechan Device Prophylaxis: Knee High ERIN Hose VTE Pharm Prophylaxis ordered?: No Reason prophylaxis not ordered:: Treatment Not Indicated - Physical Exam General: Alert, Oriented x3, Cooperative HEENT: Atraumatic, PERRLA, EOMI, Normocephalic Neck: Supple, No JVD, Negative Carotid Bruits Lungs: Clear to auscultation, Normal air movement Cardiovascular: Regular rate, No murmurs Abdomen: Bowel Sounds Present, Soft, Non Tender Extremities: No edema, Capillary Refill Less than 3 Seconds Skin: No rashes, No breakdown Musculoskeletal: No Tenderness to Palpation of Joints or Extremities Neurological: Cranial nerves II-XII grossly intact Psych/Mental Status: Normal Affect, Appropriate Vital Signs Temp Pulse Resp BP Pulse Ox 97.7 F L 74 18 156/93 H 93 08/22/18 16:14 08/22/18 16:14 08/22/18 16:14 08/22/18 16:14 08/22/18 16:14 Oxygen Delivery Method Room Air Weight: 88.677 kg Body Mass Index (BMI) 31.5 Intake and Output for Last 24 Hours 08/20/18 08/21/18 08/22/18 23:59 23:59 23:59 Intake Total 180 / 180 Balance 180 / 180 Assessment/Plan All Active Problems (Last Updated 08/04/18 @ 14:52 by Bre Gallegos) Pre-operative cardiovascular examination (Acute) Abnormal nuclear stress test (Resolved) Hypokalemia (Resolved) 68 year old female with below past medical history hospitalized for left total hip replacement with Dr. Aguilar, admitted to TCU with debility, here for rehabilitation, strengthening, prior to discharge home alone. Debility - PT/OT. Pain - Tylenol 1000MG Q8H PRN mild pain, Tramadol 50MG Q6H PRN moderate pain, [place] 5/325MG 1 tablet Q6H PRN severe pain. Bowel - Miralax 17GM daily, Senna/colace 2 tablets BID, Dulcolax 10MG daily PRN, Magnesium citrate 300ML PO x 1 bottle for clean out. Pneumonia vaccination - Administer Prevnar 13 and/or Pneumovax 23 as necessary. DVT prophylaxis - Hold, already on combination of aspirin, brilinta, risk of bleeding outweigh benefit of DVT prevention. Asthma - Albuterol MDI 2 puffs daily PRN. Coronary Artery Disease status post stent - Coreg 3.125MG twice daily, Losartan 50MG daily, Brilinta 90MG twice daily, Aspirin 81MG daily, NTG 0.4MG Q5M PRN. Hyperlipidemia - Simvastatin 5MG QHS, Zetia 10MG daily. GERD - Famotidine 20MG daily. 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 Hypokalemia - K-Dur 10MEQ BID.
--- NOTE | 2018-08-22 20:02 | HP.PCM_ITS ---
Problem List (1) Osteoarthritis of left hip Status: Chronic (2) Angiomyolipoma of kidney Status: Chronic (3) GERD (gastroesophageal reflux disease) Status: Chronic (4) Restless leg syndrome Status: Chronic (5) Complex regional pain syndrome type 1 affecting left hand Status: Chronic (6) Anxiety Status: Chronic (7) Depression Status: Chronic (8) Asthma Status: Chronic (9) Coronary artery disease Status: Chronic (10) Myocardial infarction Status: Chronic (11) HTN (hypertension) Status: Chronic Qualifiers: (12) HLD (hyperlipidemia) Status: Chronic Qualifiers: History of Present Illness Date of Admission: 08/22/18 Chief Complaint: Here for rehabilitation, strengthening, prior to discharge home alone. The patient is a 68 year old Female with below past medical history hospitalized at [facility], underwent left total hip replacement with Dr. Aguilar, admitted to TCU with debility, here for rehabilitation, strengthening, prior to discharge home alone. Past Medical History Past Medical History (Chronic Problems): Chronic Problems (Last Updated 08/04/18 @ 14:52 by Bre Gallegos) Osteoarthritis of left hip (Chronic) Angiomyolipoma of kidney (Chronic) GERD (gastroesophageal reflux disease) (Chronic) Restless leg syndrome (Chronic) Complex regional pain syndrome type 1 affecting left hand (Chronic) Anxiety (Chronic) Depression (Chronic) Asthma (Chronic) Coronary artery disease (Chronic) Myocardial infarction (Chronic) History of coronary artery stent placement (Chronic 06/26/17) PCI-SOLOMON-LAD 08/28/15 @ [place]; PTCA/SOLOMON of the distal RCA 06/26/2017. Atherosclerotic heart disease of [place] coronary artery without angina pectoris (Chronic) PCI-SOLOMON-LAD 08/28/15 @ [facility]; PTCA/SOLOMON of the distal RCA 06/26/2017. Nonrheumatic tricuspid (valve) insufficiency (Chronic) Old myocardial infarction (Chronic) Daytime somnolence (Chronic) Dyspnea on exertion (Chronic) Obesity (BMI 30.0-34.9) (Chronic) NSTEMI (non-ST elevated myocardial infarction) (Chronic) HTN (hypertension) (Chronic) HLD (hyperlipidemia) (Chronic) Former tobacco use (Chronic) COPD (chronic obstructive pulmonary disease) (Chronic) Medical History: Medical History (Last Updated 08/04/18 @ 14:52 by Bre Gallegos) Pre-operative cardiovascular examination (Acute) Z01.810 Atherosclerotic heart disease of [place] coronary artery without angina pectoris (Chronic) I25.10 PCI-SOLOMON-LAD 08/28/15 @ [facility]; PTCA/SOLOMON of the distal RCA 06/26/2017. Nonrheumatic tricuspid (valve) insufficiency (Chronic) I36.1 Old myocardial infarction (Chronic) I25.2 Daytime somnolence (Chronic) R40.0 Dyspnea on exertion (Chronic) R06.09 Obesity (BMI 30.0-34.9) (Chronic) E66.9 NSTEMI (non-ST elevated myocardial infarction) (Chronic) I21.4 HTN (hypertension) (Chronic) I10 HLD (hyperlipidemia) (Chronic) E78.5 COPD (chronic obstructive pulmonary disease) (Chronic) J44.9 Angiomyoma D21.9 left kidney Chronic back pain M54.9, G89.29 RSD (reflex sympathetic dystrophy) G90.50 Allergies venom-honey bee [bee venom (honey bee)] Allergy (Severe, Verified 07/27/18 07:28) Anaphylaxis atorvastatin Allergy (Unknown, Verified 07/27/18 07:28) Unknown Penicillins Allergy (Unknown, Verified 07/27/18 07:28) Unknown strawberry Allergy (Verified 07/27/18 07:28) Anaphylaxis oxycodone HCl [From Percocet] Adverse Reaction (Verified 07/27/18 07:28) Vomiting Home Medications: Ambulatory Orders Medication Instructions Recorded Famotidine [Pepcid] 20 mg PO DAILY 10/02/15 Aspirin [Adult Low Dose Aspirin EC] 81 mg PO DAILY 01/20/16 Nitroglycerin [Nitrostat] 0.4 mg SUBLINGUAL Q5M PRN #1 bottle 06/27/17 albuterol sulfate HFA 90 2 puff INHALATION DAILY PRN PRN 07/14/17 mcg/actuation aerosol inhaler paroxetine 20 mg tablet 20 mg PO QDAY 07/14/17 ezetimibe 10 mg tablet 10 mg PO DAILY #90 tab 03/02/18 Ticagrelor [Brilinta] 90 mg PO BID 07/20/18 Carvedilol [Coreg (Beta Juvenal)] 3.125 mg PO BID 08/22/18 Hydrocodone/Acetaminophen [Vicodin 1 tablet PO Q6H PRN PRN 08/22/18 5-300 mg Tablet] Losartan Potassium 50 mg PO DAILY 08/22/18 Potassium Chloride 10 meq PO BID 08/22/18 Simvastatin 5 mg PO QHS 08/22/18 traMADol [Ultram (G)] 50 mg PO DAILY PRN PRN 08/22/18 Surgical History: Surgical History (Last Reviewed 04/20/18 @ 13:23 by Bre Gallegos) History of coronary artery stent placement (Chronic) Onset Date: 06/26/17 Z95.5 PCI-SOLOMON-LAD 08/28/15 @ [place]; PTCA/SOLOMON of the distal RCA 06/26/2017. History of back surgery Z98.890 L4-L5 micro disectomy left hand surgery multiple surgeries secondary to trauma Surgical History: angioplasty, appendectomy - In addition to salpingectomy w/ tubal , unsure which side., - - Cervical C5-6 surgery, Microdiscectemy L4-L5, L hand surgery following trauma, T+A, PCI x 1. 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 Paternal Family History: Family History (Last Reviewed 04/20/18 @ 13:23 by Bre Gallegos) Father CAD (coronary artery disease) Brother Afib History Items: - - Father w/ heart disease, s/p CABG. Review of Systems Constitutional: Denies: Chills, Fever, Weight Change HEENT: Denies: Head Aches, Sinus Congestion, Sinus Drainage Cardiovascular: Denies: Chest Pain, Palpitations Respiratory: Denies: Cough, Shortness of breath at rest, Sputum production Gastrointestinal: Denies: Abdominal Pain, Nausea, Vomiting Genitourinary: Denies: Dysuria Musculoskeletal: Denies: Joint Pain, Joint Tenderness Skin: Denies: Rash, Wounds Neurological: Denies: Numbness, Tingling, Focal weakness Psychiatric: Denies: Anxiety, Depression, Homicidal Ideations, Suicidal Ideations Hematologic/ Lymphatic: Denies: Easy Bruising, Easy Bleeding VTE Information - Inpt Only VTE Present on Admission: No VTE Mechan Device Prophylaxis: Knee High ERIN Hose VTE Pharm Prophylaxis ordered?: No Reason prophylaxis not ordered:: Treatment Not Indicated - Physical Exam General: Alert, Oriented x3, Cooperative HEENT: Atraumatic, PERRLA, EOMI, Normocephalic Neck: Supple, No JVD, Negative Carotid Bruits Lungs: Clear to auscultation, Normal air movement Cardiovascular: Regular rate, No murmurs Abdomen: Bowel Sounds Present, Soft, Non Tender Extremities: No edema, Capillary Refill Less than 3 Seconds Skin: No rashes, No breakdown Musculoskeletal: No Tenderness to Palpation of Joints or Extremities Neurological: Cranial nerves II-XII grossly intact Psych/Mental Status: Normal Affect, Appropriate Vital Signs Temp Pulse Resp BP Pulse Ox 97.7 F L 74 18 156/93 H 93 08/22/18 16:14 08/22/18 16:14 08/22/18 16:14 08/22/18 16:14 08/22/18 16:14 Oxygen Delivery Method Room Air Weight: 88.677 kg Body Mass Index (BMI) 31.5 Intake and Output for Last 24 Hours 08/20/18 08/21/18 08/22/18 23:59 23:59 23:59 Intake Total 180 / 180 Balance 180 / 180 Assessment/Plan All Active Problems (Last Updated 08/04/18 @ 14:52 by Bre Gallegos) Pre-operative cardiovascular examination (Acute) Abnormal nuclear stress test (Resolved) Hypokalemia (Resolved) 68 year old female with below past medical history hospitalized for left total hip replacement with Dr. Aguilar, admitted to TCU with debility, here for rehabilitation, strengthening, prior to discharge home alone. * Debility - PT/OT. * Pain - Tylenol 1000MG Q8H PRN mild pain, Tramadol 50MG Q6H PRN moderate pain, [place] 5/325MG 1 tablet Q6H PRN severe pain. * Bowel - Miralax 17GM daily, Senna/colace 2 tablets BID, Dulcolax 10MG daily PRN, Magnesium citrate 300ML PO x 1 bottle for clean out. * Pneumonia vaccination - Administer Prevnar 13 and/or Pneumovax 23 as necessary. * DVT prophylaxis - Hold, already on combination of aspirin, brilinta, risk of bleeding outweigh benefit of DVT prevention. * Asthma - Albuterol MDI 2 puffs daily PRN. * Coronary Artery Disease status post stent - Coreg 3.125MG twice daily, Losartan 50MG daily, Brilinta 90MG twice daily, Aspirin 81MG daily, NTG 0.4MG Q5M PRN. * Hyperlipidemia - Simvastatin 5MG QHS, Zetia 10MG daily. * GERD - Famotidine 20MG daily. 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 * Hypokalemia - K-Dur 10MEQ BID.
[2018-08-23] MEDS: Bisacodyl 5 MG Tablet 10 MG PO (00:10)
--- NOTE | 2018-08-23 00:14 | NURSING ---
Pt redness to surgical area has increase 6.5cm from original marking. Warmth to touch, polar care remains to area. No redness or warmth notice at any other area at this time.
[2018-08-23] MEDS: TICAGRELOR 90 MG TABLET PO ×2 (05:36→16:51)
[2018-08-23] MEDS: Polyethylene Glycol 3350 17 GM PACKET PO (05:37)
[2018-08-23] MEDS: Senna/Docusate Sodium 1 Tablet 2 TABLET PO ×2 (05:38→16:54)
[2018-08-23] MEDS: Aspirin E.C. 81 MG Tablet PO (05:39)
[2018-08-23] MEDS: Carvedilol 3.125 MG TABLET PO ×2 (05:39→16:54)
[2018-08-23] MEDS: Famotidine 20 MG Tablet PO (05:40)
[2018-08-23] MEDS: Paroxetine 20 MG Tablet PO (05:40)
[2018-08-23] MEDS: Losartan Potassium 50 MG Tablet PO (05:40)
[2018-08-23] MEDS: Ezetimibe 10 MG Tablet PO (05:41)
[2018-08-23] MEDS: HYDROcodone Bitartrate/Apap 5/325 Tablet PO ×3 (05:43→19:13)
--- NOTE | 2018-08-23 06:48 | NURSING ---
No results from magnesia citrate pt only took half of the bottle stated could drink any more. This nurse took patient for a walk, prn dulcolax. warm purine juice no result during this time. Pt was given mirlax this morning. RN aware of no bowel movement.
[2018-08-23 07:47] LABS: Absolute Lymphocyte Count 1.62 X10^3/ul (0.83-4.51); Absolute Neutrophil Count 4.3 X10^3/uL (2.0-7.7); Basophil# 0.03 X10^3/uL; Basophil% 0.4 % (0-1); Eosinophil# 0.29 X10^3/uL; Eosinophils% 4.1 % (0-5); Hematocrit 37.6 % (37-47); Hemoglobin 12.5 g/dl (12.0-15.0); Lymphocyte # 1.62 X10^3/ul (4.0); Lymphocyte % 22.8 % (19-41); Mean Corp Hgb Conc 33.2 g/gl (32-36); Mean Corpuscular Hgb 28.3 pg (27.0-32.0); Mean Corpuscular Volume 85.1 fL (81-99); Mean Platelet Vol. 9.7 fl (6.2-12.0); Monocyte# 0.75 X10^3/uL; Monocyte% 10.5 % (0-10); Neutrophil # 4.27 X10^3/uL (2.7-7.7); POSITIVE COUNT YES; POSITIVE DIFFERENTIAL NO; POSITIVE MORPHOLOGY YES; Platelet Count 232 K/mm3 (150-450); RBC Distribution Width CV 13.8 % (11.6-14.6); RBC Distribution Width SD 42.2 fl (35.1-43.9); Red Blood Count 4.42 M/mm3 (4.2-5.4); White Blood Count 7.1 K/mm3 (4.4-11.0)
[2018-08-23 07:56] LABS: BUN 20 mg/dL (7-18); BUN/Creat Ratio 24.9 RATIO (10-20); Calcium,Total 8.5 mg/dL (8.5-10.1); Chloride 105 mmol/L (98-107); EST Glomerular Filtration Rate 76 mL/min (>60); Est Glom Filt Rate - Afr Amer 92 mL/min (>60); Estimated Creatinine Clearance 64.76 ml/min; Glucose 96 mg/dL (74-106); Potassium 3.9 mmol/L (3.5-5.1); Sodium Level 139 mmol/L (136-145)
[2018-08-23 07:57] LABS: Anion Gap 7 (5-15)
--- NOTE | 2018-08-23 09:22 | NURSING ---
NO for soap suds enema and golytly.
[2018-08-23 10:00] VITALS: PULSE 81; O2SAT 95
--- NOTE | 2018-08-23 10:34 | NURSING ---
Pt had a medium, hard bowel movement before soap suds edema. Given SS enema per order, had large, hard bowel movement.
[2018-08-23] MEDS: Tuberculin,Purif.prot.deriv. 50 TU/ML Vial 5 ML ID (11:50)
--- NOTE | 2018-08-23 15:00 | NURSING ---
Erythema and edema around incision has decreased significantly since this morning. Patient using polar care as ordered. Patient showered, dressing to incision changed due to moisture. Incision well approximated and intact, no drainage. Will continue to monitor.
[2018-08-23 15:41] VITALS: BP 131/75; PULSE 80; RESP 16; TEMP 36.4; O2SAT 93
--- NOTE | 2018-08-23 17:35 | PCM.PN.RX ---
<Topher Pitt - Last Filed: 08/23/18 17:35> Progress Note - Pharmacy Subjective: TCU Admission Objective: Allergies venom-honey bee [bee venom (honey bee)] Allergy (Severe, Verified 07/27/18 07:28) Anaphylaxis atorvastatin Allergy (Unknown, Verified 07/27/18 07:28) Unknown Penicillins Allergy (Unknown, Verified 07/27/18 07:28) Unknown strawberry Allergy (Verified 07/27/18 07:28) Anaphylaxis oxycodone HCl [From Percocet] Adverse Reaction (Verified 07/27/18 07:28) Vomiting Current Medications Generic Name Dose Route Start Last Admin Trade Name Freq PRN Reason Stop Dose Admin Acetaminophen 1,000 mg 08/22/18 20:12 Tylenol PO Q8H PRN PRN MILD PAIN (1-3/10) Hydrocodone Bitart/Acetaminophen 1 tablet 08/22/18 16:44 08/23/18 11:49 [place] 5mg-325mg PO 1 tablet Q6H PRN PRN Administration SEVERE PAIN (6-10/10) Albuterol Sulfate 2 puff 08/22/18 16:45 Ventolin Hfa (Sp) INHALATION DAILY PRN PRN SOB &/OR WHEEZING Aspirin 81 mg 08/23/18 06:00 08/23/18 05:39 Ecotrin PO 81 mg DAILY [facility] Administration Bisacodyl 10 mg 08/22/18 20:12 08/23/18 00:10 Dulcolax PO 10 mg DAILY PRN Administration Constipation Carvedilol 3.125 mg 08/22/18 18:00 08/23/18 16:54 Coreg PO 3.125 mg BID [facility] Administration Ezetimibe 10 mg 08/23/18 06:00 08/23/18 05:41 Zetia PO 10 mg DAILY [facility] Administration Famotidine 20 mg 08/23/18 06:00 08/23/18 05:40 Pepcid PO 20 mg DAILY [facility] Administration Losartan Potassium 50 mg 08/23/18 06:00 08/23/18 05:40 Cozaar PO 50 mg DAILY [facility] Administration Nitroglycerin 0.4 mg 08/22/18 16:45 Nitrostat SUBLINGUAL Q5M PRN CHEST PAIN Paroxetine HCl 20 mg 08/23/18 06:00 08/23/18 05:40 Paxil PO 20 mg DAILY [facility] Administration Polyethylene Glycol 17 gm 08/23/18 06:00 08/23/18 05:37 Miralax PO 17 gm DAILY [facility] Administration Potassium Chloride 10 meq 08/23/18 08:00 08/23/18 16:52 K-Dur PO 10 meq BIDCM [facility] Administration Senna/Docusate Sodium 2 tablet 08/22/18 18:00 08/23/18 16:54 Senokot-S, Miroslava-Colace PO 2 tablet BID [facility] Administration Simvastatin 5 mg 08/23/18 22:00 Zocor PO QHS [facility] Ticagrelor 90 mg 08/22/18 18:00 08/23/18 16:51 Brilinta PO 90 mg BID [facility] Administration Tramadol HCl 50 mg 08/22/18 20:13 Ultram PO Q6H PRN PRN MODERATE PAIN (4-5/10) Tuberculin PPD 5 tu 08/30/18 10:00 Tubersol, Aplisol, Ppd ID 08/30/18 10:01 X1 ONE Problem List (Last Updated 08/04/18 @ 14:52 by Bre Gallegos) Osteoarthritis of left hip (Chronic) Angiomyolipoma of kidney (Chronic) GERD (gastroesophageal reflux disease) (Chronic) Restless leg syndrome (Chronic) Complex regional pain syndrome type 1 affecting left hand (Chronic) Anxiety (Chronic) Depression (Chronic) Asthma (Chronic) Coronary artery disease (Chronic) Myocardial infarction (Chronic) Vital Signs Temp Pulse Resp BP Pulse Ox 97.5 F L 80 16 131/75 H 93 08/23/18 15:41 08/23/18 15:41 08/23/18 15:41 08/23/18 15:41 08/23/18 15:41 Oxygen Delivery Method Room Air Weight: 88.677 kg Body Mass Index (BMI) 31.5 Sodium 139 mmol/L (136-145) 08/23/18 07:04 Potassium 3.9 mmol/L (3.5-5.1) 08/23/18 07:04 Chloride 105 mmol/L (98-107) 08/23/18 07:04 Carbon Dioxide 27.0 mmol/L (21.0-32.0) 08/23/18 07:04 Anion Gap 7 (5-15) 08/23/18 07:04 BUN 20 mg/dL (7-18) H 08/23/18 07:04 Creatinine 0.80 mg/dL (0.55-1.02) 08/23/18 07:04 Est GFR (MDRD) Af Amer 92 mL/min (>60) 08/23/18 07:04 Est GFR (MDRD) Non-Af 76 mL/min (>60) 08/23/18 07:04 BUN/Creatinine Ratio 24.9 RATIO (10-20) H 08/23/18 07:04 Glucose 96 mg/dL (74-106) 08/23/18 07:04 Assessment/Plan: 1) Pain APAP for mild pain, tramadol for moderate pain, hydrocodone/APAP for severe pain. Continue to monitor daily pain scores, prn medication use. 2) CAD/HLD ASA, carvedilol, ezetimibe, losartan, prn ntg, simvastatin, ticagrelor. 3) GI Famotidine daily. Continue to monitor s/s GI distress. Psychotropic Medications: 4) Depression Paroxetine. Continue to monitor s/s depression. Unnecessary Medications: None Bowel Regimen: 5) Senna/s, PEG, prn bisacodyl. Continue to monitor prn medication use, for constipation/diarrhea. Date of Note:: 08/23/18 - Provider Comments Provider responsibility: Provider responsible to enter orders to implement recommendations <Roque Curry Chi - Last Filed: 08/24/18 08:15> Progress Note - Pharmacy Subjective: [] Objective: Allergies venom-honey bee [bee venom (honey bee)] Allergy (Severe, Verified 07/27/18 07:28) Anaphylaxis atorvastatin Allergy (Unknown, Verified 07/27/18 07:28) Unknown Penicillins Allergy (Unknown, Verified 07/27/18 07:28) Unknown strawberry Allergy (Verified 07/27/18 07:28) Anaphylaxis oxycodone HCl [From Percocet] Adverse Reaction (Verified 07/27/18 07:28) Vomiting Current Medications Generic Name Dose Route Start Last Admin Trade Name Freq PRN Reason Stop Dose Admin Acetaminophen 1,000 mg 08/22/18 20:12 08/23/18 19:14 Tylenol PO 500 mg Q8H PRN PRN Administration MILD PAIN (1-3/10) Hydrocodone Bitart/Acetaminophen 1 tablet 08/22/18 16:44 08/23/18 19:13 [place] 5mg-325mg PO 1 tablet Q6H PRN PRN Administration SEVERE PAIN (6-10/10) Albuterol Sulfate 2 puff 08/22/18 16:45 Ventolin Hfa (Sp) INHALATION DAILY PRN PRN SOB &/OR WHEEZING Aspirin 81 mg 08/23/18 06:00 08/24/18 05:55 Ecotrin PO 81 mg DAILY [facility] Administration Bisacodyl 10 mg 08/22/18 20:12 08/23/18 00:10 Dulcolax PO 10 mg DAILY PRN Administration Constipation Carvedilol 3.125 mg 08/22/18 18:00 08/24/18 05:54 Coreg PO 3.125 mg BID [facility] Administration Ezetimibe 10 mg 08/23/18 06:00 08/24/18 05:55 Zetia PO 10 mg DAILY [facility] Administration Famotidine 20 mg 08/23/18 06:00 08/24/18 05:55 Pepcid PO 20 mg DAILY [facility] Administration Losartan Potassium 50 mg 08/23/18 06:00 08/24/18 05:54 Cozaar PO 50 mg DAILY [facility] Administration Nitroglycerin 0.4 mg 08/22/18 16:45 Nitrostat SUBLINGUAL Q5M PRN CHEST PAIN Paroxetine HCl 20 mg 08/23/18 06:00 08/24/18 05:55 Paxil PO 20 mg DAILY [facility] Administration Polyethylene Glycol 17 gm 08/23/18 06:00 08/24/18 05:56 Miralax PO Not Given DAILY [facility] Potassium Chloride 10 meq 08/23/18 08:00 08/23/18 16:52 K-Dur PO 10 meq BIDCM [facility] Administration Senna/Docusate Sodium 2 tablet 08/22/18 18:00 08/24/18 05:55 Senokot-S, Miroslava-Colace PO 2 tablet BID [facility] Administration Simvastatin 5 mg 08/23/18 22:00 08/23/18 20:12 Zocor PO 5 mg QHS [facility] Administration Ticagrelor 90 mg 08/22/18 18:00 08/24/18 05:55 Brilinta PO 90 mg BID [facility] Administration Tramadol HCl 50 mg 08/22/18 20:13 Ultram PO Q6H PRN PRN MODERATE PAIN (4-5/10) Tuberculin PPD 5 tu 08/30/18 10:00 Tubersol, Aplisol, Ppd ID 08/30/18 10:01 X1 ONE Problem List (Last Updated 08/04/18 @ 14:52 by Bre Gallegos) Osteoarthritis of left hip (Chronic) Angiomyolipoma of kidney (Chronic) GERD (gastroesophageal reflux disease) (Chronic) Restless leg syndrome (Chronic) Complex regional pain syndrome type 1 affecting left hand (Chronic) Anxiety (Chronic) Depression (Chronic) Asthma (Chronic) Coronary artery disease (Chronic) Myocardial infarction (Chronic) Vital Signs Temp Pulse Resp BP Pulse Ox 97.5 F L 70 16 151/77 H 93 08/23/18 15:41 08/24/18 05:54 08/24/18 05:54 08/24/18 05:54 08/23/18 15:41 Oxygen Delivery Method Room Air Weight: 88.677 kg Body Mass Index (BMI) 31.5 Sodium 139 mmol/L (136-145) 08/23/18 07:04 Potassium 3.9 mmol/L (3.5-5.1) 08/23/18 07:04 Chloride 105 mmol/L (98-107) 08/23/18 07:04 Carbon Dioxide 27.0 mmol/L (21.0-32.0) 08/23/18 07:04 Anion Gap 7 (5-15) 08/23/18 07:04 BUN 20 mg/dL (7-18) H 08/23/18 07:04 Creatinine 0.80 mg/dL (0.55-1.02) 08/23/18 07:04 Est GFR (MDRD) Af Amer 92 mL/min (>60) 08/23/18 07:04 Est GFR (MDRD) Non-Af 76 mL/min (>60) 08/23/18 07:04 BUN/Creatinine Ratio 24.9 RATIO (10-20) H 08/23/18 07:04 Glucose 96 mg/dL (74-106) 08/23/18 07:04 Assessment/Plan: Psychotropic Medications: Unnecessary Medications: Bowel Regimen: - Provider Comments Provider responsibility: Provider responsible to enter orders to implement recommendations Provider Comments to Recommendations by Pharmacy: Agree
--- NOTE | 2018-08-23 17:39 | PHA.CONS_ITS ---
<Topher Pitt - Last Filed: 08/23/18 17:35> Progress Note - Pharmacy Subjective: TCU Admission Objective: Allergies venom-honey bee [bee venom (honey bee)] Allergy (Severe, Verified 07/27/18 07:28) Anaphylaxis atorvastatin Allergy (Unknown, Verified 07/27/18 07:28) Unknown Penicillins Allergy (Unknown, Verified 07/27/18 07:28) Unknown strawberry Allergy (Verified 07/27/18 07:28) Anaphylaxis oxycodone HCl [From Percocet] Adverse Reaction (Verified 07/27/18 07:28) Vomiting Current Medications Generic Name Dose Route Start Last Admin Trade Name Freq PRN Reason Stop Dose Admin Acetaminophen 1,000 mg 08/22/18 20:12 Tylenol PO Q8H PRN PRN MILD PAIN (1-3/10) Hydrocodone Bitart/Acetaminophen 1 tablet 08/22/18 16:44 08/23/18 11:49 [place] 5mg-325mg PO 1 tablet Q6H PRN PRN Administration SEVERE PAIN (6-10/10) Albuterol Sulfate 2 puff 08/22/18 16:45 Ventolin Hfa (Sp) INHALATION DAILY PRN PRN SOB &/OR WHEEZING Aspirin 81 mg 08/23/18 06:00 08/23/18 05:39 Ecotrin PO 81 mg DAILY [facility] Administration Bisacodyl 10 mg 08/22/18 20:12 08/23/18 00:10 Dulcolax PO 10 mg DAILY PRN Administration Constipation Carvedilol 3.125 mg 08/22/18 18:00 08/23/18 16:54 Coreg PO 3.125 mg BID [facility] Administration Ezetimibe 10 mg 08/23/18 06:00 08/23/18 05:41 Zetia PO 10 mg DAILY [facility] Administration Famotidine 20 mg 08/23/18 06:00 08/23/18 05:40 Pepcid PO 20 mg DAILY [facility] Administration Losartan Potassium 50 mg 08/23/18 06:00 08/23/18 05:40 Cozaar PO 50 mg DAILY [facility] Administration Nitroglycerin 0.4 mg 08/22/18 16:45 Nitrostat SUBLINGUAL Q5M PRN CHEST PAIN Paroxetine HCl 20 mg 08/23/18 06:00 08/23/18 05:40 Paxil PO 20 mg DAILY [facility] Administration Polyethylene Glycol 17 gm 08/23/18 06:00 08/23/18 05:37 Miralax PO 17 gm DAILY [facility] Administration Potassium Chloride 10 meq 08/23/18 08:00 08/23/18 16:52 K-Dur PO 10 meq BIDCM [facility] Administration Senna/Docusate Sodium 2 tablet 08/22/18 18:00 08/23/18 16:54 Senokot-S, Miroslava-Colace PO 2 tablet BID [facility] Administration Simvastatin 5 mg 08/23/18 22:00 Zocor PO QHS [facility] Ticagrelor 90 mg 08/22/18 18:00 08/23/18 16:51 Brilinta PO 90 mg BID [facility] Administration Tramadol HCl 50 mg 08/22/18 20:13 Ultram PO Q6H PRN PRN MODERATE PAIN (4-5/10) Tuberculin PPD 5 tu 08/30/18 10:00 Tubersol, Aplisol, Ppd ID 08/30/18 10:01 X1 ONE Problem List (Last Updated 08/04/18 @ 14:52 by Bre Gallegos) Osteoarthritis of left hip (Chronic) Angiomyolipoma of kidney (Chronic) GERD (gastroesophageal reflux disease) (Chronic) Restless leg syndrome (Chronic) Complex regional pain syndrome type 1 affecting left hand (Chronic) Anxiety (Chronic) Depression (Chronic) Asthma (Chronic) Coronary artery disease (Chronic) Myocardial infarction (Chronic) Vital Signs Temp Pulse Resp BP Pulse Ox 97.5 F L 80 16 131/75 H 93 08/23/18 15:41 08/23/18 15:41 08/23/18 15:41 08/23/18 15:41 08/23/18 15:41 Oxygen Delivery Method Room Air Weight: 88.677 kg Body Mass Index (BMI) 31.5 Sodium 139 mmol/L (136-145) 08/23/18 07:04 Potassium 3.9 mmol/L (3.5-5.1) 08/23/18 07:04 Chloride 105 mmol/L (98-107) 08/23/18 07:04 Carbon Dioxide 27.0 mmol/L (21.0-32.0) 08/23/18 07:04 Anion Gap 7 (5-15) 08/23/18 07:04 BUN 20 mg/dL (7-18) H 08/23/18 07:04 Creatinine 0.80 mg/dL (0.55-1.02) 08/23/18 07:04 Est GFR (MDRD) Af Amer 92 mL/min (>60) 08/23/18 07:04 Est GFR (MDRD) Non-Af 76 mL/min (>60) 08/23/18 07:04 BUN/Creatinine Ratio 24.9 RATIO (10-20) H 08/23/18 07:04 Glucose 96 mg/dL (74-106) 08/23/18 07:04 Assessment/Plan: 1) Pain APAP for mild pain, tramadol for moderate pain, hydrocodone/APAP for severe pain. Continue to monitor daily pain scores, prn medication use. 2) CAD/HLD ASA, carvedilol, ezetimibe, losartan, prn ntg, simvastatin, ticagrelor. 3) GI Famotidine daily. Continue to monitor s/s GI distress. Psychotropic Medications: 4) Depression Paroxetine. Continue to monitor s/s depression. Unnecessary Medications: None Bowel Regimen: 5) Senna/s, PEG, prn bisacodyl. Continue to monitor prn medication use, for constipation/diarrhea. Date of Note:: 08/23/18 - Provider Comments Provider responsibility: Provider responsible to enter orders to implement recommendations <Roque Curry Chi - Last Filed: 08/24/18 08:15> Progress Note - Pharmacy Subjective: [] Objective: Allergies venom-honey bee [bee venom (honey bee)] Allergy (Severe, Verified 07/27/18 07:28) Anaphylaxis atorvastatin Allergy (Unknown, Verified 07/27/18 07:28) Unknown Penicillins Allergy (Unknown, Verified 07/27/18 07:28) Unknown strawberry Allergy (Verified 07/27/18 07:28) Anaphylaxis oxycodone HCl [From Percocet] Adverse Reaction (Verified 07/27/18 07:28) Vomiting Current Medications Generic Name Dose Route Start Last Admin Trade Name Freq PRN Reason Stop Dose Admin Acetaminophen 1,000 mg 08/22/18 20:12 08/23/18 19:14 Tylenol PO 500 mg Q8H PRN PRN Administration MILD PAIN (1-3/10) Hydrocodone Bitart/Acetaminophen 1 tablet 08/22/18 16:44 08/23/18 19:13 [place] 5mg-325mg PO 1 tablet Q6H PRN PRN Administration SEVERE PAIN (6-10/10) Albuterol Sulfate 2 puff 08/22/18 16:45 Ventolin Hfa (Sp) INHALATION DAILY PRN PRN SOB &/OR WHEEZING Aspirin 81 mg 08/23/18 06:00 08/24/18 05:55 Ecotrin PO 81 mg DAILY [facility] Administration Bisacodyl 10 mg 08/22/18 20:12 08/23/18 00:10 Dulcolax PO 10 mg DAILY [facility]N Administration Constipation Carvedilol 3.125 mg 08/22/18 18:00 08/24/18 05:54 Coreg PO 3.125 mg BID [facility] Administration Ezetimibe 10 mg 08/23/18 06:00 08/24/18 05:55 Zetia PO 10 mg DAILY [facility] Administration Famotidine 20 mg 08/23/18 06:00 08/24/18 05:55 Pepcid PO 20 mg DAILY [facility] Administration Losartan Potassium 50 mg 08/23/18 06:00 08/24/18 05:54 Cozaar PO 50 mg DAILY [facility] Administration Nitroglycerin 0.4 mg 08/22/18 16:45 Nitrostat SUBLINGUAL Q5M PRN CHEST PAIN Paroxetine HCl 20 mg 08/23/18 06:00 08/24/18 05:55 Paxil PO 20 mg DAILY [facility] Administration Polyethylene Glycol 17 gm 08/23/18 06:00 08/24/18 05:56 Miralax PO Not Given DAILY [facility] Potassium Chloride 10 meq 08/23/18 08:00 08/23/18 16:52 K-Dur PO 10 meq BIDCM [facility] Administration Senna/Docusate Sodium 2 tablet 08/22/18 18:00 08/24/18 05:55 Senokot-S, Miroslava-Colace PO 2 tablet BID [facility] Administration Simvastatin 5 mg 08/23/18 22:00 08/23/18 20:12 Zocor PO 5 mg QHS [facility] Administration Ticagrelor 90 mg 08/22/18 18:00 08/24/18 05:55 Brilinta PO 90 mg BID [facility] Administration Tramadol HCl 50 mg 08/22/18 20:13 Ultram PO Q6H PRN PRN MODERATE PAIN (4-5/10) Tuberculin PPD 5 tu 08/30/18 10:00 Tubersol, Aplisol, Ppd ID 08/30/18 10:01 X1 ONE Problem List (Last Updated 08/04/18 @ 14:52 by Bre Gallegos) Osteoarthritis of left hip (Chronic) Angiomyolipoma of kidney (Chronic) GERD (gastroesophageal reflux disease) (Chronic) Restless leg syndrome (Chronic) Complex regional pain syndrome type 1 affecting left hand (Chronic) Anxiety (Chronic) Depression (Chronic) Asthma (Chronic) Coronary artery disease (Chronic) Myocardial infarction (Chronic) Vital Signs Temp Pulse Resp BP Pulse Ox 97.5 F L 70 16 151/77 H 93 08/23/18 15:41 08/24/18 05:54 08/24/18 05:54 08/24/18 05:54 08/23/18 15:41 Oxygen Delivery Method Room Air Weight: 88.677 kg Body Mass Index (BMI) 31.5 Sodium 139 mmol/L (136-145) 08/23/18 07:04 Potassium 3.9 mmol/L (3.5-5.1) 08/23/18 07:04 Chloride 105 mmol/L (98-107) 08/23/18 07:04 Carbon Dioxide 27.0 mmol/L (21.0-32.0) 08/23/18 07:04 Anion Gap 7 (5-15) 08/23/18 07:04 BUN 20 mg/dL (7-18) H 08/23/18 07:04 Creatinine 0.80 mg/dL (0.55-1.02) 08/23/18 07:04 Est GFR (MDRD) Af Amer 92 mL/min (>60) 08/23/18 07:04 Est GFR (MDRD) Non-Af 76 mL/min (>60) 08/23/18 07:04 BUN/Creatinine Ratio 24.9 RATIO (10-20) H 08/23/18 07:04 Glucose 96 mg/dL (74-106) 08/23/18 07:04 Assessment/Plan: Psychotropic Medications: Unnecessary Medications: Bowel Regimen: - Provider Comments Provider responsibility: Provider responsible to enter orders to implement recommendations Provider Comments to Recommendations by Pharmacy: Agree
[2018-08-23] MEDS: Acetaminophen 500 MG Tablet 1000 MG PO (19:14)
[2018-08-23] MEDS: Simvastatin 10 MG Tablet 5 MG PO (20:12)
--- NOTE | 2018-08-23 22:14 | NURSING ---
Pt denies headache at this time.
[2018-08-24 05:54] VITALS: BP 151/77; PULSE 70; RESP 16
[2018-08-24] MEDS: Losartan Potassium 50 MG Tablet PO (05:54)
[2018-08-24] MEDS: Carvedilol 3.125 MG TABLET PO ×2 (05:54→16:54)
[2018-08-24] MEDS: Senna/Docusate Sodium 1 Tablet 2 TABLET PO ×2 (05:55→16:53)
[2018-08-24] MEDS: Aspirin E.C. 81 MG Tablet PO (05:55)
[2018-08-24] MEDS: TICAGRELOR 90 MG TABLET PO ×2 (05:55→16:54)
[2018-08-24] MEDS: Ezetimibe 10 MG Tablet PO (05:55)
[2018-08-24] MEDS: Famotidine 20 MG Tablet PO (05:55)
[2018-08-24] MEDS: Paroxetine 20 MG Tablet PO (05:55)
[2018-08-24] MEDS: HYDROcodone Bitartrate/Apap 5/325 Tablet PO ×2 (09:39→21:43)
[2018-08-24 12:00] VITALS: PULSE 81; O2SAT 95
[2018-08-24 12:05] LABS: Pathologist Review Reviewed
--- NOTE | 2018-08-24 12:20 | CASEMGMT ---
Social Work Telephone call from [facility], [employer]. [employer] reporting to be the planned home health care company for resident at time of discharge. [employer] requesting a phone call when resident discharges to set up home health care, if this is a need for resident. P: [phone]. Jace RILEY, MYRNA
[2018-08-24 15:14] VITALS: BP 126/63; PULSE 78; RESP 18; TEMP 36.4; O2SAT 95
[2018-08-24] MEDS: Simvastatin 10 MG Tablet 5 MG PO (21:43)
--- NOTE | 2018-08-25 07:09 | NURSING ---
Pt requesting all 0600 meds be changed to 0800 d/t not being a morning person and does not want disturbed.
[2018-08-25] MEDS: Losartan Potassium 50 MG Tablet PO (08:52)
[2018-08-25] MEDS: Paroxetine 20 MG Tablet PO (08:52)
[2018-08-25] MEDS: Aspirin E.C. 81 MG Tablet PO (08:52)
[2018-08-25] MEDS: Famotidine 20 MG Tablet PO (08:52)
[2018-08-25] MEDS: Ezetimibe 10 MG Tablet PO (08:52)
[2018-08-25] MEDS: Carvedilol 3.125 MG TABLET PO ×2 (08:52→17:16)
[2018-08-25] MEDS: Senna/Docusate Sodium 1 Tablet 2 TABLET PO ×2 (08:52→17:16)
[2018-08-25] MEDS: TICAGRELOR 90 MG TABLET PO ×2 (08:54→20:55)
[2018-08-25] MEDS: HYDROcodone Bitartrate/Apap 5/325 Tablet PO ×2 (08:57→17:20)
[2018-08-25 09:05] VITALS: BP 126/76; PULSE 91
[2018-08-25] MEDS: Polyethylene Glycol 3350 17 GM PACKET PO (10:31)
[2018-08-25] MEDS: traMADol 50 MG Tablet PO (13:06)
[2018-08-25 14:30] VITALS: PULSE 50; RESP 18; O2SAT 93
[2018-08-25 16:00] VITALS: BP 135/66; PULSE 78; RESP 20; TEMP 36.4; O2SAT 92
[2018-08-25] MEDS: Simvastatin 10 MG Tablet 5 MG PO (20:56)
[2018-08-26] MEDS: Ezetimibe 10 MG Tablet PO (09:07)
[2018-08-26] MEDS: Carvedilol 3.125 MG TABLET PO ×2 (09:07→17:24)
[2018-08-26] MEDS: Paroxetine 20 MG Tablet PO (09:07)
[2018-08-26] MEDS: Losartan Potassium 50 MG Tablet PO (09:07)
[2018-08-26] MEDS: Aspirin E.C. 81 MG Tablet PO (09:08)
[2018-08-26] MEDS: Famotidine 20 MG Tablet PO (09:08)
[2018-08-26 09:10] VITALS: BP 140/77; PULSE 71
[2018-08-26] MEDS: traMADol 50 MG Tablet PO (09:19)
[2018-08-26] MEDS: TICAGRELOR 90 MG TABLET PO ×2 (10:02→19:54)
[2018-08-26 10:30] VITALS: PULSE 78; RESP 18; O2SAT 97
[2018-08-26] MEDS: HYDROcodone Bitartrate/Apap 5/325 Tablet PO (11:27)
--- NOTE | 2018-08-26 11:54 | CASEMGMT ---
Plan of care meeting held with pt and pt daughter present. Pt is receiving PT/OT and is progressing with treatment plan. Pt lives at home with her brother and has been independent prior to hospitalization. Pt is open to home health services upon d/c but will not have other assistance in the home. No d/c date set at this time. Will continue with treatment plan at this time. LINDA Jacobs
[2018-08-26 15:41] VITALS: BP 126/64; PULSE 79; RESP 20; TEMP 36.3; O2SAT 93
[2018-08-26] MEDS: Simvastatin 10 MG Tablet 5 MG PO (19:55)
[2018-08-27] MEDS: traMADol 50 MG Tablet PO (00:18)
[2018-08-27] MEDS: HYDROcodone Bitartrate/Apap 5/325 Tablet PO ×2 (03:44→14:18)
[2018-08-27] MEDS: Paroxetine 20 MG Tablet PO (08:39)
[2018-08-27] MEDS: Losartan Potassium 50 MG Tablet PO (08:40)
[2018-08-27] MEDS: Famotidine 20 MG Tablet PO (08:40)
[2018-08-27] MEDS: Carvedilol 3.125 MG TABLET PO ×2 (08:40→17:15)
[2018-08-27] MEDS: Aspirin E.C. 81 MG Tablet PO (08:40)
[2018-08-27] MEDS: TICAGRELOR 90 MG TABLET PO (08:40)
[2018-08-27] MEDS: Ezetimibe 10 MG Tablet PO ×2 (08:41)
[2018-08-27 10:00] VITALS: PULSE 88; RESP 16; O2SAT 96
--- NOTE | 2018-08-27 10:18 | NURSING ---
Addendum entered by Terri Ba 08/27/18 11:35: Dr. Curry notified, NO for UA C&S, hold brilinta and aspirin until hematuria resolves. Original Note: PT noted to have hematuria this Am, Pt c/o burning and frequency. Terri QUINTANILLA aware. Will collect urine sample for UA/CS
[2018-08-27 11:26] LABS: Mucous, Urine 0 SEEN /hpf (<or=2+)
[2018-08-27 11:30] LABS: Color, Urine Brown (Yellow); Glucose, Dipstick Normal (Normal); Ketone-Dipstick 5 mg/dl (Negative); Leukocyte Esterase-Dipstick 500 /ul (Negative); Nitrite-Dipstick Positive (Negative); Occult Blood-Urine 250 /ul (Negative); Protein-Dipstick 500 mg/dl (Negative); Specific Gravity, Urine 1.025 (1.002-1.030); Urine Bilirubin Dipstick Negative (Negative); Urine Clarity Turbid (Clear); Urine Urobilinogen Normal (Normal); Urine pH 6.5 (5.0 - 8.0)
[2018-08-27 11:35] LABS: Bacteria 2+ /hpf (None Seen); Red Blood Cells-Urine 25-50 SEEN /hpf (0-5); Squamous Epithelial Cells - UA 0-5 SEEN /hpf (5-10); White Blood Cells 50-100 SEEN /hpf (0-5)
--- NOTE | 2018-08-27 13:53 | MDS.RN ---
Pain interview for michael 08/01/18 completed.
[2018-08-27 15:16] VITALS: BP 121/59; PULSE 74; RESP 16; TEMP 37.1; O2SAT 95
--- NOTE | 2018-08-27 16:46 | NURSING ---
Dr. Curry reviewed UA results, NO for Cipro 500mg PO BID.
[2018-08-27] MEDS: Ciprofloxacin 500 MG Tablet PO (18:02)
[2018-08-27] MEDS: Simvastatin 10 MG Tablet 5 MG PO (20:05)
[2018-08-28] MEDS: Ciprofloxacin 500 MG Tablet PO ×2 (04:03→17:00)
[2018-08-28] MEDS: Famotidine 20 MG Tablet PO (09:03)
[2018-08-28] MEDS: Losartan Potassium 50 MG Tablet PO (09:04)
[2018-08-28] MEDS: Carvedilol 3.125 MG TABLET PO ×2 (09:04→17:00)
[2018-08-28] MEDS: Paroxetine 20 MG Tablet PO (09:05)
[2018-08-28 09:14] VITALS: BP 127/71; PULSE 82
--- NOTE | 2018-08-28 09:58 | CASEMGMT ---
Addendum entered by Coretta Romeo 08/28/18 15:52: Reviewed SW documentation on this day. MILVIA Dalton Original Note: Brief interview for mental status (BIMS) and mood (PHQ-9) completed on this day. BIMS score . PHQ-9 score 10/03. Michael Chance social work student
[2018-08-28 10:40] VITALS: PULSE 76; RESP 18; O2SAT 96
--- NOTE | 2018-08-28 14:23 | PCM.TCUNOT ---
Subjective: Resident seen, 2 days ago, she had hematuria, dysuria, she is feeling better. Vitals/I&O's: Vital Signs Temp Pulse Resp BP Pulse Ox 98.8 F 82 16 127/71 H 95 08/27/18 15:16 08/28/18 09:14 08/27/18 15:16 08/28/18 09:14 08/27/18 15:16 Oxygen Delivery Method Room Air Weight: 86.183 kg Body Mass Index (BMI) 31.5 Intake and Output for Last 24 Hours 08/26/18 08/27/18 08/28/18 23:59 23:59 23:59 Intake Total 1120 / 1120 900 / 900 830 / 830 Balance 1120 / 1120 900 / 900 830 / 830 Microbiology Past 72 Hours 08/27/18 11:05 Urine, Clean Catch Urine Culture - Preliminary Presumptive E. coli Past Medical History Past Medical History (Chronic Problems): Chronic Problems (Last Updated 08/04/18 @ 14:52 by Bre Gallegos) Osteoarthritis of left hip (Chronic) Angiomyolipoma of kidney (Chronic) GERD (gastroesophageal reflux disease) (Chronic) Restless leg syndrome (Chronic) Complex regional pain syndrome type 1 affecting left hand (Chronic) Anxiety (Chronic) Depression (Chronic) Asthma (Chronic) Coronary artery disease (Chronic) Myocardial infarction (Chronic) History of coronary artery stent placement (Chronic 06/26/17) PCI-SOLOMON-LAD 08/28/15 @ [place]; PTCA/SOLOMON of the distal RCA 06/26/2017. Atherosclerotic heart disease of [place] coronary artery without angina pectoris (Chronic) PCI-SOLOMON-LAD 08/28/15 @ [facility]; PTCA/SOLOMON of the distal RCA 06/26/2017. Nonrheumatic tricuspid (valve) insufficiency (Chronic) Old myocardial infarction (Chronic) Daytime somnolence (Chronic) Dyspnea on exertion (Chronic) Obesity (BMI 30.0-34.9) (Chronic) NSTEMI (non-ST elevated myocardial infarction) (Chronic) HTN (hypertension) (Chronic) HLD (hyperlipidemia) (Chronic) Former tobacco use (Chronic) COPD (chronic obstructive pulmonary disease) (Chronic) Medical History: Medical History (Last Updated 08/04/18 @ 14:52 by Bre Gallegos) Pre-operative cardiovascular examination (Acute) Z01.810 Atherosclerotic heart disease of [place] coronary artery without angina pectoris (Chronic) I25.10 PCI-SOLOMON-LAD 08/28/15 @ [facility]; PTCA/SOLOMON of the distal RCA 06/26/2017. Nonrheumatic tricuspid (valve) insufficiency (Chronic) I36.1 Old myocardial infarction (Chronic) I25.2 Daytime somnolence (Chronic) R40.0 Dyspnea on exertion (Chronic) R06.09 Obesity (BMI 30.0-34.9) (Chronic) E66.9 NSTEMI (non-ST elevated myocardial infarction) (Chronic) I21.4 HTN (hypertension) (Chronic) I10 HLD (hyperlipidemia) (Chronic) E78.5 COPD (chronic obstructive pulmonary disease) (Chronic) J44.9 Angiomyoma D21.9 left kidney Chronic back pain M54.9, G89.29 RSD (reflex sympathetic dystrophy) G90.50 Allergies venom-honey bee [bee venom (honey bee)] Allergy (Severe, Verified 07/27/18 07:28) Anaphylaxis atorvastatin Allergy (Unknown, Verified 07/27/18 07:28) Unknown Penicillins Allergy (Unknown, Verified 07/27/18 07:28) Unknown strawberry Allergy (Verified 07/27/18 07:28) Anaphylaxis oxycodone HCl [From Percocet] Adverse Reaction (Verified 07/27/18 07:28) Vomiting Home Medications: Ambulatory Orders Medication Instructions Recorded Famotidine [Pepcid] 20 mg PO DAILY 10/02/15 Aspirin [Adult Low Dose Aspirin EC] 81 mg PO DAILY 01/20/16 Nitroglycerin [Nitrostat] 0.4 mg SUBLINGUAL Q5M PRN #1 bottle 06/27/17 albuterol sulfate HFA 90 2 puff INHALATION DAILY PRN PRN 07/14/17 mcg/actuation aerosol inhaler paroxetine 20 mg tablet 20 mg PO QDAY 07/14/17 ezetimibe 10 mg tablet 10 mg PO DAILY #90 tab 03/02/18 Ticagrelor [Brilinta] 90 mg PO BID 07/20/18 Carvedilol [Coreg (Beta Juvenal)] 3.125 mg PO BID 08/22/18 Hydrocodone/Acetaminophen [Vicodin 1 tablet PO Q6H PRN PRN 08/22/18 5-300 mg Tablet] Losartan Potassium 50 mg PO DAILY 08/22/18 Potassium Chloride 10 meq PO BID 08/22/18 Simvastatin 5 mg PO QHS 08/22/18 traMADol [Ultram (G)] 50 mg PO DAILY PRN PRN 08/22/18 Surgical History: Surgical History (Last Reviewed 04/20/18 @ 13:23 by Bre Gallegos) History of coronary artery stent placement (Chronic) Onset Date: 06/26/17 Z95.5 PCI-SOLOMON-LAD 08/28/15 @ [place]; PTCA/SOLOMON of the distal RCA 06/26/2017. History of back surgery Z98.890 L4-L5 micro disectomy left hand surgery multiple surgeries secondary to trauma Surgical History: angioplasty, appendectomy - In addition to salpingectomy w/ tubal , unsure which side., - - Cervical C5-6 surgery, Microdiscectemy L4-L5, L hand surgery following trauma, T+A, PCI x 1. 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 Paternal Family History: Family History (Last Reviewed 04/20/18 @ 13:23 by Bre Gallegos) Father CAD (coronary artery disease) Brother Afib History Items: - - Father w/ heart disease, s/p CABG. Capacity - Capacity Assessment Tool Can the patient make a choice & communicate that choice?: Yes Can the patient understand benefits, risks and alternatives?: Yes Can the patient make a logical, rational choice?: Yes Is the choice the patient makes consistent w/ their values?: Yes Is there an impending, emergent risk to the patient?: No Does the patient have an Advance Directive?: No Is there a Surrogate Available?: No i.e. HCPOA: No i.e. close relative (spouse, child, parent, sibling)?: No Review of Systems Constitutional: Denies: Chills, Fever, Weight Change HEENT: Denies: Head Aches, Sinus Congestion, Sinus Drainage Cardiovascular: Denies: Chest Pain, Palpitations Respiratory: Denies: Cough, Shortness of breath at rest, Sputum production Gastrointestinal: Denies: Abdominal Pain, Nausea, Vomiting Genitourinary: Reports: Dysuria, Hematuria Musculoskeletal: Denies: Joint Pain, Joint Tenderness Skin: Denies: Rash, Wounds Neurological: Denies: Numbness, Tingling, Focal weakness Psychiatric: Denies: Anxiety, Depression, Homicidal Ideations, Suicidal Ideations Hematologic/ Lymphatic: Denies: Easy Bruising, Easy Bleeding - Physical Exam General: Alert, Oriented x3, Cooperative HEENT: Atraumatic, PERRLA, EOMI, Normocephalic Neck: Supple, No JVD, Negative Carotid Bruits Lungs: Clear to auscultation, Normal air movement Cardiovascular: Regular rate, No murmurs Abdomen: Bowel Sounds Present, Soft, Non Tender Extremities: No edema, Capillary Refill Less than 3 Seconds Skin: No rashes, No breakdown Musculoskeletal: No Tenderness to Palpation of Joints or Extremities Neurological: Cranial nerves II-XII grossly intact Psych/Mental Status: Normal Affect, Appropriate Vital Signs Temp Pulse Resp BP Pulse Ox 98.8 F 82 16 127/71 H 95 08/27/18 15:16 08/28/18 09:14 08/27/18 15:16 08/28/18 09:14 08/27/18 15:16 Oxygen Delivery Method Room Air Weight: 86.183 kg Body Mass Index (BMI) 31.5 Intake and Output for Last 24 Hours 08/26/18 08/27/18 08/28/18 23:59 23:59 23:59 Intake Total 1120 / 1120 900 / 900 830 / 830 Balance 1120 / 1120 900 / 900 830 / 830 Microbiology Past 72 Hours 08/27/18 11:05 Urine Culture - Preliminary Urine, Clean Catch Presumptive E. coli Assessment/Plan All Active Problems (Last Updated 08/04/18 @ 14:52 by Bre Gallegos) Pre-operative cardiovascular examination (Acute) Abnormal nuclear stress test (Resolved) Hypokalemia (Resolved) 68 year old female with below past medical history hospitalized for left total hip replacement with Dr. Aguilar, admitted to TCU with debility, here for rehabilitation, strengthening, prior to discharge home alone. Hematuria - check UA. Dysuria - check UA. E. Coli UTI - urine culture growing > 100,000 E. Coli, Cipro 500MG BID x 7 days.
--- NOTE | 2018-08-28 14:26 | PN_ITS ---
Subjective: Resident seen, 2 days ago, she had hematuria, dysuria, she is feeling better. Vitals/I&O's: Vital Signs Temp Pulse Resp BP Pulse Ox 98.8 F 82 16 127/71 H 95 08/27/18 15:16 08/28/18 09:14 08/27/18 15:16 08/28/18 09:14 08/27/18 15:16 Oxygen Delivery Method Room Air Weight: 86.183 kg Body Mass Index (BMI) 31.5 Intake and Output for Last 24 Hours 08/26/18 08/27/18 08/28/18 23:59 23:59 23:59 Intake Total 1120 / 1120 900 / 900 830 / 830 Balance 1120 / 1120 900 / 900 830 / 830 Microbiology Past 72 Hours 08/27/18 11:05 Urine, Clean Catch Urine Culture - Preliminary Presumptive E. coli Past Medical History Past Medical History (Chronic Problems): Chronic Problems (Last Updated 08/04/18 @ 14:52 by Bre Gallegos) Osteoarthritis of left hip (Chronic) Angiomyolipoma of kidney (Chronic) GERD (gastroesophageal reflux disease) (Chronic) Restless leg syndrome (Chronic) Complex regional pain syndrome type 1 affecting left hand (Chronic) Anxiety (Chronic) Depression (Chronic) Asthma (Chronic) Coronary artery disease (Chronic) Myocardial infarction (Chronic) History of coronary artery stent placement (Chronic 06/26/17) PCI-SOLOMON-LAD 08/28/15 @ [place]; PTCA/SOLOMON of the distal RCA 06/26/2017. Atherosclerotic heart disease of [place] coronary artery without angina pectoris (Chronic) PCI-SOLOMON-LAD 08/28/15 @ [facility]; PTCA/SOLOMON of the distal RCA 06/26/2017. Nonrheumatic tricuspid (valve) insufficiency (Chronic) Old myocardial infarction (Chronic) Daytime somnolence (Chronic) Dyspnea on exertion (Chronic) Obesity (BMI 30.0-34.9) (Chronic) NSTEMI (non-ST elevated myocardial infarction) (Chronic) HTN (hypertension) (Chronic) HLD (hyperlipidemia) (Chronic) Former tobacco use (Chronic) COPD (chronic obstructive pulmonary disease) (Chronic) Medical History: Medical History (Last Updated 08/04/18 @ 14:52 by Bre Gallegos) Pre-operative cardiovascular examination (Acute) Z01.810 Atherosclerotic heart disease of [place] coronary artery without angina pectoris (Chronic) I25.10 PCI-SOLOMON-LAD 08/28/15 @ [facility]; PTCA/SOLOMON of the distal RCA 06/26/2017. Nonrheumatic tricuspid (valve) insufficiency (Chronic) I36.1 Old myocardial infarction (Chronic) I25.2 Daytime somnolence (Chronic) R40.0 Dyspnea on exertion (Chronic) R06.09 Obesity (BMI 30.0-34.9) (Chronic) E66.9 NSTEMI (non-ST elevated myocardial infarction) (Chronic) I21.4 HTN (hypertension) (Chronic) I10 HLD (hyperlipidemia) (Chronic) E78.5 COPD (chronic obstructive pulmonary disease) (Chronic) J44.9 Angiomyoma D21.9 left kidney Chronic back pain M54.9, G89.29 RSD (reflex sympathetic dystrophy) G90.50 Allergies venom-honey bee [bee venom (honey bee)] Allergy (Severe, Verified 07/27/18 07:28) Anaphylaxis atorvastatin Allergy (Unknown, Verified 07/27/18 07:28) Unknown Penicillins Allergy (Unknown, Verified 07/27/18 07:28) Unknown strawberry Allergy (Verified 07/27/18 07:28) Anaphylaxis oxycodone HCl [From Percocet] Adverse Reaction (Verified 07/27/18 07:28) Vomiting Home Medications: Ambulatory Orders Medication Instructions Recorded Famotidine [Pepcid] 20 mg PO DAILY 10/02/15 Aspirin [Adult Low Dose Aspirin EC] 81 mg PO DAILY 01/20/16 Nitroglycerin [Nitrostat] 0.4 mg SUBLINGUAL Q5M PRN #1 bottle 06/27/17 albuterol sulfate HFA 90 2 puff INHALATION DAILY PRN PRN 07/14/17 mcg/actuation aerosol inhaler paroxetine 20 mg tablet 20 mg PO QDAY 07/14/17 ezetimibe 10 mg tablet 10 mg PO DAILY #90 tab 03/02/18 Ticagrelor [Brilinta] 90 mg PO BID 07/20/18 Carvedilol [Coreg (Beta Juvenal)] 3.125 mg PO BID 08/22/18 Hydrocodone/Acetaminophen [Vicodin 1 tablet PO Q6H PRN PRN 08/22/18 5-300 mg Tablet] Losartan Potassium 50 mg PO DAILY 08/22/18 Potassium Chloride 10 meq PO BID 08/22/18 Simvastatin 5 mg PO QHS 08/22/18 traMADol [Ultram (G)] 50 mg PO DAILY PRN PRN 08/22/18 Surgical History: Surgical History (Last Reviewed 04/20/18 @ 13:23 by Bre Gallegos) History of coronary artery stent placement (Chronic) Onset Date: 06/26/17 Z95.5 PCI-SOLOMON-LAD 08/28/15 @ [place]; PTCA/SOLOMON of the distal RCA 06/26/2017. History of back surgery Z98.890 L4-L5 micro disectomy left hand surgery multiple surgeries secondary to trauma Surgical History: angioplasty, appendectomy - In addition to salpingectomy w/ tubal , unsure which side., - - Cervical C5-6 surgery, Microdiscectemy L4-L5, L hand surgery following trauma, T+A, PCI x 1. 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 Paternal Family History: Family History (Last Reviewed 04/20/18 @ 13:23 by Bre Gallegos) Father CAD (coronary artery disease) Brother Afib History Items: - - Father w/ heart disease, s/p CABG. Capacity - Capacity Assessment Tool Can the patient make a choice & communicate that choice?: Yes Can the patient understand benefits, risks and alternatives?: Yes Can the patient make a logical, rational choice?: Yes Is the choice the patient makes consistent w/ their values?: Yes Is there an impending, emergent risk to the patient?: No Does the patient have an Advance Directive?: No Is there a Surrogate Available?: No i.e. HCPOA: No i.e. close relative (spouse, child, parent, sibling)?: No Review of Systems Constitutional: Denies: Chills, Fever, Weight Change HEENT: Denies: Head Aches, Sinus Congestion, Sinus Drainage Cardiovascular: Denies: Chest Pain, Palpitations Respiratory: Denies: Cough, Shortness of breath at rest, Sputum production Gastrointestinal: Denies: Abdominal Pain, Nausea, Vomiting Genitourinary: Reports: Dysuria, Hematuria Musculoskeletal: Denies: Joint Pain, Joint Tenderness Skin: Denies: Rash, Wounds Neurological: Denies: Numbness, Tingling, Focal weakness Psychiatric: Denies: Anxiety, Depression, Homicidal Ideations, Suicidal Ideations Hematologic/ Lymphatic: Denies: Easy Bruising, Easy Bleeding - Physical Exam General: Alert, Oriented x3, Cooperative HEENT: Atraumatic, PERRLA, EOMI, Normocephalic Neck: Supple, No JVD, Negative Carotid Bruits Lungs: Clear to auscultation, Normal air movement Cardiovascular: Regular rate, No murmurs Abdomen: Bowel Sounds Present, Soft, Non Tender Extremities: No edema, Capillary Refill Less than 3 Seconds Skin: No rashes, No breakdown Musculoskeletal: No Tenderness to Palpation of Joints or Extremities Neurological: Cranial nerves II-XII grossly intact Psych/Mental Status: Normal Affect, Appropriate Vital Signs Temp Pulse Resp BP Pulse Ox 98.8 F 82 16 127/71 H 95 08/27/18 15:16 08/28/18 09:14 08/27/18 15:16 08/28/18 09:14 08/27/18 15:16 Oxygen Delivery Method Room Air Weight: 86.183 kg Body Mass Index (BMI) 31.5 Intake and Output for Last 24 Hours 08/26/18 08/27/18 08/28/18 23:59 23:59 23:59 Intake Total 1120 / 1120 900 / 900 830 / 830 Balance 1120 / 1120 900 / 900 830 / 830 Microbiology Past 72 Hours 08/27/18 11:05 Urine Culture - Preliminary Urine, Clean Catch Presumptive E. coli Assessment/Plan All Active Problems (Last Updated 08/04/18 @ 14:52 by Bre Gallegos) Pre-operative cardiovascular examination (Acute) Abnormal nuclear stress test (Resolved) Hypokalemia (Resolved) 68 year old female with below past medical history hospitalized for left total hip replacement with Dr. Aguilar, admitted to TCU with debility, here for rehabilitation, strengthening, prior to discharge home alone. * Hematuria - check UA. * Dysuria - check UA. * E. Coli UTI - urine culture growing > 100,000 E. Coli, Cipro 500MG BID x 7 days.
[2018-08-28 16:00] VITALS: BP 135/73; PULSE 82; RESP 18; TEMP 36.4; O2SAT 92
[2018-08-28] MEDS: Acetaminophen 500 MG Tablet 1000 MG PO (16:50)
[2018-08-28] MEDS: Simvastatin 10 MG Tablet 5 MG PO (20:42)
[2018-08-29] MEDS: Ciprofloxacin 500 MG Tablet PO (05:11)
[2018-08-29] MEDS: Carvedilol 3.125 MG TABLET PO (08:10)
[2018-08-29] MEDS: Losartan Potassium 50 MG Tablet PO (08:10)
[2018-08-29] MEDS: Ezetimibe 10 MG Tablet PO (08:10)
[2018-08-29] MEDS: Paroxetine 20 MG Tablet PO (08:10)
[2018-08-29] MEDS: Famotidine 20 MG Tablet PO (08:10)
--- NOTE | 2018-08-29 08:47 | NURSING ---
Addendum entered by Lauren Johnson 08/29/18 09:09: Spoke with YENY Gonzalez. she will review chart and check w/therapy. Will update Dr landa Original Note: Pt requesting Discharge today, Pt stated she was told yesterday that contact worker would be coming to talk with her today. Lauren QUINTANILLA aware
--- NOTE | 2018-08-29 08:58 | NURSING ---
urine c/s results back, cipro sensitive.
--- NOTE | 2018-08-29 09:24 | DCINST_ITS ---
- Discharge Diagnoses Current Active Problems: Current Active and Chronic Problems (Last Updated 08/04/18 @ 14:52 by Bre Gallegos) Osteoarthritis of left hip (Chronic) Angiomyolipoma of kidney (Chronic) GERD (gastroesophageal reflux disease) (Chronic) Restless leg syndrome (Chronic) Complex regional pain syndrome type 1 affecting left hand (Chronic) Anxiety (Chronic) Depression (Chronic) Asthma (Chronic) Coronary artery disease (Chronic) Myocardial infarction (Chronic) You will use the following diet at home:: No restrictions, Regular Your food should be the consistency of: Regular Your liquids should be the consistency of: Regular/Thin Discharge Activity: Return to Normal Activity, May Shower, Use Walker Weight Bearing Status: Weight bearing as tolerated Call your doctor if you observe: Fever of 101 or Higher, Inability to urinate, Inability to have a bowel movement, Shortness of breath, Chest pain, Uncontrolled pain Allergies/Adverse Reactions: Allergies venom-honey bee [bee venom (honey bee)] Allergy (Severe, Verified 07/27/18 07:28) Anaphylaxis atorvastatin Allergy (Unknown, Verified 07/27/18 07:28) Unknown Penicillins Allergy (Unknown, Verified 07/27/18 07:28) Unknown strawberry Allergy (Verified 07/27/18 07:28) Anaphylaxis oxycodone HCl [From Percocet] Adverse Reaction (Verified 07/27/18 07:28) Vomiting Medications to take at Discharge Famotidine [Pepcid] 20 mg PO DAILY 10/02/15 Aspirin [Adult Low Dose Aspirin EC] 81 mg PO DAILY 01/20/16 Nitroglycerin [Nitrostat] 0.4 mg SUBLINGUAL Q5M PRN #1 bottle 06/27/17 paroxetine 20 mg tablet 20 mg PO QDAY 07/14/17 ezetimibe 10 mg tablet 10 mg PO DAILY #90 tab 03/02/18 Ticagrelor [Brilinta] 90 mg PO BID 07/20/18 Carvedilol [Coreg (Beta Juvenal)] 3.125 mg PO BID 08/22/18 Losartan Potassium 50 mg PO DAILY 08/22/18 Potassium Chloride 10 meq PO BID 08/22/18 Simvastatin 5 mg PO QHS 08/22/18 Acetaminophen [Tylenol] 1,000 mg PO Q8H PRN PRN tablet 08/29/18 Ciprofloxacin [Cipro] 500 mg PO BID #10 tablet 08/29/18 Polyethylene Glycol 3350 [Miralax] 17 gm PO DAILY@0800 #30 packet 08/29/18 The following prescriptions were given: Polyethylene Glycol 3350 [Miralax] 17 gm PO DAILY@0800 #30 packet Ciprofloxacin [Cipro] 500 mg PO BID #10 tablet Primary Care Physician: Hussein Tidwell MD [Primary Care Provider] - Please follow up with your Primary Care Physician in: 1 week. Test Results: Test results from this visit will be discussed in further detail at your follow- up appointment, if applicable. Please Follow Up With: When: 2 weeks. Proposed Discharge Date: 08/29/18
--- NOTE | 2018-08-29 09:25 | DS.PCM_ITS ---
Discharge Date and Diagnosis Date of Admission: 08/22/18 Date of Discharge: 08/29/18 - Secondary Discharge Diagnosis Chronic Problems (Last Updated 08/04/18 @ 14:52 by Bre Gallegos) Osteoarthritis of left hip (Chronic) Angiomyolipoma of kidney (Chronic) GERD (gastroesophageal reflux disease) (Chronic) Restless leg syndrome (Chronic) Complex regional pain syndrome type 1 affecting left hand (Chronic) Anxiety (Chronic) Depression (Chronic) Asthma (Chronic) Coronary artery disease (Chronic) Myocardial infarction (Chronic) History of coronary artery stent placement (Chronic 06/26/17) PCI-SOLOMON-LAD 08/28/15 @ [place]; PTCA/SOLOMON of the distal RCA 06/26/2017. Atherosclerotic heart disease of [place] coronary artery without angina pectoris (Chronic) PCI-SOLOMON-LAD 08/28/15 @ [facility]; PTCA/SOLOMON of the distal RCA 06/26/2017. Nonrheumatic tricuspid (valve) insufficiency (Chronic) Old myocardial infarction (Chronic) Daytime somnolence (Chronic) Dyspnea on exertion (Chronic) Obesity (BMI 30.0-34.9) (Chronic) NSTEMI (non-ST elevated myocardial infarction) (Chronic) HTN (hypertension) (Chronic) HLD (hyperlipidemia) (Chronic) Former tobacco use (Chronic) COPD (chronic obstructive pulmonary disease) (Chronic) Hospital Course and Treatment Imaging Results: 08/22/18 16:38 Diet: Regular Diet Food consistency:: Regular Liquid Consistency:: Regular/Thin Is pt able to select menu?: Yes Labs (Last 48 Hours) 08/27/18 11:05 Urine Color Brown Urine Clarity Turbid Urine pH 6.5 Ur Specific [place] 1.025 Urine Protein 500 H Urine Glucose (UA) Normal Urine Ketones 5 H Urine Occult Blood 250 H Urine Nitrite Positive H Urine Bilirubin Negative Urine Urobilinogen Normal Ur Leukocyte Esterase 500 H Urine RBC 25-50 SEEN Urine WBC 50-100 SEEN Ur Squamous Epith Cells 0-5 SEEN Urine Bacteria 2+ Urine Mucus 0 SEEN Microbiology 08/27/18 11:05 Urine, Clean Catch Urine Culture - Final Presumptive E. coli Operations: None Procedures: None Summary of Care Provided: The patient is a 68 year old Female with below past medical history hospitalized for left total hip replacement with Dr. Aguilar, admitted to TCU with debility, here for rehabilitation, strengthening, prior to discharge home alone. Discharge home alone with outpatient PT. - Physical Exam Vital Signs Temp Pulse Resp BP Pulse Ox 97.5 F L 82 18 135/73 H 92 08/28/18 16:00 08/28/18 16:00 08/28/18 16:00 08/28/18 16:00 08/28/18 16:00 Oxygen Delivery Method Room Air Weight: 86.183 kg Body Mass Index (BMI) 31.5 Intake and Output for Last 24 Hours 08/27/18 08/28/18 08/29/18 23:59 23:59 23:59 Intake Total 900 / 900 1070 / 1070 60 / 60 Balance 900 / 900 1070 / 1070 60 / 60 Microbiology Past 72 Hours 08/27/18 11:05 Urine Culture - Final Urine, Clean Catch Presumptive E. coli Discharge Diet: No Restrictions Discharge Activity: Return to Normal Activity, May Shower, Use Walker Weight Bearing Status: Weight bearing as tolerated Call your doctor if you observe: Fever of 101 or Higher, Inability to urinate, Inability to have a bowel movement, Shortness of breath, Chest pain, Uncontrolled pain Home Medications: Medications to take at Discharge Famotidine [Pepcid] 20 mg PO DAILY 10/02/15 Aspirin [Adult Low Dose Aspirin EC] 81 mg PO DAILY 01/20/16 Nitroglycerin [Nitrostat] 0.4 mg SUBLINGUAL Q5M PRN #1 bottle 06/27/17 paroxetine 20 mg tablet 20 mg PO QDAY 07/14/17 ezetimibe 10 mg tablet 10 mg PO DAILY #90 tab 03/02/18 Ticagrelor [Brilinta] 90 mg PO BID 07/20/18 Carvedilol [Coreg (Beta Juvenal)] 3.125 mg PO BID 08/22/18 Losartan Potassium 50 mg PO DAILY 08/22/18 Potassium Chloride 10 meq PO BID 08/22/18 Simvastatin 5 mg PO QHS 08/22/18 Acetaminophen [Tylenol] 1,000 mg PO Q8H PRN PRN tablet 08/29/18 Ciprofloxacin [Cipro] 500 mg PO BID #10 tablet 08/29/18 Polyethylene Glycol 3350 [Miralax] 17 gm PO DAILY@0800 #30 packet 08/29/18 Following Prescrptions Were Given to Patient: Polyethylene Glycol 3350 [Miralax] 17 gm PO DAILY@0800 #30 packet Ciprofloxacin [Cipro] 500 mg PO BID #10 tablet Primary Care Physician: Hussein Tidwell MD [Primary Care Provider] - Please follow up with your Primary Care Physician in: 1 week. Please Follow Up With: When: 2 weeks. Disposition: Home Minutes spent on discharge:: 30 Patient Condition:: Good Medical Necessity - Tobacco Use Smoking Status: Former smoker Tobacco Use: Non-smoker Meaningful Use Info Meaningful Use Diagnoses (Choose all that apply): None applicable
[2018-08-29 10:00] VITALS: PULSE 76; RESP 18; O2SAT 96
--- NOTE | 2018-08-29 10:11 | CASEMGMT ---
Social Work Note SW received referral from RN stating pt is adamant about discharging home today and will need C for PT/OT at discharge. SW reviewed previous notes. Per Patria NORRIS, it was reported that [facility] is preferred [facility] for pt. YENY met with pt. YENY introduced self and role at [facility]. Pt is alert and orientated x4. Pt confirms that she would like C PT/OT at discharge. SW asked pt about [facility]. Pt states she's never heard of [facility] and would prefer HHC to be arranged through [facility]. SW explained to pt that it is likely [facility] won't see pt until next week and that this worker can make referral. Pt states understanding. Pt denied additional needs or concerns at this time, states she already has a walker at home. YENY updated RN that this worker will make referral to [facility] and pt is able to discharge home today. YENY placed a call to [facility] and left message for Jenny regarding referral. Informed Jenny that HHC order and Face to Face will be completed Friday for pt. YENY contacted cutter operator asbestos shingle to get name and number of financial economist RN for C. Gum Cook states unable to provide number. SW can follow up Friday with [facility] to confirm they received referral. Plan: Pt to discharge home with [facility] PT/OT. Message left for Jenny intake liaison in regards to referral. Rosalba Bolaños SENIOR DYNAMICS CRM DEVELOPER, DIRECTOR EQUIPMENT
[2018-08-29 11:25] VITALS: BP 127/74; PULSE 76; RESP 16; TEMP 36.6
--- NOTE | 2018-08-29 12:20 | NURSING ---
Pt asking this nurse about wanting to discharge home on friday, this nurse explaining that social work won't be back in until Friday, and they would have to discuss discharge with Pt. Pt very understanding.
--- NOTE | 2018-08-31 08:53 | CASEMGMT ---
Addendum entered by Angelita Maharaj 08/31/18 10:01: SW spoke with pt and informed of insurance information and change of therapy companies. Pt is agreeable. Orders faxed to Kajal at [facility]. She will contact pt today for start of care. LINDA Jacobs Original Note: Social Work Pt was admittied under a Bundle Package from the [facility]. This insurance package dictates which home health can be utilized. Phone call to Kajal at [facility] and informed that pt was d/c home on Friday and will need home PT/OT. Phone call to pt and VM left requesting return call to explain insurance and discuss home health options. LINDA Jacobs
--- NOTE | 2018-09-02 08:59 | MDS.RN ---
Information for the mds was obtained from review of the clinical record, interview of resident, staff, and direct observation of resident's care.
== END 2018-08-29 12:00 | disposition home health service (06) | DRG 560 ==
PROVIDERS: Admitting Provider Family Medicine Geriatric Medicine; Family Provider Family Medicine; PCP Family Medicine; Visit Provider Family Medicine Geriatric Medicine
DX: Z47.1 Aftercare following joint replacement surgery (principal); G90.512 Complex regional pain syndrome I of left upper limb; N39.0 Urinary tract infection, site not specified; Z96.642 Presence of left artificial hip joint; E78.5 Hyperlipidemia, unspecified; I10 Essential (primary) hypertension; K21.9 Gastro-esophageal reflux disease without esophagitis; G25.81 Restless legs syndrome; I25.10 Atherosclerotic heart disease of native coronary artery without angina pectoris; I25.2 Old myocardial infarction; J44.9 Chronic obstructive pulmonary disease, unspecified; E66.9 Obesity, unspecified; E87.6 Hypokalemia; B96.20 Unspecified Escherichia coli [E. coli] as the cause of diseases classified elsewhere; F41.9 Anxiety disorder, unspecified; F32.9 Major depressive disorder, single episode, unspecified; Z71.3 Dietary counseling and surveillance; Z68.31 Body mass index [BMI] 31.0-31.9, adult; Z87.891 Personal history of nicotine dependence; Z86.018 Personal history of other benign neoplasm
CPT/HCPCS: 36415; 80048; 81001; 85025; 87086; 87088; 87186; 97110; 97116; 97162; 97166; 97530; 97535; 97802

== ENCOUNTER → 2018-10-21 09:35 | Outpatient (CLI) | payer MEDICARE, MEDICAID, SELFPAY ==
[2017-06-26 13:13] VITALS: BMI 29.0
[2018-08-22 16:14] VITALS: BMI 31.5
--- NOTE | 2018-10-21 09:44 | MRI_ITS ---
STUDY: MRI LOWER EXTREMITY RIGHT THIGH REASON FOR EXAM: Follow-up abnormal MRI finding. TECHNIQUE: Standardized fat and water weighted pulse sequences were obtained in all 3 orthogonal planes. COMPARISON: MRI images of the left hip 06/15/2018. FINDINGS: Normal subcutis adipose space. There is a well-defined mass in the proximal right rectus femoris muscle measuring 2.5 x 2.2 x 2.6 cm (AP x transverse x length). The mass is mildly hypointense on T1 sequences (T1 sagittal images 11, 12) and hyperintense on T2 sequences (T2 coronal images 5-8). There is no adjacent muscular edema. Normal visualized right femur. MRI/Lower Ext/No Jt/w/o IMPRESSION: Soft tissue mass in the right rectus femoris muscle without interval change. There are no specific imaging characteristics of the mass, differential considerations include myxoma and myxoid liposarcoma. Electronically Signed: Salomon Melendez MD at 11:27 EDT Tel , Service support ,
== END ==
PROVIDERS: Family Provider Family Medicine; PCP Family Medicine; Referring Provider Orthopaedic Surgery; Visit Provider Orthopaedic Surgery
DX: R22.41 Localized swelling, mass and lump, right lower limb (principal)
CPT/HCPCS: 73718

== ENCOUNTER → 2018-11-05 14:03 | Outpatient (CLI) | payer MEDICARE, MEDICAID, SELFPAY ==
[2017-06-26 13:13] VITALS: BMI 29.0
[2018-11-05 13:40] VITALS: BMI 27.8
[2018-11-05 16:00] LABS: Hemoglobin 14.8 g/dl (12.0-15.0); Mean Corp Hgb Conc 33.6 g/gl (32-36); Mean Corpuscular Hgb 26.7 pg (27.0-32.0); Mean Corpuscular Volume 79.4 fL (81-99); Mean Platelet Vol. 10.3 fl (6.2-12.0); Platelet Count 303 K/mm3 (150-450); RBC Distribution Width CV 13.1 % (11.6-14.6); RBC Distribution Width SD 37.5 fl (35.1-43.9); Red Blood Count 5.54 M/mm3 (4.2-5.4); White Blood Count 5.3 K/mm3 (4.4-11.0)
[2018-11-05 16:04] LABS: Scan Indicated on CBC? Y/N NO
== END ==
PROVIDERS: Family Provider Family Medicine; PCP Family Medicine; Referring Provider Internal Medicine Cardiovascular Disease; Visit Provider Internal Medicine Cardiovascular Disease
DX: R06.09 Other forms of dyspnea (principal)
CPT/HCPCS: 36415; 85027

== ENCOUNTER 2019-03-28 17:52 | Emergency (ER) | payer MEDICARE, MEDICAID, SELFPAY ==
[2017-06-26 13:13] VITALS: BMI 29.0
[2018-11-05 13:40] VITALS: BMI 27.8
[2019-03-28 17:54] VITALS: BP 149/98; PULSE 80; RESP 20; TEMP 36.8; O2SAT 97; BMI 27.6
--- NOTE | 2019-03-28 18:46 | ED.RN ---
PULLED OLD NAOMI FOR
--- NOTE | 2019-03-28 18:58 | RAD_ITS ---
STUDY: X-RAY CHEST REASON FOR EXAM: Female, 69 years old. Shortness of breath and anxiety. TECHNIQUE: Single AP portable view of the chest. COMPARISON: 16 July 2017 FINDINGS: The lungs are clear and expanded. There is no demonstrated pleural abnormality. Normal size heart. Normal mediastinum and milena. Normal visualized pulmonary arteries. There is atherosclerotic calcification of the aortic arch with tortuosity. Normal visualized thoracic spine. Normal visualized ribs, clavicles, and shoulders. There is no demonstrated abnormality of the visualized soft tissue structures of the upper abdomen. RAD/Chest 1 View (Portable) IMPRESSION: No evidence of acute cardiopulmonary process. Electronically Signed: Fab Armijo DO at 19:19 EDT , Service support ,
--- NOTE | 2019-03-28 18:58 | EKG12_ITS ---
Test Reason : SOB Blood Pressure : / mmHG Vent. Rate : 070 BPM Atrial Rate : 070 BPM P-R Int : 148 ms QRS Dur : 088 ms QT Int : 372 ms P-R-T Axes : 055 061 076 degrees QTc Int : 401 ms Normal sinus rhythm Possible Left atrial enlargement Nonspecific T wave abnormality Abnormal ECG Confirmed by JACKY OLIVEROS, YOGI ([id number]), avid editor NIRMALA HALL ([id number]) on 04/02/2019 10:24:37 AM Referred By: SHARIF
[2019-03-28 19:11] VITALS: PULSE 71; RESP 16; O2SAT 93
[2019-03-28] MEDS: 0.9% Normal Saline 1,000 ML 150 ML IV (19:16)
[2019-03-28 19:21] LABS: Absolute Neutrophil Count 2.9 X10^3/uL (2.0-7.7); Basophil# 0.06 X10^3/uL; Basophil% 1.2 % (0-1); Eosinophil# 0.16 X10^3/uL; Eosinophils% 3.2 % (0-5); Hematocrit 47.1 % (37-47); Hemoglobin 15.5 g/dL (12.0-15.0); Lymphocyte % 25.9 % (19-41); Mean Corp Hgb Conc 32.9 g/dL (32-36); Mean Corpuscular Hgb 27.5 pg (27.0-32.0); Mean Corpuscular Volume 83.7 fL (81-99); Mean Platelet Vol. 9.5 fl (6.2-12.0); Monocyte# 0.61 X10^3/uL; Monocyte% 12.2 % (0-10); NRBC Flagged by Analyzer 0 % (0-5); Neutrophil # 2.89 X10^3/uL (2.7-7.7); Neutrophil % 57.5 % (47-70); Platelet Count 265 K/mm3 (150-450); RBC Distribution Width CV 13.8 % (11.6-14.6); RBC Distribution Width SD 42.1 fl (35.1-43.9); Red Blood Count 5.63 M/mm3 (4.2-5.4)
[2019-03-28 19:56] LABS: Anion Gap 7 (5-15); BUN 14 mg/dL (7-18); BUN/Creat Ratio 10.9 RATIO (10-20); Calcium,Total 8.9 mg/dL (8.5-10.1); Chloride 107 mmol/L (98-107); Creatinine, Serum 1.28 mg/dL (0.55-1.02); EST Glomerular Filtration Rate 44 mL/min (>60); Est Glom Filt Rate - Afr Amer 54 mL/min (>60); Estimated Creatinine Clearance 41.47 ml/min; Glucose 87 mg/dL (74-106); Potassium 4.2 mmol/L (3.5-5.1); Sodium Level 139 mmol/L (136-145)
--- NOTE | 2019-03-28 20:22 | ED.VISSUMM ---
- ER Visit Summary Date of Service: 03/28/19 Chief Complaint: Shortness of breath History of Present Illness: The patient is a [address] Singh and Dr. Hussein Tidwell. She reports that she is having episodes of shortness of breath today the last proximal 30 seconds at a time. This is not related to exertion. She denies any chest pain. She denies cough, fever, or chills. Patient reports that she does have a history of anxiety. She has had similar symptoms previously with panic attacks. She reports that my brother just came home from the [place] yesterday. She denies that they have had a confrontation. However she does admit that she is under stress due to this. She denies any suicidal ideation. Physical Examination: Vitals: Stable. Afebrile. General: Well-nourished and well-developed. Head: Normocephalic atraumatic. Neck: Supple, no lymphadenopathy. No JVD. Nontender. Cardiovascular: Regular rate and rhythm. No murmurs. Respiratory: No respiratory distress. Clear to auscultation bilaterally. Abdominal: Soft, nontender, nondistended, normal bowel sounds. No guarding, rebound, or peritoneal signs. Back: Nontender. Extremities: Nontender, no edema. Skin: Normal color, no rash. Neurologic: Alert and oriented ?3. Cranial nerves II through XII are intact. Normal strength and sensation. Psych: Normal affect. Test Results: EKG is sinus at [address] changes. Is unchanged from July of this year. Troponin is negative. Chem-7 shows a creatinine 1.28. Creatinine has ranged between 0.8 and 1.04 and 2019. CBC shows an H&H of 15.5 and 47.1. Monocytes of 12. Chest x-ray is normal. Emergency Department Course and Treatment: For a prolonged discussion the patient that her blood work is consistent with dehydration. She was given 500 cc bolus of normal saline. Treatment Plan: She will be discharged instructions to push fluids. Follow-up with her primary care physician 1 to 2 days if not improving. Return to the emergency department for any worsening symptoms. Disposition: To home in improved and stable condition. Impression: 1. Dyspnea, uncertain cause. 2. History of anxiety. This note was generated with [employer] software. It may contain incorrect words, spelling, and punctuation that were not noted in review of the chart prior to signing ED Disposition - Plan for ED Patient: Disposition: Home or Assisted Living Instructions: ED Dyspnea Referrals: Hussein Tidwell MD [Primary Care Provider] - 2 Days
[2019-03-28 20:59] VITALS: PULSE 66; RESP 16; O2SAT 96
== END 2019-03-28 21:01 | disposition home or self-care (01) ==
LOC: ED 19:10
PROVIDERS: Emergency Provider Emergency Medicine; Family Provider Family Medicine; PCP Family Medicine
DX: R06.00 Dyspnea, unspecified (principal); F41.9 Anxiety disorder, unspecified; R51 Headache; E78.00 Pure hypercholesterolemia, unspecified; I10 Essential (primary) hypertension; I25.10 Atherosclerotic heart disease of native coronary artery without angina pectoris; Z95.5 Presence of coronary angioplasty implant and graft; Z82.49 Family history of ischemic heart disease and other diseases of the circulatory system
CPT/HCPCS: 71045; 80048; 84484; 85025; 93005; 96360; 96361; 99284; J7030

== ENCOUNTER 2019-08-12 18:44 | Emergency (ER) | payer MEDICARE, MEDICAID, SELFPAY ==
[2017-06-26 13:13] VITALS: BMI 29.0
[2019-05-27 11:03] VITALS: BMI 27.2
[2019-08-12 18:45] VITALS: BP 178/97; PULSE 71; RESP 18; TEMP 37; O2SAT 97; BMI 28.2
--- NOTE | 2019-08-12 19:19 | ED.VIS.UPPEX ---
History of Present Illness Chief Complaint: Bite Informant: Patient Occurred: Hours - about 5 hrs prior to arrival Mechanism/Context: Injury - LUE by cat scratches Context: Sudden Onset - gradually worse Timing: Continuous Quality of Pain: Aching Location: left long finger Current Severity: Severe Maximum Severity: Severe Worsened by: trying to straighten finger Relieved by: remaining still Associated Symptoms: Negative for: Parasthesia, Weakness - Past Medical History (1) Angiomyolipoma of kidney Status: Chronic (2) Anxiety Status: Chronic (3) Asthma Status: Chronic (4) Atherosclerotic heart disease of [place] coronary artery without angina pectoris Status: Chronic Comment: PCI-SOLOMON-LAD 08/28/15 @ [facility]; PTCA/SOLOMON of the distal RCA 06/26/2017. (5) COPD (chronic obstructive pulmonary disease) Status: Chronic (6) Complex regional pain syndrome type 1 affecting left hand Status: Chronic (7) Depression Status: Chronic (8) GERD (gastroesophageal reflux disease) Status: Chronic (9) HLD (hyperlipidemia) Status: Chronic (10) HTN (hypertension) Status: Chronic (11) History of coronary artery stent placement Status: Chronic Comment: PCI-SOLOMON-LAD 08/28/15 @ [facility]; PTCA/SOLOMON of the distal RCA 06/26/2017. (12) Nonrheumatic tricuspid (valve) insufficiency Status: Chronic (13) Old myocardial infarction Status: Chronic (14) Osteoarthritis of left hip Status: Chronic (15) Restless leg syndrome Status: Chronic Past Medical History - Allergies and Home Meds Allergies/Adverse Reactions: Allergies venom-honey bee [bee venom (honey bee)] Allergy (Severe, Verified 08/12/19 18:48) Anaphylaxis atorvastatin Allergy (Unknown, Verified 08/12/19 18:48) Unknown Penicillins Allergy (Unknown, Verified 08/12/19 18:48) Unknown strawberry Allergy (Verified 08/12/19 18:48) Anaphylaxis oxycodone HCl [From Percocet] Adverse Reaction (Verified 08/12/19 18:48) Vomiting Primary Care Physician: Hussein Tidwell MD [Primary Care Provider] - Doctors: Dr. Turner (hand surgery) Surgical History: angioplasty, appendectomy - In addition to salpingectomy w/ tubal , unsure which side., - - Cervical C5-6 surgery, Microdiscectemy L4-L5, L hand surgery following trauma, T+A, PCI x 1. Smoking Status: Former smoker - Family History Maternal Family History: Family History (Last Reviewed 05/25/19 @ 18:26 by Bre Gallegos) Father CAD (coronary artery disease) Brother Afib Family History: Reports: - - Mother w/ thyroid disease. Paternal Family History: Family History (Last Reviewed 05/25/19 @ 18:26 by Bre Gallegos) Father CAD (coronary artery disease) Brother Afib Family History: Reports: - - Father w/ heart disease, s/p CABG. Review of Systems General: Denies: Chills, Fever, Sweats Eyes: Denies: Visual changes - bilaterally, Diplopia ENT: Denies: Rhinorrhea, Sore throat Cardiovascular: Denies: Chest pain, Palpitations Respiratory: Denies: Dyspnea, Cough, Dyspnea on exertion Gastrointestinal: Denies: Abdominal pain, Nausea, Vomiting, Diarrhea, Melena, Hematochezia Genitourinary: Denies: Dysuria, Hematuria, Frequency Musculoskeletal: Reports: Swelling, Extremity Pain. Denies: Back pain Skin: Reports: Wounds. Denies: Rash Neurological: Denies: Headache, Weakness, Numbness Physical Exam Vital Signs/Narrative: Vital Signs Temp Pulse Resp BP Pulse Ox 08/12/19 18:45 98.6 F 71 18 178/97 H 97 General: Well nourished, Well developed, - - NAD Head: Normocephalic, Atraumatic Eyes: Perrl, EOMI ENT: No Trauma, Moist Mucous Membranes Neck: Nontender, Full ROM Cardiovascular: Regular rate, Regular rhythm, No murmurs Respiratory: No distress, CTA bilaterally, Chest nontender Abdomen: Soft, Nontender, Nondistended, Normal bowel sounds Back: Nontender Extremeties: See skin exam below, there is signs of focal infection just proximal to a midline puncture wound on the volar aspect of the left long finger. There are other abrasions/punctures on the finger, but this 1 is the most concerning. There is no discharge expressible from it. Patient is holding the finger in mild flexion, and with any passive extension, she withdraws in pain. She has tenderness throughout the distribution of the flexor tendon sheath all the way to the base of the palm of the left hand. There is no lymphangitis. Other fingers are fairly benign with full range of motion. Skin: Rash, Trauma - multiple puncture wounds left long finger. contusion NT volar left upper arm and abrasion volar left forearm. area of very tender erythema and swelling volar prox phalanx left long finger, just proximal to midline volar puncture wound Neurological: Alert, Oriented x3, Cranial nerves II-XII grossly intact, Normal Strength, Normal Sensation Psychological: Normal affect Diagnostic/Tx/Re-eval - Medical Decision Making I am concerned for an acute flexor tenosynovitis, this cat scratch appears to have been in the midline in the distribution of the flexor tendon sheath of the left long finger, and the patient confirms that it felt quite deep. I discussed with Dr. Kumar who was on-call for Dr. Johnny sahni, she advises sending the patient to the ER at [facility] for further evaluation and they can consult if needed for further operative management. She was empirically given IV Rocephin given her penicillin allergy. Accepted to the ER by Dr. Law at [facility]. ED Disposition - Plan for ED Patient: Disposition: [facility] Diagnosis: Flexor tenosynovitis of finger Referrals: Hussein Tidwell MD [Primary Care Provider] -
[2019-08-12] MEDS: Ceftriaxone 1 GM/50 ML BAG IV (19:46)
[2019-08-12 19:48] LABS: Absolute Lymphocyte Count 1.47 X10^3/uL (0.83-4.51); Absolute Neutrophil Count 4.7 X10^3/uL (2.0-7.7); Basophil# 0.06 X10^3/uL; Basophil% 0.8 % (0-1); Eosinophil# 0.13 X10^3/uL; Eosinophils% 1.8 % (0-5); Hematocrit 43.3 % (37-47); Lymphocyte # 1.47 X10^3/ul (4.0); Lymphocyte % 20.8 % (19-41); Mean Corp Hgb Conc 32.3 g/dL (32-36); Mean Corpuscular Hgb 26.9 pg (27.0-32.0); Mean Corpuscular Volume 83.1 fL (81-99); Mean Platelet Vol. 9.3 fl (6.2-12.0); Monocyte# 0.65 X10^3/uL; Monocyte% 9.2 % (0-10); NRBC Flagged by Analyzer 0 % (0-5); Neutrophil # 4.74 X10^3/uL (2.7-7.7); Platelet Count 220 K/mm3 (150-450); RBC Distribution Width CV 13.7 % (11.6-14.6); RBC Distribution Width SD 41.9 fl (35.1-43.9); Red Blood Count 5.21 M/mm3 (4.2-5.4); White Blood Count 7.1 K/mm3 (4.4-11.0)
[2019-08-12 20:07] LABS: Anion Gap 4 (5-15); BUN 11 mg/dL (7-18); BUN/Creat Ratio 12.4 RATIO (10-20); Calcium,Total 8.5 mg/dL (8.5-10.1); Chloride 112 mmol/L (98-107); Creatinine, Serum 0.89 mg/dL (0.55-1.02); EST Glomerular Filtration Rate 67 mL/min (>60); Est Glom Filt Rate - Afr Amer 81 mL/min (>60); Estimated Creatinine Clearance 57.42 ml/min; Glucose 105 mg/dL (74-106); Potassium 3.2 mmol/L (3.5-5.1); Sodium Level 143 mmol/L (136-145)
[2019-08-12 20:47] VITALS: BP 141/81; PULSE 69; RESP 17; TEMP 37; O2SAT 99
== END 2019-08-12 22:21 | disposition short-term general hospital (02) ==
LOC: ED 19:24
PROVIDERS: Emergency Provider Emergency Medicine; PCP Family Medicine
DX: M65.88 Other synovitis and tenosynovitis, other site (principal); Z88.0 Allergy status to penicillin; Z82.49 Family history of ischemic heart disease and other diseases of the circulatory system; Z87.891 Personal history of nicotine dependence; Z88.5 Allergy status to narcotic agent; Z95.5 Presence of coronary angioplasty implant and graft; I25.2 Old myocardial infarction; I10 Essential (primary) hypertension; G25.81 Restless legs syndrome; E78.5 Hyperlipidemia, unspecified; F32.9 Major depressive disorder, single episode, unspecified; I25.10 Atherosclerotic heart disease of native coronary artery without angina pectoris; F41.9 Anxiety disorder, unspecified; J44.9 Chronic obstructive pulmonary disease, unspecified; K21.9 Gastro-esophageal reflux disease without esophagitis; M16.12 Unilateral primary osteoarthritis, left hip; G90.512 Complex regional pain syndrome I of left upper limb; Z86.018 Personal history of other benign neoplasm
CPT/HCPCS: 80048; 85025; 96365; 99284; J7030; A4216

== ENCOUNTER → 2019-12-02 12:01 | Outpatient (CLI) | payer MEDICARE, MEDICAID, SELFPAY ==
[2017-06-26 13:13] VITALS: BMI 29.0
[2019-11-29 13:34] VITALS: BMI 28.2
[2019-12-02 13:12] LABS: AST(SGOT) 11 U/L (15-37); Alanine Aminotransfer ALT/SGPT 21 U/L (13-56); Albumin, Serum 3.5 g/dL (3.2-5.0); Alkaline Phosphatase 91 U/L (45-117); Bilirubin, Direct 0.16 mg/dL (0.00-0.30); Cholesterol 162 mg/dL (200); Globulin 4.1 g/dL (2.2-4.2); High Density Lipoprotein 43 mg/dL; Protein, Total 7.6 g/dL (6.4-8.2); Triglycerides 194 mg/dL; Very Low Density Lipoprotein 39 mg/dL (5-40)
== END ==
PROVIDERS: PCP Family Medicine; Referring Provider Internal Medicine Cardiovascular Disease; Visit Provider Internal Medicine Cardiovascular Disease
DX: I25.10 Atherosclerotic heart disease of native coronary artery without angina pectoris (principal); E78.5 Hyperlipidemia, unspecified
CPT/HCPCS: 36415; 80061; 80076

== ENCOUNTER → 2019-12-14 12:53 | Outpatient (CLI) | payer MEDICARE, MEDICAID, SELFPAY ==
[2017-06-26 13:13] VITALS: BMI 29.0
[2019-11-29 13:34] VITALS: BMI 28.2
--- NOTE | 2019-12-14 12:54 | ECHOD_ITS ---
Reason For Study: DYSPNEA Procedure This was a 2D Doppler, Color Flow transthoracic echocardiogram. Exam performed in department. Left Ventricle Normal size and thickness. The estimated ejection fraction is 55 %. Stage 1 diastolic dysfunction. Septal motion consistent with IVCD. No regional wall motion abnormalities noted. Right Ventricle Normal size and thickness. Normal systolic function. Atria Normal left atrium. Normal right atrium. Normal atrial septum. Mitral Valve The mitral valve is structurally normal. No prolapse or stenosis seen. Trivial mitral valve insufficiency. Tricuspid Valve Normal tricuspid valve. Trivial tricuspid valve insufficiency. Right ventricular systolic pressure estimated to be 28 mmHg. Aortic Valve Trisinus/trileaflet aortic valve. Normal aortic valve. Pulmonic Valve Normal pulmonic valve. Great Vessels Normal aortic root. Normal arch. Normal inferior vena cava. Inferior vena cava collapse with sniff. Pericardium/Pleural No pericardial effusion. MMode/2D Measurements & Calculations LVIDd: 4.2 cm IVSd: 1.1 cm Ao root diam: 3.5 cm LVIDs: 2.5 cm LVPWd: 1.0 cm RVDd: 2.8 cm FS: 40.0 % LAV(MOD-bp): 34.4 ml LVAd ap4: 15.3 cm2 SV(MOD-sp4): 20.3 ml LAV(MOD-bp) Indexed: 18.2 ml/m2 EDV(MOD-sp4): 37.7 ml LAV(MOD-sp2): 31.7 ml EDV(sp4-el): 37.3 ml LAV(MOD-sp4): 33.9 ml LVAs ap4: 9.4 cm2 ESV(MOD-sp4): 17.3 ml ESV(sp4-el): 15.9 ml EF(MOD-sp4): 54.0 % EF(sp4-el): 57.3 % SV(sp4-el): 21.4 ml LA A4 area: 13.9 cm2 LA dimension(2D): 4.1 cm RA A4 area: 8.5 cm2 Time Measurements MV dec time: 0.46 sec Doppler Measurements & Calculations MV E max elvis: 29.3 cm/sec Lat Peak E' Elvis: 2.5 cm/sec Med Peak E' Elvis: 2.9 cm/sec MV A max elvis: 74.5 cm/sec E/E' lat: 11.9 E/E' med: 10.1 MV E/A: 0.39 Ao V2 max: 99.1 cm/sec LV V1 max: 79.9 cm/sec PA V2 max: 111.5 cm/sec Ao max P.9 mmHg LV V1 max P.6 mmHg TR max elvis: 212.5 cm/sec TR max P.6 mmHg Interpretation Summary The estimated ejection fraction is 55 %. Stage 1 diastolic dysfunction. Trivial mitral valve insufficiency. Trivial tricuspid valve insufficiency. Right ventricular systolic pressure estimated to be 28 mmHg. Compared to echo report dated 06/26/2017, no appreciable changes noted. Ordering Physician: Juan Singh Referring Physician: ROBBY PATINO Performed By: Mrage Ortiz, KEELYCS, RVT
== END ==
PROVIDERS: PCP Family Medicine; Referring Provider Internal Medicine Cardiovascular Disease; Visit Provider Internal Medicine Cardiovascular Disease
DX: I25.10 Atherosclerotic heart disease of native coronary artery without angina pectoris (principal); R06.00 Dyspnea, unspecified; R06.02 Shortness of breath
CPT/HCPCS: 93306

== ENCOUNTER → 2019-12-27 12:25 | Outpatient (CLI) | payer MEDICARE, MEDICAID, SELFPAY ==
[2017-06-26 13:13] VITALS: BMI 29.0
[2019-11-29 13:34] VITALS: BMI 28.2
--- NOTE | 2019-12-27 12:26 | STEWCON_ITS ---
Reason For Study: Dyspnea On Exertion; CAD Stress Results Protocol: Dobutamine Stress Echo With Definity Maximum Predicted HR: 153 bpm Target HR: 130 bpm % Maximum Predicted HR: 89 % DurationHeart Rate Stage (mm:ss) (bpm) BP Comment Baseline 61 155/91No Chest Pain; 4 ML Diluted Definity DSE 10 MCG 3:19 57 138/97No Chest Pain DSE 20 MCG 3:00 80 160/97No Chest Pain DSE 30 MCG 3:00 105 155/52No Chest Pain DSE 40 MCG 1:58 136 109/54No Chest Pain; Atropine 0.25 MG IVP Recovery 90 124/91No Chest Pain Stress Duration: 11:17 mm:ss Maximum Stress HR: 136 bpm METS: 1 Baseline Echocardiogram Findings The estimated ejection fraction is 65 %. Stress Echo Wall motion Data Resting WM Intermediate WM Stress WM Resting Wall Motion Wall Motion Stress No regional wall motion No regional wall motion abnormalities noted. abnormalities noted. EKG Data The baseline ECG displays normal sinus rhythm. The patient was titrated from 10 mcg to a maximum of 40 mcg of dobutamine during the stress. The maximum heart rate attained was 137 beats per minute. This was 89% of maximum predicted heart rate. During dobutamine infusion, there were no ST or T wave changes noted to suggest ischemia. No clinical angina was noted. No arrhythmias noted. Interpretation Summary The estimated ejection fraction is 65 %. Normal, adequate, dobutamine echocardiogram. Negative for ischemia by EKG and echocardiographic criteria. No anginal symptoms noted. No arrhythmias noted. Appropriate blood pressure response to dobutamine. Test terminated due to attainment of target heart rate. Final LVEF is 75%. Decrease sensitivity due to poor echo windows requiring Definity agent. Patient tolerated procedure well. No complications. The study was technically difficult. Contrast injection was performed. Ordering Physician: Juan Singh Referring Physician: Hussein Tidwell Performed By: Marge Ortiz, RDCS, RVT
== END ==
PROVIDERS: PCP Family Medicine; Referring Provider Internal Medicine Cardiovascular Disease; Visit Provider Internal Medicine Cardiovascular Disease
DX: R06.00 Dyspnea, unspecified (principal); I25.10 Atherosclerotic heart disease of native coronary artery without angina pectoris; R06.02 Shortness of breath; Z95.5 Presence of coronary angioplasty implant and graft
CPT/HCPCS: 93017; 93350; J7040; Q9957; A4216; C8928

== ENCOUNTER 2020-07-06 18:32 | Emergency (ER) | payer MEDICARE, MEDICAID, SELFPAY ==
[2017-06-26 13:13] VITALS: BMI 29.0
[2020-06-26 14:38] VITALS: BMI 29.2
[2020-07-06 18:33] VITALS: BP 125/80; PULSE 80; RESP 15; TEMP 36.7; O2SAT 97; BMI 29.9
--- NOTE | 2020-07-06 19:11 | RAD_ITS ---
STUDY: X-RAY - LEFT FOOT CLINICAL: Female, 70 years old. Left foot injury. Pt dropped table on foot two days ago. Bruising and pain in all toes. TECHNIQUE: 3 view(s) of the foot. COMPARISON: None. FINDINGS: Normal talus,, and tarsal bones. Spurring of the plantar surface of the calcaneus and posterior enthesophyte Normal visualized subtalar, talonavicular, calcaneocuboid, tarsal and tarsometatarsal articulations. Normal metatarsi. Normal metatarsophalangeal joint of the great toe. Normal tibial and fibular sesamoid bones. On the oblique view, there appears to be subluxation of the DIP joint of the great toe. Normal phalanges of the great toe. Normal second through fifth metatarsophalangeal joints. Normal interphalangeal joints and phalanges of the lesser toes. The soft tissue structures are unremarkable. RAD/Foot min 3 Views IMPRESSION: No evidence for acute fracture. Questionable subluxation of the DIP joint of the great toe only seen on oblique view possibly positional artifact. Clinical correlation is recommended Electronically Signed: Prashant Winslow MD at 19:38 EST , Service support ,
--- NOTE | 2020-07-06 20:50 | RAD_ITS ---
STUDY: X-RAY - LEFT ANKLE REASON FOR EXAM: Female, 70 years old. Left ankle pain. Table dropped on foot and ankle 2 days ago. TECHNIQUE: 3 view(s) of the ankle. COMPARISON: None. FINDINGS: Normal visualized distal tibia and fibula. Normal medial and lateral malleoli. Normal tibiotalar articulation and ankle mortise. Normal visualized talus. Tiny plantar calcaneal spur and small posterior enthesophyte The visualized subtalar, talonavicular, calcaneocuboid and tarsal articulations are normal. The soft tissue structures are unremarkable. RAD/Ankle min 3 Views IMPRESSION: No acute fracture or dislocation Electronically Signed: Prashant Winslow MD at 21:20 EST , Service support ,
--- NOTE | 2020-07-06 21:54 | ED.VISSUMM ---
- ER Visit Summary Date of Service: 07/06/20 Chief Complaint: Left foot injury History of Present Illness: The patient is a 70 F presenting with injury to left foot. Patient states she accidentally dropped a table on her left foot earlier this evening. She states it continued to bruise and worsen. She has painful ambulation. She denies other injuries. Physical Examination: Vitals are stable. Patient is afebrile. Alert no acute distress. HEENT exam is unremarkable. Neck is nontender Lungs are clear and equal bilaterally. Heart is regular rate and rhythm. Extremities ecchymosis and tenderness left midfoot. Mild left ankle tenderness. Normal distal pulses. Skin is warm and dry. No focal neurologic deficit. Remainder of exam is unremarkable. Emergency Department Course and Treatment: X-ray left foot and ankle show no evidence for acute fracture. Questionable subluxation of the DIP joint of the great toe only seen on oblique view possibly positional artifact. Clinical correlation is recommended. She has no tenderness in this area and has full range of motion of her great toe. She was given a postop shoe. Advised to ice and elevate. Advised to follow up with primary care physician. Advised return to ED for worsening complaints. Disposition: Discharge home Impression: Left foot contusion This note was generated with [employer] dictation software. It may contain incorrect words, spelling, and punctuation that were not noted in review of the chart prior to signing ED Disposition - Plan for ED Patient: Instructions: ED Foot Contusion Referrals: Hussein Tidwell MD [Primary Care Provider] -
== END 2020-07-06 22:10 | disposition home or self-care (01) ==
LOC: ED 21:19
PROVIDERS: Emergency Provider Emergency Medicine; PCP Family Medicine
DX: S90.32XA Contusion of left foot, initial encounter (principal); W20.8XXA Other cause of strike by thrown, projected or falling object, initial encounter; I25.10 Atherosclerotic heart disease of native coronary artery without angina pectoris; K21.9 Gastro-esophageal reflux disease without esophagitis; I10 Essential (primary) hypertension; E78.00 Pure hypercholesterolemia, unspecified; J45.909 Unspecified asthma, uncomplicated
CPT/HCPCS: 73610; 73630; 99283

== ENCOUNTER → 2020-11-14 15:55 | Outpatient (CLI) | payer MEDICARE, SELFPAY ==
[2017-06-26 13:13] VITALS: BMI 29.0
--- NOTE | 2020-11-14 15:58 | BI_ITS ---
MAMMOGRAPHY - BILATERAL SCREENING REASON FOR EXAM: Female, 70 years old. Routine annual screening examination. PERTINENT HISTORY: Non-contributory. TECHNIQUE: Digital bilateral breast callie (3D mammographic acquisition) in the CC and MLO projections. 2-D mediolateral oblique (MLO) and craniocaudad (CC) views of both breasts were obtained. CAD: Full Field Digital Mammography with Computer Added Detection was performed. COMPARISON: None. Baseline examination. FINDINGS: Breast Composition: There are scattered areas of fibroglandular density. There are no dominant masses or suspicious calcifications. Small benign-appearing bilateral axillary lymph nodes. No other significant abnormalities are identified. There has been no significant change since the prior study. BI/SCRN MAMM (CAD)W/CALLIE BILAT IMPRESSION: Stable bilateral screening mammogram. Yearly follow-up mammogram recommended. (A) ASSESSMENT CATEGORY: BIRADS Category 2: Benign. A letter regarding these results will be sent to the patient by the facility within 30 days. Approximately 10% of breast cancers are not detected by mammography. A normal mammogram should not delay biopsy of a clinically suspicious abnormality. [id number] Electronically Signed: Sanchez Villarreal MD at 8:49 EDT , Service support ,
== END ==
PROVIDERS: PCP Family Medicine; Referring Provider Family Medicine; Visit Provider Family Medicine
DX: Z12.31 Encounter for screening mammogram for malignant neoplasm of breast (principal)
CPT/HCPCS: 77063; 77067

== ENCOUNTER 2020-12-10 13:53 | Emergency (ER) | payer MEDICARE, MEDICAID, SELFPAY ==
[2017-06-26 13:13] VITALS: BMI 29.0
[2020-12-10 13:55] VITALS: BP 154/106; PULSE 75; RESP 22; TEMP 36.9; O2SAT 93; BMI 31.6
--- NOTE | 2020-12-10 14:53 | EX.ED.DYSGE1 ---
HPI History of Present Illness Chief Complaint: Shortness of Breath Informant: patient Narrative Narrative: Patient is a 70-year-old female who presents to the emergency department for diarrhea, cough and nausea/vomiting. She states that her initial symptoms started 4 days ago. The vomiting has resolved but she still feeling nauseous. She is not been eating very much. She states she is having too numerous to count episodes of diarrhea per day. She has been try to drink plenty of fluids and taking Tums for this. She has had a mild cough. It is nonproductive. No fevers but states she does get chills. No known sick contacts. She has been vaccinated for Covid. She does have diffuse abdominal discomfort that is very mild. She denies any chest pain or significant shortness of breath. No recent travel or antibiotic use. She denies any urinary symptoms. [facility] Medical History (Updated 12/11/20 @ 23:[address] 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 Chronic back pain COPD (chronic obstructive pulmonary disease) Daytime somnolence Dyspnea on exertion HLD (hyperlipidemia) HTN (hypertension) Nonrheumatic tricuspid (valve) insufficiency NSTEMI (non-ST elevated myocardial infarction) Obesity (BMI 30.0-34.9) Old myocardial infarction Pre-operative cardiovascular examination RSD (reflex sympathetic dystrophy) Home Medications famotidine 20 mg PO DAILY 10/02/15 [History Last Taken 08/22/18] aspirin 81 mg PO DAILY 01/20/16 [History Last Taken 08/22/18] nitroglycerin 0.4 mg SUBLINGUAL Q5M PRN #1 bottle 06/27/17 [Rx Last Taken Unknown] ezetimibe 10 mg tablet 10 mg PO DAILY #90 tab 03/02/18 [Rx Last Taken 08/22/18] simvastatin 5 mg PO QHS 08/22/18 [History Last Taken Unknown] acetaminophen 1,000 mg PO Q8H PRN PRN tab 08/29/18 [Rx Last Taken Unknown] losartan 50 mg-hydrochlorothiazide 12.5 mg tablet 1 tab PO DAILY #90 tab 08/11/19 [Rx Last Taken Unknown] carvedilol 3.125 mg tablet 3.125 mg PO BID #180 tab 08/24/20 [Rx Last Taken Unknown] ondansetron 4 mg PO Q8H 4 Days #12 tab 12/10/20 [Rx Last Taken Unknown] Allergy/AdvReac Type Severity Reaction Status Date / Time venom-honey bee Allergy Severe Anaphylaxis Verified 12/10/20 13:55 [bee venom (honey bee)] atorvastatin Allergy Unknown Unknown Verified 12/10/20 13:55 Penicillins Allergy Unknown Unknown Verified 12/10/20 13:55 strawberry Allergy Anaphylaxis Verified 12/10/20 13:55 oxycodone HCl [From Percocet] AdvReac Vomiting Verified 12/10/20 13:55 Family History Father CAD (coronary artery disease) Brother Afib Surgical History History of back surgery History of coronary artery stent placement (06/26/17) left hand surgery Social History Smoking Status: Former smoker alcohol intake: current substance use type: former substance user Date of last use: 2016 and marijuana caffeine: Yes Type: carbonated beverages, coffee and tea what type of physical activity do you participate in: none seatbelt use: always do you feel safe at home: Yes ROS ROS ED Constitutional Constitutional ED: Reports chills; Denies fever(s) Eyes Eyes: Denies change in vision ENT ENT ED: Denies epistaxis or rhinorrhea Cardiovascular Cardiovascular: Denies chest pain or palpitations Respiratory/Chest Respiratory/Chest: Reports cough; Denies dyspnea, dyspnea on exertion or sputum Gastrointestinal Gastrointestinal: Reports abdominal pain, diarrhea and nausea; Denies vomiting Genitourinary Genitourinary ED: Denies dysuria, hematuria or urinary frequency Musculoskeletal Musculoskeletal: Denies back pain or neck pain Integumentary Denies rash Neurologic Neurologic: Denies dizziness, headache(s) or weakness EXAM Physical Exam Const Vital Signs: 12/10/20 13:55 12/10/20 14:06 Temperature 98.4 F Temperature Source Temporal Pulse Rate 75 Respiratory Rate 22 H Respiratory Effort Normal Non-Labored Respiratory Depth Normal Respiratory Pattern Normal Blood Pressure 154/106 H Blood Pressure Mean 122 Pulse Ox 93 Oxygen Delivery Method Room Air Room Air Positive well nourished and well developed General Appearance ED: well developed and NAD HEENT Reports normocephalic, head/scalp atraumatic and moist mucous membranes Eyes PERRL and EOMs intact bilaterally Neck supple Chest Wall inspection of chest normal Resp normal respiratory effort and clear to auscultation bilaterally Auscultation: Negative for rales, rhonchi or wheezes Cardio regular rate, regular rhythm and no murmurs GI normal to inspection, nondistended, normoactive bowel sounds and non-tender Palpation: soft; Negative for guarding or rebound tenderness present Back/Spine no CVA tenderness Extremity normal to inspection General Extremety ED: Negative for edema or tenderness General Extremity: Negative for edema Neuro oriented x3, CN's II-XII intact bilaterally and no sensory deficits noted Sensorium / Orientation: alert Motor Exam: strength 5/5 throughout Psych mental status grossly normal Skin no rashes or lesions noted MDM MDM MDM Narrative Medical decision making narrative: Patient presents the ED for nausea/diarrhea and cough. Her family wanted her to get checked for Covid although she already has been vaccinated for this. On arrival to the ED she is satting 93% on room air but is not having any shortness of breath. She otherwise has normal vital signs. She is not tachycardic or hypotensive. Do not feel lab work would be much benefit at this time. This is most likely a viral infection causing symptoms. She is agreeable to giving a stool sample for culture. Will check a Covid screen. Patient given Zofran for symptomatic treatment. Patient is feeling much better after Zofran. She is tolerating oral fluids. She was unable to give a stool sample here. She does feel comfortable being discharged home at this time. She is going to follow-up with her PCP. Return precautions are reviewed with her. This includes any fevers, abdominal pain or dehydration. She is given a prescription for Zofran. She understands and is agreeable this plan. All questions were answered. Discharge Plan Triage Chief Complaint: Shortness of Breath ED Provider: Leonel Wing Dx/Rx/DC Orders Clinical Impression: Diarrhea, Nausea & vomiting Instructions: ED Gastritis (Adult) Prescriptions: New ondansetron 4 mg tablet,disintegrating 4 mg PO Q8H 4 Days Qty: 12 RF: 0 No Action famotidine 20 MG tablet 20 mg PO DAILY RF: 0 aspirin 81 MG tablet,delayed release (DR/EC) 81 mg PO DAILY RF: 0 nitroglycerin 0.4 MG tablet 0.4 mg SUBLINGUAL Q5M PRN (Reason: Chest Pain) Qty: 1 RF: 0 simvastatin 5 MG tablet 5 mg PO QHS RF: 0 acetaminophen 500 MG tablet 1,000 mg PO Q8H PRN PRN (Reason: Mild Pain (-08/16)) RF: 0 ezetimibe 10 mg tablet 10 mg PO DAILY Qty: 90 RF: 3 losartan-hydrochlorothiazide 50-12.5 mg tablet 1 tab PO DAILY Qty: 90 RF: 3 carvedilol 3.125 mg tablet 3.125 mg PO BID Qty: 180 RF: 4 Primary Care Provider: Hussein Tidwell Referrals: Hussein Tidwell MD [Primary Care Provider] - 1-2 Days if not improving Disposition Disposition: Home, Self Care Discharge Date/Time: 12/10/20 16:37
[2020-12-10] MEDS: Ondansetron ODT 4 MG Tablet PO (15:31)
[2020-12-10 16:36] VITALS: BP 132/76; PULSE 89; RESP 15; O2SAT 98
== END 2020-12-10 16:37 | disposition home or self-care (01) ==
PROVIDERS: Emergency Provider Emergency Medicine; PCP Family Medicine
DX: R06.02 Shortness of breath (principal); R19.7 Diarrhea, unspecified; R11.2 Nausea with vomiting, unspecified; E66.9 Obesity, unspecified; E78.5 Hyperlipidemia, unspecified; I10 Essential (primary) hypertension; I25.2 Old myocardial infarction; I25.10 Atherosclerotic heart disease of native coronary artery without angina pectoris; J44.9 Chronic obstructive pulmonary disease, unspecified; Z79.82 Long term (current) use of aspirin; Z79.899 Other long term (current) drug therapy; Z87.891 Personal history of nicotine dependence; Z68.30 Body mass index [BMI] 30.0-30.9, adult
CPT/HCPCS: 87426; 99283

== ENCOUNTER 2020-12-17 22:07 | Emergency (ER) | payer MEDICARE, MEDICAID, SELFPAY ==
[2017-06-26 13:13] VITALS: BMI 29.0
[2020-12-17 22:08] VITALS: BP 148/85; PULSE 95; RESP 18; TEMP 36.2; O2SAT 95; BMI 29.9
--- NOTE | 2020-12-17 22:29 | CT_ITS ---
STUDY: CT ABDOMEN AND PELVIS WITHOUT CONTRAST REASON FOR EXAM: Female, 70 years old. abdominal pain RADIATION DOSAGE (If Supplied By Facility): CTDIvol = ( 17.42 ) mGy, DLP = ( 826.94 ) mGycm TECHNIQUE: Transaxial images were obtained from the dome of the diaphragm to the symphysis pubis without oral contrast, and without intravenous contrast. Sagittal and coronal images were reconstructed. Individualized dose optimization techniques were used for this CT. COMPARISON: August 17, 2014. FINDINGS: The visualized lung bases are unremarkable. The heart is not enlarged. Atherosclerotic calcification involving the coronary arteries. Normal liver. Normal gallbladder and extrahepatic biliary system. Normal spleen. Normal pancreas. Normal bilateral adrenal glands. Normal right kidney. Stable fat containing mass superior pole left kidney since 2014. Stomach is not well distended limiting evaluation. Normal small intestine. Minimal colonic diverticulosis. There is non-visualization of the appendix. No secondary signs of acute appendicitis. There is atherosclerotic calcification of the abdominal aorta, without a demonstrated aneurysm. Normal inferior vena cava. Normal retroperitoneum. No intra-abdominal free air. Normal urinary bladder. Normal visualized uterus. No adnexal masses seen. Normal abdominal wall. Total left hip arthroplasty in normal alignment is now present. L4-5 disc space narrowing, vacuum disc and marginal osteophytes. CT/Abdomen/Pelvis without Cont IMPRESSION: No acute findings in the abdomen or pelvis. Stable angiomyolipoma left kidney since 2014 which is a benign finding. No evidence of bowel obstruction. Minimal colonic diverticulosis. Electronically Signed: Leonid Christopher MD at 0:04 EDT , Service support ,
--- NOTE | 2020-12-17 22:30 | EX.ED.DYSGE1 ---
HPI History of Present Illness Chief Complaint: Constipation Informant: patient Narrative Narrative: Patient presents the emergency department with left lower quadrant abdominal pain and constipation of 3 days. She states that yesterday she took 6 fiber pills. Today she tried to rectal suppositories. She states she is passing water and flatus. She notes a history of diverticulitis. She did have vomiting today. She denies any prior abdominal pains. She notes that she is on chronic tramadol due to RSD. [facility] Medical History (Updated 12/17/20 @ 23:[address] 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 Chronic back pain COPD (chronic obstructive pulmonary disease) Daytime somnolence Dyspnea on exertion HLD (hyperlipidemia) HTN (hypertension) Nonrheumatic tricuspid (valve) insufficiency NSTEMI (non-ST elevated myocardial infarction) Obesity (BMI 30.0-34.9) Old myocardial infarction Pre-operative cardiovascular examination RSD (reflex sympathetic dystrophy) Home Medications famotidine 20 mg PO DAILY 10/02/15 [History Last Taken 08/22/18] aspirin 81 mg PO DAILY 01/20/16 [History Last Taken 08/22/18] nitroglycerin 0.4 mg SUBLINGUAL Q5M PRN #1 bottle 06/27/17 [Rx Last Taken Unknown] ezetimibe 10 mg tablet 10 mg PO DAILY #90 tab 03/02/18 [Rx Last Taken 08/22/18] simvastatin 5 mg PO QHS 08/22/18 [History Last Taken Unknown] acetaminophen 1,000 mg PO Q8H PRN PRN tab 08/29/18 [Rx Last Taken Unknown] carvedilol 3.125 mg tablet 3.125 mg PO BID #180 tab 08/24/20 [Rx Last Taken Unknown] ondansetron 4 mg PO Q8H 4 Days #12 tab 12/10/20 [Rx Last Taken Unknown] losartan-hydrochlorothiazide 2 tab PO DAILY 12/17/20 [History Last Taken Unknown] docusate sodium [Colace] 100 mg PO DAILY #30 cap 12/18/20 [Rx Last Taken Unknown] Allergy/AdvReac Type Severity Reaction Status Date / Time venom-honey bee Allergy Severe Anaphylaxis Verified 12/17/20 22:09 [bee venom (honey bee)] atorvastatin Allergy Unknown Unknown Verified 12/17/20 22:09 Penicillins Allergy Unknown Unknown Verified 12/17/20 22:09 strawberry Allergy Anaphylaxis Verified 12/17/20 22:09 oxycodone HCl [From Percocet] AdvReac Vomiting Verified 12/17/20 22:09 Family History Father CAD (coronary artery disease) Brother Afib Surgical History History of back surgery History of coronary artery stent placement (06/26/17) left hand surgery Social History Smoking Status: Former smoker alcohol intake: current substance use type: former substance user Date of last use: 2015 and marijuana caffeine: Yes Type: carbonated beverages, coffee and tea what type of physical activity do you participate in: none seatbelt use: always do you feel safe at home: Yes ROS ROS ED Constitutional Constitutional ED: Denies chills or weight loss Eyes Eyes: Denies change in vision or diplopia ENT ENT ED: Denies ear pain, rhinorrhea or sore throat Cardiovascular Cardiovascular: Denies chest pain, orthopnea, palpitations or racing heartbeat Respiratory/Chest Respiratory/Chest: Denies cough, dyspnea or orthopnea Gastrointestinal Gastrointestinal: Reports abdominal pain, constipation, nausea and vomiting; Denies diarrhea Genitourinary Genitourinary ED: Denies dysuria, hematuria or urinary frequency Musculoskeletal Musculoskeletal: Denies arthralgias or myalgias Integumentary Denies abscess or rash Neurologic Neurologic: Denies headache(s) or weakness Psychiatric Psychiatric: Denies anxiety, depression, suicidal ideation or suicidal thoughts Endocrine Endocrinology: Denies polydipsia, polyphagia or polyuria Allergic/Immunologic Allergic/Immunologic ED: Denies mouth swelling, tongue swelling or urticaria EXAM Physical Exam Const Vital Signs: 12/17/20 22:08 Temperature 97.1 F L Temperature Source Temporal Pulse Rate 95 Respiratory Rate 18 Blood Pressure 148/85 H Blood Pressure Mean 106 Pulse Ox 95 Oxygen Delivery Method Room Air Positive well nourished and well developed General Appearance ED: well developed HEENT Reports normocephalic, head/scalp atraumatic and moist mucous membranes Eyes PERRL and EOMs intact bilaterally Neck no lymphadenopathy, supple and no JVD Resp normal respiratory effort and clear to auscultation bilaterally Cardio regular rate, regular rhythm and no murmurs GI Palpation: soft and tender LLQ Back/Spine no CVA tenderness and normal ROM Extremity normal to inspection General Extremety ED: Negative for edema General Extremity: Negative for edema Neuro oriented x3 and CN's II-XII intact bilaterally Sensorium / Orientation: alert Motor Exam: strength 5/5 throughout Psych mental status grossly normal Mood & Affect: Negative for depressed or tearful Skin no rashes or lesions noted and no wounds MDM MDM MDM Narrative Medical decision making narrative: CT does not demonstrate any obvious diverticulitis. There is a large amount of stool in the rectum. Patient was given a soapsuds enema. Patient had a very large bowel movement afterwards. At this point patient be discharged home. Would recommend a daily stool softener. Radiography Diagnostic Testing: Radiology Impression Abdomen/Pelvis CT 12/17/20 22:29 IMPRESSION: No acute findings in the abdomen or pelvis. Stable angiomyolipoma left kidney since 2014 which is a benign finding. No evidence of bowel obstruction. Minimal colonic diverticulosis. Electronically Signed: Leonid Christopher MD at 0:04 EDT , Service support , Discharge Plan Triage Chief Complaint: Constipation ED Provider: Juan Elizabeth Dx/Rx/DC Orders Clinical Impression: Fecal impaction in rectum Instructions: ED Constipation (Adult) Prescriptions: New docusate sodium [Colace] 100 mg capsule 100 mg PO DAILY Qty: 30 RF: 0 No Action famotidine 20 MG tablet 20 mg PO DAILY RF: 0 aspirin 81 MG tablet,delayed release (DR/EC) 81 mg PO DAILY RF: 0 nitroglycerin 0.4 MG tablet 0.4 mg SUBLINGUAL Q5M PRN (Reason: Chest Pain) Qty: 1 RF: 0 simvastatin 5 MG tablet 5 mg PO QHS RF: 0 acetaminophen 500 MG tablet 1,000 mg PO Q8H PRN PRN (Reason: Mild Pain (1-3)) RF: 0 ondansetron 4 mg tablet,disintegrating 4 mg PO Q8H 4 Days Qty: 12 RF: 0 losartan-hydrochlorothiazide 50-12.5 mg tablet 2 tab PO DAILY RF: 0 ezetimibe 10 mg tablet 10 mg PO DAILY Qty: 90 RF: 3 carvedilol 3.125 mg tablet 3.125 mg PO BID Qty: 180 RF: 4 Primary Care Provider: Hussein Tidwell Referrals: Hussein Tidwell MD [Primary Care Provider] - As Needed Disposition Disposition: Home, Self Care
[2020-12-18 00:43] VITALS: RESP 16; TEMP 36.9; O2SAT 98
== END 2020-12-18 00:46 | disposition home or self-care (01) ==
PROVIDERS: Emergency Provider Emergency Medicine; PCP Family Medicine
DX: K59.00 Constipation, unspecified (principal); E66.9 Obesity, unspecified; Z68.30 Body mass index [BMI] 30.0-30.9, adult; E78.5 Hyperlipidemia, unspecified; I10 Essential (primary) hypertension; I25.10 Atherosclerotic heart disease of native coronary artery without angina pectoris; I25.2 Old myocardial infarction; I36.1 Nonrheumatic tricuspid (valve) insufficiency; G90.50 Complex regional pain syndrome I, unspecified; J44.9 Chronic obstructive pulmonary disease, unspecified; Z87.19 Personal history of other diseases of the digestive system; Z95.5 Presence of coronary angioplasty implant and graft; Z79.82 Long term (current) use of aspirin; Z79.899 Other long term (current) drug therapy; Z87.891 Personal history of nicotine dependence
CPT/HCPCS: 74176; 99283

== ENCOUNTER → 2021-06-06 | Outpatient (CLI) | payer MEDICARE, MEDICAID, SELFPAY ==
[2017-06-26 13:13] VITALS: BMI 29.0
== END | disposition home or self-care (01) ==
LOC: LABSPEC 16:45
PROVIDERS: PCP Family Medicine; Visit Provider Family Medicine
DX: Z20.828 Contact with and (suspected) exposure to other viral communicable diseases (principal)
CPT/HCPCS: 87635; U0005; U0003

== ENCOUNTER 2021-07-19 10:24 | Outpatient (CLI) | payer MEDICARE, MEDICAID, SELFPAY ==
[2017-06-26 13:13] VITALS: BMI 29.0
[2021-07-19 12:56] LABS: AST(SGOT) 17 U/L (15-37); Alanine Aminotransfer ALT/SGPT 28 U/L (13-56); Albumin, Serum 3.5 g/dL (3.2-5.0); Alkaline Phosphatase 75 U/L (45-117); Bilirubin, Direct 0.12 mg/dL (0.00-0.30); Cholesterol 215 mg/dL (200); Globulin 3.8 g/dL (2.2-4.2); High Density Lipoprotein 39 mg/dL; Protein, Total 7.3 g/dL (6.4-8.2); Triglycerides 273 mg/dL; Very Low Density Lipoprotein 55 mg/dL (5-40)
== END 2021-07-19 23:59 | disposition home or self-care (01) ==
LOC: LAB 10:28
PROVIDERS: PCP Family Medicine; Referring Provider Nurse Practitioner Gerontology; Visit Provider Nurse Practitioner Gerontology
DX: E78.5 Hyperlipidemia, unspecified (principal)
CPT/HCPCS: 36415; 80061; 80076

== ENCOUNTER 2021-09-10 21:27 | Emergency (ER) | payer MEDICARE, MEDICAID, SELFPAY ==
[2017-06-26 13:13] VITALS: BMI 29.0
[2021-09-10 21:28] VITALS: BP 155/97; PULSE 72; RESP 13; TEMP 36.6; O2SAT 93; BMI 29.9
--- NOTE | 2021-09-10 22:07 | EKG12_ITS ---
Test Reason : CP Blood Pressure : / mmHG Vent. Rate : 071 BPM Atrial Rate : 071 BPM P-R Int : 170 ms QRS Dur : 090 ms QT Int : 422 ms P-R-T Axes : 031 038 071 degrees QTc Int : 458 ms Normal sinus rhythm Nonspecific T wave abnormality Abnormal ECG Confirmed by SUDHIR OLIVEROS, VEE ([id number]), commissioning editor ENEDELIA JORGE ([id number]) on 09/13/2021 11:29:27 AM Referred By: DEWAYNE Confirmed By:VEE PEGUERO MD
--- NOTE | 2021-09-10 22:22 | RAD_ITS ---
INDICATION: chest pain EXAMINATION/TECHNIQUE: X-RAY - XR Chest 1 View 10:16 PM COMPARISON: 03/28/2019 FINDINGS: LUNGS: Reticular opacities in the left lung base. No consolidation. No pneumothorax. MEDIASTINUM: Unremarkable. CARDIAC SIL[place]ETTE: Not enlarged. BONES AND SOFT TISSUES: Degenerative changes in the dorsal spine. No acute abnormalities. IMPRESSION: Left basilar subsegmental atelectasis versus scarring. No infiltrates. Electronically Signed: Marge Presley MD at 22:50 EDT , RAD/Chest 1 View (Portable)
[2021-09-10 22:31] VITALS: BP 128/88; PULSE 66; RESP 16; O2SAT 97
--- NOTE | 2021-09-10 22:32 | ED.RN ---
pt. blood pressure 128/88. dr. barakat states to hold bp meds right now.
[2021-09-10 22:35] LABS: Absolute Lymphocyte Count 1.79 X10^3/uL (0.83-4.51); Absolute Neutrophil Count 3.3 X10^3/uL (2.0-7.7); Basophil# 0.06 X10^3/uL; Eosinophil# 0.16 X10^3/uL; Eosinophils% 2.7 % (0-5); Hematocrit 42.6 % (37-47); Hemoglobin 14.5 g/dL (12.0-15.0); Lymphocyte # 1.79 X10^3/ul (0.83-4.51); Lymphocyte % 30.4 % (19-41); Mean Corpuscular Hgb 28.2 pg (27.0-32.0); Mean Corpuscular Volume 82.9 fL (81-99); Mean Platelet Vol. 10.1 fl (6.2-12.0); Monocyte% 10.2 % (0-10); NRBC Flagged by Analyzer 0 % (0-5); Neutrophil # 3.27 X10^3/uL (2.7-7.7); Neutrophil % 55.5 % (47-70); Platelet Count 247 K/mm3 (150-450); RBC Distribution Width CV 12.8 % (11.6-14.6); RBC Distribution Width SD 38.7 fl (35.1-43.9); Red Blood Count 5.14 M/mm3 (4.2-5.4); White Blood Count 5.9 K/mm3 (4.4-11.0)
[2021-09-10 22:52] VITALS: BP 128/88; PULSE 64; RESP 16; O2SAT 94
[2021-09-10 22:56] LABS: Anion Gap 5 (5-15); BUN 14 mg/dL (7-18); BUN/Creat Ratio 9.5 RATIO (10-20); Calcium,Total 9.3 mg/dL (8.5-10.1); Chloride 102 mmol/L (98-107); Creatinine, Serum 1.48 mg/dL (0.55-1.02); EST Glomerular Filtration Rate 37 mL/min (>60); Est Glom Filt Rate - Afr Amer 45 mL/min (>60); Estimated Creatinine Clearance 33.58 ml/min; Glucose 109 mg/dL (74-106); Magnesium 2.3 mg/dL (1.6-2.6); Potassium 3.1 mmol/L (3.5-5.1); Sodium Level 139 mmol/L (136-145); Troponin-I HS < 3 pg/mL (3.0-54.0)
[2021-09-10 23:08] VITALS: BP 122/79; PULSE 58; RESP 11; O2SAT 96
--- NOTE | 2021-09-10 23:09 | EDS_ITS ---
HPI History of Present Illness Chief Complaint: Chest Pain Narrative Narrative: Patient is a 71-year-old female with past medical history of CAD requiring stent placement in 2018. Patient states that she was at home this evening when she developed a chest discomfort that radiated across her chest into her arms. She states this came on at rest and with her heart history she called EMS. EMS provided nitro and patient took 4 baby aspirin at home prior to arrival. She states that prior to arrival to the hospital her chest pain had resolved. The patient also reports her blood pressure was elevated on home when the symptoms were occurring. She states there was no nausea vomiting d iaphoresis or shortness of breath associated with them. However as the patient does have a history of CAD and developed chest discomfort she was concerned and therefore comes in for evaluation [facility] Medical History (Updated 09/11/21 @ 00:[address] 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 Chronic back pain COPD (chronic obstructive pulmonary disease) Daytime somnolence Dyspnea on exertion HLD (hyperlipidemia) HTN (hypertension) Nonrheumatic tricuspid (valve) insufficiency NSTEMI (non-ST elevated myocardial infarction) Obesity (BMI 30.0-34.9) Old myocardial infarction Pre-operative cardiovascular examination RSD (reflex sympathetic dystrophy) Home Medications famotidine 20 mg PO DAILY 10/02/15 [History Last Taken 08/22/18] aspirin 81 mg PO DAILY 01/20/16 [History Last Taken 08/22/18] nitroglycerin 0.4 mg SUBLINGUAL Q5M PRN #1 bottle 06/27/17 [Rx Last Taken Unknown] acetaminophen 1,000 mg PO Q8H PRN PRN tab 08/29/18 [Rx Last Taken Unknown] carvedilol 3.125 mg tablet 3.125 mg PO BID #180 tab 08/28/21 [Rx Last Taken Unknown] biotin 1,500 mcg PO DAILY 09/10/21 [History Last Taken Unknown] hydrochlorothiazide 12.5 mg PO DAILY 09/10/21 [History Last Taken Unknown] losartan 100 mg PO DAILY 09/10/21 [History Last Taken Unknown] Allergy/AdvReac Type Severity Reaction Status Date / Time venom-honey bee Allergy Severe Anaphylaxis Verified 09/10/21 21:32 [bee venom (honey bee)] atorvastatin Allergy Unknown Unknown Verified 09/10/21 21:32 Penicillins Allergy Unknown Unknown Verified 09/10/21 21:32 strawberry Allergy Anaphylaxis Verified 09/10/21 21:32 oxycodone HCl [From Percocet] AdvReac Vomiting Verified 09/10/21 21:32 Family History (Reviewed 05/15/21 @ 08:49 by Allie Dos Santos SYSTEMS CHECKOUT MECHANIC, SYSTEMS CHECKOUT MECHANIC-C) Father CAD (coronary artery disease) Brother Afib Surgical History History of back surgery History of coronary artery stent placement (06/26/17) left hand surgery Social History Smoking Status: Former smoker alcohol intake: current substance use type: former substance user Date of last use: 2016 and marijuana caffeine: Yes Type: carbonated beverages, coffee and tea what type of physical activity do you participate in: none seatbelt use: always do you feel safe at home: Yes ROS ROS ED Constitutional Constitutional ED: Denies chills or fever(s) ENT ENT ED: Denies sore throat Cardiovascular Cardiovascular: Reports chest pain; Denies palpitations or racing heartbeat Respiratory/Chest Respiratory/Chest: Denies cough or dyspnea Gastrointestinal Gastrointestinal: Denies abdominal pain, diarrhea, nausea or vomiting Genitourinary Genitourinary ED: Denies dysuria Musculoskeletal Musculoskeletal: Denies myalgias Integumentary Denies rash Neurologic Neurologic: Denies headache(s) Hematologic/Lymphatic Hematologic/Lymphatic: Denies easy bleeding or easy bruising EXAM Physical Exam Const Vital Signs: 09/10/21 21:28 09/10/21 21:36 09/10/21 22:31 Temperature 97.9 F Temperature Source Temporal Pulse Rate 72 66 Respiratory Rate 13 16 Respiratory Effort Normal Non-Labored Blood Pressure 155/97 H 128/88 H Blood Pressure Mean 116 101 Pulse Ox 93 97 Oxygen Delivery Method Room Air Room Air 09/10/21 22:52 09/10/21 23:08 09/11/21 00:05 Temperature Temperature Source Pulse Rate 64 58 L 65 Respiratory Rate 16 11 L 20 H Respiratory Effort Blood Pressure 128/88 H 122/79 H 131/75 H Blood Pressure Mean 101 93 93 Pulse Ox 94 96 95 Oxygen Delivery Method Room Air Room Air Positive well nourished and well developed General Appearance ED: well developed Eyes PERRL and EOMs intact bilaterally Neck supple Chest Wall palpation of chest normal Resp normal respiratory effort and clear to auscultation bilaterally Cardio regular rate and regular rhythm Rate: other Other Details: Radial pulses are +2-4 bilaterally are equal and symmetric GI normal to inspection, nondistended, normoactive bowel sounds, non-tender, non- distended and no masses GI Narrative: No voluntary guarding or rigidity no pulsatile mass Auscultation: normoactive bowel sounds Palpation: soft Extremity normal to inspection Extremity Narrative: No asymmetric edema no pitting edema negative Homans' sign bilaterally Neuro oriented x3 and CN's II-XII intact bilaterally Sensorium / Orientation: alert Motor Exam: strength 5/5 throughout Psych mental status grossly normal Skin no rashes or lesions noted MDM MDM MDM Narrative Medical decision making narrative: Patient presented to the ER with spontaneous resolution of her chest discomfort. Because of her previous medical history a cardiac work-up was obtained. The initial and delta troponin were normal at 3. Patient's blood pressure stabilized without any medications provided. On reevaluation she is resting comfortably and her chest pain remains resolved. Therefore at this time with spontaneous resolution of her pain and the fact that her work-up is negative I do not feel there is need to keep her in the hospital any further and patient is safe for discharge. Lab Data Attestation: I reviewed the patient's lab results. Labs: Laboratory Results - last 24 hr 09/10/21 09/10/21 09/10/21 21:30 21:30 23:35 WBC 5.9 RBC 5.14 Hgb 14.5 Hct 42.6 MCV 82.9 MCH 28.2 MCHC 34.0 RDW Std Deviation 38.7 RDW Coeff of Carlos 12.8 Plt Count 247 MPV 10.1 Immature Gran % (Auto) 0.200 Neut % (Auto) 55.5 Lymph % (Auto) 30.4 [place] % (Auto) 10.2 H Eos % (Auto) 2.7 Baso % (Auto) 1.0 Absolute Neuts (auto) 3.3 Absolute Lymphs (auto) 1.79 Nucleated RBC % 0 Sodium 139 Potassium 3.1 L Chloride 102 Carbon Dioxide 32.0 Anion Gap 5 BUN 14 Creatinine 1.48 H Estim Creat Clear Calc 33.58 Est GFR (MDRD) Af Amer 45 L Est GFR (MDRD) Non-Af 37 L BUN/Creatinine Ratio 9.5 L Glucose 109 H Calcium 9.3 Magnesium 2.3 Troponin I High Sens < 3 L < 3 L Radiography Diagnostic Testing: Clinical Impression(s) from Imaging Studies Chest X-Ray 09/10/21 22:22 X-rays interpreted by the emergency medicine physician reveals no acute infiltrate pneumothorax or pleural effusion Discharge Plan Triage Chief Complaint: Chest Pain ED Provider: Christopher Faustin Dx/Rx/DC Orders Clinical Impression: HTN (hypertension), Nonspecific chest pain Instructions: ED Chest Pain, Uncertain Cause, ED Hypertension, Established Prescriptions: No Action famotidine 20 MG tablet 20 mg PO DAILY RF: 0 aspirin 81 MG tablet,delayed release (DR/EC) 81 mg PO DAILY RF: 0 nitroglycerin 0.4 MG tablet 0.4 mg SUBLINGUAL Q5M PRN (Reason: Chest Pain) Qty: 1 RF: 0 acetaminophen 500 MG tablet 1,000 mg PO Q8H PRN PRN (Reason: Mild Pain (-08/16)) RF: 0 losartan 100 mg tablet 100 mg PO DAILY RF: 0 hydrochlorothiazide 12.5 mg tablet 12.5 mg PO DAILY RF: 0 biotin 1,000 mcg Tablet,Chewable 1,500 mcg PO DAILY RF: 0 carvedilol 3.125 mg tablet 3.125 mg PO BID Qty: 180 RF: 4 Primary Care Provider: Hussein Tidwell Referrals: Hussein Tidwell MD [Primary Care Provider] - Disposition Disposition: Home, Self Care
[2021-09-10 23:58] LABS: Troponin-I HS < 3 pg/mL (3.0-54.0)
[2021-09-11 00:05] VITALS: BP 131/75; PULSE 65; RESP 20; O2SAT 95
== END 2021-09-11 00:34 | disposition home or self-care (01) ==
PROVIDERS: Emergency Provider Emergency Medicine; PCP Family Medicine; Visit Provider Emergency Medicine
DX: R07.9 Chest pain, unspecified (principal); J44.9 Chronic obstructive pulmonary disease, unspecified; I10 Essential (primary) hypertension; E78.5 Hyperlipidemia, unspecified; Z87.891 Personal history of nicotine dependence; I25.10 Atherosclerotic heart disease of native coronary artery without angina pectoris; M54.9 Dorsalgia, unspecified; Z95.5 Presence of coronary angioplasty implant and graft; G89.29 Other chronic pain; I25.2 Old myocardial infarction
CPT/HCPCS: 71045; 80048; 83735; 84484; 85025; 93005; 96360; 99285; J7040; A4216

== ENCOUNTER → 2021-11-14 | Outpatient (CLI) | payer MEDICARE, MEDICAID, SELFPAY ==
[2017-06-26 13:13] VITALS: BMI 29.0
== END | disposition home or self-care (01) ==
LOC: LABSPEC 15:16
PROVIDERS: PCP Family Medicine; Visit Provider Family Medicine
DX: Z20.828 Contact with and (suspected) exposure to other viral communicable diseases (principal)
CPT/HCPCS: 87635; U0003; U0005

== ENCOUNTER 2022-01-09 16:06 | Emergency (ER) | payer MEDICARE, MEDICAID, SELFPAY ==
[2017-06-26 13:13] VITALS: BMI 29.0
[2022-01-09 16:07] VITALS: BP 185/97; PULSE 70; RESP 16; TEMP 36.4; O2SAT 98; BMI 29.2
--- NOTE | 2022-01-09 16:22 | EKG12_ITS ---
Test Reason : cp Blood Pressure : / mmHG Vent. Rate : 070 BPM Atrial Rate : 070 BPM P-R Int : 174 ms QRS Dur : 088 ms QT Int : 414 ms P-R-T Axes : 044 064 099 degrees QTc Int : 447 ms Normal sinus rhythm Nonspecific T wave abnormality Abnormal ECG Confirmed by SUDHIR OLIVEROS, VEE ([id number]), video tape editor HECTOR BRO ([id number]) on 01/10/2022 1:27:19 PM Referred By: Confirmed By:VEE PEGUERO MD
[2022-01-09 16:26] VITALS: O2SAT 95
[2022-01-09 16:31] LABS: Absolute Lymphocyte Count 1.73 X10^3/uL (0.83-4.51); Absolute Neutrophil Count 3.3 X10^3/uL (2.0-7.7); Basophil# 0.06 X10^3/uL; Eosinophil# 0.14 X10^3/uL; Eosinophils% 2.4 % (0-5); Hematocrit 41.3 % (37-47); Hemoglobin 13.8 g/dL (12.0-15.0); Lymphocyte # 1.73 X10^3/ul (0.83-4.51); Lymphocyte % 29.9 % (19-41); Mean Corp Hgb Conc 33.4 g/dL (32-36); Mean Corpuscular Hgb 27.6 pg (27.0-32.0); Mean Corpuscular Volume 82.6 fL (81-99); Mean Platelet Vol. 9.4 fl (6.2-12.0); Monocyte% 8.7 % (0-10); NRBC Flagged by Analyzer 0 % (0-5); Neutrophil # 3.34 X10^3/uL (2.7-7.7); Neutrophil % 57.8 % (47-70); Platelet Count 226 K/mm3 (150-450); RBC Distribution Width CV 13.2 % (11.6-14.6); RBC Distribution Width SD 39.5 fl (35.1-43.9); White Blood Count 5.8 K/mm3 (4.4-11.0)
--- NOTE | 2022-01-09 16:35 | RAD_ITS ---
EXAM: XR CHEST, 1 VIEW CLINICAL INDICATION: chest pain TECHNIQUE: Frontal view of the chest. This report was created using [email or web address] report generation technology. COMPARISON: XR Chest dated 09/10/2021 FINDINGS: LUNGS AND PLEURAL SPACES: Lingular density which may represent atelectasis or pneumonia. No pneumothorax. No effusion. HEART: Normal heart size. MEDIASTINUM: Central airways and mediastinal contour are unremarkable. BONES/JOINTS: Normal. SOFT TISSUES: Normal. RAD/Chest 1 View (Portable) IMPRESSION: Lingular atelectasis/pneumonia Electronically Signed: Red Cheema MD at 16:51 EDT ,
[2022-01-09] MEDS: Aspirin 81 MG TAB.CHEW 324 MG PO (16:36)
[2022-01-09 16:41] VITALS: BP 158/66; PULSE 74; RESP 17; O2SAT 95
[2022-01-09 16:49] LABS: Anion Gap 5 (5-15); BUN 14 mg/dL (7-18); BUN/Creat Ratio 11.2 RATIO (10-20); Calcium,Total 9.2 mg/dL (8.5-10.1); Chloride 109 mmol/L (98-107); Creatinine, Serum 1.25 mg/dL (0.55-1.02); EST Glomerular Filtration Rate 45 mL/min (>60); Est Glom Filt Rate - Afr Amer 55 mL/min (>60); Glucose 117 mg/dL (74-106); Potassium 3.5 mmol/L (3.5-5.1); Sodium Level 141 mmol/L (136-145); Troponin-I HS (w/2H Reflex) 5 pg/mL (3.0-54.0)
[2022-01-09 17:09] VITALS: BP 105/77; PULSE 61; RESP 14; O2SAT 95
--- NOTE | 2022-01-09 17:25 | CT_ITS ---
STUDY: CTA CHEST REASON FOR EXAM: Female, 72 years old. PE RADIATION DOSAGE (If Supplied By Facility): CTDIvol = ( 12.98 ) mGy, DLP = ( 380.58 ) mGycm TECHNIQUE: The examination was performed with the intravenous administration of IV 100mL Isovue-370. Post-processing of the angiographic images was performed, with multiplanar reformation and 3D reconstruction. Individualized dose optimization techniques were used for this CT. COMPARISON: None. FINDINGS: Normal enhancement of the main pulmonary artery and right and left pulmonary arteries. Normal enhancement of the bilateral peripheral pulmonary arteries. There is no demonstrated pulmonary embolism. Mild atherosclerotic changes of the aorta without evidence for aneurysm. There is no demonstrated aortic dissection. Right size is normal. There is a coronary artery stent. Normal mediastinum. Normal hilar regions. Normal visualized trachea and bronchi. The lungs are well expanded. Mild subsegmental atelectasis in left lower lobe and right middle and right lower lobe. No focal infiltration or pulmonary nodule Normal pleura. Normal chest wall structures. Dorsal spine demonstrates degenerative change. Normal visualized upper abdomen. CT/CTA Chest W/WO Contrast IMPRESSION: Minor subsegmental atelectasis in the right middle and bilateral lower lobes.. No evidence for pulmonary embolus Electronically Signed: Prashant Winslow MD at 18:29 EDT ,
--- NOTE | 2022-01-09 17:26 | EDS_ITS ---
HPI History of Present Illness Chief Complaint: Hypertension Informant: patient Narrative Narrative: Patient is a 72-year-old female with history of coronary artery disease, restless leg syndrome, complex regional pain syndrome of the left hand, hypertension, hyperlipidemia and COPD presenting with chest pain and headache. Patient notes her blood pressures been high over the past few days with her home blood pressure cuff. Last night it was 195/107. She notes she was taking her blood pressure about every 30 minutes with her cuff. She said some mild associated shortness of breath as well as headache. She is developed chest pain for the center of her chest just to the left of her sternum. Is been constant nature. Is worse with direct palpation or when she changes positions. She saw cardiology today and they had her take an extra of her carvedilol. Patient was continue to feel unwell and came to the emergency room for further evaluation. Denies any swelling of her legs. No other complaints at this time. [facility] Medical History (Updated 01/09/22 @ 19:[address] Ana Haile, DO) Angiomyoma Atherosclerotic heart disease of [place] coronary artery without angina pectoris Chronic back pain COPD (chronic obstructive pulmonary disease) Daytime somnolence Dyspnea on exertion HLD (hyperlipidemia) HTN (hypertension) Nonrheumatic tricuspid (valve) insufficiency NSTEMI (non-ST elevated myocardial infarction) Obesity (BMI 30.0-34.9) Old myocardial infarction Pre-operative cardiovascular examination RSD (reflex sympathetic dystrophy) Home Medications famotidine 20 mg tablet 20 mg PO DAILY Stomach 10/02/15 [History Last Taken 08/22/18] aspirin 81 mg tablet,delayed release 81 mg PO DAILY Heart 01/20/16 [History Last Taken 08/22/18] nitroglycerin 0.4 mg sublingual tablet 0.4 mg sublingual Q5M PRN Chest Pain #1 BOTTLE 06/27/17 [Rx Last Taken Unknown] biotin 1,000 mcg chewable tablet 10,000 mcg PO DAILY 09/10/21 [History Last Taken Unknown] losartan 100 mg tablet 100 mg PO DAILY 09/10/21 [History Last Taken Unknown] tramadol 50 mg tablet 50 mg PO BID PRN Pain 11/13/21 [History Last Taken Unknown] amlodipine 5 mg tablet 5 mg PO DAILY #30 tabs 01/09/22 [Rx Last Taken Unknown] carvedilol 6.25 mg tablet 12.5 mg PO BID 01/09/22 [History Last Taken Unknown] hydrochlorothiazide 25 mg tablet 25 mg PO DAILY This is a dose increase #90 tabs 01/09/22 [Rx Last Taken Unknown] Allergy/AdvReac Type Severity Reaction Status Date / Time venom-honey bee Allergy Severe Anaphylaxis Verified 01/09/22 16:09 [bee venom (honey bee)] atorvastatin Allergy Unknown Unknown Verified 01/09/22 16:09 Penicillins Allergy Unknown Unknown Verified 01/09/22 16:09 strawberry Allergy Anaphylaxis Verified 01/09/22 16:09 oxycodone HCl [From Percocet] AdvReac Vomiting Verified 01/09/22 16:09 Family History Father CAD (coronary artery disease) Brother Afib Surgical History History of back surgery History of coronary artery stent placement (06/26/17) left hand surgery Social History Smoking Status: Former smoker alcohol intake: current substance use type: former substance user Date of last use: 2016 and marijuana caffeine: Yes Type: carbonated beverages, coffee and tea what type of physical activity do you participate in: none seatbelt use: always do you feel safe at home: Yes ROS ROS ED Constitutional Constitutional ED: Denies chills or fever(s) Eyes Eyes: Denies change in vision ENT ENT ED: Denies rhinorrhea Cardiovascular Cardiovascular: Reports chest pain; Denies palpitations or racing heartbeat Respiratory/Chest Respiratory/Chest: Reports cough and dyspnea; Denies dyspnea on exertion Gastrointestinal Gastrointestinal: Denies abdominal pain, nausea or vomiting Genitourinary Genitourinary ED: Denies dysuria or hematuria Musculoskeletal Musculoskeletal: Denies arthralgias or myalgias Integumentary Denies rash Neurologic Neurologic: Reports headache(s); Denies paresthesias or weakness Psychiatric Psychiatric: Denies depression Hematologic/Lymphatic Hematologic/Lymphatic: Reports none EXAM Physical Exam Const Vital Signs: 01/09/22 16:07 01/09/22 16:07 01/09/22 16:26 Temperature 97.6 F L Temperature Source Temporal Pulse Rate 70 Respiratory Rate 16 Blood Pressure 185/97 H Blood Pressure Mean 126 Pulse Ox 98 95 Oxygen Delivery Method Room Air Room Air 01/09/22 16:41 01/09/22 17:09 01/09/22 18:56 Temperature Temperature Source Pulse Rate 74 61 57 L Respiratory Rate 17 14 17 Blood Pressure 158/66 H 105/77 159/75 H Blood Pressure Mean 96 86 103 Pulse Ox 95 95 94 Oxygen Delivery Method Room Air Room Air Room Air Positive well nourished and well developed General Appearance ED: well developed and NAD HEENT Reports moist mucous membranes Eyes PERRL and EOMs intact bilaterally Neck supple and no JVD Chest Wall inspection of chest normal Chest Narrative: No chest wall crepitus. Significant tenderness palpation of the anterior chest just to the right of the mid sternum. No overlying skin changes Resp normal respiratory effort and clear to auscultation bilaterally Cardio regular rate, regular rhythm and no murmurs GI normal to inspection, nondistended, normoactive bowel sounds and non-tender Back/Spine no CVA tenderness Extremity normal to inspection Extremity Narrative: 2+ radial and DP pulses General Extremety ED: Negative for edema or tenderness General Extremity: Negative for edema Neuro oriented x3, CN's II-XII intact bilaterally and no sensory deficits noted Motor Exam: strength 5/5 throughout; Negative for general weakness Skin no rashes or lesions noted and no wounds MDM MDM MDM Narrative Medical decision making narrative: Patient is evaluated for constant chest pain for the past 2 to 3 days. Chest pain is highly reproducible and I suspect is muscle skeletal. She does note her blood pressure has been high and has been having headaches. She has a normal neurologic exam and I do not think this is a hypertensive emergency. Patient's blood pressure is only mildly elevated in the ER. I did check her blood pressure with her home cuff and found it to read about 20 mmHg higher systolic blood pressure than our cuff. Question if she is getting some falsely elevated readings. Chest x-ray showed questionable infiltrate versus atelectasis in the left lingular area. CT of the chest ordered to further evaluate this as well as rule out PE. This was negative. Patient's work-up is largely unremarkable. She is a mild bump in her creatinine which appears near her baseline at 1.25. Her high since he troponin is normal x2 at 5. Her EKG does not show any acute ischemic changes. I believe patient is stable for discharge home. She will follow-up with her allergist/immunologist physician for further blood pressure control as they are currently adjusting her medications. Patient counseled on the signs and symptoms of a hypertensive emergency and indications to return to the emergency room. She is instructed to try topical Lidoderm patches or Tylenol for her chest pain. Lab Data Labs: Laboratory Results - last 24 hr 01/09/22 01/09/22 01/09/22 16:25 16:25 18:35 WBC 5.8 RBC 5.00 Hgb 13.8 Hct 41.3 MCV 82.6 MCH 27.6 MCHC 33.4 RDW Std Deviation 39.5 RDW Coeff of Carlos 13.2 Plt Count 226 MPV 9.4 Immature Gran % (Auto) 0.200 Neut % (Auto) 57.8 Lymph % (Auto) 29.9 [place] % (Auto) 8.7 Eos % (Auto) 2.4 Baso % (Auto) 1.0 Absolute Neuts (auto) 3.3 Absolute Lymphs (auto) 1.73 Nucleated RBC % 0 Sodium 141 Potassium 3.5 Chloride 109 H Carbon Dioxide 27.0 Anion Gap 5 BUN 14 Creatinine 1.25 H Estim Creat Clear Calc 39.20 Est GFR (MDRD) Af Amer 55 L Est GFR (MDRD) Non-Af 45 L BUN/Creatinine Ratio 11.2 Glucose 117 H Calcium 9.2 Troponin I High Sens 5 5 Radiography Chest X-Ray - ED: 1 View, Read by ED Physician, Read by Radiologist and - (Questionable left lingular infiltrate versus atelectasis) Diagnostic Testing: Clinical Impression(s) from Imaging Studies Chest X-Ray 01/09/22 16:35 IMPRESSION: Lingular atelectasis/pneumonia Electronically Signed: Red Cheema MD at 16:51 EDT , Chest CTA 01/09/22 17:25 IMPRESSION: Minor subsegmental atelectasis in the right middle and bilateral lower lobes.. No evidence for pulmonary embolus Electronically Signed: Prashant Winslow MD at 18:29 EDT , Rhythm Strip Rhythm Strip: Sinus Rhythm Rate: 70 Ectopy: None EKG Initial EKG: Attestation: I personally reviewed and interpreted this EKG as follows: Interpretation: Sinus Rhythm Comments: Normal sinus rhythm at a rate of 70 Normal axis Normal intervals Normal ST segments Discharge Plan Triage Chief Complaint: Hypertension ED Provider: Ana Haile Dx/Rx/DC Orders Clinical Impression: Chest wall pain, Hypertension, Tension type headache Instructions: ED Chest Pain, Noncardiac, ED Headache, Tension, ED Hypertension, Established Prescriptions: No Action tramadol 50 mg tablet 50 mg PO BID PRN (Reason: Pain) famotidine 20 MG tablet 20 mg PO DAILY Label Comments: reflux aspirin 81 MG tablet,delayed release (DR/EC) 81 mg PO DAILY Label Comments: [facility] nitroglycerin 0.4 MG tablet 0.4 mg SUBLINGUAL Q5M PRN (Reason: Chest Pain) Qty: 1 0RF Rx Instructions: as directed losartan 100 mg tablet 100 mg PO DAILY Label Comments: TAKE 1 TABLET BY MOUTH ONCE DAILY biotin 1,000 mcg Tablet,Chewable 10,000 mcg PO DAILY carvedilol 6.25 mg tablet 12.5 mg PO BID Rx Instructions: must administer with a meal/food hydrochlorothiazide 25 mg tablet 25 mg PO DAILY Qty: 90 3RF amlodipine 5 mg tablet 5 mg PO DAILY Qty: 30 11RF Primary Care Provider: Hussein Tidwell Referrals: Alberto Rich MD [Med Staff - Active Staff] - Hussein Tidwell MD [Primary Care Provider] - Activity Restrictions/Additional Instructions: Continue to follow-up with cardiology for further blood pressure management. At this time there are no signs of a heart attack, blood clot, pneumonia or other cause of your symptoms. Try taking Tylenol and using [id number] lidocaine patches (Salonpas) to see if this helps with your chest pain. I suspect it is musculoskeletal. Disposition Disposition: Home, Self Care
[2022-01-09 18:30] LABS: Reflex Troponin-HS? (from REC) Y
[2022-01-09 18:56] VITALS: BP 159/75; PULSE 57; RESP 17; O2SAT 94
[2022-01-09 19:00] LABS: Troponin-I HS 5 pg/mL (3.0-54.0)
[2022-01-09 19:46] VITALS: BP 160/78; PULSE 63; RESP 18; O2SAT 95
== END 2022-01-09 19:46 | disposition home or self-care (01) ==
PROVIDERS: Emergency Provider Emergency Medicine; PCP Family Medicine; Visit Provider Emergency Medicine
DX: I10 Essential (primary) hypertension (principal); J44.9 Chronic obstructive pulmonary disease, unspecified; I25.10 Atherosclerotic heart disease of native coronary artery without angina pectoris; E78.5 Hyperlipidemia, unspecified; Z87.891 Personal history of nicotine dependence; R51.9 Headache, unspecified; M54.9 Dorsalgia, unspecified
CPT/HCPCS: 71045; 71275; 80048; 84484; 85025; 93005; 99285; Q9967; A4216

== ENCOUNTER → 2022-01-24 | Outpatient (CLI) | payer MEDICARE, MEDICAID, SELFPAY ==
[2017-06-26 13:13] VITALS: BMI 29.0
[2022-01-24 10:24] LABS: Absolute Lymphocyte Count 1.78 X10^3/uL (0.83-4.51); Absolute Neutrophil Count 3.9 X10^3/uL (2.0-7.7); Basophil% 1.5 % (0-1); Eosinophil# 0.19 X10^3/uL; Eosinophils% 2.9 % (0-5); Hematocrit 45.6 % (37-47); Hemoglobin 15.4 g/dL (12.0-15.0); Lymphocyte # 1.78 X10^3/ul (0.83-4.51); Mean Corp Hgb Conc 33.8 g/dL (32-36); Mean Corpuscular Hgb 27.9 pg (27.0-32.0); Mean Corpuscular Volume 82.8 fL (81-99); Mean Platelet Vol. 9.9 fl (6.2-12.0); Monocyte# 0.59 X10^3/uL; NRBC Flagged by Analyzer 0 % (0-5); Neutrophil # 3.91 X10^3/uL (2.7-7.7); Neutrophil % 59.3 % (47-70); Platelet Count 290 K/mm3 (150-450); RBC Distribution Width CV 12.9 % (11.6-14.6); RBC Distribution Width SD 38.5 fl (35.1-43.9); Red Blood Count 5.51 M/mm3 (4.2-5.4); White Blood Count 6.6 K/mm3 (4.4-11.0)
[2022-01-24 11:15] LABS: AST(SGOT) 17 U/L (15-37); Alanine Aminotransfer ALT/SGPT 31 U/L (13-56); Albumin, Serum 3.3 g/dL (3.2-5.0); Alkaline Phosphatase 88 U/L (45-117); Anion Gap 8 (5-15); BUN 18 mg/dL (7-18); BUN/Creat Ratio 15.3 RATIO (10-20); Calcium,Total 9.1 mg/dL (8.5-10.1); Chloride 102 mmol/L (98-107); Cholesterol 235 mg/dL (200); Creatinine, Serum 1.18 mg/dL (0.55-1.02); EST Glomerular Filtration Rate 48 mL/min (>60); Est Glom Filt Rate - Afr Amer 58 mL/min (>60); Globulin 4.4 g/dL (2.2-4.2); Glucose 101 mg/dL (74-106); High Density Lipoprotein 39 mg/dL; Protein, Total 7.7 g/dL (6.4-8.2); Sodium Level 141 mmol/L (136-145); Thyroid Stim Hormone (TSH) 1.08 uIU/mL (0.358-3.74); Triglycerides 297 mg/dL; Very Low Density Lipoprotein 59 mg/dL (5-40)
== END | disposition home or self-care (01) ==
LOC: LAB 09:22
PROVIDERS: Nurse Practitioner Family; PCP Family Medicine; Referring Provider Family Medicine; Visit Provider Family Medicine
DX: I10 Essential (primary) hypertension (principal); E78.5 Hyperlipidemia, unspecified
CPT/HCPCS: 36415; 80048; 80061; 80076; 84443; 85025

== ENCOUNTER 2022-02-08 13:19 | Emergency (ER) | payer MEDICARE, MEDICAID, SELFPAY ==
[2017-06-26 13:13] VITALS: BMI 29.0
[2022-02-08 13:20] VITALS: BP 108/77; PULSE 60; RESP 14; TEMP 36.7; O2SAT 100; BMI 28.7
[2022-02-08 14:21] LABS: Absolute Lymphocyte Count 1.62 X10^3/uL (0.83-4.51); Absolute Neutrophil Count 2.5 X10^3/uL (2.0-7.7); Basophil# 0.06 X10^3/uL; Basophil% 1.2 % (0-1); Eosinophil# 0.13 X10^3/uL; Eosinophils% 2.7 % (0-5); Hematocrit 41.3 % (37-47); Hemoglobin 13.8 g/dL (12.0-15.0); Lymphocyte # 1.62 X10^3/ul (0.83-4.51); Lymphocyte % 33.1 % (19-41); Mean Corp Hgb Conc 33.4 g/dL (32-36); Mean Corpuscular Hgb 27.5 pg (27.0-32.0); Mean Corpuscular Volume 82.4 fL (81-99); Mean Platelet Vol. 9.6 fl (6.2-12.0); Monocyte# 0.55 X10^3/uL; Monocyte% 11.2 % (0-10); NRBC Flagged by Analyzer 0 % (0-5); Neutrophil # 2.52 X10^3/uL (2.7-7.7); Neutrophil % 51.6 % (47-70); Platelet Count 244 K/mm3 (150-450); RBC Distribution Width CV 12.9 % (11.6-14.6); RBC Distribution Width SD 38.4 fl (35.1-43.9); Red Blood Count 5.01 M/mm3 (4.2-5.4); White Blood Count 4.9 K/mm3 (4.4-11.0)
[2022-02-08 14:39] LABS: ALB/GLOB Ratio 0.8 RATIO (0.9-2.4); AST(SGOT) 9 U/L (15-37); Alanine Aminotransfer ALT/SGPT 19 U/L (13-56); Albumin, Serum 3.2 g/dL (3.2-5.0); Alkaline Phosphatase 75 U/L (45-117); Anion Gap 6 (5-15); BUN 18 mg/dL (7-18); BUN/Creat Ratio 15.5 RATIO (10-20); Calcium,Total 9.1 mg/dL (8.5-10.1); Chloride 106 mmol/L (98-107); Creatinine, Serum 1.16 mg/dL (0.55-1.02); EST Glomerular Filtration Rate 49 mL/min (>60); Est Glom Filt Rate - Afr Amer 59 mL/min (>60); Estimated Creatinine Clearance 42.25 ml/min; Globulin 3.9 g/dL (2.2-4.2); Glucose 90 mg/dL (74-106); Lipase 120 U/L (73-393); Potassium 3.8 mmol/L (3.5-5.1); Protein, Total 7.1 g/dL (6.4-8.2); Sodium Level 141 mmol/L (136-145)
--- NOTE | 2022-02-08 14:51 | ED.VIS.GI ---
HPI HPI - GI History of Present Illness Chief Complaint: Diarrhea Informant: patient Narrative Narrative: Patient is a 72-year-old female presenting for evaluation after having 2 episodes of diarrhea. This occurred today. She denies he has abdominal pain. She states the diarrhea seem to come out of nowhere. She was especially concerned when she had possibly red discoloration of her stool that she might have blood in her stool. In addition she passed and undigested tablet. She denies associated nausea, vomiting, diaphoresis, abdominal pain, chest pain, shortness of breath or any other symptoms. She denies any sick contacts. She denies any history of C. difficile. She denies any recent antibiotics. She denies any numbness or tingling in her legs/perineal region. No low back pain. No other complaints at this time. Patient notes that she is put on new blood pressure medicine 2 weeks ago but denies any other new medications. She is on 81 mg aspirin but no other blood thinners. No other complaints at this time. [facility] Medical History (Updated 02/08/22 @ 14:[address] Ana Haile, ) Angiomyoma Atherosclerotic heart disease of [place] coronary artery without angina pectoris Chronic back pain COPD (chronic obstructive pulmonary disease) Daytime somnolence Dyspnea on exertion HLD (hyperlipidemia) HTN (hypertension) Nonrheumatic tricuspid (valve) insufficiency NSTEMI (non-ST elevated myocardial infarction) Obesity (BMI 30.0-34.9) Old myocardial infarction Pre-operative cardiovascular examination RSD (reflex sympathetic dystrophy) Home Medications famotidine 20 mg tablet 20 mg PO DAILY Stomach 10/02/15 [History Last Taken 08/22/18] aspirin 81 mg tablet,delayed release 81 mg PO DAILY Heart 01/20/16 [History Last Taken 08/22/18] biotin 1,000 mcg chewable tablet 10,000 mcg PO DAILY 09/10/21 [History Last Taken Unknown] losartan 100 mg tablet 100 mg PO DAILY 09/10/21 [History Last Taken Unknown] amlodipine 5 mg tablet 5 mg PO DAILY #30 tabs 01/09/22 [Rx Last Taken Unknown] hydrochlorothiazide 25 mg tablet 25 mg PO DAILY This is a dose increase #90 tabs 01/09/22 [Rx Last Taken Unknown] carvedilol 6.25 mg tablet 6.25 mg PO BID 01/25/22 [History Last Taken Unknown] ezetimibe 10 mg tablet (Zetia) 10 mg PO DAILY #90 tabs 01/25/22 [Rx Last Taken Unknown] potassium chloride 20 mEq tablet,extended release 20 meq PO DAILY #90 tabs 01/25/22 [Rx Last Taken Unknown] Allergy/AdvReac Type Severity Reaction Status Date / Time venom-honey bee Allergy Severe Anaphylaxis Verified 02/08/22 13:23 [bee venom (honey bee)] atorvastatin Allergy Unknown Unknown Verified 02/08/22 13:23 Penicillins Allergy Unknown Unknown Verified 02/08/22 13:23 strawberry Allergy Anaphylaxis Verified 02/08/22 13:23 oxycodone HCl [From Percocet] AdvReac Vomiting Verified 02/08/22 13:23 Family History Father CAD (coronary artery disease) Brother Afib Surgical History History of back surgery History of coronary artery stent placement (06/26/17) left hand surgery Social History Smoking Status: Former smoker alcohol intake: current substance use type: former substance user Date of last use: 2015 and marijuana caffeine: Yes Type: carbonated beverages, coffee and tea what type of physical activity do you participate in: none seatbelt use: always do you feel safe at home: Yes ROS ROS ED Constitutional Constitutional ED: Denies chills or fever(s) ENT ENT ED: Denies sore throat Cardiovascular Cardiovascular: Denies chest pain or palpitations Respiratory/Chest Respiratory/Chest: Denies cough Gastrointestinal Gastrointestinal: Reports diarrhea; Denies abdominal pain, melena, nausea or vomiting Genitourinary Genitourinary ED: Denies dysuria or hematuria Musculoskeletal Musculoskeletal: Denies arthralgias, back pain or myalgias Integumentary Denies rash Neurologic Neurologic: Denies headache(s) or paresthesias Psychiatric Psychiatric: Denies anxiety Hematologic/Lymphatic Hematologic/Lymphatic: Denies easy bleeding or easy bruising EXAM Physical Exam Const Vital Signs: 02/08/22 13:20 Temperature 98.1 F Temperature Source Temporal Pulse Rate 60 Respiratory Rate 14 Blood Pressure 108/77 Blood Pressure Mean 87 Pulse Ox 100 Oxygen Delivery Method Room Air Positive well nourished and well developed General Appearance ED: well developed and NAD; Negative for pallor HEENT Reports moist mucous membranes normocephalic and atraumatic Eyes PERRL Neck supple Resp normal respiratory effort and clear to auscultation bilaterally Cardio regular rate, regular rhythm and no murmurs GI non-tender and non-distended GI Narrative: [place]/brown stool on exam. Hemoccult negative. Auscultation: normoactive bowel sounds Palpation: soft; Negative for guarding or rigid Back/Spine no CVA tenderness Extremity full ROM Neuro moves all extremities and no sensory deficits noted Psych mental status grossly normal and thought process normal Skin no wounds General Skin Exam: Negative for pallor MDM MDM MDM Narrative Medical decision making narrative: Patient evaluated after an episode of diarrhea. She was concerned that she might have blood in her stool. She showed me a picture of her stool and it seems to be more oranges colored. In addition she does mention that she had red Jell-O last night as well as a lopez pop tart this morning. Hemoccult is negative in the ER. Patient does not have a leukocytosis or any risk factors for C. difficile. She currently feels well and is asymptomatic. Lab work is checked which is largely normal. Patient's creatinine is mildly elevated 1.16 but this appears to be her baseline. She is hemodynamically stable. Her hemoglobin is normal at 13.8. I do not think she requires further imaging or further observation in the ER. She does not appear clinically dehydrated. Is encouraged to follow-up with her primary care doctor. Patient verbalizes agreement and understand this plan. Discharged home in stable condition. Lab Data Labs: Laboratory Results - last 24 hr 02/08/22 02/08/22 14:14 14:14 WBC 4.9 RBC 5.01 Hgb 13.8 Hct 41.3 MCV 82.4 MCH 27.5 MCHC 33.4 RDW Std Deviation 38.4 RDW Coeff of Carlos 12.9 Plt Count 244 MPV 9.6 Immature Gran % (Auto) 0.200 Neut % (Auto) 51.6 Lymph % (Auto) 33.1 [place] % (Auto) 11.2 H Eos % (Auto) 2.7 Baso % (Auto) 1.2 H Absolute Neuts (auto) 2.5 Absolute Lymphs (auto) 1.62 Nucleated RBC % 0 Sodium 141 Potassium 3.8 Chloride 106 Carbon Dioxide 29.0 Anion Gap 6 BUN 18 Creatinine 1.16 H Estim Creat Clear Calc 42.25 Est GFR (MDRD) Af Amer 59 L Est GFR (MDRD) Non-Af 49 L BUN/Creatinine Ratio 15.5 Glucose 90 Calcium 9.1 Total Bilirubin 0.50 AST 9 L ALT 19 Alkaline Phosphatase 75 Total Protein 7.1 Albumin 3.2 Globulin 3.9 Albumin/Globulin Ratio 0.8 L Lipase 120 Discharge Plan Triage Chief Complaint: Diarrhea ED Provider: Ana Haile Dx/Rx/DC Orders Clinical Impression: Diarrhea, CKD (chronic kidney disease) Instructions: ED Diarrhea, Unknown Cause Prescriptions: No Action carvedilol 6.25 mg tablet 6.25 mg PO BID potassium chloride 20 mEq tablet extended release 20 meq PO DAILY Qty: 90 3RF ezetimibe [Zetia] 10 mg tablet 10 mg PO DAILY Qty: 90 3RF famotidine 20 MG tablet 20 mg PO DAILY Label Comments: reflux aspirin 81 MG tablet,delayed release (DR/EC) 81 mg PO DAILY Label Comments: [facility] losartan 100 mg tablet 100 mg PO DAILY Label Comments: TAKE 1 TABLET BY MOUTH ONCE DAILY biotin 1,000 mcg Tablet,Chewable 10,000 mcg PO DAILY hydrochlorothiazide 25 mg tablet 25 mg PO DAILY Qty: 90 3RF amlodipine 5 mg tablet 5 mg PO DAILY Qty: 30 11RF Primary Care Provider: Hussein Tidwell Referrals: Hussein Tidwell MD [Primary Care Provider] - Activity Restrictions/Additional Instructions: There is no sign of blood in your stool. Your lab work is good. Your communications and signals supervisor office will be able to see the results for your next appointment. Please let them know you had your lab work drawn in the ER so they can look in the system for it. Drink lots of fluids. Return the emergency room with any worsening symptoms or concerns. Follow-up with your primary care doctor as needed. Disposition Disposition: Home, Self Care Discharge Date/Time: 02/08/22 15:07
== END 2022-02-08 15:07 | disposition home or self-care (01) ==
PROVIDERS: Emergency Provider Emergency Medicine; PCP Family Medicine; Visit Provider Emergency Medicine
DX: R19.7 Diarrhea, unspecified (principal); J44.9 Chronic obstructive pulmonary disease, unspecified; E78.5 Hyperlipidemia, unspecified; I12.9 Hypertensive chronic kidney disease with stage 1 through stage 4 chronic kidney disease, or unspecified chronic kidney disease; M54.9 Dorsalgia, unspecified; I25.10 Atherosclerotic heart disease of native coronary artery without angina pectoris; N18.9 Chronic kidney disease, unspecified; Z87.891 Personal history of nicotine dependence
CPT/HCPCS: 80053; 82274; 83690; 85025; 99283; A4216

== ENCOUNTER → 2022-03-07 | Outpatient (CLI) | payer MEDICARE, MEDICAID, SELFPAY ==
[2017-06-26 13:13] VITALS: BMI 29.0
== END | disposition home or self-care (01) ==
PROVIDERS: PCP Family Medicine; Visit Provider Family Medicine
DX: R10.9 Unspecified abdominal pain (principal)
CPT/HCPCS: 87086; 87088

== ENCOUNTER 2022-05-29 09:50 | Observation (INO) | payer MEDICARE, MEDICAID, SELFPAY ==
[2017-06-26 13:13] VITALS: BMI 29.0
[2022-05-29] VITALS (12 sets, daily range): BP systolic 82–124; BP diastolic 54–64; PULSE 57–78; RESP 12–18; TEMP 36.6–37.6; O2SAT 91–96; BMI 29.6; BMI 29.7
--- NOTE | 2022-05-29 10:30 | EX.ED.DYSGE1 ---
HPI History of Present Illness Chief Complaint: Cold Sx Detail of Chief Complaint: Not feeling well x5 days Informant: patient Narrative Narrative: Patient presents to the emergency department complaint not feeling well for about the last 5 days. Patient complains of cough and sore throat and body aches. Patient states that she urinates every time she coughs. She had fever up to 101 at home. Cough at times productive of yellow sputum. Patient has had her COVID and influenza vaccines. She denies sick contacts. Had leftover azithromycin that she started taking last night. Patient started itching today. Patient also vomited x2 today. She denies diarrhea. Last bowel movement was about 5 days ago. [facility] Medical History (Updated 05/29/22 @ 12:[address] 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 Chronic back pain COPD (chronic obstructive pulmonary disease) Daytime somnolence Dyspnea on exertion HLD (hyperlipidemia) HTN (hypertension) Nonrheumatic tricuspid (valve) insufficiency NSTEMI (non-ST elevated myocardial infarction) Obesity (BMI 30.0-34.9) Old myocardial infarction Pre-operative cardiovascular examination RSD (reflex sympathetic dystrophy) Home Medications famotidine 20 mg tablet 20 mg PO DAILY Stomach 10/02/15 [History Last Taken 08/22/18] aspirin 81 mg tablet,delayed release 81 mg PO DAILY Heart 01/20/16 [History Last Taken 08/22/18] biotin 1,000 mcg chewable tablet 10,000 mcg PO DAILY 09/10/21 [History Last Taken Unknown] losartan 100 mg tablet 100 mg PO DAILY 09/10/21 [History Last Taken Unknown] amlodipine 5 mg tablet 5 mg PO DAILY #30 tabs 01/09/22 [Rx Last Taken Unknown] hydrochlorothiazide 25 mg tablet 25 mg PO DAILY This is a dose increase #90 tabs 01/09/22 [Rx Last Taken Unknown] ezetimibe 10 mg tablet (Zetia) 10 mg PO DAILY #90 tabs 01/25/22 [Rx Last Taken Unknown] potassium chloride 20 mEq tablet,extended release 20 meq PO DAILY #90 tabs 01/25/22 [Rx Last Taken Unknown] carvedilol 6.25 mg tablet 12.5 mg PO BID 05/29/22 [History Last Taken Unknown] clonazepam 1 mg tablet 1 mg PO QHS PRN PRN Sleep 05/29/22 [History Last Taken Unknown] nitroglycerin 0.4 mg sublingual tablet 0.4 mg sublingual PRN PRN Chest Pain 05/29/22 [History Last Taken Unknown] tramadol 50 mg tablet 50 - 100 mg PO Q4H PRN PRN Pain 05/29/22 [History Last Taken Unknown] Allergy/AdvReac Type Severity Reaction Status Date / Time venom-honey bee Allergy Severe Anaphylaxis Verified 05/29/22 09:54 [bee venom (honey bee)] atorvastatin Allergy Unknown Unknown Verified 05/29/22 09:54 Penicillins Allergy Unknown Unknown Verified 05/29/22 09:54 strawberry Allergy Anaphylaxis Verified 05/29/22 09:54 oxycodone HCl [From Percocet] AdvReac Vomiting Verified 05/29/22 09:54 Family History Father CAD (coronary artery disease) Brother Afib Surgical History History of back surgery History of coronary artery stent placement (06/26/17) left hand surgery Social History Smoking Status: Former smoker alcohol intake: current substance use type: former substance user Date of last use: 2015 and marijuana caffeine: Yes Type: carbonated beverages, coffee and tea what type of physical activity do you participate in: none seatbelt use: always do you feel safe at home: Yes ROS ROS ED Review of Systems ROS Unobtainable: other Constitutional Constitutional ED: Reports fever(s) and lethargy; Denies chills, sweats or weight loss Eyes Eyes: Denies blurry vision, change in vision or diplopia ENT ENT ED: Denies rhinorrhea or sore throat Cardiovascular Cardiovascular: Denies chest pain, orthopnea or racing heartbeat Respiratory/Chest Respiratory/Chest: Reports cough and dyspnea; Denies dyspnea on exertion, orthopnea or sputum Gastrointestinal Gastrointestinal: Reports nausea and vomiting; Denies abdominal pain or diarrhea Genitourinary Genitourinary ED: Reports urinary frequency; Denies dysuria or hematuria Musculoskeletal Musculoskeletal: Denies arthralgias, back pain, myalgias or neck pain Integumentary Denies abscess, Abrasions or rash Neurologic Neurologic: Denies headache(s) or weakness Psychiatric Psychiatric: Denies anxiety, depression or suicidal thoughts Endocrine Endocrinology: Denies polydipsia, polyphagia or polyuria Hematologic/Lymphatic Hematologic/Lymphatic: Denies easy bleeding, easy bruising or lymphadenopathy Allergic/Immunologic Allergic/Immunologic ED: Denies mouth swelling, tongue swelling or urticaria EXAM Physical Exam Const Vital Signs: 05/29/22 09:51 05/29/22 12:29 05/29/22 12:31 Temperature 98.3 F 97.8 F Temperature Source Oral Temporal Pulse Rate 63 57 L 57 L Respiratory Rate 18 12 12 Respiratory Effort Respiratory Pattern Blood Pressure 82/64 L 93/58 L 93/58 L Blood Pressure Mean 70 69 69 Pulse Ox 94 96 96 Oxygen Delivery Method Room Air Room Air Room Air 05/29/22 12:33 Temperature Temperature Source Pulse Rate Respiratory Rate Respiratory Effort Normal Respiratory Pattern Normal Blood Pressure Blood Pressure Mean Pulse Ox Oxygen Delivery Method Positive well nourished and well developed General Appearance ED: well developed and NAD HEENT Reports TM's clear and moist mucous membranes normocephalic and atraumatic; Negative for trauma or tenderness Tympanic Membrane ED: Yes TM's clear Eyes PERRL and EOMs intact bilaterally General Eye ED: Negative for pale conjunctiva or scleral icterus Neck no lymphadenopathy, supple and no JVD General: Negative for tenderness Chest Wall inspection of chest normal and palpation of chest normal Chest: Negative for tenderness Resp normal respiratory effort and clear to auscultation bilaterally Effort and Inspection: Negative for respiratory distress or pain with movement Auscultation: Negative for rhonchi, wheezes or diminished lung sounds Cardio regular rate, regular rhythm, S1 normal heart sound, S2 normal heart sound and no murmurs Peripheral Pulses: pulses 2+ throughout GI normal to inspection, nondistended, normoactive bowel sounds, soft to palpation, non-tender, non-distended and no masses Back/Spine no CVA tenderness and no thoracic nor lumbar tenderness Extremity normal to inspection General Extremety ED: Negative for edema General Extremity: Negative for edema Neuro oriented x3, CN's II-XII intact bilaterally, no sensory deficits noted and gait normal Sensorium / Orientation: awake, alert, oriented to person, oriented to place and oriented to time Motor Exam: strength 5/5 throughout and strength abnormal Psych mental status grossly normal Skin no rashes or lesions noted and no wounds MDM MDM MDM Narrative Medical decision making narrative: IV line established on arrival. Patient was given normal saline. CBC with differential white count 3.3. Chemistries unremarkable other than a potassium of 2.9. Her BUN was 32 and creatinine 3.2. Lactate was normal 0.7. Urinalysis unremarkable. Rapid influenza was positive for influenza A and her COVID was negative. Patient was given a second liter of fluid. Her blood pressure improved from the 80s into the 90s. Case discussed with hospitalist will evaluate patient for admission for influenza A, hypotension, and TONI. Lab Data Attestation: I reviewed the patient's lab results. Labs: Laboratory Results - last 24 hr 05/29/22 05/29/22 05/29/22 10:45 10:45 10:45 WBC 3.3 L RBC 4.86 Hgb 13.5 Hct 40.5 MCV 83.3 MCH 27.8 MCHC 33.3 RDW Std Deviation 39.8 RDW Coeff of Carlos 13.2 Plt Count 175 MPV 10.4 Immature Gran % (Auto) 0.300 Neut % (Auto) 55.0 Lymph % (Auto) 26.0 [place] % (Auto) 16.0 H Eos % (Auto) 2.1 Baso % (Auto) 0.6 Absolute Neuts (auto) 1.8 L Absolute Lymphs (auto) 0.86 Nucleated RBC % 0 Sodium 136 Potassium 2.9 L Chloride 100 Carbon Dioxide 28.0 Anion Gap 8 BUN 32 H Creatinine 2.15 H Estim Creat Clear Calc 22.79 Est GFR (MDRD) Af Amer 29 L Est GFR (MDRD) Non-Af 24 L BUN/Creatinine Ratio 14.9 Glucose 105 Lactic Acid 0.7 Calcium 8.5 Urine Color Urine Clarity Urine pH Ur Specific [place] Urine Protein Urine Glucose (UA) Urine Ketones Urine Occult Blood Urine Nitrite Urine Bilirubin Urine Urobilinogen Ur Leukocyte Esterase 05/29/22 12:02 WBC RBC Hgb Hct MCV MCH MCHC RDW Std Deviation RDW Coeff of [place] Plt Count MPV Immature Gran % (Auto) Neut % (Auto) Lymph % (Auto) [place] % (Auto) Eos % (Auto) Baso % (Auto) Absolute Neuts (auto) Absolute Lymphs (auto) Nucleated RBC % Sodium Potassium Chloride Carbon Dioxide Anion Gap BUN Creatinine Estim Creat Clear Calc Est GFR (MDRD) Af Amer Est GFR (MDRD) Non-Af BUN/Creatinine Ratio Glucose Lactic Acid Calcium Urine Color Yellow Urine Clarity Clear Urine pH 6.0 Ur Specific [place] 1.020 Urine Protein 15 H Urine Glucose (UA) Normal Urine Ketones Negative Urine Occult Blood Negative Urine Nitrite Negative Urine Bilirubin Negative Urine Urobilinogen Normal Ur Leukocyte Esterase 25 H Radiography Diagnostic Testing: Clinical Impression(s) from Imaging Studies Chest X-Ray 05/29/22 11:08 IMPRESSION: Stable minimal increased linear markings at the left lung base suggestive of scarring. Electronically Signed: Sanchez Villarreal MD at 12:24 EST , 1 view chest x-ray obtained interpreted by myself no acute disease process. Radiology in agreement. Discharge Plan Triage Chief Complaint: Cold Sx ED Provider: Lincoln Haines Dx/Rx/DC Orders Clinical Impression: Influenza A, Acute hypotension, TONI (acute kidney injury), Acute hypokalemia Prescriptions: No Action potassium chloride 20 mEq tablet extended release 20 meq PO DAILY Qty: 90 3RF ezetimibe [Zetia] 10 mg tablet 10 mg PO DAILY Qty: 90 3RF famotidine 20 MG tablet 20 mg PO DAILY Label Comments: reflux aspirin 81 MG tablet,delayed release (DR/EC) 81 mg PO DAILY Label Comments: [facility] losartan 100 mg tablet 100 mg PO DAILY Label Comments: TAKE 1 TABLET BY MOUTH ONCE DAILY biotin 1,000 mcg Tablet,Chewable 10,000 mcg PO DAILY clonazepam 1 mg tablet 1 mg PO QHS PRN PRN (Reason: Sleep) tramadol 50 mg tablet 50 - 100 mg PO Q4H PRN PRN (Reason: Pain) nitroglycerin 0.4 mg tablet, sublingual 0.4 mg sublingual PRN PRN (Reason: Chest Pain) carvedilol 6.25 mg tablet 12.5 mg PO BID hydrochlorothiazide 25 mg tablet 25 mg PO DAILY Qty: 90 3RF amlodipine 5 mg tablet 5 mg PO DAILY Qty: 30 11RF Primary Care Provider: Hussein Tidwell Referrals: Hussein Tidwell MD [Primary Care Provider] - Disposition Disposition: Acute Care Hospital [facility]
[2022-05-29 10:57] LABS: Absolute Lymphocyte Count 0.86 X10^3/uL (0.83-4.51); Absolute Neutrophil Count 1.8 X10^3/uL (2.0-7.7); Basophil# 0.02 X10^3/uL; Basophil% 0.6 % (0-1); Eosinophil# 0.07 X10^3/uL; Eosinophils% 2.1 % (0-5); Hematocrit 40.5 % (37-47); Hemoglobin 13.5 g/dL (12.0-15.0); Lymphocyte # 0.86 X10^3/ul (0.83-4.51); Mean Corp Hgb Conc 33.3 g/dL (32-36); Mean Corpuscular Hgb 27.8 pg (27.0-32.0); Mean Corpuscular Volume 83.3 fL (81-99); Mean Platelet Vol. 10.4 fl (6.2-12.0); Monocyte# 0.53 X10^3/uL; NRBC Flagged by Analyzer 0 % (0-5); Neutrophil # 1.82 X10^3/uL (2.7-7.7); Platelet Count 175 K/mm3 (150-450); RBC Distribution Width CV 13.2 % (11.6-14.6); RBC Distribution Width SD 39.8 fl (35.1-43.9); Red Blood Count 4.86 M/mm3 (4.2-5.4); White Blood Count 3.3 K/mm3 (4.4-11.0)
--- NOTE | 2022-05-29 11:08 | RAD_ITS ---
STUDY: X-RAY CHEST REASON FOR EXAM: Female, 72 years old. Cough TECHNIQUE: Single AP portable view of the chest. COMPARISON: Comparison is made with prior study 01/09/2022. FINDINGS: Hyperinflation. Stable mild increased linear markings at the left lung base suggestive of left basilar linear atelectasis and/or scarring. There is no demonstrated pleural abnormality. Normal size heart. Normal mediastinum and [place]. Normal visualized pulmonary arteries. Normal visualized aortic arch and descending thoracic aorta. Normal visualized thoracic spine. Normal visualized ribs, clavicles, and shoulders. There is no demonstrated abnormality of the visualized soft tissue structures of the upper abdomen. RAD/Chest 1 View (Portable) IMPRESSION: Stable minimal increased linear markings at the left lung base suggestive of scarring. Electronically Signed: Sanchez Villarreal MD at 12:24 EST ,
[2022-05-29 11:09] LABS: Anion Gap 8 (5-15); BUN 32 mg/dL (7-18); BUN/Creat Ratio 14.9 RATIO (10-20); Calcium,Total 8.5 mg/dL (8.5-10.1); Chloride 100 mmol/L (98-107); Creatinine, Serum 2.15 mg/dL (0.55-1.02); EST Glomerular Filtration Rate 24 mL/min (>60); Est Glom Filt Rate - Afr Amer 29 mL/min (>60); Estimated Creatinine Clearance 22.79 ml/min; Glucose 105 mg/dL (74-106); Potassium 2.9 mmol/L (3.5-5.1); Sodium Level 136 mmol/L (136-145)
[2022-05-29 11:30] LABS: Lactic Acid 0.7 mmol/L (0.4-1.9)
[2022-05-29] MEDS: 0.9% Normal Saline 1,000 ML 1000 ML IV (11:30)
[2022-05-29 12:05] LABS: Mucous, Urine 0 SEEN /hpf (<or=2+); Red Blood Cells-Urine 0 SEEN /hpf (0-5)
[2022-05-29 12:18] LABS: Color, Urine Yellow (Yellow); Glucose, Dipstick Normal (Normal); Ketone-Dipstick Negative (Negative); Leukocyte Esterase-Dipstick 25 /ul (Negative); Nitrite-Dipstick Negative (Negative); Occult Blood-Urine Negative /ul (Negative); Protein-Dipstick 15 mg/dl (Negative); Urine Bilirubin Dipstick Negative (Negative); Urine Clarity Clear (Clear); Urine Urobilinogen Normal (Normal)
[2022-05-29] MEDS: 0.9% Normal Saline 1,000 ML 999 ML IV (12:30)
[2022-05-29 12:47] LABS: Bacteria RARE /hpf (None Seen); Squamous Epithelial Cells - UA 0-5 SEEN /hpf (5-10); White Blood Cells 0-5 SEEN /hpf (0-5)
--- NOTE | 2022-05-29 13:06 | NURSING ---
MED SURG PROSPER INFLUENZA A, TONI, HYPOTENSION
--- NOTE | 2022-05-29 13:07 | NURSING ---
[facility] ED 2
[2022-05-29] MEDS: 0.9% Normal Saline 1,000 ML 150 ML IV (13:42)
[2022-05-29] MEDS: Potassium Chloride Oral Tablet 20 MEQ 40 MEQ PO (13:42)
[2022-05-29] MEDS: DiphenhydrAMINE 50 MG/ML Syringe 25 MG IV (13:56)
[2022-05-29] MEDS: Morphine 4 MG/ML Syringe IV (14:13)
[2022-05-29] MEDS: Ondansetron 4 MG/2 ML Vial IV (14:13)
[2022-05-29] MEDS: Heparin Injection (Vial) 5,000 UNIT/ML VIAL 5000 UNIT SC ×2 (16:47→22:06)
--- NOTE | 2022-05-29 18:03 | ED.RN ---
emergency charting done with only necessary documentation done
--- NOTE | 2022-05-29 18:59 | PCM.HP.STD ---
HPI - General General Date of Admission: 05/29/22 HPI Narrative ANGELINA TEIXEIRA, is a 72 F who presents to the hospital with cold-like symptoms for the last 5 days. She has been having some cough as well as sore throat and body aches. She has not been eating or drinking very well because of just how ill she feels. She has noticed temperatures up to 101 and her cough is occasionally productive of yellow sputum. She has been both vaccinated for COVID and influenza however here in the ER she did test positive for influenza A and she is outside the window for Tamiflu. She was also found to have an TONI with a creatinine of 2.15 and her baseline is around 1-1.2. She states that she has been drinking plenty of water has been having a lot of urine output. 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 Chronic back pain COPD (chronic obstructive pulmonary disease) Daytime somnolence Dyspnea on exertion HLD (hyperlipidemia) HTN (hypertension) Nonrheumatic tricuspid (valve) insufficiency NSTEMI (non-ST elevated myocardial infarction) Obesity (BMI 30.0-34.9) Old myocardial infarction Pre-operative cardiovascular examination RSD (reflex sympathetic dystrophy) Home Medications famotidine 20 mg tablet 20 mg PO DAILY STOMACH 10/02/15 [History Last Taken 05/28/22] aspirin 81 mg tablet,delayed release 81 mg PO DAILY HEART HEALTH 01/20/16 [History Last Taken 05/28/22] losartan 100 mg tablet 100 mg PO DAILY BLOOD PRESSURE 09/10/21 [History Last Taken 05/28/22] amlodipine 5 mg tablet 5 mg PO DAILY BLOOD PRESSURE 05/29/22 [History Last Taken 05/28/22] carvedilol 6.25 mg tablet 6.25 mg PO BID BLOOD PRESSURE 05/29/22 [History Last Taken 05/28/22] clonazepam 1 mg tablet 1 mg PO QHS PRN PRN RESTLESS LEG SYNDROME 05/29/22 [History Last Taken Unknown] ezetimibe 10 mg tablet (Zetia) 10 mg PO DAILY CHOLESTEROL 05/29/22 [History Last Taken 05/28/22] hydrochlorothiazide 25 mg tablet 25 mg PO DAILY FLUID 05/29/22 [History Last Taken 05/28/22] nitroglycerin 0.4 mg sublingual tablet 0.4 mg sublingual PRN PRN Chest Pain 05/29/22 [History Last Taken Unknown] potassium chloride 20 mEq tablet,extended release 20 meq PO DAILY SUPPLEMENT 05/29/22 [History Last Taken 04/29/22] tramadol 50 mg tablet 50 - 100 mg PO Q4H PRN Pain 05/29/22 [History Last Taken 05/29/22 06:00] Allergy/AdvReac Type Severity Reaction Status Date / Time venom-honey bee Allergy Severe Anaphylaxis Verified 05/29/22 09:54 [bee venom (honey bee)] atorvastatin Allergy Unknown Unknown Verified 05/29/22 09:54 Penicillins Allergy Unknown Unknown Verified 05/29/22 09:54 strawberry Allergy Anaphylaxis Verified 05/29/22 09:54 oxycodone HCl [From Percocet] AdvReac Vomiting Verified 05/29/22 09:54 Family History Father CAD (coronary artery disease) Brother Afib Surgical History History of back surgery History of coronary artery stent placement (06/26/17) left hand surgery Social History Smoking Status: Former smoker alcohol intake: current substance use type: former substance user Date of last use: 2015 and caffeine: Yes Type: carbonated beverages, coffee and tea what type of physical activity do you participate in: none seatbelt use: always do you feel safe at home: Yes ROS Constitutional Constitutional: Reports chills, fever(s) and malaise; Denies fatigue Eyes Eyes: Denies blurry vision ENT HEENT: Denies headache(s) or nasal discharge Cardiovascular Cardiovascular: Denies chest pain, dyspnea on exertion or syncope Respiratory/Chest Respiratory/Chest: Reports productive cough; Denies shortness of breath at rest or shortness of breath with exertion Gastrointestinal Gastrointestinal: Denies constipation, diarrhea, nausea or vomiting Genitourinary Genitourinary: Denies dysuria Musculoskeletal Musculoskeletal: Reports myalgias Neurologic Neurologic: Denies focal weakness, numbness or tremor(s) Psychiatric Psychiatric: Denies anxiety or depression Vital Signs Vital Signs Vital Signs: 05/29/22 09:51 05/29/22 12:29 05/29/22 12:31 Temperature 98.3 F 97.8 F Temperature Source Oral Temporal Pulse Rate 63 57 L 57 L Respiratory Rate 18 12 12 Respiratory Effort Respiratory Pattern Blood Pressure 82/64 L 93/58 L 93/58 L Blood Pressure Mean 70 69 69 Blood Pressure Source Blood Pressure Position Blood Pressure Location Pulse Ox 94 96 96 Oxygen Delivery Method Room Air Room Air Room Air 05/29/22 12:33 05/29/22 13:18 05/29/22 13:24 Temperature 98.3 F Temperature Source Oral Pulse Rate 67 Respiratory Rate 12 Respiratory Effort Normal Respiratory Pattern Normal Blood Pressure 102/58 L 99/54 L Blood Pressure Mean 72 69 Blood Pressure Source Blood Pressure Position Blood Pressure Location Pulse Ox 95 Oxygen Delivery Method Room Air 05/29/22 15:00 05/29/22 15:00 05/29/22 16:00 Temperature 99.7 F H 99.7 F H 98.1 F Temperature Source Temporal Temporal Oral Pulse Rate 63 63 78 Respiratory Rate 18 18 16 Respiratory Effort Respiratory Pattern Blood Pressure 96/56 L 96/56 L 97/54 L Blood Pressure Mean 69 69 68 Blood Pressure Source Monitor Blood Pressure Position Left Lateral Blood Pressure Location Right Arm Pulse Ox 92 92 91 Oxygen Delivery Method Room Air Room Air Room Air 05/29/22 18:00 Temperature 98.1 F Temperature Source Oral Pulse Rate 78 Respiratory Rate 16 Respiratory Effort Respiratory Pattern Blood Pressure 97/54 L Blood Pressure Mean 68 Blood Pressure Source Blood Pressure Position Blood Pressure Location Pulse Ox 91 Oxygen Delivery Method Room Air Weight Weight: 184 lb 8.43 oz Body Mass Index (BMI) 29.7 Physical Exam Narrative General: Alert, Oriented x3, Cooperative, No apparent distress HEENT: Atraumatic, PERRLA, EOMI, Normocephalic Oral: Moist Mucosa Neck: Supple, No JVD Lungs: Diminished, Normal air movement, No rhonchi, No wheeze, No rales Cardiovascular: Regular rate, Regular Rhythm, Normal S1, Normal S2, No murmurs Abdomen: Soft, Non Tender, Non-Distended, No Hepato-splenomegaly Extremities: No edema, Capillary Refill Less than 3 Seconds Skin: Slight blanching rash on around her neck she says that it started when her doctor gave her azithromycin Musculoskeletal: No Tenderness to Palpation of Joints or Extremities Neurological: Cranial nerves II-XII grossly intact, Motor Exam 5/5 strength throughout, Sensory exam intact to light touch and pain Psych/Mental Status: Normal Affect, Appropriate Results Lab / Micro Data Result Diagrams: 05/30/22 05:02 05/30/22 05:02 Labs: Laboratory Results - last 24 hr 05/29/22 10:45: WBC 3.3 L, RBC 4.86, Hgb 13.5, Hct 40.5, MCV 83.3, MCH 27.8, MCHC 33.3, RDW Std Deviation 39.8, RDW Coeff of Carlos 13.2, Plt Count 175, MPV 10.4, Immature Gran % (Auto) 0.300, Neut % (Auto) 55.0, Lymph % (Auto) 26.0, [place] % (Auto) 16.0 H, Eos % (Auto) 2.1, Baso % (Auto) 0.6, Absolute Neuts (auto) 1.8 L, Absolute Lymphs (auto) 0.86, Nucleated RBC % 0 05/29/22 10:45: Sodium 136, Potassium 2.9 L, Chloride 100, Carbon Dioxide 28.0, Anion Gap 8, BUN 32 H, Creatinine 2.15 H, Estim Creat Clear Calc 22.79, Est GFR (MDRD) Af Amer 29 L, Est GFR (MDRD) Non-Af 24 L, BUN/Creatinine Ratio 14.9, Glucose 105, Calcium 8.5 05/29/22 10:45: Lactic Acid 0.7 05/29/22 12:02: Urine Color Yellow, Urine Clarity Clear, Urine pH 6.0, Ur Specific [place] 1.020, Urine Protein 15 H, Urine Glucose (UA) Normal, Urine Ketones Negative, Urine Occult Blood Negative, Urine Nitrite Negative, Urine Bilirubin Negative, Urine Urobilinogen Normal, Ur Leukocyte Esterase 25 H, Urine RBC 0 SEEN, Urine WBC 0-5 SEEN, Ur Squamous Epith Cells 0-5 SEEN, Urine Bacteria RARE, Urine Mucus 0 SEEN Micro: Microbiology 05/29/22 11:50 Nasal Secretion SARS-CoV-2 & FLU Antigen (Rapid) - Final Influenzae A Radiology Impression Chest X-Ray 05/29/22 11:08 IMPRESSION: Stable minimal increased linear markings at the left lung base suggestive of scarring. Electronically Signed: Sanchez Villarreal MD at 12:24 EST , Assessment & Plan Assessment/Plan (1) Influenza A: (2) TONI (acute kidney injury): PLAN: Plan 1. Influenza A with TONI ? She is outside the window for Tamiflu given symptom onset was about 5 days ago ? Continue with IV fluids for her TONI which is due to dehydration ? She does state that she has been staying hydrated just not eating well so we will get urine electrolytes for further characterization ? We will monitor her renal function 2. CAD status post stent/HTN/HLD ? Blood pressures are little bit low secondary to her dehydration and TONI, will hold her home blood pressure is ? Resume her aspirin and Zetia 3. GERD ? Stable ? Continue with PPI DVT: Heparin Charges/Coding Visit Charges Inpatient E&M: 81046 Init Hosp L2
[2022-05-29] MEDS: DiphenhydrAMINE 25 MG Capsule PO (22:06)
[2022-05-29] MEDS: 0.9% Normal Saline 1,000 ML 100 ML IV (22:06)
[2022-05-30 02:41] VITALS: BP 117/67; PULSE 66; RESP 18; TEMP 37.4; O2SAT 92
[2022-05-30 05:32] LABS: Absolute Lymphocyte Count 1.18 X10^3/uL (0.83-4.51); Absolute Neutrophil Count 0.7 X10^3/uL (2.0-7.7); Basophil# 0.02 X10^3/uL; Basophil% 0.9 % (0-1); Eosinophil# 0.06 X10^3/uL; Eosinophils% 2.7 % (0-5); Hemoglobin 11.8 g/dL (12.0-15.0); Lymphocyte # 1.18 X10^3/ul (0.83-4.51); Lymphocyte % 52.4 % (19-41); Mean Corp Hgb Conc 33.7 g/dL (32-36); Mean Corpuscular Hgb 28.2 pg (27.0-32.0); Mean Corpuscular Volume 83.5 fL (81-99); Monocyte# 0.32 X10^3/uL; Monocyte% 14.2 % (0-10); NRBC Flagged by Analyzer 0 % (0-5); Neutrophil # 0.66 X10^3/uL (2.7-7.7); Neutrophil % 29.4 % (47-70); POSITIVE DIFFERENTIAL YES; Platelet Count 137 K/mm3 (150-450); RBC Distribution Width CV 13.2 % (11.6-14.6); RBC Distribution Width SD 40.3 fl (35.1-43.9); Red Blood Count 4.19 M/mm3 (4.2-5.4); White Blood Count 2.3 K/mm3 (4.4-11.0)
[2022-05-30 05:46] LABS: Differential Indicated SCAN CRITERIA MET
[2022-05-30 06:03] LABS: Anion Gap 7 (5-15); BUN 21 mg/dL (7-18); BUN/Creat Ratio 15.1 RATIO (10-20); Calcium,Total 7.8 mg/dL (8.5-10.1); Chloride 110 mmol/L (98-107); Creatinine, Serum 1.39 mg/dL (0.55-1.02); EST Glomerular Filtration Rate 40 mL/min (>60); Est Glom Filt Rate - Afr Amer 48 mL/min (>60); Estimated Creatinine Clearance 35.26 ml/min; Glucose 88 mg/dL (74-106); Phosphorus 2.7 mg/dL (2.5-4.9); Sodium Level 141 mmol/L (136-145)
[2022-05-30] MEDS: Heparin Injection (Vial) 5,000 UNIT/ML VIAL 5000 UNIT SC ×3 (06:21→21:26)
[2022-05-30 06:22] LABS: Differential Comment SCANNED
--- NOTE | 2022-05-30 07:31 | NURSING ---
emergency documentation
[2022-05-30 08:38] VITALS: BP 90/57; PULSE 66; RESP 18; TEMP 37.4; O2SAT 95
[2022-05-30] MEDS: Potassium Chloride Oral Tablet 20 MEQ PO (08:42)
[2022-05-30] MEDS: Potassium Chloride Oral Tablet 20 MEQ 60 MEQ PO (08:42)
[2022-05-30] MEDS: Famotidine 20 MG Tablet PO (08:43)
[2022-05-30] MEDS: 0.9% Normal Saline 1,000 ML 100 ML IV ×2 (08:43→18:06)
[2022-05-30] MEDS: Ezetimibe 10 MG Tablet PO (08:43)
[2022-05-30 08:49] VITALS: BP 100/62; PULSE 60
--- NOTE | 2022-05-30 08:52 | NURSING ---
pt with poor cough hygiene
--- NOTE | 2022-05-30 08:57 | PCM.PN.HOSP ---
Subjective Subjective Still feels unwell, she is not hypoxic or short of breath and her kidney function is better. She still maintains that she is urinating a lot and that the rash has not improved Objective Data Objective Data Vital Signs: Vital Signs Temp Pulse Resp BP Pulse Ox O2 Del Method 99.3 F H 60 18 100/62 95 Room Air 05/30/22 08:38 05/30/22 08:49 05/30/22 08:38 05/30/22 08:49 05/30/22 08:38 05/30/22 08:38 Oxygen Delivery Method Room Air Weight: 184 lb 8.43 oz Body Mass Index (BMI) 29.7 Intake & Output: Intake and Output for Last 24 Hours 05/29/22 05/30/22 05/31/22 03:59 03:59 03:59 Intake Total 3400 / 3400 1458.25 / 1458.25 Balance 3400 / 3400 1458.25 / 1458.25 Lab / Micro Data Result Diagrams: 05/30/22 05:02 05/30/22 05:02 Labs: Laboratory Results - last 24 hr 05/29/22 10:45: WBC 3.3 L, RBC 4.86, Hgb 13.5, Hct 40.5, MCV 83.3, MCH 27.8, MCHC 33.3, RDW Std Deviation 39.8, RDW Coeff of Carlos 13.2, Plt Count 175, MPV 10.4, Immature Gran % (Auto) 0.300, Neut % (Auto) 55.0, Lymph % (Auto) 26.0, [place] % (Auto) 16.0 H, Eos % (Auto) 2.1, Baso % (Auto) 0.6, Absolute Neuts (auto) 1.8 L, Absolute Lymphs (auto) 0.86, Nucleated RBC % 0 05/29/22 10:45: Sodium 136, Potassium 2.9 L, Chloride 100, Carbon Dioxide 28.0, Anion Gap 8, BUN 32 H, Creatinine 2.15 H, Estim Creat Clear Calc 22.79, Est GFR (MDRD) Af Amer 29 L, Est GFR (MDRD) Non-Af 24 L, BUN/Creatinine Ratio 14.9, Glucose 105, Calcium 8.5 05/29/22 10:45: Lactic Acid 0.7 05/29/22 12:02: Urine Color Yellow, Urine Clarity Clear, Urine pH 6.0, Ur Specific [place] 1.020, Urine Protein 15 H, Urine Glucose (UA) Normal, Urine Ketones Negative, Urine Occult Blood Negative, Urine Nitrite Negative, Urine Bilirubin Negative, Urine Urobilinogen Normal, Ur Leukocyte Esterase 25 H, Urine RBC 0 SEEN, Urine WBC 0-5 SEEN, Ur Squamous Epith Cells 0-5 SEEN, Urine Bacteria RARE, Urine Mucus 0 SEEN 05/30/22 05:02: WBC 2.3 L, RBC 4.19 L, Hgb 11.8 L, Hct 35.0 L, MCV 83.5, MCH 28.2, MCHC 33.7, RDW Std Deviation 40.3, RDW Coeff of [place] 13.2, Plt Count 137 L, MPV 10.0, Immature Gran % (Auto) 0.400, Neut % (Auto) 29.4 L, Lymph % (Auto) 52.4 H, [place] % (Auto) 14.2 H, Eos % (Auto) 2.7, Baso % (Auto) 0.9, Absolute Neuts (auto) 0.7 L, Absolute Lymphs (auto) 1.18, Nucleated RBC % 0, Differential Comment SCANNED 05/30/22 05:02: Sodium 141, Potassium 3.0 L, Chloride 110 H, Carbon Dioxide 24.0, Anion Gap 7, BUN 21 H, Creatinine 1.39 H, Estim Creat Clear Calc 35.26, Est GFR (MDRD) Af Amer 48 L, Est GFR (MDRD) Non-Af 40 L, BUN/Creatinine Ratio 15.1, Glucose 88, Calcium 7.8 L, Phosphorus 2.7, Magnesium 2.0 Micro: Microbiology 05/29/22 11:50 Nasal Secretion SARS-CoV-2 & FLU Antigen (Rapid) - Final Influenzae A Radiography Diagnostic Testing: Radiology Impression Chest X-Ray 05/29/22 11:08 IMPRESSION: Stable minimal increased linear markings at the left lung base suggestive of scarring. Electronically Signed: Sanchez Villarreal MD at 12:24 EST , Physical Exam Narrative General: Alert, Oriented x3, Cooperative, No apparent distress HEENT: Atraumatic, PERRLA, EOMI, Normocephalic Oral: Moist Mucosa Neck: Supple, No JVD Lungs: Diminished, Normal air movement, No rhonchi, No wheeze, No rales Cardiovascular: Regular rate, Regular Rhythm, Normal S1, Normal S2, No murmurs Abdomen: Soft, Non Tender, Non-Distended, No Hepato-splenomegaly Extremities: No edema, Capillary Refill Less than 3 Seconds Skin: Slight blanching rash on around her neck Musculoskeletal: No Tenderness to Palpation of Joints or Extremities Neurological: Cranial nerves II-XII grossly intact, Motor Exam 5/5 strength throughout, Sensory exam intact to light touch and pain Psych/Mental Status: Normal Affect, Appropriate Assessment & Plan Assessment/Plan (1) Influenza A: (2) TONI (acute kidney injury): PLAN: Plan 1. Influenza A with TONI ? She is outside the window for Tamiflu given symptom onset was about 5 days ago ? Continue with IV fluids for her TONI which is due to dehydration ? She does state that she has been staying hydrated just not eating well so we will get urine electrolytes for further characterization ? We will monitor her renal function, which is proving 2. CAD status post stent/HTN/HLD ? Blood pressures are little bit low secondary to her dehydration and TONI, will hold her home blood pressure medications ? Resume her aspirin and Zetia 3. GERD ? Stable ? Continue with PPI DVT: Heparin Charges/Coding Visit Charges Inpatient E&M: 61253 Subs Hosp L2
[2022-05-30 10:48] LABS: Osmolality, Urine 401 mOsm/KG
--- NOTE | 2022-05-30 10:50 | CASEMGMT ---
SOCORRO WISE Assessment: Face to Face with pt for initial transition planning/care coordination assessment. RN BLILIE introduced self and role at [facility], pt voices understanding and consents to assessment. Pt is A/O x4 and answers all questions appropriately at this time. Pt sitting up in chair in no distress. Care providers, pharmacy, and demographics verified/updated. Admitting Dx: Flu with TONI PCP:Magnolia Tidwell Specialists:Mood, cardio Preferred [facility]acy: [facility] Insurance: BENNY Duque Prescription Benefit: yes LNOK: Ariane Bradshaw, sister Living Arrangements: Pt lives in the basement at her sister's home with her sister and brother in law. Pt has 18 steps to get down to her main living area. Pt reports she is I in ADL's and denies concerns at home. Transportation: Pt drives self and denies concerns with transportation. DME/HHC/SNF: Pt has a cane but does not use. Pt has had HHC in the past and is unsure of what agency provided it. Pt denies SNF stays. Pt states no concerns with going home at time of dc. Pt rolled her eyes when discussing any therapy needs and denies need for this. Pt states no further concerns/needs. CM to follow. Advised pt to ask CM if any further question/concerns/needs arise, voices understanding. Pt Goal: Home Plan: Home
[2022-05-30 10:59] LABS: Urine Sodium 111 mmol/L (Not Establ.)
[2022-05-30 14:22] VITALS: BP 95/54; PULSE 61; RESP 16; TEMP 37.3; O2SAT 99
--- NOTE | 2022-05-30 14:25 | NURSING ---
hat in toilet to collect urine but pt keeps missing hat when she voids. water in toilet yellow.
[2022-05-30 18:11] VITALS: BP 106/68; PULSE 66; RESP 20; TEMP 36.7; O2SAT 98
[2022-05-30 21:20] VITALS: BP 103/62; PULSE 68; RESP 18; TEMP 36.9; O2SAT 98
[2022-05-30] MEDS: guaiFENesin 600 MG Tablet PO (21:26)
[2022-05-31] MEDS: DiphenhydrAMINE 25 MG Capsule PO (00:19)
[2022-05-31] MEDS: 0.9% Normal Saline 1,000 ML 100 ML IV (04:31)
[2022-05-31 05:22] VITALS: BP 133/85; PULSE 64; RESP 16; TEMP 37.1; O2SAT 96
[2022-05-31 05:24] VITALS: BP 133/85; PULSE 64; RESP 16; TEMP 37.1; O2SAT 96
[2022-05-31] MEDS: Heparin Injection (Vial) 5,000 UNIT/ML VIAL 5000 UNIT SC (05:26)
[2022-05-31 05:53] LABS: Basophil# 0.02 X10^3/uL; Basophil% 0.7 % (0-1); Eosinophils% 3.6 % (0-5); Hematocrit 35.6 % (37-47); Hemoglobin 11.8 g/dL (12.0-15.0); Lymphocyte % 47.1 % (19-41); Mean Corp Hgb Conc 33.1 g/dL (32-36); Mean Corpuscular Hgb 27.8 pg (27.0-32.0); Mean Corpuscular Volume 83.8 fL (81-99); Mean Platelet Vol. 10.1 fl (6.2-12.0); Monocyte# 0.32 X10^3/uL; Monocyte% 11.6 % (0-10); NRBC Flagged by Analyzer 0 % (0-5); Neutrophil # 1.01 X10^3/uL (2.7-7.7); Neutrophil % 36.6 % (47-70); Platelet Count 133 K/mm3 (150-450); RBC Distribution Width CV 13.1 % (11.6-14.6); Red Blood Count 4.25 M/mm3 (4.2-5.4); White Blood Count 2.8 K/mm3 (4.4-11.0)
[2022-05-31 06:21] LABS: Anion Gap 7 (5-15); BUN 16 mg/dL (7-18); Calcium,Total 7.9 mg/dL (8.5-10.1); Chloride 111 mmol/L (98-107); Creatinine, Serum 1.07 mg/dL (0.55-1.02); EST Glomerular Filtration Rate 54 mL/min (>60); Est Glom Filt Rate - Afr Amer 65 mL/min (>60); Glucose 83 mg/dL (74-106); Potassium 3.3 mmol/L (3.5-5.1); Sodium Level 141 mmol/L (136-145)
[2022-05-31 09:34] VITALS: BP 133/77; PULSE 62; RESP 16; TEMP 37.1; O2SAT 97
[2022-05-31] MEDS: Famotidine 20 MG Tablet PO (09:36)
[2022-05-31] MEDS: Potassium Chloride Oral Tablet 20 MEQ 60 MEQ PO (09:36)
[2022-05-31] MEDS: guaiFENesin 600 MG Tablet PO (09:36)
[2022-05-31] MEDS: Ezetimibe 10 MG Tablet PO (09:36)
--- NOTE | 2022-05-31 09:56 | DCINST_ITS ---
Discharge Instructions Diet Discharge Diet: Low fat / Low cholesterol Activity Discharge Activity: Return to Normal Activity Dressing / Incision Call your doctor if you observe: Fever of 101 or Higher, Shortness of breath, Dizziness, Fainting spells, Swelling in the ankles, Chest pain and Increased palpitations (irregular heartbeat) Follow Up Care Test Results: Test results from this visit will be discussed in further detail at your follow- up appointment, if applicable. Discharge Plan Admission Admit Date/Time: 05/29/22 12:44 Attending Provider: Sagar Berumen Primary Care Provider: Hussein Tidwell Discharge Orders/Prescriptions Prescriptions: Continued famotidine 20 MG tablet 20 mg PO DAILY aspirin 81 MG tablet,delayed release (DR/EC) 81 mg PO DAILY clonazepam 1 mg tablet 1 mg PO QHS PRN PRN (Reason: RESTLESS LEG SYNDROME) tramadol 50 mg tablet 50 - 100 mg PO Q4H PRN (Reason: Pain) nitroglycerin 0.4 mg tablet, sublingual 0.4 mg sublingual PRN PRN (Reason: Chest Pain) ezetimibe [Zetia] 10 mg tablet 10 mg PO DAILY potassium chloride 20 mEq tablet extended release 20 meq PO DAILY Held losartan 100 mg tablet 100 mg PO DAILY Hold Instructions: Resume on 06/03/22. carvedilol 6.25 mg tablet 6.25 mg PO BID Hold Instructions: Resume on 06/03/22. amlodipine 5 mg tablet 5 mg PO DAILY Hold Instructions: Resume on 06/03/22. hydrochlorothiazide 25 mg tablet 25 mg PO DAILY Hold Instructions: Resume on 06/03/22. Referrals / Follow Up: Hussein Tidwell MD [Primary Care Provider] - Within 1 Week Disposition Disposition (needs filled in before D/C Order can be placed): Home, Self Care
--- NOTE | 2022-05-31 11:13 | CM.UR ---
No therapy recommended at dc. Pt to dc today, on RA.
[2022-05-31 14:55] VITALS: BP 133/76; PULSE 72; RESP 18; TEMP 36.8; O2SAT 98
--- NOTE | 2022-05-31 17:22 | DS.PCM_ITS ---
Providers Date of Admission: 05/29/22 Primary Care Physician: Dr. Hussein Tidwell MD Reason For Visit: FLU WITH TONI Diagnosis Discharge Diagnosis (1) Influenza A: Status: Acute Code(s): J10.1 - Influenza due to other identified influenza virus with other respiratory manifestations (2) TONI (acute kidney injury): Status: Acute Code(s): N17.9 - Acute kidney failure, unspecified Plan 1. Influenza A with TONI ? She is outside the window for Tamiflu given symptom onset was about 5 days ago ? Continue with IV fluids for her TONI which is due to dehydration ? She does state that she has been staying hydrated just not eating well so we will get urine electrolytes for further characterization ? We will monitor her renal function, which is proving 2. CAD status post stent/HTN/HLD ? Blood pressures are little bit low secondary to her dehydration and TONI, will hold her home blood pressure medications ? Resume her aspirin and Zetia 3. GERD ? Stable ? Continue with PPI DVT: Heparin Medications at Discharge Home Medications famotidine 20 mg tablet 20 mg PO DAILY STOMACH 10/02/15 aspirin 81 mg tablet,delayed release 81 mg PO DAILY HEART HEALTH 01/20/16 losartan 100 mg tablet 100 mg PO DAILY BLOOD PRESSURE 09/10/21 amlodipine 5 mg tablet 5 mg PO DAILY BLOOD PRESSURE 05/29/22 carvedilol 6.25 mg tablet 6.25 mg PO BID BLOOD PRESSURE 05/29/22 clonazepam 1 mg tablet 1 mg PO QHS PRN PRN RESTLESS LEG SYNDROME 05/29/22 ezetimibe 10 mg tablet (Zetia) 10 mg PO DAILY CHOLESTEROL 05/29/22 hydrochlorothiazide 25 mg tablet 25 mg PO DAILY FLUID 05/29/22 nitroglycerin 0.4 mg sublingual tablet 0.4 mg sublingual PRN PRN Chest Pain 05/29/22 potassium chloride 20 mEq tablet,extended release 20 meq PO DAILY SUPPLEMENT 05/29/22 tramadol 50 mg tablet 50 - 100 mg PO Q4H PRN Pain 05/29/22 Hospital Course Operations None Procedures None Summary of Care Provided Minutes Spent on Discharge: 38 Hospital Course: Per HPI: ANGELINA TEIXEIRA, is a 72 F who presents to the hospital with cold-like symptoms for the last 5 days.? She has been having some cough as well as sore throat and body aches.? She has not been eating or drinking very well because of just how ill she feels.? She has noticed temperatures up to 101 and her cough is occasionally productive of yellow sputum.? She has been both vaccinated for COVID and influenza however here in the ER she did test positive for influenza A and she is outside the window for Tamiflu.? She was also found to have an TONI with a creatinine of 2.15 and her baseline is around 1-1.2.? She states that she has been drinking plenty of water has been having a lot of urine output. Hospital Course: 1. Influenza A with TONI?72-year-old female who had been dealing with influenza A for about 5 days present to the hospital with obvious signs of dehydration and TONI. She was started on IV fluids and had significant improvement in her creatinine from 2.15 down to her baseline of 1. She was feeling well today and I discussed with her the possibility for discharge and she expressed understanding of the risk benefits of going home and would like to go home today. 2. Coronary artery disease status post stent, hypertension, hyperlipidemia, GERD are all chronic medical conditions which complicate her care. I do recommend holding all of her blood occasions for a few days due to her TONI and her hypotension on admission. Physical Exam Narrative General: Alert, Oriented x3, Cooperative, No apparent distress HEENT: Atraumatic, PERRLA, EOMI, Normocephalic Oral: Moist Mucosa Neck: Supple, No JVD Lungs: Clear to auscultation bilaterally, Normal air movement, No rhonchi, No wheeze, No rales Cardiovascular: Regular rate, Regular Rhythm, Normal S1, Normal S2, No murmurs Abdomen: Soft, Non Tender, Non-Distended, No Hepato-splenomegaly Extremities: No edema, Capillary Refill Less than 3 Seconds Skin: Slight blanching rash on around her neck Musculoskeletal: No Tenderness to Palpation of Joints or Extremities Neurological: Cranial nerves II-XII grossly intact, Motor Exam 5/5 strength throughout, Sensory exam intact to light touch and pain Psych/Mental Status: Normal Affect, Appropriate Weight / BMI Weight Weight: 184 lb 8.43 oz Body Mass Index (BMI) 29.7 ABG / Lab / Microbiology Data Result Diagrams: 05/31/22 05:22 05/31/22 05:22 Laboratory: Laboratory Results - last 24 hr 05/31/22 05:22: WBC 2.8 L, RBC 4.25, Hgb 11.8 L, Hct 35.6 L, MCV 83.8, MCH 27.8, MCHC 33.1, RDW Std Deviation 40.0, RDW Coeff of Carlos 13.1, Plt Count 133 L, MPV 10.1, Immature Gran % (Auto) 0.400, Neut % (Auto) 36.6 L, Lymph % (Auto) 47.1 H, [place] % (Auto) 11.6 H, Eos % (Auto) 3.6, Baso % (Auto) 0.7, Absolute Neuts (auto) 1.0 L, Absolute Lymphs (auto) 1.30, Nucleated RBC % 0 05/31/22 05:22: Sodium 141, Potassium 3.3 L, Chloride 111 H, Carbon Dioxide 23.0, Anion Gap 7, BUN 16, Creatinine 1.07 H, Estim Creat Clear Calc 45.80, Est GFR (MDRD) Af Amer 65, Est GFR (MDRD) Non-Af 54 L, BUN/Creatinine Ratio 15.0, Glucose 83, Calcium 7.9 L Microbiology: Microbiology 05/29/22 12:08 Blood Culture (Wb) - Anticubital Right Blood Culture - Preliminary No growth in 48 hours. 05/29/22 10:45 Blood Culture (Wb) - Anticubital Right Blood Culture - Preliminary No growth in 48 hours. 05/29/22 11:50 Nasal Secretion SARS-CoV-2 & FLU Antigen (Rapid) - Final Influenzae A D/C Instructions Discharge Diet: Low fat / Low cholesterol Call your doctor if you observe: Fever of 101 or Higher, Shortness of breath, Dizziness, Fainting spells, Swelling in the ankles, Chest pain and Increased p alpitations (irregular heartbeat) Meaningful Use Info Meaningful Use Diagnoses (Choose all that apply): None applicable Discharge Plan Admission Admit Date/Time: 05/29/22 12:44 Attending Provider: Sagar Berumen Primary Care Provider: Hussein Tidwell Discharge Orders/Prescriptions Prescriptions: Continued famotidine 20 MG tablet 20 mg PO DAILY aspirin 81 MG tablet,delayed release (DR/EC) 81 mg PO DAILY clonazepam 1 mg tablet 1 mg PO QHS PRN PRN (Reason: RESTLESS LEG SYNDROME) tramadol 50 mg tablet 50 - 100 mg PO Q4H PRN (Reason: Pain) nitroglycerin 0.4 mg tablet, sublingual 0.4 mg sublingual PRN PRN (Reason: Chest Pain) ezetimibe [Zetia] 10 mg tablet 10 mg PO DAILY potassium chloride 20 mEq tablet extended release 20 meq PO DAILY Held losartan 100 mg tablet 100 mg PO DAILY Hold Instructions: Resume on 06/03/22. carvedilol 6.25 mg tablet 6.25 mg PO BID Hold Instructions: Resume on 06/03/22. amlodipine 5 mg tablet 5 mg PO DAILY Hold Instructions: Resume on 06/03/22. hydrochlorothiazide 25 mg tablet 25 mg PO DAILY Hold Instructions: Resume on 06/03/22. Referrals / Follow Up: Hussein Tidwell MD [Primary Care Provider] - Within 1 Week Disposition Disposition (needs filled in before D/C Order can be placed): Home, Self Care Charges/Coding Visit Charges Inpatient E&M: 47510 Disch Hosp
== END 2022-05-31 14:58 | disposition home or self-care (01) ==
LOC: ED 12:48 → MS3 05-30 10:25
PROVIDERS: Admitting Provider Family Medicine; Emergency Provider Emergency Medicine; PCP Family Medicine; Visit Provider Family Medicine
DX: J10.1 Influenza due to other identified influenza virus with other respiratory manifestations (principal); N17.9 Acute kidney failure, unspecified; J44.0 Chronic obstructive pulmonary disease with (acute) lower respiratory infection; E78.5 Hyperlipidemia, unspecified; I95.9 Hypotension, unspecified; K21.9 Gastro-esophageal reflux disease without esophagitis; I25.10 Atherosclerotic heart disease of native coronary artery without angina pectoris; E87.6 Hypokalemia; I10 Essential (primary) hypertension; Z79.82 Long term (current) use of aspirin; G89.29 Other chronic pain; Z87.891 Personal history of nicotine dependence; Z20.822 Contact with and (suspected) exposure to COVID-19; E86.0 Dehydration; I25.2 Old myocardial infarction; E66.9 Obesity, unspecified; Z68.29 Body mass index [BMI] 29.0-29.9, adult; Z79.899 Other long term (current) drug therapy; R21 Rash and other nonspecific skin eruption
CPT/HCPCS: 36415; 71045; 80048; 81001; 82570; 83605; 83735; 83935; 84100; 84300; 85025; 87040; 87428; 96361; 96372; 96374; 96375; 97162; 97165; 97802; 99221; 99285; J7030; A4216; G0378; J2405

== ENCOUNTER → 2022-08-14 | Outpatient (CLI) | payer MEDICARE, MEDICAID, SELFPAY ==
[2017-06-26 13:13] VITALS: BMI 29.0
[2022-08-14 10:02] LABS: AST(SGOT) 14 U/L (15-37); Alanine Aminotransfer ALT/SGPT 20 U/L (13-56); Albumin, Serum 3.4 g/dL (3.2-5.0); Alkaline Phosphatase 82 U/L (45-117); Anion Gap 7 (5-15); BUN 18 mg/dL (7-18); BUN/Creat Ratio 14.1 RATIO (10-20); Bilirubin, Direct 0.16 mg/dL (0.00-0.30); Calcium,Total 9.8 mg/dL (8.5-10.1); Chloride 105 mmol/L (98-107); Cholesterol 155 mg/dL (200); Creatinine, Serum 1.28 mg/dL (0.55-1.02); EST Glomerular Filtration Rate 44 mL/min (>60); Est Glom Filt Rate - Afr Amer 53 mL/min (>60); Globulin 3.9 g/dL (2.2-4.2); Glucose 108 mg/dL (74-106); High Density Lipoprotein 37 mg/dL; Potassium 3.7 mmol/L (3.5-5.1); Protein, Total 7.3 g/dL (6.4-8.2); Sodium Level 142 mmol/L (136-145); Triglycerides 247 mg/dL; Very Low Density Lipoprotein 49 mg/dL (5-40)
== END | disposition home or self-care (01) ==
LOC: LAB 08:47
PROVIDERS: PCP Family Medicine; Referring Provider Internal Medicine Cardiovascular Disease; Visit Provider Internal Medicine Cardiovascular Disease
DX: E87.6 Hypokalemia (principal); I10 Essential (primary) hypertension; E78.5 Hyperlipidemia, unspecified; I25.10 Atherosclerotic heart disease of native coronary artery without angina pectoris
CPT/HCPCS: 36415; 80048; 80061; 80076

== ENCOUNTER → 2022-09-23 | Outpatient (CLI) | payer MEDICARE, MEDICAID, SELFPAY ==
[2017-06-26 13:13] VITALS: BMI 29.0
--- NOTE | 2022-09-23 12:47 | BI_ITS ---
MAMMOGRAPHY - BILATERAL SCREENING REASON FOR EXAM: Female, 72 years old. Routine annual screening examination. PERTINENT HISTORY: Non-contributory. TECHNIQUE: Digital bilateral breast callie (3D mammographic acquisition) in the CC and MLO projections. 2-D mediolateral oblique (MLO) and craniocaudad (CC) views of both breasts were obtained. CAD: Full Field Digital Mammography with Computer Added Detection was performed. COMPARISON: Comparison is made with prior examination dated November 14, 2020. FINDINGS: Breast Composition: There are scattered areas of fibroglandular density. There are no dominant masses or suspicious calcifications. Stable small benign-appearing bilateral axillary lymph nodes. No other significant abnormalities are identified. There has been no significant change since the prior study. BI/SCRN MAMM (CAD)W/CALLIE BILAT IMPRESSION: Stable bilateral screening mammogram. Yearly follow-up mammogram recommended. (A) ASSESSMENT CATEGORY: BIRADS Category 2: Benign. A letter regarding these results will be sent to the patient by the facility within 30 days. Approximately 10% of breast cancers are not detected by mammography. A normal mammogram should not delay biopsy of a clinically suspicious abnormality. [id number] Electronically Signed: Sanchez Villarreal MD at 14:14 EDT ,
== END | disposition home or self-care (01) ==
LOC: OPBI 12:45
PROVIDERS: Referring Provider Nurse Practitioner Women's Health; Visit Provider Nurse Practitioner Women's Health
DX: Z12.31 Encounter for screening mammogram for malignant neoplasm of breast (principal)
CPT/HCPCS: 77063; 77067

== ENCOUNTER → 2022-12-30 | Outpatient (CLI) | payer MEDICARE, MEDICAID, SELFPAY ==
[2017-06-26 13:13] VITALS: BMI 29.0
[2022-12-30 14:24] LABS: Absolute Lymphocyte Count 1.46 X10^3/uL (0.83-4.51); Absolute Neutrophil Count 3.5 X10^3/uL (2.0-7.7); Basophil# 0.05 X10^3/uL; Basophil% 0.9 % (0-1); Eosinophil# 0.08 X10^3/uL; Eosinophils% 1.4 % (0-5); Hematocrit 42.7 % (37-47); Hemoglobin 14.5 g/dL (12.0-15.0); Lymphocyte # 1.46 X10^3/ul (0.83-4.51); Lymphocyte % 25.1 % (19-41); Mean Corpuscular Hgb 28.8 pg (27.0-32.0); Mean Corpuscular Volume 84.9 fL (81-99); Mean Platelet Vol. 9.5 fl (6.2-12.0); Monocyte# 0.68 X10^3/uL; Monocyte% 11.7 % (0-10); NRBC Flagged by Analyzer 0 % (0-5); Neutrophil # 3.53 X10^3/uL (2.7-7.7); Neutrophil % 60.6 % (47-70); Platelet Count 272 K/mm3 (150-450); RBC Distribution Width CV 12.7 % (11.6-14.6); RBC Distribution Width SD 38.9 fl (35.1-43.9); Red Blood Count 5.03 M/mm3 (4.2-5.4); White Blood Count 5.8 K/mm3 (4.4-11.0)
[2022-12-30 14:49] LABS: Anion Gap 3 (5-15); BUN 21 mg/dL (7-18); BUN/Creat Ratio 14.5 RATIO (10-20); Chloride 105 mmol/L (98-107); Creatinine, Serum 1.45 mg/dL (0.55-1.02); EST Glomerular Filtration Rate 38 mL/min (>60); Est Glom Filt Rate - Afr Amer 46 mL/min (>60); Glucose 92 mg/dL (74-106); Magnesium 2.4 mg/dL (1.6-2.6); Potassium 3.4 mmol/L (3.5-5.1); Sodium Level 139 mmol/L (136-145)
== END | disposition home or self-care (01) ==
LOC: LAB 13:35
PROVIDERS: PCP Nurse Practitioner Family; Referring Provider Nurse Practitioner Gerontology; Visit Provider Nurse Practitioner Gerontology
DX: I10 Essential (primary) hypertension (principal)
CPT/HCPCS: 36415; 80048; 83735; 85025

== ENCOUNTER → 2023-01-08 | Outpatient (CLI) | payer MEDICARE, MEDICAID, SELFPAY ==
[2017-06-26 13:13] VITALS: BMI 29.0
[2023-01-08 17:25] LABS: Anion Gap 5 (5-15); BUN 19 mg/dL (7-18); BUN/Creat Ratio 14.5 RATIO (10-20); Calcium,Total 9.2 mg/dL (8.5-10.1); Chloride 110 mmol/L (98-107); Creatinine, Serum 1.31 mg/dL (0.55-1.02); EST Glomerular Filtration Rate 43 mL/min (>60); Est Glom Filt Rate - Afr Amer 52 mL/min (>60); Glucose 95 mg/dL (74-106); Potassium 4.4 mmol/L (3.5-5.1); Sodium Level 140 mmol/L (136-145)
== END | disposition home or self-care (01) ==
PROVIDERS: PCP Nurse Practitioner Family; Referring Provider Nurse Practitioner Gerontology; Visit Provider Nurse Practitioner Gerontology
DX: E87.6 Hypokalemia (principal)
CPT/HCPCS: 36415; 80048

== ENCOUNTER → 2023-02-11 | Outpatient (CLI) | payer MEDICARE, MEDICAID, SELFPAY ==
[2017-06-26 13:13] VITALS: BMI 29.0
[2023-02-11 07:54] LABS: AST(SGOT) 8 U/L (15-37); Alanine Aminotransfer ALT/SGPT 17 U/L (13-56); Albumin, Serum 3.3 g/dL (3.2-5.0); Alkaline Phosphatase 87 U/L (45-117); Bilirubin, Direct 0.15 mg/dL (0.00-0.30); Cholesterol 128 mg/dL (200); Globulin 3.6 g/dL (2.2-4.2); High Density Lipoprotein 48 mg/dL; Protein, Total 6.9 g/dL (6.4-8.2); Triglycerides 123 mg/dL; Very Low Density Lipoprotein 25 mg/dL (5-40)
== END | disposition home or self-care (01) ==
LOC: LAB 06:14
PROVIDERS: PCP Nurse Practitioner Family; Referring Provider Nurse Practitioner Gerontology; Visit Provider Nurse Practitioner Gerontology
DX: I25.10 Atherosclerotic heart disease of native coronary artery without angina pectoris (principal); E78.5 Hyperlipidemia, unspecified
CPT/HCPCS: 36415; 80061; 80076

== ENCOUNTER 2023-08-18 20:16 | Emergency (ER) | payer MEDICARE, MEDICAID, SELFPAY ==
[2017-06-26 13:13] VITALS: BMI 29.0
[2023-08-18 20:17] VITALS: BP 170/91; PULSE 89; RESP 16; TEMP 36.4; O2SAT 100; BMI 27.7
--- NOTE | 2023-08-18 21:26 | RAD_ITS ---
EXAM: XR LEFT HIP WITH PELVIS WHEN PERFORMED, 2 OR 3 VIEWS CLINICAL INDICATION: injury TECHNIQUE: Two or three views of the left hip with pelvis when performed. COMPARISON: No relevant prior studies available. FINDINGS: BONES/JOINTS: There is a a total left hip prosthesis in anatomic alignment. No displaced fracture. No destructive or sclerotic lesions. Note that overlapping bowel shadows may however obscure fine detail. Sacroiliac joint is unremarkable. No widening of the pubic symphysis. SOFT TISSUES: Unremarkable. No soft tissue swelling or gas. RAD/HIP, UNI W/ Pelvis 2-3 Views IMPRESSION: No acute osseous abnormalities. There is a left hip prosthesis in anatomic alignment. Electronically Signed: Almas Chirinos MD at 22:17 EDT ,
--- NOTE | 2023-08-18 21:26 | RAD_ITS ---
EXAM: XR LUMBOSACRAL SPINE, 2 OR 3 VIEWS CLINICAL INDICATION: injury TECHNIQUE: Frontal and lateral views of the lumbar spine and sacrum. COMPARISON: No relevant prior studies available. FINDINGS: VERTEBRAE: There is facet hypertrophy at L3-4, L4-5 and L5-S1. Preserved vertebral body height. No fracture. No spondylolisthesis. Preservation of the normal lumbar lordosis. DISC SPACES: See above. GASTROINTESTINAL TRACT: Unremarkable as visualized. Included bowel gas pattern is non-obstructive. RAD/Lumbar Spine 2 or 3 Views IMPRESSION: No acute osseous abnormalities. There are degenerative changes with facet hypertrophy in the lower lumbar spine. Electronically Signed: Almas Chirinos MD at 22:14 EDT ,
--- NOTE | 2023-08-18 21:26 | RAD_ITS ---
EXAM: XR CERVICAL SPINE, 2 OR 3 VIEWS CLINICAL INDICATION: injury TECHNIQUE: Frontal and lateral views of the cervical spine. COMPARISON: No relevant prior studies available. FINDINGS: VERTEBRAE: Unremarkable. Preserved vertebral body height. No acute fracture. No spondylolisthesis. Preservation of the normal cervical lordosis. No significant facet arthropathy. DISC SPACES: There is disc space narrowing at C4-5 and C5-C6. SOFT TISSUES: Unremarkable. No prevertebral soft tissue widening. LUNG APICES: Clear. RAD/Cerv Spine 2 or 3 Views IMPRESSION: No acute osseous abnormalities. There are degenerative changes with disc space narrowing. Electronically Signed: Almas Chirinos MD at 22:23 EDT ,
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
--- NOTE | 2023-08-18 21:30 | RAD_ITS ---
EXAM: XR CHEST, 2 VIEWS CLINICAL INDICATION: injury TECHNIQUE: Frontal and lateral views of the chest. COMPARISON: No relevant prior studies available. FINDINGS: LUNGS AND PLEURAL SPACES: Unremarkable. No consolidation or edema. No pneumothorax. No effusion. HEART: Unremarkable. Cardiac silhouette not enlarged. MEDIASTINUM: Central airways and mediastinal contour are unremarkable. BONES/JOINTS: Unremarkable. No acute fracture. SOFT TISSUES: Unremarkable. RAD/Chest PA and Lateral IMPRESSION: No radiographic evidence of acute cardiopulmonary disease. Electronically Signed: Almas Chirinos MD at 22:14 EDT ,
--- OUTSIDE RECORDS SUMMARY | 2023-08-18 21:39 | XMS RPT_ITS | CCD ---
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 Name Role Phone ElielGisselle Lianne Unavailable Unavailable ZAK Mera, Jenny Lazcano Unavailable [phone] Rosy QUINTANILLA, Bre Still Unavailable Unavailable Mikaela Carlos Unavailable Unavailable Mikaela Carlos Unavailable Unavailable Unavailable Primary Care Provider Unavailabl e Unavailable Primary Care Provider Unavailabl e Allergies Allergy Classification Reported Allergen(s) Allergy Type Date of Onset Reaction(s) Facility (5 sources) atorvastatin drug allergy 6 myalgia [facility] Work Phone: (5 sources) bee venom; 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: [BEE VENOM] allergy to substance 6 [facility] Work Phone: [phone] (5 sources) oxyCODONE drug allergy 6 [facility] Work Phone: [phone] (5 sources) Penicillins (Antibiotic) drug allergy 6 rash [facility] Work Phone: [phone] (5 sources) strawberry; 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: [STRAWBERRIES] food allergy 6 [facility] Work Phone: [phone] (5 sources) Bee pollen Drug Allergy 9 Swelling [place], [place] (5 sources) Codeine Drug Allergy 9 Itching [place] (5 sources) Penicillins Propensity to adverse reactions to drug 9 Hives [place] (2 sources) NSAIDs Propensity to adverse reactions to drug 1 Other (See Comments) [facility] Work Phone: Medications Current Medications Medication Drug Class(es) Dates Sig (Normalized) Sig (Original) acetaminophen 325 mg / HYDROcodone bitartrate 5 mg oral tablet (11 sources) 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 Intended supply: 3 days. Take lowest dose possible to manage pain 18 tablet 0 07/24/2020 07/29/2020 Active Completed/Discontinued Medications Medication Drug Class(es) Dates Sig (Normalized) Sig (Original) acetaminophen 500 mg oral tablet (9 sources) Start: 07-24-2020 End: 07-24-2020 acetaminophen (TYLENOL) tablet 1,000 mg Problems Active Problems Problem Classification Problem Date Documented Da te Episodic/Chronic Acute myocardial infarction (5 sources) Non-ST elevation (NSTEMI) myocardial infarction; 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: [Non-ST elevation (NSTEMI) myocardial infarction] Onset: 09-11-2015 09-11-2015 Chronic Coronary atherosclerosis and other heart disease (20 sources) Old myocardial infarction; 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: [Coronary atherosclerosis] Onset: 09-11-2015 08-08-2016 Chronic Disorders of lipid metabolism (5 sources) Hyperlipidemia; 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: [Hyperlipidemia, unspecified] Onset: 09-11-2015 09-11-2015 Chronic Essential hypertension (5 sources) Hypertensive disorder; 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: [Essential (primary) hypertension] Onset: 09-11-2015 09-11-2015 Chronic Heart valve disorders (10 sources) H/O: artificial heart valve; 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: [Nonrheumatic tricuspid (valve) insufficiency] Onset: 09-11-2015 01-19-2016 Chronic Other connective tissue disease (1 source) Tenosynovitis; 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: [Tenosynovitis] Episodic Other skin disorders (6 sources) Mass of lower limb; 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: [Mass of right thigh] Onset: 07-04-2020 07-04-2020 Episodic Skin and subcutaneous tissue infections (6 sources) Cellulitis of finger of left hand; 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: [Cellulitis of finger of left hand] Onset: 08-13-2019 08-13-2019 Unclassified (2 sources) Placement of stent in coronary artery ; 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: [Presence of coronary angioplasty implant and graft] Onset: 09-11-2015 09-11-2015 Unclassified (6 sources) Long-term drug therapy; 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: [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] Onset: 09-11-2015 03-11-2017 Past or Other Problems Problem Classification Problem Date Documented Date Episodic/Chronic Coma, stupor, brain damage (5 sources) Daytime somnolence; 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: [Somnolence] Onset: 08-08-2016 08-08-2016 Episodic Nonspecific chest pain (10 sources) Chest pain; 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: [Chest pain, unspecified] Onset: 10-27-2015 Resolved: 08-08-2016 08-08-2016 Episodic Other aftercare (2 sources) Other usp (current) drug therapy; 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: [Other usp (current) drug therapy] Onset: 09-11-2015 09-11-2015 Episodic Other circulatory disease (8 sources) Cardiovascular stress test abnormal; 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: [Abnormal result of other cardiovascular function study] Onset: 08-23-2016 Resolved: 03-11-2017 08-23-2016 Episodic Other injuries and conditions due to external causes (6 sources) Cat scratch injury; 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: [Cat scratch of left hand] Onset: 08-15-2019 08-15-2019 Episodic Other lower respiratory disease (9 sources) Dyspnea on exertion; 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: [Chest pain on breathing] Onset: 09-18-2015 Resolved: 08-08-2016 08-23-2016 Episodic Other lower respiratory disease (6 sources) Chest pain on breathing; 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: [Chest pain on breathing] Onset: 09-18-2015 Resolved: 08-08-2016 08-08-2016 Episodic Other nutritional; endocrine; and metabolic disorders (5 sources) Body mass index (BMI) 29.0-29.9, adult; 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: [Body mass index (BMI) 29.0-29.9, adult] Onset: 09-11-2015 10-27-2015 Episodic Skin and subcutaneous tissue infections (6 sources) Cellulitis of finger; 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: [Cellulitis of left middle finger] Onset: 08-13-2019 08-15-2019 Episodic Results Test Name Value Interpretation Reference Range Facil ity Vital Signs Date Time Vital Sign Value Performing Clinician Faci lity 07-24-2020 13:30-0500 BP Diastolic 75 mm[Hg] Hussein RICE Work Phone: 07-24-2020 13:30-0500 BP Systolic 130 mm[Hg] Hussein EASONA Work Phone: 07-24-2020 13:30-0500 Respiratory Rate 18 /min Hussein RICE Work Phone: 07-24-2020 12:30-0500 Pulse (Heart Rate) 74 /min Hussein RICE Work Phone: 07-24-2020 12:30-0500 Pulse Oximetry 96 % Hussein RICE Work Phone: 07-24-2020 12:15-0500 Body Temperature 97 [degF] Hussein RICE Work Phone: 07-24-2020 08:58-0500 BMI (Body Mass Index) 30.18 kg/m2 Hussein RICE Work Phone: 07-24-2020 08:58-0500 Body weight 84.82 kg Hussein RICE Work Phone: 07-24-2020 08:58-0500 Height 167.6 cm Hussein RICE Work Phone: 07-20-2020 15:34-0500 Body Temperature 98.8 [degF] Hussein RICE Work Phone: 07-20-2020 15:34-0500 BP Diastolic 93 mm[Hg] Hussein RICE Work Phone: 07-20-2020 15:34-0500 BP Systolic 146 mm[Hg] Hussein RICE Work Phone: 07-20-2020 15:34-0500 Pulse (Heart Rate) 70 /min Hussein RICE Work Phone: 07-20-2020 15:34-0500 Pulse Oximetry 94 % Hussein RICE Work Phone: 07-20-2020 15:34-0500 Respiratory Rate 16 /min Hussein RICE Work Phone: 07-20-2020 15:30-0500 BMI (Body Mass Index) 30.18 kg/m2 Hussein RICE Work Phone: 07-20-2020 15:30-0500 Body weight 84.82 kg Hussein RICE Work Phone: 07-20-2020 15:30-0500 Height 167.6 cm Hussein RICE Work Phone: 08-15-2019 07:56-0400 Body Temperature 97 [degF] [facility] [place] 08-15-2019 07:56-0400 BP Diastolic 83 mm[Hg] [facility] , [place] 08-15-2019 07:56-0400 BP Systolic 135 mm[Hg] [facility] [place] 08-15-2019 07:56-0400 Pulse (Heart Rate) 75 /min [facility] 08-15-2019 07:56-0400 Pulse Oximetry 94 % [facility] [place] 08-15-2019 07:56-0400 Respiratory Rate 16 /[facility] [place] [facility]-12-[facility] 23:11-0500 BMI (Body Mass Index) 27.92 kg/m2 [facility] 08-12-2019 23:11-0500 Body weight 78.47 kg [facility] , [place] 08-12-2019 23:11-0500 Height 167.6 cm [place], [place] 03-13-2017 12:46-0400 BMI (Body Mass Index) 30.48 kg/m2 [facility] Work Phone: 03-13-2017 12:46-0400 BP Diastolic 64 mm[Hg] [facility] Work Phone: 03-13-2017 12:46-0400 BP Systolic 130 mm[Hg] [facility] Work Phone: 03-13-2017 12:46-0400 Height 166.37 cm [facility]a [facility] Work Phone: 03-13-2017 12:46-0400 Pulse (Heart Rate) 74 /min [facility] Work Phone: 03-13-2017 12:46-0400 Respiratory Rate 16 /min [facility] Work Phone: 03-13-2017 12:46-0400 Weight 84.37 kg Mikaela [facility] Work Phone: 08-23-2016 14:06-0400 Heart rate 65 /min Bre Gallegos RN [facility] Work Phone: 08-08-2016 12:45-0500 BMI (Body Mass Index) 28.84 kg/m2 Jenny Mera PA-C [facility] Work Phone: 08-08-2016 12:45-0500 BP Diastolic 80 mm[Hg] Jenny Mera PA-C [facility] Work Phone: 08-08-2016 12:45-0500 BP Systolic 142 mm[Hg] Jenny Mera PA-C [facility] Work Phone: 08-08-2016 12:45-0500 Height 166.37 cm [facility] Work Phone: 08-08-2016 12:45-0500 Pulse (Heart Rate) 60 /min Jenny Mera PA-C [facility] Work Phone: 08-08-2016 12:45-0500 Respiratory Rate 18 /min Jenny Mera PA-C [facility] Work Phone: 08-08-2016 12:45-0500 Weight 79.83 kg Jenny Mera PA-C [facility] Work Phone: 01-23-2016 12:02-0400 BSA (Body Surface Area) 1.86 m2 [facility] Work Phone: Encounters Encounter Date Encounter Type Care Provider Facility Start: 08-08-2020 End: 08-08-2020 Subsequent hospital visit by physician Hussein Tang Work Phone: [facility] Start: 07-24-2020 End: 07-24-2020 Subsequent hospital visit by physician Hussein Tang Work Phone: [facility] General Surgery Procedures Date Procedure Procedure Detail Performing Clinician Start: 07-24-2020 OPERATIVE REPORT 3m Scanning Start: 07-20-2020 Basic metabolic panel calcium total Maritza A Grope Work Phone: Start: 07-20-2020 Blood count hemoglobin Maritza A Grope Work Phone: Start: 07-20-2020 Ecg routine ecg w/least 12 lds w/i&r Maritza A Grope Work Phone: Start: 07-17-2020 Mri lower extrem oth/thn jt w/o & w/contr matr Hussein Tang Work Phone: Start: 08-14-2019 Basic metabolic panel calcium total Debbie Singam Work Phone: Start: 08-14-2019 Blood count complete automated Debbie Singam Work Phone: Start: 08-13-2019 OPERATIVE REPORT 3m Scanning Start: 08-13-2019 Basic metabolic panel calcium total Christopher Spolarich Work Phone: Start: 08-13-2019 Blood count complete automated Christopher Spolarich Work Phone: Start: 08-13-2019 Blood typing serologic abo Néstor S polarich Work Phone: Start: 08-13-2019 Prothrombin time Christopher Spolaric h Work Phone: Start: 08-13-2019 Ecg routine ecg w/least 12 lds w/i&r Christopher Spolarich Work Phone: Start: 08-13-2019 Chest x-ray 1 view frontal Néstor gandhi Work Phone: Start: 08-12-2019 C-reactive protein Duarte Yoon Work Phone: Start: 08-12-2019 Sedimentation rate rbc automated Duarte Yoon Work Phone: Start: 08-12-2019 Radex hand minimum 3 views Duarte Yoon Work Phone: Start: 03-13-2017 End: 03-13-2017 DJN Juan Singh MD Work Phone: Start: 03-13-2017 End: 03-13-2017 Follow Up Appt 6 months Juan Singh MD Work Phone: Start: 03-13-2017 End: 03-13-2017 Dietary management education, guidance, and counseling Mikaela Carlos Start: 11-04-2016 End: 01-31-2017 *Hepatic Function Panel Jenny mendosa PA-C Work Phone: Start: 11-04-2016 End: 01-31-2017 Lipid 1996 panel - Serum or Plasma Jenny Mera PA-C Work Phone: Start: 11-04-2016 End: 01-31-2017 *Hepatic Function Panel Jenny mendosa PA-C Work Phone: Start: 11-04-2016 End: 01-31-2017 Lipid panel [AGGREGATE] Jenny mendosa PA-C Work Phone: Start: 08-23-2016 End: 08-23-2016 *BMP Juan Singh MD Work Phone: Start: 08-23-2016 End: 08-23-2016 CBC W Auto Differential panel - Blood Juan Singh MD Work Phone: Start: 08-23-2016 End: 08-23-2016 Chest x-ray Juan Singh MD Work Phone: Start: 08-23-2016 End: 08-23-2016 Ecg routine ecg w/least 12 lds w/i&r Juan Singh MD Work Phone: Start: 08-23-2016 End: 03-13-2017 Left Heart Cath Juan Singh MD Work Phone: Start: 08-23-2016 End: 08-23-2016 *BMP Juan Singh MD Work Phone: Start: 08-23-2016 End: 08-23-2016 CBC W Auto Differential panel - Blood Juan Singh MD Work Phone: Start: 08-23-2016 End: 08-23-2016 Chest x-ray Juan Singh MD Work Phone: Start: 08-23-2016 End: 08-23-2016 Electrocardiogram, complete Juan Singh MD Work Phone: Start: 08-08-2016 End: 08-08-2016 JOSEPHN Juan Singh MD Work Phone: Start: 08-08-2016 End: 08-08-2016 Follow Up Appt 6 months Juan Singh MD Work Phone: Start: 08-08-2016 End: 08-23-2016 Stress Echocardiogram (treadmill) Juan Singh MD Work Phone: Start: 08-08-2016 End: 08-08-2016 Dietary management education, guidance, and counseling Bre Gallegos RN Start: 08-08-2016 End: 08-08-2016 JONAS Singh MD Work Phone: Start: 08-08-2016 End: 08-08-2016 Follow Up Appt 6 months Juan Singh MD Work Phone: Start: 08-08-2016 End: 08-23-2016 Stress Echocardiogram (treadmill) Juan Singh MD Work Phone: Start: 05-06-2016 End: 05-07-2016 *Hepatic Function Panel Jenny mendosa PA-C Work Phone: Start: 05-06-2016 End: 05-07-2016 Lipid 1996 panel - Serum or Plasma Jenny Mera PA-C Work Phone: Start: 05-06-2016 End: 05-07-2016 *Hepatic Function Panel Jenny Lazcano Hardik mendosa PA-C Work Phone: Start: 05-06-2016 End: 05-07-2016 Lipid panel [AGGREGATE] Jenny Lazcano Hardik mendosa PA-C Work Phone: Start: 03-18-2016 End: 03-18-2016 *Hepatic Function Panel Jenny Lazcano Hardik mendosa PA-C Work Phone: Start: 03-18-2016 End: 03-18-2016 Lipid 1996 panel - Serum or Plasma Jenny Mera PA-C Work Phone: Start: 03-18-2016 End: 03-18-2016 *Hepatic Function Panel Jenny Neno Hardik mendosa PA-C Work Phone: Start: 03-18-2016 End: 03-18-2016 Lipid panel [AGGREGATE] Jenny Lazcano Hardik mendosa PA-C Work Phone: Start: 01-23-2016 End: 01-23-2016 JONAS Singh MD Work Phone: Start: 01-23-2016 End: 01-23-2016 Follow Up Appt 6 months Juan Singh MD Work Phone: Start: 01-23-2016 End: 08-08-2016 Left Heart Cath Jaun Singh MD Work Phone: Start: 01-23-2016 End: 08-02-2016 Pulmonary Function Test - complete Juan Singh MD Work Phone: Start: 01-23-2016 End: 01-23-2016 JONAS Singh MD Work Phone: Start: 01-23-2016 End: 01-23-2016 Follow Up Appt 6 months Juan Singh MD Work Phone: Start: 01-23-2016 End: 08-08-2016 Left Heart Cath Juan Singh MD Work Phone: Start: 01-23-2016 End: 08-02-2016 Pulmonary Function Test - complete Juan Singh MD Work Phone: Start: 01-19-2016 End: 01-19-2016 *Hepatic Function Panel Juan Singh MD Work Phone: Start: 01-19-2016 End: 01-19-2016 Lipid 1996 panel - Serum or Plasma Juan Singh MD Work Phone: Start: 01-19-2016 End: 01-19-2016 *Hepatic Function Panel Juan Singh MD Work Phone: Start: 01-19-2016 End: 01-19-2016 Lipid panel [AGGREGATE] Juan Singh MD Work Phone: Start: 12-11-2015 End: 12-15-2015 *Hepatic Function Panel Juan Singh MD Work Phone: Start: 12-11-2015 End: 12-15-2015 Lipid 1996 panel - Serum or Plasma Juan Singh MD Work Phone: Start: 12-11-2015 End: 12-15-2015 *Hepatic Function Panel Juan Singh MD Work Phone: Start: 12-11-2015 End: 12-15-2015 Lipid panel [AGGREGATE] Juan Singh MD Work Phone: Start: 10-27-2015 End: 10-27-2015 JONAS Mera PA-C Work Phone: Start: 10-27-2015 End: 10-27-2015 Follow Up Appt 3 months Jenny mendosa PA-C Work Phone: Start: 10-27-2015 End: 10-27-2015 JONAS Mera PA-C Work Phone: Start: 10-27-2015 End: 10-27-2015 Follow Up Appt 3 months Jenny mendosa PA-C Work Phone: Start: 09-18-2015 End: 09-18-2015 JONAS Singh MD Work Phone: Start: 09-18-2015 End: 09-18-2015 Follow Up Appt 6 months Juan Singh MD Work Phone: Start: 09-18-2015 End: 09-19-2015 Referral to draw end hand Juan Singh MD Work Phone: Start: 09-18-2015 End: 09-18-2015 DJN Juan Singh MD Work Phone: Start: 09-18-2015 End: 09-18-2015 Follow Up Appt 6 months Juan Singh MD Work Phone: Start: 09-18-2015 End: 09-19-2015 Referral to draw end hand Juan Singh MD Work Phone: Start: 09-11-2015 Placement of stent in coronary artery Status post cardiac stent placement Bre Gallegos RN Plan of Treatment Date Care Activity Detail Author Start: 05-17-2026 DTaP/Tdap/Td vaccine (3 - Td) DTaP/Tdap/Td vaccine (3 - Td) [place] Start: 05-17-2026 DTaP/Tdap/Td vaccine (4 - Td) DTaP/Tdap/Td vaccine (4 - Td) [place] Start: 07-20-2021 Creatinine measurement Creatinine monitoring [facility] Work Phone: Start: 07-20-2021 Potassium monitoring Potassium monitoring [facility] Work Phone: Start: 08-13-2020 Creatinine measurement Creatinine monitoring [place], [place] Start: 08-13-2020 Creatinine monitoring Creatinine monitoring [place], [place] Start: 08-13-2020 Potassium monitoring Potassium monitoring [place] Start: 07-24-2020 End: 07-24-2020 Appointment 07/24/2020 Appointment General Surgery Hussein Tang MD [address] [place] [address] [place] [id number] [phone] [facility] General Surgery Start: 02-07-2019 Influenza vaccination Flu vaccine (#1) [place] Start: 11-29-2018 Annual Wellness Visit (AWV) Annual Wellness Visit (AWV) [place] Start: 09-11-2017 End: 09-11-2017 Appointment Appointment [facility] Work Phone: Start: 08-04-2017 End: 02-07-2017 *Hepatic Function Panel *Hepatic Function Panel [facility] Work Phone: Start: 08-04-2017 End: 02-07-2017 Lipid 1996 panel *Lipid Profile CC PCP [facility] Work Phone: Start: 08-04-2017 End: 02-07-2017 *Hepatic Function Panel *Hepatic Function Panel [facility] Work Phone: Start: 08-04-2017 End: 02-07-2017 Lipid panel [AGGREGATE] *Lipid Profile CC PCP [facility] Work Phone: Start: 03-13-2017 End: 03-13-2017 Appointment Appointment [facility] Work Phone: Start: 03-13-2017 End: 03-13-2017 DJN DJN [facility] Work Phone: Start: 03-13-2017 End: 03-13-2017 Follow Up Appt 6 months Follow Up Appt 6 months [facility] Work Phone: Start: 02-13-2017 End: 02-13-2017 Appointment Appointment [facility] Work Phone: Start: 12-31-2016 DEXA (modify frequency per FRAX score) DEXA (modify frequency per FRAX score) [place] Start: 12-31-2016 Pneumococcal 65+ years Vaccine (1 of 1 - PPSV23) Pneumococcal 65+ years Vaccine (1 of 1 - PPSV23) [place] Start: 11-04-2016 End: 01-31-2017 *Hepatic Function Panel *Hepatic Function Panel [facility] Work Phone: Start: 11-04-2016 End: 01-31-2017 Lipid 1996 panel *Lipid Profile CC PCP [facility] Work Phone: Start: 11-04-2016 End: 01-31-2017 *Hepatic Function Panel *Hepatic Function Panel [facility] Work Phone: Start: 11-04-2016 End: 01-31-2017 Lipid panel [AGGREGATE] *Lipid Profile CC PCP [facility] Work Phone: Start: 08-23-2016 End: 08-23-2016 *BMP *BMP [facility] Work Phone: Start: 08-23-2016 End: 08-23-2016 CBC W Auto Differential panel - Blood *CBC without Diff [facility] Work Phone: Start: 08-23-2016 End: 08-23-2016 Chest x-ray X-Ray, Chest, PA & Lateral [facility] Work Phone: Start: 08-23-2016 End: 08-23-2016 Ecg routine ecg w/least 12 lds w/i&r EKG (In office) [facility] Work Phone: Start: 08-23-2016 End: 03-13-2017 Left Heart Cath Left Heart Cath [facility] Work Phone: Start: 08-23-2016 End: 08-23-2016 *BMP *BMP [facility] Work Phone: Start: 08-23-2016 End: 08-23-2016 CBC W Auto Differential panel - Blood *CBC without Diff [facility] Work Phone: Start: 08-23-2016 End: 08-23-2016 Chest x-ray X-Ray, Chest, PA & Lateral [facility] Work Phone: Start: 08-23-2016 End: 08-23-2016 Electrocardiogram, complete EKG (In office) [facility] Work Phone: Start: 08-23-2016 End: 08-23-2016 Left Heart Cath Left Heart Cath [facility] Work Phone: Start: 08-08-2016 End: 08-08-2016 DJN DJN [facility] Work Phone: Start: 08-08-2016 End: 08-08-2016 Follow Up Appt 6 months Follow Up Appt 6 months [facility] Work Phone: Start: 08-08-2016 End: 08-08-2016 Stress Echocardiogram (treadmill) Stress Echocardiogram (treadmill) [facility] Work Phone: Start: 08-08-2016 End: 08-08-2016 DJN DJArcadio [facility] Work Phone: Start: 08-08-2016 End: 08-08-2016 Follow Up Appt 6 months Follow Up Appt 6 months [facility] Work Phone: Start: 08-08-2016 End: 08-08-2016 Stress Echocardiogram (treadmill) Stress Echocardiogram (treadmill) [facility] Work Phone: Start: 05-06-2016 End: 05-07-2016 *Hepatic Function Panel *Hepatic Function Panel [facility] Work Phone: Start: 05-06-2016 End: 05-07-2016 Lipid 1996 panel *Lipid Profile CC PCP [facility] Work Phone: Start: 05-06-2016 End: 05-07-2016 *Hepatic Function Panel *Hepatic Function Panel [facility] Work Phone: Start: 05-06-2016 End: 05-07-2016 Lipid panel [AGGREGATE] *Lipid Profile CC PCP [facility] Work Phone: Start: 04-22-2016 End: 03-18-2016 *Hepatic Function Panel *Hepatic Function Panel [facility] Work Phone: Start: 04-22-2016 End: 03-18-2016 Lipid 1996 panel *Lipid Profile CC PCP [facility] Work Phone: Start: 04-22-2016 End: 03-18-2016 *Hepatic Function Panel *Hepatic Function Panel [facility] Work Phone: Start: 04-22-2016 End: 03-18-2016 Lipid panel [AGGREGATE] *Lipid Profile CC PCP [facility] Work Phone: Start: 01-29-2016 End: 01-19-2016 *Hepatic Function Panel *Hepatic Function Panel [facility] Work Phone: Start: 01-29-2016 End: 01-19-2016 Lipid 1996 panel *Lipid Profile CC PCP [facility] Work Phone: Start: 01-29-2016 End: 01-19-2016 *Hepatic Function Panel *Hepatic Function Panel [facility] Work Phone: Start: 01-29-2016 End: 01-19-2016 Lipid panel [AGGREGATE] *Lipid Profile CC PCP [facility] Work Phone: Start: 01-23-2016 End: 01-23-2016 JOSEPHN JOSEPHN [facility] Work Phone: Start: 01-23-2016 End: 01-23-2016 Follow Up Appt 6 months Follow Up Appt 6 months [facility] Work Phone: Start: 01-23-2016 End: 01-23-2016 Left Heart Cath Left Heart Cath [facility] Work Phone: Start: 01-23-2016 End: 01-23-2016 Pulmonary Function Test - complete Pulmonary Function Test - complete [facility] Work Phone: Start: 01-23-2016 End: 01-23-2016 JONAS RUIZN [facility] Work Phone: Start: 01-23-2016 End: 01-23-2016 Follow Up Appt 6 months Follow Up Appt 6 months [facility] Work Phone: Start: 01-23-2016 End: 01-23-2016 Left Heart Cath Left Heart Cath [facility] Work Phone: Start: 01-23-2016 End: 01-23-2016 Pulmonary Function Test - complete Pulmonary Function Test - complete [facility] Work Phone: Start: 12-11-2015 End: 12-15-2015 *Hepatic Function Panel *Hepatic Function Panel [facility] Work Phone: Start: 12-11-2015 End: 12-15-2015 Lipid 1996 panel *Lipid Profile CC PCP [facility] Work Phone: Start: 12-11-2015 End: 12-15-2015 *Hepatic Function Panel *Hepatic Function Panel [facility] Work Phone: Start: 12-11-2015 End: 12-15-2015 Lipid panel [AGGREGATE] *Lipid Profile CC PCP [facility] Work Phone: Start: 10-27-2015 End: 10-27-2015 JOSEPHN JOSEPHN [facility] Work Phone: Start: 10-27-2015 End: 10-27-2015 Follow Up Appt 3 months Follow Up Appt 3 months [facility] Work Phone: Start: 10-27-2015 End: 10-27-2015 DJN DJN [facility] Work Phone: Start: 10-27-2015 End: 10-27-2015 Follow Up Appt 3 months Follow Up Appt 3 months [facility] Work Phone: Start: 09-18-2015 End: 10-27-2015 Cardiac Rehab Cardiac Rehab [facility] Work Phone: Start: 09-18-2015 End: 09-18-2015 DJN DJN [facility] Work Phone: Start: 09-18-2015 End: 09-18-2015 Follow Up Appt 6 months Follow Up Appt 6 months [facility] Work Phone: Start: 09-18-2015 End: 10-27-2015 Cardiac Rehab Cardiac Rehab [facility] Work Phone: Start: 09-18-2015 End: 09-18-2015 JOSEPHN DJN [facility] Work Phone: Start: 09-18-2015 End: 09-18-2015 Follow Up Appt 6 months Follow Up Appt 6 months [facility] Work Phone: Start: 12-31-2006 Screening for osteoporosis DEXA (modify frequency per FRAX score) [place] Start: 12-31-2001 Breast cancer screen Breast cancer screen [place] Start: 12-31-2001 Colon cancer screen colonoscopy Colon cancer screen colonoscopy [place] Start: 12-31-2001 Screening for malignant neoplasm of breast Breast cancer screen [place] Start: 12-31-2001 Screening for malignant neoplasm of colon Colon cancer screen colonoscopy [place] Start: 12-31-2001 Shingles Vaccine (1 of 2) Shingles Vaccine (1 of 2) [place] Start: 1992 Diabetes screen Diabetes screen [place], [place] Start: 1968 COVID-19 Vaccine (1 of 2) COVID-19 Vaccine (1 of 2) [place]: [place] COVID-19 Vaccine (1) COVID-19 Vaccine (1) [facility] Work Phone: Start: 12-31-1961 Lipid panel Lipid screen [place], [place] Start: 12-31-1961 Lipid screen [place] Start: 1952 Hepatitis C screen Hepatitis C screen [place], [place] Start: 1952 Hepatitis C screening Hepatitis C screen [place], [place] End: 07-24-2020 Blood glucose - POCT Blood glucose - POCT Point of Care Testing STAT One Time for 1 Occurrences starting 07/24/2020 until 07/24/2020 [facility] Work Phone: Payers Date Payer Category Payer Medicare BCBS MEDICARE AN THEM MEDIBLUE ESSENTIAL/PLUS [id number] 2019-Present [address] [address] [place] [address] [id number] 2018 Medicaid MEDICAID [place] [facility] CAID [facility] DEPT OF JOB xxxxxxxxxxxx 2018-Present [phone] [address] [place] [address] xxxxxxxxxxxx [id number] 2018 Medicaid MEDICAID [place] [facility] [place] DEPT OF JOB [id number] 2018-Present [phone] [address] [place] Ma[place] [id number] 2014 Medicare MEDICARE MEDICAR E PART A AND B xxxxxxxxxxx 2014-Present [phone] [place] [address] xxxxxxxxxxx [id number] Social History Date Type Detail Facility Start: 08-13-2019 End: 07-04-2020 Tobacco smoking status AZIS Never smoker [employer] [facility] Start: 08-13-2019 End: 07-04-2020 Alcohol intake Ex-drinker (finding) [employer] ([employer] Sex Assigned At Not on file [employer] Start: 07-04-2020 End: 07-24-2020 Tobacco use and exposure Never used [employer] [facility] Start: 07-20-2020 End: 07-24-2020 Tobacco smoking status [facility] Former smoker [employer] Work Phone: End: 06-09-1989 History of tobacco use Current smoker [employer] Work Phone: End: 06-09-1989 History of tobacco use Cigarette Smoker [employer] Work Phone: Start: 07-20-2020 End: 07-24-2020 Alcohol intake Current drinker of alcohol (finding) [employer] Work Phone: Start: 07-20-2020 Alcohol Comment rarely [employer] Work Phone: Exposure to SARS-CoV -2 (event) Not sure [employer] Work Phone: Hospital Course * Debbie Puga MD - 08/15/2019 9:36 AM EDT Hospitalist Discharge Summary Angelina Vargas : 1950 Admit date: 08/12/2019 Discharge date: 08/15/19 Admitting Physician: Nelida London DO Discharge Physician: DEBBIE PUGA MD Primary Care Physician: No primary care provider on file. Visit Status: Admission Code Status: Full Code Discharge Diagnoses: Primary Problem Cellulitis of left middle finger Hospital Problems Active Hospital Problems Diagnosis Date Noted CAD (coronary artery disease) [I25.10] 08/15/2019 Cat scratch of left hand [S60.512A, W55.03XA] 08/15/2019 Cellulitis of finger of left hand [L03.012] 08/13/2019 Cellulitis of left middle finger [L03.012] 08/13/2019 Hospital Course: Patient is an overweight (BMI 25.0-29.9) 69 y.o. female who presented with scratched by her neighbour's cat. She initially presented to [place] ED and was given ceftriaxone. Transferred to [facility] for orthopedic evaluation. Left hand XR unremarkable. Seen by ortho who performed bedside I&D on 08/12. Wbc 7.2, CRP of 8.9, ESR 8. She had formal I&D for flexor tenosynovitis 08/13/19. ID consulted, started mesha Unasyn, she tolerated well, was discharged on po augmentin. Wound cx negative for organisms. Discharge Concerns/Recommendations: F/u ortho Procedures: Xray left hand- no acute changes Consults: IP CONSULT TO ORTHOPEDIC SURGERY IP CONSULT TO INFECTIOUS DISEASES Discharge Instructions: Diet: DIET GENERAL; Activity: as tolerated Follow Up: Kelsy Kumar MD [address] [facility] [id number] In 5 days Postoperative follow-up PCP Call in 2 days Hospital f/u, GAL visit with in week Disposition: Patient discharged in stable condition to Home. Vitals: BP 135/83 Pulse 75 Temp 97 F (36.1 C) (Temporal) Resp 16 Ht 5' 6 (1.676 m) Wt 173 lb (78.5 kg) SpO2 94% BMI 27.92 kg/m Pulse Ox: SpO2 Av % Min: 92 % Max: 94 % Supplemental O2: O2 Flow Rate (L/min): 3 L/min General appearance: alert and cooperative with exam Lungs: clear to auscultation bilaterally Heart: regular rate and rhythm, S1, S2 normal, no murmur, click, rub or gallop Abdomen: soft, non-tender; bowel sounds normal; no masses, no organomegaly Extremities: no cyanosis or edema Neurologic: No obvious focal neurologic deficits. Discharge Medications: Medication List START taking these medications amoxicillin-clavulanate 875-125 MG per tablet Commonly known as: AUGMENTIN Take 1 tablet by mouth 2 times daily for 10 days oxyCODONE-acetaminophen 5-325 MG per tablet Commonly known as: Percocet Take 1 tablet by mouth every 6 hours as needed for Pain for up to 3 days. Intended supply: 3 days. Take lowest dose possible to manage pain CONTINUE taking these medications * albuterol 2 MG/5ML syrup Commonly known as: PROVENTIL;VENTOLIN * albuterol sulfate HFA 108 (90 Base) MCG/ACT inhaler aspirin 81 MG tablet carvedilol 3.125 MG tablet Commonly known as: COREG ezetimibe 10 MG tablet Commonly known as: ZETIA famotidine 20 MG tablet Commonly known as: PEPCID losartan 50 MG tablet Commonly known as: COZAAR PARoxetine 20 MG tablet Commonly known as: PAXIL simvastatin 5 MG tablet Commonly known as: ZOCOR ticagrelor 90 MG Tabs tablet Commonly known as: BRILINTA * This list has 2 medication(s) that are the same as other medications prescribed for you. Read thedirections carefully, and ask your doctor or other care provider to review them with you. STOP taking these medications nitrofurantoin 25 MG/5ML suspension Commonly known as: FURADANTIN potassium chloride 10 MEQ/100ML traMADol 50 MG tablet Commonly known as: ULTRAM Where to Get Your Medications These medications were sent to [facility] [address] [place] [address] [address] [facility] - P [phone] - F [phone] [place] [address] amoxicillin-clavulanate 875-125 MG per tablet You can get these medications from any pharmacy Bring a paper prescription for each of these medications oxyCODONE-acetaminophen 5-325 MG per tablet Complexity of Follow up: [] Moderate Complexity: follow up within 7-14 calendar days (37075) [] Severe Complexity: follow up within 7 calendar days (62756) Follow up Testing, Pending results or Referrals at Transitional Care Visit: [] yes [] no Instructions to MA: Please call patient on day after discharge (must document patient contacted within 2 business days of discharge). Follow up questions for MA: 1. Did you get medications filled and taking them as instructed from discharge? 2. Are you following your discharge instructions from your hospital stay? 3. Please confirm patient is scheduled for a follow up appointment within the above time frame. Time Spent on discharge is 35 mins in patient examination, evaluation, counseling as well as medication reconciliation, prescriptions for required medications, discharge plan and follow up. Signed: DEBBIE PUGA MD 08/15/2019, 12:[address] Mccarthy primary care provider on file. for the opportunity to be involved in this patient's care. documented in this encounter Discharge Instructions * Instructions* Taras Hamilton MD - 08/13/2019 General Orthopedic Discharge Instructions The following instructions have been prepared to help you when you leave the hospital. These guidelines are for the post-surgery period. Activity: Ease into normal activity as tolerated. Weightbearing status: as tolerated to left hand Try to limit your activity until seen at follow-up Medications: see medication instructions. Please be sure to read and understand the information provided by your pharmacy. Ask your Pharmacist if any questions. Wound Care and Hygiene: -Wash hands before touching or changing dressings -Do Not touch incision -Leave dressing till follow-up -May shower starting post-op day 3. Cover dressing. Must keep clean and dry. Call Your Doctor for: -Excessive bleeding/swelling of incision -Fever with temperature above 101 F Anesthesia Precautions: -Do Not operate any vehicle (automobile, bicycle, motorcycle) or power tools for 24 hours -Do Not drink alcoholic beverages for 24 hours -As precaution to prevent post-operative nausea and vomiting, start your diet with liquids, then progress to light foods. If tolerated, resume normal diet. Additional Instructions: Ice to affected area. This will help with pain and swelling. Elevate the left arm above the level of the heart. This will help with pain and swelling. Contact your surgeon's office (Dr. Kumar) to set up an appointment in 1 week, or if you have any problems or questions. documented in this encounter* Instructions* Chantale Castillo RN - 07/20/2020 Please bring your [facility] Surgical Information folder on the day of surgery. Please sylvia the last dose taken (date and time ) on your Daily Medications List provided in your After Visit Summary. Please bring a photo ID and insurance information Do NOT take the following medications on the morning of surgery: losartan, hydrochlorothiazide TAKE the following medications the morning of your surgery: aspirin, paroxetine, carvedilol, famotidine You may take your prescription pain medications. You may take Tylenol (acetaminophen) if needed forpain. No Motrin, ibuprofen, or Advil 24 hours prior to surgery, or longer if instructed by your surgeon. No Aleve or Naprosyn 3 days prior to surgery, or longer if instructed by your surgeon. If you are on BLOOD THINNERS or ASPIRIN-continue aspirin due to stents Additional instructions: none You will receive a reminder call the day before surgery with your Same Day Surgery arrival time. If you have specific questions, please call your surgeon. documented in this encounter* Instructions* Petey Dumont MD - 07/24/2020 General Orthopedic Discharge Instructions The following instructions have been prepared to help you when you leave the hospital. These guidelines are for the post-surgery period. Activity: Ease into normal activity as tolerated. Medications: see medication instructions. Please be sure to read and understand the information provided by your pharmacy. Ask your Pharmacist if any questions. Wound Care and Hygiene: -Wash hands before touching or changing dressings -Do Not touch incision -Leave dressing until post-op day 2 and reapply dressing if wound is draining. If wound is dry, youmay leave dressing off -May shower starting post-op day 3 Call Your Doctor for: -Excessive bleeding/swelling of incision -Fever with temperature above 100 F Anesthesia Precautions: -Do Not operate any vehicle (automobile, bicycle, motorcycle) or power tools for 24 hours -Do Not drink alcoholic beverages for 24 hours -As precaution to prevent post-operative nausea and vomiting, start your diet with liquids, then progress to light foods. If tolerated, resume normal diet. Additional Instructions: Weight bearing as tolerated right lower extremity Continue PT Blood clot prevention:aspirin 81mg daily Pain control with norco Contact your surgeon's office (Dr. Tang), to set up an appointment in 3 weeks, or if you have anyproblems or questions. documented in this encounter History of Present Illness * Johnna Fontana MD - 08/15/2019 11:31 AM EDT Progress Note [facility] Patient - Angelina Vargas, Age - 69 y.o. - 1950 Room Number - 1558[facility]1558B [id number] Date of Admission - 08/12/2019 11:02 PM ASSESSMENT 1. Left long finger cellulitis with flexor tenosynovitis due to #2 s/p I&D 08/12 neg cx 2. Cat bite (stray) 3. PCN allergy - hives, has taken amoxicillin in past 4. CAD 5. Hypertension PLAN Dc Unasyn Oral Augmentin 875mg bid x 10 days Discharge planning per primary Follow ortho as scheduled SUBJECTIVE: Doing okay. More mobility. Images reviewed. cx neg OBJECTIVE VITALS height is 5' 6 (1.676 m) and weight is 173 lb (78.5 kg). Her temporal temperature is 97 F (36.1 C). Her blood pressure is 135/83 and her pulse is 75. Her respiration is 16 and oxygen saturation is 94%. Temp (24hrs), Av.9 F (36.6 C), Min:97 F (36.1 C), Max:98.9 F (37.2 C) General Appearance: NAD HEENT: wnl Neck: Supple Lungs: Clear to auscultation b/l Cardiovascular: RRR Abdomen: Soft NT, BS+ : no CVAT Neurologic: wnl Skin: No rashes Extremities: No edema left hand tim wrap Lines: sites clean No joint inflammation MEDICATIONS: sodium chloride flush 10 mL Intravenous 2 times per day aspirin 81 mg Oral Daily PARoxetine 20 mg Oral QAM ezetimibe 10 mg Oral Daily atorvastatin 10 mg Oral Daily losartan 50 mg Oral Daily carvedilol 3.125 mg Oral BID ticagrelor 90 mg Oral BID famotidine 20 mg Oral BID ampicillin-sulbactam 3 g Intravenous Q6H LABS: CBC: Recent Labs 08/13/19 0033 08/14/19 0019 WBC 7.2 6.8 HGB 12.9 13.9 PLT 198 207 BMP: Recent Labs 08/13/19 0033 08/14/19 0019 NA 140 138 K 3.3* 4.5 CL 113* 108* CO2 22 21* BUN 12 11 CREATININE 0.77 0.87 GLUCOSE 86 144* Hepatic:No results for input(s): ALKPHOS, ALT, AST, PROT, BILITOT, LABALBU in the last 72 hours. Lactic Acid: No results for input(s): LACTA in the last 72 hours. MICROBIOLOGY: No results for input(s): BC in the last 72 hours. IMAGING: Reviewed Problem list of patient: Patient Active Problem List Diagnosis Cellulitis of finger of left hand Cellulitis of left middle finger CAD (coronary artery disease) Cat scratch of left hand Johnna Fontana MD 11:31 AM 08/15/19 * Benito Washington MD - 08/15/2019 5:11 AM EDT Patient Name: Angelina Vargas Date of : 1950 Date: 08/15/19 Assessment: 69 y.o. female with left long finger cellulitis, possible abscess after cat scratch to finger status post bedside I&D 08/13/2019, formal I&D for flexor tenosynovitis 08/13/19 Plan: Aggressive elevation LUE Soft dressing Antibiotics per ID/primary Follow-up in office Will sign off--call with questions or concerns. Subjective: Pain controlled, tolerating diet, feels ready to go home. Medications: sodium chloride flush 10 mL Intravenous 2 times per day aspirin 81 mg Oral Daily PARoxetine 20 mg Oral QAM ezetimibe 10 mg Oral Daily atorvastatin 10 mg Oral Daily losartan 50 mg Oral Daily carvedilol 3.125 mg Oral BID ticagrelor 90 mg Oral BID famotidine 20 mg Oral BID ampicillin-sulbactam 3 g Intravenous Q6H Physical Exam: Vitals: 08/14/191953 BP: (!) 143/80 Pulse: 78 Resp: 21 Temp: 97.9 F (36.6 C) SpO2: 92% LUE: 2+ Radial Pulse, Motor intact + Anterior interosseous nerve, posterior interosseous nerve and ulnar nerve distributions, Sensation intact to light touch in Radial, ulnar, median, and axillary nerve distributions (Mild tingling in thumb--dressing wrapped more loosely). incisions clean, dry and intact. No pain with passive extension of long finger. Intake and Output Summary (Last 24 hours) at Date Time No intake or output data in the 24 hours ending 08/15/19 0511 Labs: CBC with Differential: Lab Results Component Value Date WBC 6.8 08/14/2019 RBC 4.96 08/14/2019 HGB 13.9 08/14/2019 HCT 40.6 08/14/2019 PLT 207 08/14/2019 MCV 81.9 08/14/2019 MCH 28.1 08/14/2019 MCHC 34.4 08/14/2019 RDW 14.6 08/14/2019 BMP: Lab Results Component Value Date NA 138 08/14/2019 K 4.5 08/14/2019 CL 108 08/14/2019 CO2 21 08/14/2019 BUN 11 08/14/2019 CREATININE 0.87 08/14/2019 CALCIUM 9.0 08/14/2019 GLUCOSE 144 08/14/2019 PT/INR: Lab Results Component Value Date PROTIME 10.8 08/13/2019 INR 1.0 08/13/2019 Rads: Radiological Procedure reviewed. Signed by: Benito Washington * Chiqui Kelsey - 08/14/2019 10:14 AM EST .Nutrition rescreen completed. Chart reviewed. Patient to be monitored and followed by the diet weed science research technician.BOZENA Donnelly * Debbie Puga MD - 08/14/2019 10:00 AM EST Hospitalist Progress Note 08/14/2019 10:00 AM [id number]: Please page me for patient care issues. [phone]: Please page [facility] night Hospitalist for any issues. Subjective: Admit Date: 08/12/2019 PCP: No primary care provider on file. Room#: 1558/1558B Interval History: Patient seen and examined No new event overnight. S/p bedside I&D 08/13/2019, formal I&D 08/13/19 Denies any fever, chills, pain controlled. DIET GENERAL; Patient Vitals for the past 96 hrs (Last 3 readings): Weight 08/12/19 2311 173 lb (78.5 kg) Intake/Output Summary (Last 24 hours) at 08/14/2019 1000 Last data filed at 08/13/2019 2245 Gross per 24 hour Intake 350 ml Output 5 ml Net 345 ml LABS: CBC: Recent Labs 08/13/19 0033 08/14/19 0019 WBC 7.2 6.8 RBC 4.64 4.96 HGB 12.9 13.9 HCT 38.4 40.6 MCV 82.8 81.9 RDW 14.5 14.6* PLT 198 207 BMP: Recent Labs 08/13/19 0033 08/14/19 0019 NA 140 138 K 3.3* 4.5 CL 113* 108* CO2 22 21* BUN 12 11 CREATININE 0.77 0.87 GLUCOSE 86 144* CALCIUM 7.8* 9.0 ANIONGAP 5 9 LIVER PROFILE:No results for input(s): AST, ALT, BILITOT, ALKPHOS, LABALBU, PROT in the last 72 hours. PT/INR: Recent Labs 08/13/1932 PROTIME 10.8 INR 1.0 CARDIAC ENZYMES: No results for input(s): TROPONINI in the last 72 hours. Procalcitonin: No results found for: PROCAL Objective: Vitals: BP 135/69 Pulse 75 Temp 97.4 F (36.3 C) (Temporal) Resp 20 Ht 5' 6 (1.676 m) Wt 173 lb (78.5 kg) SpO2 92% BMI 27.92 kg/m Pulse Ox: SpO2 Av.8 % Min: 91 % Max: 96 % Supplemental O2: O2 Flow Rate (L/min): 3 L/min General appearance: No apparent distress,awake alert HEENT: Eyes: No scleral icterus,No pallor Oral: Tongue is semi-moist Cardiovascular: S1S2 heard, RRR Respiratory: Clear to auscultation bilaterally Abdomen: Soft, non-tender, non-distended with normal bowel sounds. Musculoskeletal: No obvious deformities seen Skin: No visible rashes or lesions. Neurology- no focal neurological deficits Extremity- no peripheral edema both lower extremities Assessment Active Problems -Cellulitis left long finger with abscess - cat scratch. Chronic problems # Coronary artery disease # Hypertension # hyperlipidemia #Hypokalemia-resolved Plan -Status post I&D, cultures pending. Wound care, orthopedics signed off today. -ID consulted, change antibiotics to Unasyn. -WBC normal, patient afebrile. On DVT/ GI prophylaxis Labs ordered for AM Patient was informed about all work up and treatment plan Discussed with nursing staff Advance Directive: Full Code Discharge planning: Home possibly tomorrow pending intraoperative cultures DEBBIE PUGA MD Division of Hospitalist Medicine Inpatient Medical Services * Johnna Fontana MD - 08/14/2019 7:33 AM EST Progress Note [facility] Patient - Angelina Vargas, Age - 69 y.o. - 1950 Room Number - 1558/1558B [facility] - [id number] Date of Admission - 08/12/2019 11:02 PM ASSESSMENT 1. Left long finger cellulitis with flexor tenosynovitis due to #2 s/p I&D 08/12 2. Cat bite (stray) 3. PCN allergy - hives, has taken amoxicillin in past 4. CAD 5. Hypertension PLAN Unasyn Follow cx Wound care Elevation SUBJECTIVE: Doing okay. S/p I&D yesterday, intraop no purulence Tolerated antibiotic OBJECTIVE VITALS height is 5' 6 (1.676 m) and weight is 173 lb (78.5 kg). Her temporal temperature is 97.4 F (36.3 C). Her blood pressure is 135/69 and her pulse is 75. Her respiration is 20 and oxygen saturation is92%. Temp (24hrs), Av.4 F (36.3 C), Min:96.8 F (36 C), Max:97.8 F (36.6 C) General Appearance: NAD HEENT: wnl Neck: Supple Lungs: Clear to auscultation b/l Cardiovascular: RRR Abdomen: Soft NT, BS+ : no CVAT Neurologic: wnl Skin: No rashes Extremities: No edema left hand splint Lines: sites clean No joint inflammation MEDICATIONS: sodium chloride flush 10 mL Intravenous 2 times per day aspirin 81 mg Oral Daily PARoxetine 20 mg Oral QAM ezetimibe 10 mg Oral Daily atorvastatin 10 mg Oral Daily losartan 50 mg Oral Daily carvedilol 3.125 mg Oral BID ticagrelor 90 mg Oral BID famotidine 20 mg Oral BID ampicillin-sulbactam 3 g Intravenous Q6H LABS: CBC: Recent Labs 08/13/19 0033 08/14/19 0019 WBC 7.2 6.8 HGB 12.9 13.9 PLT 198 207 BMP: Recent Labs 08/13/19 0033 08/14/19 0019 NA 140 138 K 3.3* 4.5 CL 113* 108* CO2 22 21* BUN 12 11 CREATININE 0.77 0.87 GLUCOSE 86 144* Hepatic:No results for input(s): ALKPHOS, ALT, AST, PROT, BILITOT, LABALBU in the last 72 hours. Lactic Acid: No results for input(s): LACTA in the last 72 hours. MICROBIOLOGY: No results for input(s): BC in the last 72 hours. IMAGING: Reviewed Problem list of patient: Patient Active Problem List Diagnosis Cellulitis of finger of left hand Cellulitis of left middle finger Johnna Fontana MD 7:33 AM 08/14/19 * Benito Washington MD - 08/14/2019 5:06 AM EST Patient Name: Angelina Vargas Date of : 1950 Date: 08/14/19 Assessment: 69 y.o. female with left long finger cellulitis, possible abscess after cat scratch to finger status post bedside I&D 08/13/2019, formal I&D 08/13/19 Plan: Aggressive elevation LUE Soft dressing Antibiotics per ID/primary Follow-up in office Subjective: Pain controlled, tolerating diet Medications: sodium chloride flush 10 mL Intravenous 2 times per day aspirin 81 mg Oral Daily PARoxetine 20 mg Oral QAM ezetimibe 10 mg Oral Daily atorvastatin 10 mg Oral Daily losartan 50 mg Oral Daily carvedilol 3.125 mg Oral BID ticagrelor 90 mg Oral BID famotidine 20 mg Oral BID ampicillin-sulbactam 3 g Intravenous Q6H Physical Exam: Vitals: 08/13/19 2350 BP: 126/70 Pulse: 80 Resp: 14 Temp: 96.8 F (36 C) SpO2: 91% LUE: 2+ Radial Pulse, Motor intact + Anterior interosseous nerve, posterior interosseous nerve and ulnar nerve distributions, Sensation intact to light touch in Radial, ulnar, median, and axillary nerve distributions (Mild tingling in thumb--dressing wrapped more loosely). incisions clean, dry and intact. No pain with passive extension of long finger. Intake and Output Summary (Last 24 hours) at Date Time Intake/Output Summary (Last 24 hours) at 08/14/2019 0506 Last data filed at 08/13/2019 2245 Gross per 24 hour Intake 350 ml Output 5 ml Net 345 ml Labs: CBC with Differential: Lab Results Component Value Date WBC 6.8 08/14/2019 RBC 4.96 08/14/2019 HGB 13.9 08/14/2019 HCT 40.6 08/14/2019 PLT 207 08/14/2019 MCV 81.9 08/14/2019 MCH 28.1 08/14/2019 MCHC 34.4 08/14/2019 RDW 14.6 08/14/2019 BMP: Lab Results Component Value Date NA 138 08/14/2019 K 4.5 08/14/2019 CL 108 08/14/2019 CO2 21 08/14/2019 BUN 11 08/14/2019 CREATININE 0.87 08/14/2019 CALCIUM 9.0 08/14/2019 GLUCOSE 144 08/14/2019 PT/INR: Lab Results Component Value Date PROTIME 10.8 08/13/2019 INR 1.0 08/13/2019 Rads: Radiological Procedure reviewed. Signed by: Benito Washington * Taras Hamilton MD - 08/13/2019 5:00 PM EST [place] [id number] [place] [id number] Dept: [phone] Loc: [phone] Adult Orthopaedic Service Patient Name: Angelina Vargas Date of : 1950 Date: 08/13/19 Subjective: Reevaluation of L long finger. Minimal improvement compared to yesterday's exam. No purulence. Finger is still held in a flexed position. States she has been soaking and elevating her hand as instructed. Denies any fevers. Medications: sodium chloride flush 10 mL Intravenous 2 times per day aspirin 81 mg Oral Daily PARoxetine 20 mg Oral QAM ezetimibe 10 mg Oral Daily atorvastatin 10 mg Oral Daily losartan 50 mg Oral Daily carvedilol 3.125 mg Oral BID ticagrelor 90 mg Oral BID famotidine 20 mg Oral BID ampicillin-sulbactam 3 g Intravenous Q6H Physical Exam: Vitals: 08/13/19 0934 BP: 131/69 Pulse: 85 Resp: Temp: SpO2: Intake and Output Summary (Last 24 hours) at Date Time No intake or output data in the 24 hours ending 08/13/19 1700 LUE: Tenderness to palpation along the flexor sheath from the DIP down to the MCP of the long finger. Finger held in a flexed position. Equivocal pain with flexion and extension. Previous I&D incisionappears healed over, no expressible purulence. Sensation intact. Brisk cap refill less than 2 seconds. See clinical photo below. Labs: CBC: Lab Results Component Value Date WBC 7.2 08/13/2019 RBC 4.64 08/13/2019 HGB 12.9 08/13/2019 HCT 38.4 08/13/2019 MCV 82.8 08/13/2019 MCH 27.8 08/13/2019 MCHC 33.5 08/13/2019 RDW 14.5 08/13/2019 PLT 198 08/13/2019 MPV 7.6 08/13/2019 Rads: Radiological Procedure reviewed. Assessment: 69 y.o. female with left long finger flexortenosynovitis Plan: Minimal improvement since I&D, on abx Plan for OR I&D of long finger Consented Cleared Added NPO Abx per primary NWB Elevate * Mundo Tavera MD - 08/13/2019 5:38 AM EST [facility] [address] [id number] Dept: [phone] Loc: [phone] Orthopedic Progress Note Name: Angelina Vargas Date:08/13/2019 Attending:Nelida London DO Subjective JUANITA. No events o/n. Objective Vitals: Vitals: 08/13/19 0236 08/13/19 0313 08/13/19 0317 08/13/19 0322 BP: (!) 167/98 (!) 167/98 126/86 Pulse: 70 75 75 74 Resp: 16 16 Temp: 97.5 F (36.4 C) TempSrc: Temporal Temporal SpO2: 97% 96% 98% Weight: Height: Physical Exam: General: NAD LUE Dressing taken down, soaks started, no purulence, continued TTP, questionable improvement in pain, stable swelling Dressing: Clean/Dry/Intact SILT: Radial/Ulnar/Median distributions Motor: +AIN/PIN/Hand Intrinsic Pulses: Palpable Radial LABS: Recent Labs 08/13/19 0033 WBC 7.2 HGB 12.9 HCT 38.4 PLT 198 Recent Labs 08/13/19 0033 NA 140 K 3.3* CL 113* CO2 22 BUN 12 CREATININE 0.77 CALCIUM 7.8* Recent Labs 08/13/19 0033 INR 1.0 Recent Labs 08/12/19 2342 SEDRATE 8 CRP 8.9* No results for input(s): HCG in the last 72 hours. Assessment Angelina is a 69 y.o.female s/p left long finger cellulitis, possible abscess after cat scratch to finger status post bedside I&D 08/13/2019 Plan D/w Attending Physician, sage Wheeler D/w nurse Splint and elevate from IV pole in between soaks Admit to medicine Antibiotic, pain, medical management per medicine OK for diet this AM, NPO after breakfast for reevaluation at 3PM, possible OR this evening Please comment on clearance in case of OR today Neurovascular and skin checks w soaks Orthopedic surgery to follow. Please page [phone] for her addiction therapist resident with questions or concerns. documented in this encounter* Katheryn Murphy RN - 07/24/2020 2:00 PM EST Ambulated to bathroom without difficulty utilizing walker, reports having walker at home * Katheryn Murphy RN - 07/24/2020 1:48 PM EST Resting with eyes closed * Katheryn Murphy RN - 07/24/2020 1:10 PM EST Ambulated to bathroom, required 2 assist, voided without difficulty, 2 assist to return to room, awaiting safer ambulation, tolerating PO * Ngoc Coyle RN - 07/24/2020 12:29 PM EST Went over discharge instructions and answered all questions at the time. Encouraged coughing and deep breathing. * Katheryn Murphy RN - 07/24/2020 11:40 AM EST No further intervention planned by block team, plan for pain meds * Katheryn Murphy RN - 07/24/2020 11:34 AM EST Block team paged regarding reports of pain 02/16 documented in this encounter Assessments Diagnosis Cellulitis of finger of left hand Cellulitis and abscess of finger, unspecified Tenosynovitis Synovitis and tenosynovitis, unspecified Cellulitis of left middle finger CAD (coronary artery disease) Coronary atherosclerosis of unspecified type of vessel, [place] or graft Cat scratch of left hand Diagnosis Mass of right thigh Diagnosis Mass of right thigh- Primary Advance Directives No Advanced Directives Records FoundDocuments on File Type Date Recorded 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 Advance Directives and Living Will Power of Snow Ranger Latest Code Status on File Code Status Date Activated Date Inactivated Comments Full Code 08/13/2019 3:04 AM Documents on File Type Date Recorded 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 anation ACP-Advance Directive ACP-Power of Snow Ranger Latest Code Status on File Code Status Date Activated Date Inactivated Comments Full Code 08/13/2019 3:04 AM 08/15/2019 7:07 PM Documents on File Type Date Recorded 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 anation ACP-Advance Directive ACP-Power of Snow Ranger Latest Code Status on File Code Status Date Activated Date Inactivated Comments Full Code 08/13/2019 3:04 AM 08/15/2019 7:07 PM Latest Code Status on File Code Status Date Activated Date Inactivated Comments Full Code 07/24/2020 8:55 AM Full Code 08/13/2019 3:04 AM 08/15/2019 7:07 PM Latest Code Status on File Code Status Date Activated Date Inactivated Comments Full Code 07/24/2020 8:55 AM 07/24/2020 4:34 PM Reason for Referral Status Reason Specialty Diagnoses / Procedures Referred By Contact Referred To Contact Authorized Radiology Diagnoses Mass of right thigh Procedures MRI Lower Extremity Right WO JT W WO Contrast Hussein Tang MD [address] [place] [address] [place] [address] Summary Purpose Family History No Family History Records FoundNo Family History Records FoundNo Family History Records FoundNo Family History Records FoundNo Family History Records Found Additional Source Comments Reason for Visit (unrecogniz ed section and content) INFORMATION SOURCE (unrecogn ized section and content) DATE CREATED AUTHOR AUTHOR'S ORGANIZ ATION 08/08/2020 [facility] DATE CREATED AUTHOR AUTHOR'S ORGANIZ ATION 09/13/2020 [facility] DATE CREATED AUTHOR AUTHOR'S ORGANIZ ATION 09/14/2020 [facility] DATE CREATED AUTHOR AUTHOR'S ORGANIZ ATION 09/22/2022 [facility] Ordered Prescriptions (unrec ognized section and content) FOR RECORDS PERTAINING TO PATIENTS WHO ARE OR HAVE BEEN ENROLLED IN A CHEMICAL DEPENDENCY/SUBSTANCEABUSE PROGRAM, SOME INFORMATION MAY BE OMITTED. This clinical summary was aggregated from multiple sources. Caution should be exercised in using it in the provision of clinical care. This summary normalizes information from multiple sources, and as a consequence, information in this document may materially change the coding, format and clinical context of patient data. In addition, data may be omitted in some cases. CLINICAL DECISIONS SHOULD BE BASED ON THE PRIMARY CLINICAL RECORDS. [facility] [employer] [facility]. provides no warranty or guarantee of the accuracy or completeness of information in this document.
[2023-08-18 23:03] VITALS: BP 122/84; PULSE 60; RESP 12; TEMP 36.6; O2SAT 100
[2023-08-18] MEDS: cycloBENZAPRine HCl 10 MG Tablet PO (23:05)
[2023-08-18] MEDS: traMADol 50 MG Tablet PO (23:05)
== END 2023-08-18 23:06 | disposition home or self-care (01) ==
PROVIDERS: Emergency Provider Emergency Medicine; PCP Nurse Practitioner Family; Visit Provider Emergency Medicine
DX: S20.229A Contusion of unspecified back wall of thorax, initial encounter (principal); J44.9 Chronic obstructive pulmonary disease, unspecified; Z87.891 Personal history of nicotine dependence; Z95.5 Presence of coronary angioplasty implant and graft; I25.2 Old myocardial infarction; I10 Essential (primary) hypertension; E78.5 Hyperlipidemia, unspecified; I25.10 Atherosclerotic heart disease of native coronary artery without angina pectoris; Z86.16 Personal history of COVID-19; V43.52XA Car driver injured in collision with other type car in traffic accident, initial encounter; Y92.410 Unspecified street and highway as the place of occurrence of the external cause
CPT/HCPCS: 71046; 72040; 72100; 73502; 99283

== ENCOUNTER → 2023-09-10 | Outpatient (CLI) | payer MEDICARE, MEDICAID, SELFPAY ==
[2017-06-26 13:13] VITALS: BMI 29.0
--- NOTE | 2023-09-10 12:09 | US_ITS ---
STUDY: RENAL ULTRASOUND - COMPLETE REASON FOR EXAM: Female, 73 years old. Benign lipomatous neoplasm, unspecified f/u TECHNIQUE: Ultrasound evaluation of the kidneys was performed with real-time and static palencia-scale imaging. COMPARISON: Comparison is made with prior study February 15, 2016. FINDINGS: RIGHT KIDNEY: Normal location of the right kidney, which is normal in size. The right kidney measures 9.6 cm x 3.9 cm x 4.6 cm. There is a normal cortex of the right kidney. The renal cortex measures 1.7 cm. There is a 1.2 cm x 1.2 cm x 1.2 cm renal cyst. A 3 mm nonobstructive calculus is seen. There are no right renal calculi. There is no right hydronephrosis. DISTAL RIGHT URETER: There is non-visualization of the distal right ureter. There is no demonstrated right ureterovesical junction calculus. There is a visualized right ureteral jet. LEFT KIDNEY: Normal location of the left kidney, which is normal in size. The left kidney measures 10.5 cm x 5 cm x 4.5 cm. There is a normal cortex of the left kidney. The renal cortex measures 1.5 cm. There is a 1.2 cm x 1 cm x 0.7 cm cyst. Stable 3.9 cm x 4 cm x 3.2 cm fat-containing mass in the upper pole suggestive of angiomyolipoma. There are no left renal calculi. There is no left hydronephrosis. DISTAL LEFT URETER: There is non-visualization of the distal left ureter. There is no demonstrated left ureterovesical junction calculus. There is a visualized left ureteral jet. BLADDER: The distended urinary bladder has a volume of 203 ml. There is a normal wall thickness of the distended urinary bladder. There is no demonstrated mass within the urinary bladder. There are no demonstrated bladder calculi. US/Kidney and Bladder IMPRESSION: Small bilateral renal cysts. 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 Electronically Signed: Sanchez Villarreal MD at 15:27 EDT ,
== END | disposition home or self-care (01) ==
LOC: US 12:08
PROVIDERS: PCP Nurse Practitioner Family; Referring Provider Nurse Practitioner Family; Visit Provider Nurse Practitioner Family
DX: D17.9 Benign lipomatous neoplasm, unspecified (principal)
CPT/HCPCS: 76770

== ENCOUNTER → 2023-09-18 | Outpatient (CLI) | payer MEDICARE, MEDICAID, SELFPAY ==
[2017-06-26 13:13] VITALS: BMI 29.0
--- NOTE | 2023-09-18 12:19 | BD_ITS ---
STUDY: DUAL ENERGY X-RAY ABSORPTIOMETRY / DXA REASON FOR EXAM: Female, 73 years old. M810 TECHNIQUE: Bone Mineral Density (BMD) measurements of lumbar spine and right hip were obtained. COMPARISON: None. FINDINGS: Lumbar Spine (L1-L4): g/cm2 (0.965) / T-score (-0.1) / Z-score (1.9) Findings are suggestive of normal bone density with a low fracture risk. Right Femur Total: g/cm2 (0.724) / T-score (-1.8) / Z-score (-0.2) Right Femoral Neck: g/cm2 (0.597) / T-score (-2.3) / Z-score (-0.4) BD/Dexa Bone Density Study IMPRESSION: The patient is considered osteopenic as outlined below according to World Yan Organization (WHO) criteria with a high fracture risk. Reference Information: The T-score is the number of standard deviations above or below the standard which is normal for young adults at their peak bone mineral density. The World Health Organization (WHO) interprets the T-scores as follows: Above -1 Normal bone density Between -1 and -2.5 Osteopenia Equal to / or below -2.5 Osteoporosis As a practical clinical guideline, osteopenia may be graded as follows: Mild -1 through -1.5 Moderate -1.6 through -2.0 Severe -2.1 through -2.4 The Z-score is the number of standard deviations above or below age-matched controls. A Z-score of less than -1.5 would be considered abnormal. References: 1. NIH Osteoporosis and Related Bone Diseases www osteo.org 2. International Society for Clinical Densitometry www iscd.org 3. National Osteoporosis Foundation www nof.org Electronically Signed: Sanchez Villarreal MD at 12:19 EDT ,
== END | disposition home or self-care (01) ==
LOC: OPBD 12:13
PROVIDERS: PCP Nurse Practitioner Family; Referring Provider Nurse Practitioner Family; Visit Provider Nurse Practitioner Family
DX: M81.0 Age-related osteoporosis without current pathological fracture (principal)
CPT/HCPCS: 77080

== ENCOUNTER 2023-12-09 20:34 | Emergency (ER) | payer MEDICARE, MEDICAID, SELFPAY ==
[2017-06-26 13:13] VITALS: BMI 29.0
[2023-12-09 20:35] VITALS: BP 146/102; PULSE 86; RESP 14; TEMP 36.1; O2SAT 98; BMI 27.4
--- NOTE | 2023-12-09 21:00 | RAD_ITS ---
INDICATION: trauma EXAMINATION/TECHNIQUE: X-RAY - LEFT XR Foot Min 3 Views 3 VIEWS COMPARISON: No relevant prior comparison study available FINDINGS: SOFT TISSUES: No soft tissue swelling or gas. No radiopaque foreign body. BONES/JOINTS: No acute fracture or subluxation.. Normal alignment. Preservation of the joint space.. No sclerotic or destructive changes observed. RAD/Foot min 3 Views IMPRESSION: 1. No evidence fracture, malalignment or focal bony or joint space abnormality. Electronically Signed: Jonel Robb MD at 21:26 EDT ,
--- NOTE | 2023-12-09 21:16 | EDS_ITS ---
HPI History of Present Illness HPI Narrative: 73-year-old female history of RSD. CAD with stents. On no blood thinners besides aspirin. Dropped a small glass on her left foot last . She has had pain, swelling and bruising since that time. No laceration. The glass did not break. No other complaints. Chief Complaint: Lower Extremity Injury Informant: patient Occured/Mechanism Mechanism/Context: Yes injury and Yes blunt trauma Onset/Context/Timing Onset: Days Context: Sudden Onset Timing: Continuous Quality of Pain: Dull and Aching Current Severity: Mild Maximum Severity: Mild Associated Symptoms Associated Symptoms: Negative for Parasthesia, Weakness or Loss of Funtion Narrative Narrative: 73-year-old female history of CAD on aspirin and reflux and with a dystrophy. Dropped a glass on her left foot 5 days ago complaining of pain and bruising. Prior similar symptoms: No Recent Illness/Hospitalization: No PFSH PFS Medical History Presence of stent in coronary artery (~06/26/17) Essential hypertension COVID-19 Fecal impaction in rectum Nausea & vomiting Diarrhea Myocardial infarction Coronary artery disease Complex regional pain syndrome type 1 affecting left hand Angiomyolipoma of kidney Osteoarthritis of left hip Pre-operative cardiovascular examination Chronic back pain RSD (reflex sympathetic dystrophy) Angiomyoma Atherosclerotic heart disease of [place] coronary artery without angina pectoris Nonrheumatic tricuspid (valve) insufficiency Old myocardial infarction Daytime somnolence Dyspnea on exertion NSTEMI (non-ST elevated myocardial infarction) Obesity (BMI 30.0-34.9) COPD (chronic obstructive pulmonary disease) HLD (hyperlipidemia) HTN (hypertension) Home Medications ?Medication ?Instructions ?Recorded ?Last Taken ?Type famotidine 20 mg tablet 20 mg PO DAILY STOMACH 10/02/15 05/28/22 History aspirin 81 mg tablet,delayed 81 mg PO DAILY HEART HEALTH 01/20/16 05/28/22 History release clonazepam 1 mg tablet 1 mg PO QHS PRN PRN RESTLESS LEG 05/29/22 Unknown History SYNDROME nitroglycerin 0.4 mg sublingual 0.4 mg sublingual PRN PRN Chest 05/29/22 Unknown History tablet Pain losartan 100 mg tablet 50 mg PO DAILY BLOOD PRESSURE 12/30/22 Unknown History amlodipine 5 mg tablet 5 mg PO DAILY BLOOD PRESSURE #90 05/06/23 Unknown Rx tabs carvedilol 6.25 mg tablet 6.25 mg PO BID BLOOD PRESSURE #180 05/08/23 Unknown Rx tabs evolocumab 140 mg/mL subcutaneous 140 mg subcut Q2W #2 mL 06/13/23 Unknown Rx pen injector (Gabriella Mosley) cyclobenzaprine 10 mg tablet 10 mg PO TID PRN Muscle Spasm #20 08/18/23 Unknown Rx TABLETS Allergy/AdvReac Type Severity Reaction Status Date / Time erythromycin base Allergy Severe Rash Verified 12/09/23 20:39 venom-honey bee (bee venom Allergy Severe Anaphylaxis Verified 12/09/23 20:39 (honey bee)) atorvastatin Allergy Unknown Unknown Verified 12/09/23 20:39 Penicillins Allergy Unknown Unknown Verified 12/09/23 20:39 strawberry Allergy Anaphylaxis Verified 12/09/23 20:39 [place]-ITX-AcL Reductase AdvReac Unknown Intolerance Verified 12/09/23 20:39 Inhibitor azithromycin AdvReac Rash Verified 12/09/23 20:39 oxycodone HCl (From Percocet) AdvReac Vomiting Verified 12/09/23 20:39 Family History Father CAD (coronary artery disease) Brother Afib Surgical History Presence of coronary angioplasty implant and graft (~06/26/17) History of back surgery left hand surgery Social History housing: house Smoking Status: Former smoker alcohol intake: current substance use type: former substance user Date of last use: 2016 and marijuana caffeine: Yes Type: carbonated beverages, coffee and tea what type of physical activity do you participate in: none seatbelt use: always do you feel safe at home: Yes ROS ROS ED ROS Narrative Denies recent illness. Review of Systems ROS Unobtainable: Denies due to encephalopathy Constitutional Constitutional ED: Denies chills or fever(s) Eyes Eyes: Denies blurry vision ENT ENT ED: Denies ear pain Cardiovascular Cardiovascular: Denies chest pain Respiratory/Chest Respiratory/Chest: Denies cough Gastrointestinal Gastrointestinal: Denies abdominal pain Genitourinary Genitourinary ED: Denies dysuria Musculoskeletal Musculoskeletal: Denies arthralgias Integumentary Denies abscess Neurologic Neurologic: Denies headache(s) Psychiatric Psychiatric: Denies anxiety Endocrine Endocrinology: Denies polydipsia Hematologic/Lymphatic Hematologic/Lymphatic: Denies easy bleeding Allergic/Immunologic Allergic/Immunologic ED: Denies mouth swelling or tongue swelling EXAM Physical Exam Narrative Exam Narrative: Well-appearing 73-year-old female. Vital signs stable afebrile. HEENT exam unremarkable. Lungs clear. Heart regular rhythm rate about 80 no murmur. Chest wall and ribs nontender. Abdomen soft nontender. Moving all 4 extremities. Normal director of sales and marketing strength. Normal dorsi plantarflexion. Her left lower leg is unremarkable. Her left foot there is a bruise on the distal third of her left foot just proximal to the MTP joints. She is able to wiggle her toes. No gross bony deformity. No laceration. Normal touch sensation. Normal DP pulse. Otherwise exam unremarkable. Const Vital Signs: 12/09/23 20:35 Temperature 96.9 F L Temperature Source Temporal Pulse Rate 86 Respiratory Rate 14 Blood Pressure 146/102 H Blood Pressure Mean 116 Pulse Ox 98 Positive well nourished and well developed; Negative for obese, cachectic, contractures or unkempt General Appearance ED: well developed and NAD; Negative for unkempt, cachectic or contractures Nutritional Appearance: Negative for cachectic or obese HEENT Reports moist mucous membranes normocephalic and atraumatic; Negative for trauma or tenderness Neck full ROM and supple Thyroid: Negative for tender Lymph Lymphatic: Negative for other Chest Wall inspection of chest normal and palpation of chest normal Chest: Negative for other Resp normal respiratory effort, no retractions and clear to auscultation bilaterally Effort and Inspection: Negative for pain with movement Auscultation: Negative for rales, rhonchi, wheezes or diminished lung sounds Cardio regular rate, regular rhythm, S1 normal heart sound, S2 normal heart sound and no murmurs Rate: Negative for bradycardia or tachycardic Rhythm: Negative for abnormal rhythm Bruits: Negative for other GI non-tender, non-distended and no masses Auscultation: normoactive bowel sounds Palpation: soft; Negative for tender, guarding or rebound tenderness present Back/Spine no CVA tenderness General Back: Negative for CVA tenderness, swelling or other Cervical Spine: Negative for cervical spine tenderness Thoracic Spine / Upper Back: Negative for thoracic spinal tenderness Lumbar Spine / Lower Back: Negative for lumbar spinal tenderness Extremity full ROM; Negative for normal to inspection Extremity Narrative: Left foot bruised. Tender. No laceration. Neurovascularly intact. No bony deformity. General Extremety ED: Yes edema; Negative for cyanosis General Extremity: edema; Negative for cyanosis Neuro oriented x3, CN's II-XII intact bilaterally and moves all extremities Sensorium / Orientation: alert, oriented to person, oriented to place and oriented to time; Negative for orientation impaired, confused, lethargic or stuporous Motor Exam: strength 5/5 throughout Psych mental status grossly normal Appearance: Negative for unkempt Speech: No other Mood & Affect: Negative for anxious Skin no wounds Lesions: no lesions MDM MDM MDM Narrative Medical decision making narrative: 73-year-old female injured her left foot 5 days ago. X-ray was obtained shows no fracture. Treated as a left foot contusion. Ice and elevate. Motrin and Tylenol. Follow-up if not improving. Discharge Plan Triage Chief Complaint: Lower Extremity Injury ED Provider: Kevin Herrera Dx/Rx/DC Orders Clinical Impression: Contusion of foot, left, History of reflex sympathetic dystrophy Instructions: ED Foot Contusion Prescriptions: No Action famotidine 20 MG tablet 20 mg PO DAILY aspirin 81 MG tablet,delayed release (DR/EC) 81 mg PO DAILY losartan 100 mg tablet 50 mg PO DAILY clonazepam 1 mg tablet 1 mg PO QHS PRN PRN (Reason: RESTLESS LEG SYNDROME) nitroglycerin 0.4 mg tablet, sublingual 0.4 mg sublingual PRN PRN (Reason: Chest Pain) cyclobenzaprine 10 mg tablet 10 mg PO TID PRN (Reason: Muscle Spasm) Qty: 20 0RF amlodipine 5 mg tablet 5 mg PO DAILY Qty: 90 3RF carvedilol 6.25 mg tablet 6.25 mg PO BID Qty: 180 3RF Repatha SureClick 140 mg/mL pen injector 140 mg subcut Q2W Qty: 2 12RF Primary Care Provider: Breanna Crandall Referrals: Breanna Crandall, [employer] [Primary Care Provider] - 10-14 Days if not better Activity Restrictions/Additional Instructions: Ice and elevate. This will decrease the pain and swelling. May take 1-2 more weeks through the monitor start feeling better. If is not getting better get reevaluated. Your x-rays are unremarkable today. There is no broken bone. Motrin for pain and swelling. Tylenol for pain. Follow-up with your primary care provider as needed. Print Language: Jordanian Disposition Disposition: Home, Self Care
== END 2023-12-09 21:16 | disposition home or self-care (01) ==
PROVIDERS: Emergency Provider Emergency Medicine; PCP Nurse Practitioner Family; Visit Provider Emergency Medicine
DX: S90.32XA Contusion of left foot, initial encounter (principal); J44.9 Chronic obstructive pulmonary disease, unspecified; I25.10 Atherosclerotic heart disease of native coronary artery without angina pectoris; E78.5 Hyperlipidemia, unspecified; Z87.891 Personal history of nicotine dependence; I10 Essential (primary) hypertension; Z95.5 Presence of coronary angioplasty implant and graft; I25.2 Old myocardial infarction; Z86.16 Personal history of COVID-19; G90.50 Complex regional pain syndrome I, unspecified; W20.8XXA Other cause of strike by thrown, projected or falling object, initial encounter
CPT/HCPCS: 73630; 99282

== ENCOUNTER 2023-12-19 19:17 | Emergency (ER) | payer MEDICARE, MEDICAID, SELFPAY ==
[2017-06-26 13:13] VITALS: BMI 29.0
[2023-12-19 19:17] VITALS: BP 150/81; PULSE 77; RESP 16; TEMP 37.1; O2SAT 96; BMI 27.6
--- NOTE | 2023-12-19 19:24 | ED.VIS.LOWEX ---
HPI History of Present Illness HPI Narrative: Patient presents with injury to her left foot that occurred 3 weeks ago. Patient states she dropped a heavy glass onto her left foot. Patient states she had x-rays which showed a questionable hairline fracture. Patient states the pain has been persistent. Patient describes the pain as aching and stabbing. Patient states it is worse with weightbearing. Patient states it is better with elevation. Patient denies any paresthesias or weakness. Patient denies any new injuries. Chief Complaint: Lower Extremity Injury Informant: patient Occured/Mechanism Mechanism/Context: Yes direct blow Onset/Context/Timing Onset: Weeks (3) Context: Sudden Onset Timing: Continuous Quality of Pain: Aching and Stabbing Location: Left foot Worsened by: Weightbearing Relieved by: Elevation PFSH [facility] Medical History Presence of stent in coronary artery (~06/26/17) Essential hypertension COVID-19 Fecal impaction in rectum Nausea & vomiting Diarrhea Myocardial infarction Coronary artery disease Complex regional pain syndrome type 1 affecting left hand Angiomyolipoma of kidney Osteoarthritis of left hip Pre-operative cardiovascular examination Chronic back pain RSD (reflex sympathetic dystrophy) Angiomyoma Atherosclerotic heart disease of [place] coronary artery without angina pectoris Nonrheumatic tricuspid (valve) insufficiency Old myocardial infarction Daytime somnolence Dyspnea on exertion NSTEMI (non-ST elevated myocardial infarction) Obesity (BMI 30.0-34.9) COPD (chronic obstructive pulmonary disease) HLD (hyperlipidemia) HTN (hypertension) Home Medications ?Medication ?Instructions ?Recorded ?Last Taken ?Type famotidine 20 mg tablet 20 mg PO DAILY STOMACH 10/02/15 05/28/22 History aspirin 81 mg tablet,delayed 81 mg PO DAILY HEART HEALTH 01/20/16 05/28/22 History release clonazepam 1 mg tablet 1 mg PO QHS PRN PRN RESTLESS LEG 05/29/22 Unknown History SYNDROME nitroglycerin 0.4 mg sublingual 0.4 mg sublingual PRN PRN Chest 05/29/22 Unknown History tablet Pain losartan 100 mg tablet 50 mg PO DAILY BLOOD PRESSURE 12/30/22 Unknown History amlodipine 5 mg tablet 5 mg PO DAILY BLOOD PRESSURE #90 05/06/23 Unknown Rx tabs carvedilol 6.25 mg tablet 6.25 mg PO BID BLOOD PRESSURE #180 05/08/23 Unknown Rx tabs evolocumab 140 mg/mL subcutaneous 140 mg subcut Q2W #2 mL 06/13/23 Unknown Rx pen injector (Gabriella Mosley) cyclobenzaprine 10 mg tablet 10 mg PO TID PRN Muscle Spasm #20 08/18/23 Unknown Rx TABLETS Allergy/AdvReac Type Severity Reaction Status Date / Time erythromycin base Allergy Severe Rash Verified 12/19/23 19:18 venom-honey bee (bee venom Allergy Severe Anaphylaxis Verified 12/19/23 19:18 (honey bee)) atorvastatin Allergy Unknown Unknown Verified 12/19/23 19:18 Penicillins Allergy Unknown Unknown Verified 12/19/23 19:18 strawberry Allergy Anaphylaxis Verified 12/19/23 19:18 [id number] Reductase AdvReac Unknown Intolerance Verified 12/19/23 19:18 Inhibitor azithromycin AdvReac Rash Verified 12/19/23 19:18 oxycodone HCl (From Percocet) AdvReac Vomiting Verified 12/19/23 19:18 Family History Father CAD (coronary artery disease) Brother Afib Surgical History Presence of coronary angioplasty implant and graft (~06/26/17) History of back surgery left hand surgery Social History housing: house Smoking Status: Former smoker alcohol intake: current substance use type: former substance user Date of last use: 2016 and marijuana caffeine: Yes Type: carbonated beverages, coffee and tea what type of physical activity do you participate in: none seatbelt use: always do you feel safe at home: Yes ROS ROS ED Constitutional Constitutional ED: Denies chills or fever(s) Eyes Eyes: Denies blurry vision or change in vision ENT ENT ED: Denies rhinorrhea or sore throat Cardiovascular Cardiovascular: Denies chest pain or palpitations Respiratory/Chest Respiratory/Chest: Denies cough or dyspnea Gastrointestinal Gastrointestinal: Denies nausea or vomiting Genitourinary Genitourinary ED: Denies dysuria or hematuria Musculoskeletal Musculoskeletal: Denies back pain or neck pain Integumentary Denies abscess or rash Neurologic Neurologic: Denies headache(s) or weakness Allergic/Immunologic Allergic/Immunologic ED: Denies mouth swelling or urticaria EXAM Physical Exam Const Vital Signs: 12/19/23 19:17 Temperature 98.8 F Temperature Source Oral Pulse Rate 77 Respiratory Rate 16 Blood Pressure 150/81 H Blood Pressure Mean 104 Pulse Ox 96 Oxygen Delivery Method Room Air Positive well nourished and well developed General Appearance ED: well developed and NAD HEENT Reports moist mucous membranes Neck full ROM Extremity Extremity Narrative: There is tenderness and edema over the distal metatarsals. It is worse over the his second, third, and fourth metatarsals. There is no obvious deformity noted. Range of motion was limited in all motions of the left foot secondary to pain. Sensation was intact to light touch in all digits. Capillary refill was less than 2 seconds in all digits. There is a strong pedal pulse noted. Neuro oriented x3, CN's II-XII intact bilaterally, moves all extremities and no sensory deficits noted Sensorium / Orientation: alert Motor Exam: strength 5/5 throughout Psych mental status grossly normal MDM MDM MDM Narrative Medical decision making narrative: Differential diagnosis includes occult fracture, sprain, and contusion. X-rays of the left foot will be obtained to assess for fracture. Radiography Diagnostic Testing: Clinical Impression(s) from Imaging Studies Foot X-Ray 12/19/23 19:30 IMPRESSION: No acute fracture or malalignment. Electronically Signed: Néstor Clark MD at 20:17 EDT , X-rays of the left foot were obtained. There are 3 views. On my independent interpretation, there is no acute fracture or dislocation noted. Radiologist also interpreted the x-rays and agrees. Treatment and Re-Evaluation Narrative: Patient was advised of her findings. Patient is agreeable to using a walking boot. Patient was instructed to ice and elevate the left foot. Patient was instructed to follow-up with her primary care physician in 5 to 7 days. Patient was also given a referral for podiatry. Patient understood and was agreeable with the plan. All questions were answered. Discharge Plan Triage Chief Complaint: Lower Extremity Injury ED Provider: Sudarshan Davila Dx/Rx/DC Orders Clinical Impression: Contusion of left foot, Essential hypertension Instructions: ED Foot Contusion Prescriptions: No Action famotidine 20 MG tablet 20 mg PO DAILY aspirin 81 MG tablet,delayed release (DR/EC) 81 mg PO DAILY losartan 100 mg tablet 50 mg PO DAILY clonazepam 1 mg tablet 1 mg PO QHS PRN PRN (Reason: RESTLESS LEG SYNDROME) nitroglycerin 0.4 mg tablet, sublingual 0.4 mg sublingual PRN PRN (Reason: Chest Pain) cyclobenzaprine 10 mg tablet 10 mg PO TID PRN (Reason: Muscle Spasm) Qty: 20 0RF amlodipine 5 mg tablet 5 mg PO DAILY Qty: 90 3RF carvedilol 6.25 mg tablet 6.25 mg PO BID Qty: 180 3RF Repatha SureClick 140 mg/mL pen injector 140 mg subcut Q2W Qty: 2 12RF Primary Care Provider: Breanna Crandall Referrals: Tate Castro DPM [Med Staff - Active Staff] - 5-7 Days Breanna Crandall, [employer] [Primary Care Provider] - 5-7 Days Print Language: Ukrainian Disposition Disposition: Home, Self Care
--- NOTE | 2023-12-19 19:30 | RAD_ITS ---
INDICATION: Injury/Pain EXAMINATION/TECHNIQUE: X-RAY - LEFT XR Foot Min 3 Views COMPARISON: None. FINDINGS: No acute fracture or malalignment. No blastic or lytic lesions. Moderate scattered degenerative changes. Mild soft tissue swelling of the dorsum of the foot. RAD/Foot min 3 Views IMPRESSION: No acute fracture or malalignment. Electronically Signed: Néstor Clark MD at 20:17 EDT ,
== END 2023-12-19 23:03 | disposition home or self-care (01) ==
PROVIDERS: Emergency Provider Emergency Medicine; PCP Nurse Practitioner Family; Visit Provider Emergency Medicine
DX: S90.32XA Contusion of left foot, initial encounter (principal); J44.9 Chronic obstructive pulmonary disease, unspecified; I25.10 Atherosclerotic heart disease of native coronary artery without angina pectoris; E78.5 Hyperlipidemia, unspecified; I10 Essential (primary) hypertension; M54.9 Dorsalgia, unspecified; Z87.891 Personal history of nicotine dependence; Z79.82 Long term (current) use of aspirin; I25.2 Old myocardial infarction; Z86.16 Personal history of COVID-19; Z95.5 Presence of coronary angioplasty implant and graft; G89.29 Other chronic pain; W20.8XXA Other cause of strike by thrown, projected or falling object, initial encounter
CPT/HCPCS: 73630; 99283

== ENCOUNTER 2024-02-29 04:14 | Emergency (ER) | payer MEDICARE, MEDICAID, SELFPAY ==
[2017-06-26 13:13] VITALS: BMI 29.0
[2024-02-29 04:15] VITALS: BP 159/84; PULSE 83; RESP 18; TEMP 36.8; O2SAT 94; BMI 27.4
--- NOTE | 2024-02-29 04:28 | CT_ITS ---
INDICATION: Diffuse abdominal pain COMPARISON: None. IV Contrast dosage and agent: 71 cc [id number]-370 IV. A radiation dose optimization technique was used for this scan. RADIATION DOSAGE (If Supplied By Facility): CTDIvol/DLP = ( 17.8 ) / ( 1115.42 ) mGy/mGycm FINDINGS: Contrast enhanced serial CT axial images through the abdomen and pelvis with coronal and sagittal reformatted series. PANCREAS: No peripancreatic fat stranding. BOWEL/MESENTERY: No dilated bowel loops. Colonic diverticulosis with significant mid sigmoid wall thickening with marked surrounding hazy fat stranding and streaky fluid, consistent with acute diverticulitis. No focal organized fluid collection to suggest abscess. No free air to suggest perforation. GALLBLADDER: No pericholecystic fat stranding. LIVER/STOMACH: No obvious abnormality. URINARY COLLECTING SYSTEM/ KIDNEYS: No obstructing ureteral calculus. Large 4.4 cm heterogeneous exophytic macroscopic fatty lesion of the left upper renal pole consistent with angiomyolipoma. Small bilateral simple fluid attenuating renal lesions, likely renal cysts. APPENDIX: Appendix is not definitely identified, however, there are no significant right lower quadrant inflammatory fat changes or focal fluid collection to suggest acute appendicitis. LUNG BASES: Unremarkable. BONES: Left total hip arthroplasty, incompletely imaged, although no obvious hardware complication. CT/Abdomen/Pelvis W IV Cont ONLY IMPRESSION: Mid sigmoid acute diverticulitis without perforation or abscess. Recommend follow-up imaging versus endoscopy (if not up to date) to document resolution as underlying neoplastic process is not excluded. Large 4.4 cm left upper renal pole angiomyolipoma. Electronically Signed: Christopher Villarreal MD at 5:36 EDT ,
--- NOTE | 2024-02-29 04:29 | ED.VIS.GI ---
HPI HPI - GI History of Present Illness Chief Complaint: Abd Pain Informant: patient Narrative Narrative: 74-year-old female presenting with 3 days gradual onset diffuse abdominal pain, painful and pressure/bloating, along with diarrhea that has been either loose or watery, no melena, no blood. No fevers or chills. No known sick contacts. No nausea or vomiting. Poor p.o. intake due to poor appetite. Urinating normally. No discomfort in her chest or her back with this. No cough or dyspnea. Prior tubal and surgery for it remotely, she is not sure of details but no other abdominal surgeries in the past. [facility] Medical History Presence of stent in coronary artery (~06/26/17) Essential hypertension COVID-19 Fecal impaction in rectum Nausea & vomiting Diarrhea Myocardial infarction Coronary artery disease Complex regional pain syndrome type 1 affecting left hand Angiomyolipoma of kidney Osteoarthritis of left hip Pre-operative cardiovascular examination Chronic back pain RSD (reflex sympathetic dystrophy) Angiomyoma Atherosclerotic heart disease of [place] coronary artery without angina pectoris Nonrheumatic tricuspid (valve) insufficiency Old myocardial infarction Daytime somnolence Dyspnea on exertion NSTEMI (non-ST elevated myocardial infarction) Obesity (BMI 30.0-34.9) COPD (chronic obstructive pulmonary disease) HLD (hyperlipidemia) HTN (hypertension) Home Medications ?Medication ?Instructions ?Recorded ?Last Taken ?Type famotidine 20 mg tablet 20 mg PO DAILY STOMACH 10/02/15 05/28/22 History aspirin 81 mg tablet,delayed 81 mg PO DAILY HEART HEALTH 01/20/16 05/28/22 History release clonazepam 1 mg tablet 1 mg PO QHS PRN PRN RESTLESS LEG 05/29/22 Unknown History SYNDROME losartan 100 mg tablet 50 mg PO DAILY BLOOD PRESSURE 12/30/22 Unknown History amlodipine 5 mg tablet 5 mg PO DAILY BLOOD PRESSURE #90 05/06/23 Unknown Rx tabs carvedilol 6.25 mg tablet 6.25 mg PO BID BLOOD PRESSURE #180 05/08/23 Unknown Rx tabs evolocumab 140 mg/mL subcutaneous 140 mg subcut Q2W #2 mL 06/13/23 Unknown Rx pen injector (Gabriella Mosley) nitroglycerin 0.4 mg sublingual 0.4 mg sublingual PRN PRN Chest 12/26/23 Unknown Rx tablet Pain #25 tabs ciprofloxacin HCl 500 mg tablet 500 mg PO BID #20 TABLETS 02/29/24 Unknown Rx metronidazole 500 mg tablet 500 mg PO BID #20 tabs 02/29/24 Unknown Rx Allergy/AdvReac Type Severity Reaction Status Date / Time erythromycin base Allergy Severe Rash Verified 02/29/24 04:15 venom-honey bee (bee venom Allergy Severe Anaphylaxis Verified 02/29/24 04:15 (honey bee)) atorvastatin Allergy Unknown Unknown Verified 02/29/24 04:15 Penicillins Allergy Unknown Unknown Verified 02/29/24 04:15 strawberry Allergy Anaphylaxis Verified 02/29/24 04:15 [id number] Reductase AdvReac Unknown Intolerance Verified 02/29/24 04:15 Inhibitor azithromycin AdvReac Rash Verified 02/29/24 04:15 oxycodone HCl (From Percocet) AdvReac Vomiting Verified 02/29/24 04:15 Family History Father CAD (coronary artery disease) Brother Afib Surgical History Presence of coronary angioplasty implant and graft (~06/26/17) History of back surgery left hand surgery Social History housing: house Smoking Status: Former smoker alcohol intake: current substance use type: former substance user Date of last use: 2016 and marijuana caffeine: Yes Type: carbonated beverages, coffee and tea what type of physical activity do you participate in: none seatbelt use: always do you feel safe at home: Yes ROS ROS ED Constitutional Constitutional ED: Denies chills or fever(s) Eyes Eyes: Denies change in vision or diplopia ENT ENT ED: Denies rhinorrhea or sore throat Cardiovascular Cardiovascular: Denies chest pain or palpitations Respiratory/Chest Respiratory/Chest: Denies cough or dyspnea Gastrointestinal Gastrointestinal: Reports abdominal pain, anorexia, belching, diarrhea and loose stools; Denies hematochezia, melena, nausea or vomiting Genitourinary Genitourinary ED: Denies dysuria or hematuria Musculoskeletal Musculoskeletal: Denies back pain or neck pain Integumentary Denies abscess or rash Neurologic Neurologic: Denies headache(s), paresthesias or weakness Psychiatric Psychiatric: Denies suicidal thoughts EXAM Physical Exam Const Vital Signs: 02/29/24 04:15 Temperature 98.2 F Temperature Source Oral Pulse Rate 83 Respiratory Rate 18 Blood Pressure 159/84 H Blood Pressure Mean 109 Pulse Ox 94 Oxygen Delivery Method Room Air Positive well nourished and well developed General Appearance ED: well developed and NAD HEENT Reports moist mucous membranes normocephalic and atraumatic Eyes PERRL and EOMs intact bilaterally Neck full ROM and supple Resp normal respiratory effort and clear to auscultation bilaterally Cardio regular rate, regular rhythm and no murmurs GI GI Narrative: Moderate-severe tenderness in all 4 quadrants and epigastrium/periumbilical area. No palpable hernias. Seems distended but soft. No guarding or rebound. No pulsatile mass. No [place] sign or [place] sign. Auscultation: hypoactive bowel sounds Palpation: soft Back/Spine no CVA tenderness General Back: other FROM Extremity normal to inspection General Extremety ED: Negative for edema, pulses abnormal or tenderness General Extremity: Negative for edema or pulses abnormal Neuro oriented x3, CN's II-XII intact bilaterally and no sensory deficits noted Sensorium / Orientation: awake and alert Motor Exam: strength 5/5 throughout Psych mental status grossly normal and thought process normal Skin no rashes or lesions noted and no wounds MDM MDM MDM Narrative Medical decision making narrative: Differential here certainly includes infectious enteritis but also diverticulitis, I do not think that this sounds like biliary colic. She is tender in her lower abdomen in addition to her upper abdomen. Therefore labs ordered in addition to liver enzymes which are normal, and a CT abdomen/pelvis. I reviewed the images as well as report which I agree with, consistent with uncomplicated sigmoid diverticulitis without perforation or abscess. Patient was treated with IV fluids, Zofran, morphine she is feeling much better on reevaluation. She does not have a significant leukocytosis she does not of perforation, and I think it is reasonable to treat her as an outpatient which she is comfortable with as well. She states she does eat a lot of seeds which may or may not be related to this. She is never known about diverticulosis in the past. Last time she had a colonoscopy was a while back. She is prescribed Cipro and Flagyl since he has a penicillin allergy, she is asked me my opinion on nitrofurantoin she was apparently prescribed at urgent care, which apparently she went to a day or 2 ago when all of this started and had an abnormal urinalysis. She does have an abnormal urinalysis here as well but it may be contaminated. I do not think we need to send this for culture she has no urinary symptoms, [facility] is sending a culture, and I advised her to not take the nitrofurantoin, if she really has a urine infection it will more than likely be covered by the Cipro, but she should follow-up with her PCP regarding this as well as the possibility of a colonoscopy in the near future. Lab Data Attestation: I reviewed the patient's lab results. Labs: Laboratory Results - last 24 hr 02/29/24 02/29/24 04:30 04:37 WBC 10.3 RBC 5.52 H Hgb 14.9 Hct 45.6 MCV 82.6 MCH 27.0 MCHC 32.7 RDW Std Deviation 39.1 RDW Coeff of Carlos 13.0 Plt Count 247 MPV 9.5 Immature Gran % (Auto) 0.200 Neut % (Auto) 73.4 H Lymph % (Auto) 15.0 L Kane % (Auto) 9.8 Eos % (Auto) 0.8 Baso % (Auto) 0.8 Absolute Neuts (auto) 7.5 Absolute Lymphs (auto) 1.54 Nucleated RBC % 0 Sodium 139 Potassium 4.2 Chloride 106 Carbon Dioxide 28.0 Anion Gap 5 BUN 11 Creatinine 1.19 H Estim Creat Clear Calc 44.80 Est GFR (MDRD) Af Amer 57 L Est GFR (MDRD) Non-Af 47 L BUN/Creatinine Ratio 9.2 L Glucose 123 H Calcium 9.5 Total Bilirubin 0.80 AST 7 L ALT 14 Alkaline Phosphatase 92 Total Protein 7.0 Albumin 3.3 Globulin 3.7 Albumin/Globulin Ratio 0.9 Lipase 23 Urine Color Yellow Urine Clarity Clear Urine pH 6.0 Ur Specific [place] 1.015 Urine Protein 15 H Urine Glucose (UA) Normal Urine Ketones Negative Urine Occult Blood Negative Urine Nitrite Negative Urine Bilirubin Negative Urine Urobilinogen 1 H Ur Leukocyte Esterase 500 H Urine RBC 0 SEEN Urine WBC 5-10 SEEN Ur Squamous Epith Cells 5-10 SEEN Urine Bacteria 2+ Urine Mucus 0 SEEN Discharge Plan Triage Chief Complaint: Abd Pain ED Provider: Cristofer Dumont Dx/Rx/DC Orders Clinical Impression: Diverticulitis of sigmoid colon Instructions: Diverticulitis Dc Prescriptions: New metronidazole 500 mg tablet 500 mg PO BID Qty: 20 0RF ciprofloxacin HCl 500 mg tablet 500 mg PO BID Qty: 20 0RF No Action famotidine 20 MG tablet 20 mg PO DAILY aspirin 81 MG tablet,delayed release (DR/EC) 81 mg PO DAILY losartan 100 mg tablet 50 mg PO DAILY clonazepam 1 mg tablet 1 mg PO QHS PRN PRN (Reason: RESTLESS LEG SYNDROME) amlodipine 5 mg tablet 5 mg PO DAILY Qty: 90 3RF carvedilol 6.25 mg tablet 6.25 mg PO BID Qty: 180 3RF Repatha SureClick 140 mg/mL pen injector 140 mg subcut Q2W Qty: 2 12RF nitroglycerin 0.4 mg tablet, sublingual 0.4 mg sublingual PRN PRN (Reason: Chest Pain) Qty: 25 2RF Primary Care Provider: Breanna Crandall Referrals: Breanna Crandall, [employer] [Primary Care Provider] - 1-2 Weeks Print Language: Kinyarwanda Disposition Disposition: Home, Self Care
[2024-02-29 04:39] LABS: Absolute Lymphocyte Count 1.54 X10^3/uL (0.83-4.51); Absolute Neutrophil Count 7.5 X10^3/uL (2.0-7.7); Basophil# 0.08 X10^3/uL; Basophil% 0.8 % (0-1); Eosinophil# 0.08 X10^3/uL; Eosinophils% 0.8 % (0-5); Hematocrit 45.6 % (37-47); Hemoglobin 14.9 g/dL (12.0-15.0); Lymphocyte # 1.54 X10^3/ul (0.83-4.51); Mean Corp Hgb Conc 32.7 g/dL (32-36); Mean Corpuscular Volume 82.6 fL (81-99); Mean Platelet Vol. 9.5 fl (6.2-12.0); Monocyte# 1.01 X10^3/uL; Monocyte% 9.8 % (0-10); NRBC Flagged by Analyzer 0 % (0-5); Neutrophil # 7.54 X10^3/uL (2.7-7.7); Neutrophil % 73.4 % (47-70); Platelet Count 247 K/mm3 (150-450); RBC Distribution Width SD 39.1 fl (35.1-43.9); Red Blood Count 5.52 M/mm3 (4.2-5.4); White Blood Count 10.3 K/mm3 (4.4-11.0)
[2024-02-29] MEDS: 0.9% Normal Saline (1000mL) 1,000 ML 999 ML IV (04:44)
[2024-02-29] MEDS: Morphine 4 MG/ML Syringe IV (04:44)
[2024-02-29] MEDS: Ondansetron 4 MG/2 ML Vial IV (04:45)
[2024-02-29 04:57] LABS: ALB/GLOB Ratio 0.9 RATIO (0.9-2.4); AST(SGOT) 7 U/L (15-37); Alanine Aminotransfer ALT/SGPT 14 U/L (13-56); Albumin, Serum 3.3 g/dL (3.2-5.0); Alkaline Phosphatase 92 U/L (45-117); Anion Gap 5 (5-15); BUN 11 mg/dL (7-18); BUN/Creat Ratio 9.2 RATIO (10-20); Calcium,Total 9.5 mg/dL (8.5-10.1); Chloride 106 mmol/L (98-107); Creatinine, Serum 1.19 mg/dL (0.55-1.02); EST Glomerular Filtration Rate 47 mL/min (>60); Est Glom Filt Rate - Afr Amer 57 mL/min (>60); Globulin 3.7 g/dL (2.2-4.2); Glucose 123 mg/dL (74-106); Lipase 23 U/L (13-75); Potassium 4.2 mmol/L (3.5-5.1); Sodium Level 139 mmol/L (136-145)
[2024-02-29 04:58] LABS: Mucous, Urine 0 SEEN /hpf (<or=2+); Red Blood Cells-Urine 0 SEEN /hpf (0-5)
[2024-02-29 04:59] LABS: Color, Urine Yellow (Yellow); Glucose, Dipstick Normal (Normal); Ketone-Dipstick Negative (Negative); Leukocyte Esterase-Dipstick 500 /ul (Negative); Nitrite-Dipstick Negative (Negative); Occult Blood-Urine Negative /ul (Negative); Protein-Dipstick 15 mg/dl (Negative); Specific Gravity, Urine 1.015 (1.002-1.030); Urine Bilirubin Dipstick Negative (Negative); Urine Clarity Clear (Clear); Urine Urobilinogen 1 mg/dl (Normal)
[2024-02-29 05:13] LABS: Bacteria 2+ /hpf (None Seen); Squamous Epithelial Cells - UA 5-10 SEEN /hpf (5-10); White Blood Cells 5-10 SEEN /hpf (0-5)
[2024-02-29 06:15] VITALS: BP 116/65; PULSE 75; RESP 16; O2SAT 96
[2024-02-29 06:25] VITALS: BP 116/65; PULSE 70; RESP 18; TEMP 36.8; O2SAT 97
[2024-02-29] MEDS: Ciprofloxacin 500 MG Tablet PO (06:26)
[2024-02-29] MEDS: metroNIDAZOLE 500 MG Tablet PO (06:26)
== END 2024-02-29 06:30 | disposition home or self-care (01) ==
PROVIDERS: Emergency Provider Emergency Medicine; PCP Nurse Practitioner Family; Visit Provider Emergency Medicine
DX: K57.32 Diverticulitis of large intestine without perforation or abscess without bleeding (principal); J44.9 Chronic obstructive pulmonary disease, unspecified; Z87.891 Personal history of nicotine dependence; I25.10 Atherosclerotic heart disease of native coronary artery without angina pectoris; I10 Essential (primary) hypertension; E78.5 Hyperlipidemia, unspecified; I25.2 Old myocardial infarction; Z95.5 Presence of coronary angioplasty implant and graft; Z79.899 Other long term (current) drug therapy; Z79.82 Long term (current) use of aspirin
CPT/HCPCS: 74177; 80053; 81001; 83690; 85025; 96361; 96374; 96375; 99283; J7040; Q9967; A4216; J2405

== ENCOUNTER → 2024-04-28 | Outpatient (CLI) | payer MEDICARE, MEDICAID, SELFPAY ==
[2017-06-26 13:13] VITALS: BMI 29.0
[2024-04-28 11:13] LABS: AST(SGOT) 14 U/L (15-37); Alanine Aminotransfer ALT/SGPT 16 U/L (13-56); Albumin, Serum 3.4 g/dL (3.2-5.0); Alkaline Phosphatase 92 U/L (45-117); Bilirubin, Direct 0.19 mg/dL (0.00-0.30); Cholesterol 115 mg/dL (200); Globulin 3.6 g/dL (2.2-4.2); High Density Lipoprotein 43 mg/dL; Triglycerides 169 mg/dL; Very Low Density Lipoprotein 34 mg/dL (5-40)
== END | disposition home or self-care (01) ==
PROVIDERS: PCP Nurse Practitioner Family; Referring Provider Internal Medicine Cardiovascular Disease; Visit Provider Internal Medicine Cardiovascular Disease
DX: I25.10 Atherosclerotic heart disease of native coronary artery without angina pectoris (principal); I25.2 Old myocardial infarction
CPT/HCPCS: 36415; 80061; 80076

== ENCOUNTER 2024-08-05 07:36 | Observation (INO) | payer MEDICARE, MEDICAID, SELFPAY ==
[2017-06-26 13:13] VITALS: BMI 29.0
[2024-08-05] VITALS (9 sets, daily range): BP systolic 139–177; BP diastolic 71–91; PULSE 63–80; RESP 14–16; TEMP 36.4–36.8; O2SAT 92–98; BMI 29.2
--- NOTE | 2024-08-05 07:44 | ED.VIS.BACK ---
HPI History of Present Illness Chief Complaint: Back Onset/Context/Timing Onset: Today Context: Sudden Onset Timing: Continuous Quality: Sharp Location: Lumbar Worsened by: improves with Movement Relieved by: Remaining Still Associated Symptoms Associated Symptoms: Negative for Numbness, Tingling, Radiation to Right Leg, Radiation to Left Leg, Fever, Abdominal Pain, Dysuria, Unable to Ambulate, Unable to Transfer, Urinary Retention, Urinary Incontinence, Constipation or Fecal Incontinence Narrative Narrative: Patient presents with exacerbation of chronic back pain that became worse today. Patient states her pain is constant. Patient describes it as sharp and stabbing. Patient states the pain is over the lower lumbar area. Patient states it is worse on the right. Patient states the pain is worse with any movement. Patient states nothing seems to help with it. Patient denies any radiation of the pain. Patient denies any paresthesias or weakness. Patient denies any bowel or bladder changes. Prior similar symptoms: With Prior Back Pain PFSH PFS Medical History Presence of stent in coronary artery (~06/26/17) Essential hypertension COVID-19 Fecal impaction in rectum Nausea & vomiting Diarrhea Myocardial infarction Coronary artery disease Complex regional pain syndrome type 1 affecting left hand Angiomyolipoma of kidney Osteoarthritis of left hip Pre-operative cardiovascular examination Chronic back pain RSD (reflex sympathetic dystrophy) Angiomyoma Atherosclerotic heart disease of [place] coronary artery without angina pectoris Nonrheumatic tricuspid (valve) insufficiency Old myocardial infarction Daytime somnolence Dyspnea on exertion NSTEMI (non-ST elevated myocardial infarction) Obesity (BMI 30.0-34.9) COPD (chronic obstructive pulmonary disease) HLD (hyperlipidemia) HTN (hypertension) Home Medications ?Medication ?Instructions ?Recorded ?Last Taken ?Type famotidine 20 mg tablet 20 mg PO DAILY STOMACH 10/02/15 08/04/24 History aspirin 81 mg tablet,delayed 81 mg PO DAILY HEART HEALTH 01/20/16 08/04/24 History release clonazepam 1 mg tablet 1 mg PO QHS PRN PRN RESTLESS LEG 05/29/22 Unknown History SYNDROME nitroglycerin 0.4 mg sublingual 0.4 mg sublingual PRN PRN Chest 12/26/23 Unknown Rx tablet Pain #25 tabs carvedilol 6.25 mg tablet 6.25 mg PO BID BLOOD PRESSURE #180 03/22/24 08/04/24 Rx tabs evolocumab 140 mg/mL subcutaneous 140 mg subcut Q2W #2 mL 05/11/24 07/22/24 Rx pen injector (eliudthelma Dimitri) amlodipine 5 mg tablet 5 mg PO DAILY BLOOD PRESSURE #90 06/15/24 08/04/24 Rx tabs losartan 50 mg tablet 50 mg PO DAILY 08/05/24 08/04/24 History melatonin 5 mg capsule 5 mg PO DAILY 08/05/24 Unknown History tramadol 50 mg tablet 50 mg PO DAILY PRN pain 08/05/24 Unknown History Allergy/AdvReac Type Severity Reaction Status Date / Time erythromycin base Allergy Severe Rash Verified 02/29/24 04:15 venom-honey bee (bee venom Allergy Severe Anaphylaxis Verified 02/29/24 04:15 (honey bee)) atorvastatin Allergy Unknown Unknown Verified 02/29/24 04:15 Penicillins Allergy Unknown Unknown Verified 02/29/24 04:15 strawberry Allergy Anaphylaxis Verified 02/29/24 04:15 [id number] Reductase AdvReac Unknown Intolerance Verified 02/29/24 04:15 Inhibitor azithromycin AdvReac Rash Verified 02/29/24 04:15 oxycodone HCl (From Percocet) AdvReac Vomiting Verified 02/29/24 04:15 Family History Father CAD (coronary artery disease) Brother Afib Surgical History Presence of coronary angioplasty implant and graft (~06/26/17) History of back surgery left hand surgery Social History housing: house Smoking Status: Former smoker alcohol intake: current substance use type: former substance user Date of last use: 2016 and marijuana caffeine: Yes Type: carbonated beverages, coffee and tea what type of physical activity do you participate in: none seatbelt use: always do you feel safe at home: Yes ROS ROS ED Constitutional Constitutional ED: Denies chills or fever(s) Eyes Eyes: Denies blurry vision or change in vision ENT ENT ED: Denies rhinorrhea or sore throat Cardiovascular Cardiovascular: Denies chest pain or palpitations Respiratory/Chest Respiratory/Chest: Denies cough or dyspnea Gastrointestinal Gastrointestinal: Reports nausea; Denies vomiting Genitourinary Genitourinary ED: Denies dysuria or hematuria Musculoskeletal Musculoskeletal: Reports back pain; Denies neck pain Integumentary Denies abscess or rash Neurologic Neurologic: Reports headache(s); Denies weakness Allergic/Immunologic Allergic/Immunologic ED: Denies mouth swelling or urticaria EXAM Physical Exam Const Vital Signs: 08/05/24 07:38 08/05/24 09:37 08/05/24 11:00 Temperature 97.6 F L Temperature Source Oral Pulse Rate 66 66 69 Respiratory Rate 14 15 15 Blood Pressure 177/87 H 148/91 H 152/77 H Blood Pressure Mean 117 110 102 Pulse Ox 96 98 98 Oxygen Delivery Method Room Air Room Air Room Air 08/05/24 12:36 08/05/24 13:34 Temperature 97.8 F Temperature Source Pulse Rate 64 63 Respiratory Rate 16 15 Blood Pressure 144/81 H 139/71 H Blood Pressure Mean 102 93 Pulse Ox 92 94 Oxygen Delivery Method Room Air Positive well nourished and well developed General Appearance ED: well developed HEENT Reports moist mucous membranes Neck supple and no JVD Resp normal respiratory effort and clear to auscultation bilaterally Cardio regular rate and regular rhythm GI soft to palpation, non-tender and non-distended Back/Spine Back/Spine Narrative: There is diffuse tenderness of the lumbar spine and paraspinal muscles. There is no bony crepitance or step-off noted. Range of motion was limited in all motions of the lumbar spine. There is pain in her back with straight leg raising on the right. Strength is 5/5 bilaterally in the lower extremities. There are no sensory deficits noted. Pedal pulses are equal bilaterally. Lumbar Spine / Lower Back: ROM limited and straight leg raise negative bilaterally Extremity normal to inspection General Extremety ED: Negative for edema or tenderness General Extremity: Negative for edema Neuro oriented x3 and no sensory deficits noted Sensorium / Orientation: alert Motor Exam: strength 5/5 throughout Psych mental status grossly normal MDM MDM MDM Narrative Medical decision making narrative: Differential diagnosis includes ureteral calculus, musculoskeletal pain, urinary tract infection, pyelonephritis, dehydration, and electrolyte abnormality. CBC will be obtained to assess for leukocytosis and anemia. Comprehensive metabolic profile will be obtained to assess for electrolyte abnormality, hepatic function, and renal function. Lipase will be obtained to assess for pancreatitis. Urinalysis will be obtained to assess for urinary tract infection and hematuria. CT scan of the abdomen and pelvis will be obtained to assess for ureteral calculus, and pyelonephritis. Nursing protocol EKG was ordered to assess for cardiac dysrhythmia and cardiac ischemia. Lab Data Attestation: I reviewed the patient's lab results. Lab results narrative: CBC was reviewed and was essentially within normal limits. Comprehensive metabolic profile was reviewed and was within normal limits. Lipase was reviewed and was normal at 18. Urinalysis was reviewed. There is no evidence of urinary tract infection or hematuria. Labs: Laboratory Results - last 24 hr 08/05/24 08/05/24 08/05/24 09:20 11:09 12:37 WBC 8.5 RBC 5.62 H Hgb 15.3 H Hct 46.0 MCV 81.9 MCH 27.2 MCHC 33.3 RDW Std Deviation 37.9 RDW Coeff of Carlos 12.8 Plt Count 229 MPV 9.8 Immature Gran % (Auto) 0.500 Neut % (Auto) 79.6 H Lymph % (Auto) 11.[address] [place] % (Auto) 6.1 Eos % (Auto) 1.2 Baso % (Auto) 0.8 Absolute Neuts (auto) 6.8 Absolute Lymphs (auto) 1.01 Nucleated RBC % 0 Sodium 137 Potassium 3.8 Chloride Direct 106 Carbon Dioxide 22.1 Anion Gap 9 BUN 11 Creatinine 0.8 Estim Creat Clear Calc 68.62 Est GFR (MDRD) Non-Af 85 BUN/Creatinine Ratio 14.2 Glucose 117 H Calcium 8.6 Total Bilirubin 0.53 AST 15 ALT 11 Alkaline Phosphatase 95 Total Protein 6.6 Albumin 3.7 Globulin 2.9 Albumin/Globulin Ratio 1.3 Lipase 18 Urine Color Straw Urine Clarity Clear Urine pH 7.0 Ur Specific [place] 1.010 Urine Protein 15 H Urine Glucose (UA) Normal Urine Ketones 5 H Urine Occult Blood Negative Urine Nitrite Negative Urine Bilirubin Negative Urine Urobilinogen Normal Ur Leukocyte Esterase Negative Urine RBC 0 SEEN Urine WBC 0 SEEN Ur Squamous Epith Cells 0 SEEN Urine Bacteria 0 SEEN Urine Mucus 0 SEEN Radiography Diagnostic Testing: Clinical Impression(s) from Imaging Studies Abdomen/Pelvis CT 08/05/24 09:30 IMPRESSION: One or more dose reduction techniques were used (e.g., Automated exposure control, adjustment of the mA and/or kV according to patient size, use of iterative reconstruction technique). Reading Location: [facility] CT scan of the abdomen and pelvis was obtained. There is no acute abnormality noted. There is no free air or free fluid. There are mild increased markings at the right lung base suggestive of atelectasis. This was interpreted by the radiologist and was also dependently reviewed by myself. EKG Initial EKG: Attestation: I personally reviewed and interpreted this EKG as follows: Interpretation: Sinus Rhythm and Non-Specific ST Changes Comments: EKG was obtained. On my independent interpretation, it showed a normal sinus rhythm with a rate of 68. NV interval, QRS interval, and QTc intervals were all normal. Dickson was normal. There are nonspecific ST-T wave changes. Prior EKG tracings: available for review Prior: Unchanged (01/09/2022) Management Discussion w/another healthcare provider: Hospitalist Treatment and Re-Evaluation Narrative: Patient was given IV fluids, morphine, and Zofran. Patient was given a repeat dose of morphine and Zofran. Patient was advised of her findings. Patient is still unable to ambulate here in the emergency department. Case was discussed with the hospitalist. He will admit the patient to his service. Patient understood and was agreeable with the plan. All questions were answered. Discharge Plan Triage Chief Complaint: Back ED Provider: Sudarshan Davila Dx/Rx/DC Orders Clinical Impression: Intractable low back pain, Debility, Essential hypertension Prescriptions: No Action famotidine 20 MG tablet 20 mg PO DAILY aspirin 81 MG tablet,delayed release (DR/EC) 81 mg PO DAILY clonazepam 1 mg tablet 1 mg PO QHS PRN PRN (Reason: RESTLESS LEG SYNDROME) losartan 50 mg tablet 50 mg PO DAILY tramadol 50 mg tablet 50 mg PO DAILY PRN (Reason: pain) melatonin 5 mg capsule 5 mg PO DAILY nitroglycerin 0.4 mg tablet, sublingual 0.4 mg sublingual PRN PRN (Reason: Chest Pain) Qty: 25 2RF carvedilol 6.25 mg tablet 6.25 mg PO BID Qty: 180 3RF Repatha SureClick 140 mg/mL pen injector 140 mg subcut Q2W Qty: 2 12RF amlodipine 5 mg tablet 5 mg PO DAILY Qty: 90 0RF Primary Care Provider: Breanna Crandall Referrals: Breanna Crandall, [employer] [Primary Care Provider] - Print Language: Kiswahili Disposition Disposition: Acute Care [facility]
--- NOTE | 2024-08-05 08:28 | EKG12_ITS ---
Test Reason : BACK PAIN Blood Pressure : */* mmHG Vent. Rate : 68 BPM Atrial Rate : 68 BPM P-R Int : 186 ms QRS Dur : 106 ms QT Int : 428 ms P-R-T Axes : 47 38 83 degrees QTcB Int : 455 ms Normal sinus rhythm Incomplete left bundle branch block Nonspecific T wave abnormality Abnormal ECG Confirmed by Abel Ba ([id number]), video news editor HECTOR BRO ([id number]) on 08/09/2024 7:42:32 AM Referred By: Confirmed By: Abel Ba
[2024-08-05] MEDS: Ondansetron 4 MG/2 ML Vial IV ×2 (09:24→11:01)
[2024-08-05] MEDS: 0.9% Normal Saline (1000mL) 1,000 ML 1000 ML IV (09:24)
[2024-08-05] MEDS: Morphine 4 MG/ML Syringe IV ×2 (09:25→11:01)
--- NOTE | 2024-08-05 09:30 | CT_ITS ---
PROCEDURE: ABDOMEN/PELVIS WITHOUT CONT REASON FOR EXAM: Chronic low back pain. TECHNIQUE: Abdomen and pelvis CT without intravenous contrast. COMPARISON: Comparison is made with prior study dated February 29, 2024. FINDINGS: Noncontrast technique limits evaluation of the abdominal and pelvic viscera. Lung bases: Mild increased markings at the right lung base suggestive of atelectasis. Coronary artery stenting and calcifications. Liver: Unremarkable. Gallbladder: Unremarkable. Spleen: Unremarkable. Pancreas: Unremarkable. Adrenals: Unremarkable. Kidneys: Unremarkable. Bladder: Unremarkable. Reproductive Organs: Unremarkable. Bowel: Unremarkable. Appendix: Normal. Lymph nodes: No suspicious lymph node enlargement. Vasculature: Mild diffuse atherosclerotic calcifications are noted. Peritoneum / Retroperitoneum: No ascites. No free air. Bones: Unremarkable. CT/Abdomen/Pelvis without Cont IMPRESSION: One or more dose reduction techniques were used (e.g., Automated exposure contr ol, adjustment of the mA and/or kV according to patient size, use of iterative reconstruction technique). Reading Location: [id number]
[2024-08-05 09:42] LABS: Absolute Lymphocyte Count 1.01 X10^3/uL (0.83-4.51); Absolute Neutrophil Count 6.8 X10^3/uL (2.0-7.7); Basophil# 0.07 X10^3/uL; Basophil% 0.8 % (0-1); Eosinophils% 1.2 % (0-5); Hemoglobin 15.3 g/dL (12.0-15.0); Lymphocyte # 1.01 X10^3/ul (0.83-4.51); Lymphocyte % 11.8 % (19-41); Mean Corp Hgb Conc 33.3 g/dL (32-36); Mean Corpuscular Hgb 27.2 pg (27.0-32.0); Mean Corpuscular Volume 81.9 fL (81-99); Mean Platelet Vol. 9.8 fl (6.2-12.0); Monocyte# 0.52 X10^3/uL; Monocyte% 6.1 % (0-10); NRBC Flagged by Analyzer 0 % (0-5); Neutrophil % 79.6 % (47-70); Platelet Count 229 K/mm3 (150-450); RBC Distribution Width CV 12.8 % (11.6-14.6); RBC Distribution Width SD 37.9 fl (35.1-43.9); Red Blood Count 5.62 M/mm3 (4.2-5.4); White Blood Count 8.5 K/mm3 (4.4-11.0)
[2024-08-05 11:17] LABS: Bacteria 0 SEEN /hpf (None Seen); Mucous, Urine 0 SEEN /hpf (<or=2+); Squamous Epithelial Cells - UA 0 SEEN /hpf (5-10); White Blood Cells 0 SEEN /hpf (0-5)
[2024-08-05 11:24] LABS: Color, Urine Straw (Yellow); Glucose, Dipstick Normal (Normal); Ketone-Dipstick 5 mg/dl (Negative); Leukocyte Esterase-Dipstick Negative /ul (Negative); Nitrite-Dipstick Negative (Negative); Occult Blood-Urine Negative /ul (Negative); Protein-Dipstick 15 mg/dl (Negative); Urine Bilirubin Dipstick Negative (Negative); Urine Clarity Clear (Clear); Urine Urobilinogen Normal (Normal)
[2024-08-05 12:16] LABS: Red Blood Cells-Urine 0 SEEN /hpf (0-5)
[2024-08-05 13:00] LABS: Lipase 18 U/L (13-75)
[2024-08-05 13:22] LABS: ALB/GLOB Ratio 1.3 RATIO (0.9-2.4); AST(SGOT) 15 U/L (<=31); Alanine Aminotransfer ALT/SGPT 11 U/L (<=34); Albumin, Serum 3.7 g/dL (3.4-4.8); Alkaline Phosphatase 95 U/L (35-104); Anion Gap 9 (5-15); BUN 11 mg/dL (4-19); BUN/Creat Ratio 14.2 RATIO (10-20); Calcium 8.6 mg/dL (7.6-11.0); Carbon Dioxide 22.1 mmol/L (22.0-29.0); Chloride 106 mmol/L (96-108); Creatinine, Serum 0.8 mg/dL (0.6-1.0); EST Glomerular Filtration Rate 85 (>60); Estimated Creatinine Clearance 68.62 ml/min; Globulin 2.9 g/dL (2.2-4.2); Glucose 117 mg/dL (70-99); Potassium 3.8 mmol/L (3.3-5.1); Protein, Total 6.6 g/dL (5.9-8.4); Sodium Level 137 mmol/L (133-145); Total Bilirubin 0.53 mg/dL (0.00-1.30)
--- NOTE | 2024-08-05 17:35 | HP.PCM.HOS_ITS ---
HPI - General General Date of Admission: 08/05/24 HPI Narrative ANGELINA TEIXEIRA, is a 74 F who presents to the hospital with lumbar back pain. She denies any trauma to the area she just woke up with pain. CT scan of her abdomen and pelvis is negative for any intra-abdominal pathology, on my read disc spaces appear appropriate with no significant loss of height. Her left psoas muscle appears atrophied compared to the right side though unclear as to the significance she had had a left hip replacement 5 years ago. She states that she has been unable to ambulate or get out of bed and she denies any numbness or tingling down her extremities. She localizes her pain to be worse on the right than the left. [facility] Medical History Presence of stent in coronary artery (~06/26/17) Essential hypertension COVID-19 Fecal impaction in rectum Nausea & vomiting Diarrhea Myocardial infarction Coronary artery disease Complex regional pain syndrome type 1 affecting left hand Angiomyolipoma of kidney Osteoarthritis of left hip Pre-operative cardiovascular examination Chronic back pain RSD (reflex sympathetic dystrophy) Angiomyoma Atherosclerotic heart disease of [place] coronary artery without angina pectoris Nonrheumatic tricuspid (valve) insufficiency Old myocardial infarction Daytime somnolence Dyspnea on exertion NSTEMI (non-ST elevated myocardial infarction) Obesity (BMI 30.0-34.9) COPD (chronic obstructive pulmonary disease) HLD (hyperlipidemia) HTN (hypertension) Home Medications ?Medication ?Instructions ?Recorded ?Last Taken ?Type famotidine 20 mg tablet 20 mg PO DAILY STOMACH 10/0108/04/24 History aspirin 81 mg tablet,delayed 81 mg PO DAILY HEART HEAL TH 01/20/16 08/04/24 History release clonazepam 1 mg tablet 1 mg PO QHS PRN PRN RESTLESS LEG 05/29/22 Unknown History SYNDROME nitroglycerin 0.4 mg sublingual 0.4 mg sublingual PRN PRN Chest 12/26/23 Unknown Rx tablet Pain #25 tabs carvedilol 6.25 mg tablet 6.25 mg PO BID BLOOD PRESSUR E #180 03/22/24 08/04/24 Rx tabs evolocumab 140 mg/mL subcutaneous 140 mg subcut Q2W #2 mL 05/11/24 07/22/24 Rx pen injector (Gabriella Mosley) amlodipine 5 mg tablet 5 mg PO DAILY BLOOD PRESSURE #90 06/15/24 08/04/24 Rx tabs losartan 50 mg tablet 50 mg PO DAILY 08/05/2407/11 History melatonin 5 mg capsule 5 mg PO DAILY 08/05/24 Unkno wn History tramadol 50 mg tablet 50 mg PO DAILY PRN pain 07/11 12/31 Unknown History Allergy/AdvReac Type Severity Reaction Status Date / Time erythromycin base Allergy Severe Rash Verified 02/29/24 04:15 venom-honey bee (bee venom Allergy Severe Anaphylaxis Verified 02/29/24 04:15 (honey bee)) atorvastatin Allergy Unknown Unknown Verified 02/29/24 04:15 Penicillins Allergy Unknown Unknown Verified 02/29/24 04:15 strawberry Allergy Anaphylaxis Verified 02/29/24 04:15 [id number] Reductase AdvReac Unknown Intolerance Verified 02/29/24 04:15 Inhibitor azithromycin AdvReac Rash Verified 02/29/24 04:15 Family History Father CAD (coronary artery disease) Brother Afib Surgical History Presence of coronary angioplasty implant and graft (~06/26/17) History of back surgery left hand surgery Social History housing: house Smoking Status: Former smoker alcohol intake: current substance use type: former substance user Date of last use: 2016 and marijuana caffeine: Yes Type: carbonated beverages, coffee and tea what type of physical activity do you participate in: none seatbelt use: always do you feel safe at home: Yes Vital Signs Vital Signs Vital Signs: 08/05/24 07:38 08/05/24 09:37 08/05/24 11:00 Temperature 97.6 F L Temperature Source Oral Pulse Rate 66 66 69 Respiratory Rate 14 15 15 Respiratory Effort Respiratory Depth Respiratory Pattern Blood Pressure 177/87 H 148/91 H 152/77 H Blood Pressure Mean 117 110 102 Blood Pressure Source Blood Pressure Position Blood Pressure Location Pulse Ox 96 98 98 Oxygen Delivery Method Room Air Room Air Room Air 08/05/24 12:36 08/05/24 13:34 08/05/24 14:00 Temperature 97.8 F Temperature Source Pulse Rate 64 63 66 Respiratory Rate 16 15 16 Respiratory Effort Respiratory Depth Respiratory Pattern Blood Pressure 144/81 H 139/71 H 142/83 H Blood Pressure Mean 102 93 102 Blood Pressure Source Blood Pressure Position Blood Pressure Location Pulse Ox 92 94 94 Oxygen Delivery Method Room Air Room Air 08/05/24 16:58 08/05/24 17:02 Temperature 98.3 F Temperature Source Temporal Pulse Rate 64 Respiratory Rate 16 Respiratory Effort Normal Non-Labored Respiratory Depth Normal Respiratory Pattern Normal Blood Pressure 153/89 H Blood Pressure Mean 110 Blood Pressure Source Monitor Blood Pressure Position Semi-Fowlers Blood Pressure Location Right Arm Pulse Ox 95 Oxygen Delivery Method Room Air Room Air Weight Weight: 180 lb 12.465 oz Body Mass Index (BMI) 29.2 Physical Exam Narrative General: Alert, Oriented x3, Cooperative, No apparent distress HEENT: Atraumatic, PERRLA, EOMI, Normocephalic Oral: Moist Mucosa Neck: Supple, No JVD Lungs: Diminished, Normal air movement, No rhonchi, No wheeze, No rales Cardiovascular: Regular rate, Regular Rhythm, Normal S1, Normal S2, No murmurs Abdomen: Soft, Non Tender, Non-Distended, No Hepato-splenomegaly Extremities: No edema, Capillary Refill Less than 3 Seconds Skin: No rashes, No breakdown Musculoskeletal: Tenderness to palpation of her right paraspinal muscle Neurological: No focal neurological deficits, strength testing is limited by pain, denies any numbness or tingling in her lower extremities and she is intact to touch Psych/Mental Status: Normal Affect, Appropriate Results Lab / Micro Data 08/06/24 07:28 08/06/24 07:28 Labs: Laboratory Results - last 24 hr 08/05/24 09:20: WBC 8.5, RBC 5.62 H, Hgb 15.3 H, Hct 46.0, MCV 81.9, MCH 27.2, MCHC 33.3, RDW Std Deviation 37.9, RDW Coeff of [place] 12.8, Plt Count 229, MPV 9.8, Immature Gran % (Auto) 0.500, Neut % (Auto) 79.6 H, Lymph % (Auto) 11.8 L, [place] % (Auto) 6.1, Eos % (Auto) 1.2, Baso % (Auto) 0.8, Absolute Neuts (auto) 6.8, Absolute Lymphs (auto) 1.01, Nucleated RBC % 0 08/05/24 11:09: Urine Color Straw, Urine Clarity Clear, Urine pH 7.0, Ur Specific [place] 1.010, Urine Protein 15 H, Urine Glucose (UA) Normal, Urine Ketones 5 H, Urine Occult Blood Negative, Urine Nitrite Negative, Urine Bilirubin Negative, Urine Urobilinogen Normal, Ur Leukocyte Esterase Negative, Urine RBC 0 SEEN, Urine WBC 0 SEEN, Ur Squamous Epith Cells 0 SEEN, Urine Bacteria 0 SEEN, Urine Mucus 0 SEEN 08/05/24 12:37: Sodium 137, Potassium 3.8, Chloride Direct 106, Carbon Dioxide 22.1, Anion Gap 9, BUN 11, Creatinine 0.8, Estim Creat Clear Calc 68.62, Est GFR (MDRD) Non-Af 85, BUN/Creatinine Ratio 14.2, Glucose 117 H, Calcium 8.6, Total Bilirubin 0.53, AST 15, ALT 11, Alkaline Phosphatase 95, Total Protein 6.6, Albumin 3.7, Globulin 2.9, Albumin/Globulin Ratio 1.3, Lipase 18 Imaging Radiology Impression Abdomen/Pelvis CT 08/05/24 09:30 IMPRESSION: One or more dose reduction techniques were used (e.g., Automated exposure control, adjustment of the mA and/or kV according to patient size, use of iterative reconstruction technique). Reading Location: [facility] Assessment & Plan Assessment/Plan (1) Intractable low back pain: PLAN: Plan 1. Intractable low back pain on the right with an inability to complete ADLs ? PT/OT ? Multimodal pain management though she has not been given any medications prior to my arrival on the floor and she was asleep ? May need to repeat further imaging 2. CAD status post stent/essential HTN/HLD ? Will continue with her home blood pressure medications ? Continue with aspirin, her last stent was in 2018 ? She is allergic to statins ? Will monitor make adjustments as necessary 3. Chronic pain with RDS ? On tramadol ? Will continue ? Will make adjustments to her pain medications as indicated DVT: SCDs 65 minutes was spent on direct patient care, including documentation as well as chart review and collaboration with colleagues Charges/Coding Visit Charges Inpatient E&M: 03505 Init Hosp L2
[2024-08-05] MEDS: Carvedilol 6.25 MG Tablet PO (18:18)
[2024-08-05] MEDS: Acetaminophen 500 MG Tablet 1000 MG PO ×2 (18:18→22:25)
[2024-08-05] MEDS: traMADol 50 MG Tablet PO (18:18)
[2024-08-05] MEDS: Morphine 2 MG/ML Syringe IV (22:36)
[2024-08-06 05:00] VITALS: BP 131/70; PULSE 62; RESP 16; TEMP 36.8; O2SAT 94
[2024-08-06] MEDS: Acetaminophen 500 MG Tablet 1000 MG PO ×2 (05:28→13:27)
[2024-08-06 08:36] LABS: Absolute Lymphocyte Count 1.53 X10^3/uL (0.83-4.51); Absolute Neutrophil Count 4.4 X10^3/uL (2.0-7.7); Basophil# 0.07 X10^3/uL; Eosinophil# 0.12 X10^3/uL; Eosinophils% 1.7 % (0-5); Hematocrit 42.5 % (37-47); Hemoglobin 14.1 g/dL (12.0-15.0); Lymphocyte # 1.53 X10^3/ul (0.83-4.51); Lymphocyte % 22.2 % (19-41); Mean Corp Hgb Conc 33.2 g/dL (32-36); Mean Corpuscular Hgb 26.9 pg (27.0-32.0); Mean Corpuscular Volume 81.1 fL (81-99); Mean Platelet Vol. 9.6 fl (6.2-12.0); Monocyte# 0.73 X10^3/uL; Monocyte% 10.6 % (0-10); NRBC Flagged by Analyzer 0 % (0-5); Neutrophil # 4.42 X10^3/uL (2.7-7.7); Neutrophil % 64.1 % (47-70); Platelet Count 230 K/mm3 (150-450); RBC Distribution Width CV 12.8 % (11.6-14.6); RBC Distribution Width SD 37.6 fl (35.1-43.9); Red Blood Count 5.24 M/mm3 (4.2-5.4); White Blood Count 6.9 K/mm3 (4.4-11.0)
[2024-08-06 09:17] LABS: Anion Gap 11 (5-15); BUN 11 mg/dL (4-19); BUN/Creat Ratio 12.1 RATIO (10-20); Calcium 8.7 mg/dL (7.6-11.0); Carbon Dioxide 21.9 mmol/L (22.0-29.0); Chloride 103 mmol/L (96-108); Creatinine, Serum 0.93 mg/dL (0.70-1.20); EST Glomerular Filtration Rate 66 (>60); Estimated Creatinine Clearance 59.03 ml/min; Glucose 99 mg/dL (70-99); Potassium 3.3 mmol/L (3.3-5.1); Sodium Level 136 mmol/L (133-145)
[2024-08-06 11:04] VITALS: BP 116/74; PULSE 63; RESP 16; TEMP 36.6; O2SAT 91
[2024-08-06] MEDS: Carvedilol 6.25 MG Tablet PO (11:06)
[2024-08-06] MEDS: Famotidine 20 MG Tablet PO (11:07)
[2024-08-06] MEDS: amLODIPine 5 MG Tablet PO (11:07)
[2024-08-06] MEDS: Aspirin E.C. 81 MG Tablet PO (11:07)
[2024-08-06] MEDS: Losartan Potassium 50 MG Tablet PO (11:07)
--- NOTE | 2024-08-06 13:58 | CASEMGMT ---
Addendum entered by Genna Armstrong 08/06/24 15:19: SOCORRO CM into pt room, pt lying in bed in no distress. Pt states therapy went well and denies any homegoing needs. Original Note: Noted no therapy recommended from evals this date.
--- NOTE | 2024-08-06 14:47 | DCINST_ITS ---
Discharge Instructions Diet Discharge Diet: Low fat / Low cholesterol DC O2, CPAP, BIPAP needs Home O2 Discharge instructions: No Dressing / Incision Discharge Activity: Return to Normal Activity Dressing / Incision Call your doctor if you observe: Fever of 101 or Higher, Shortness of breath, Dizziness, Fainting spells, Swelling in the ankles, Chest pain and Increased palpitations (irregular heartbeat) Follow Up Care Test Results: Test results from this visit will be discussed in further detail at your follow-up appointment, if applicable. Discharge Plan Admission Admit Date/Time: 08/05/24 13:01 Attending Provider: Sagar Berumen Primary Care Provider: Breanna Crandall Instructions Patient Instructions: ED Back Spasm, No Trauma, ED Back and Neck Pain, General Discharge Orders/Prescriptions Prescriptions: Continued famotidine 20 MG tablet 20 mg PO DAILY aspirin 81 MG tablet,delayed release (DR/EC) 81 mg PO DAILY clonazepam 1 mg tablet 1 mg PO QHS PRN PRN (Reason: RESTLESS LEG SYNDROME) losartan 50 mg tablet 50 mg PO DAILY tramadol 50 mg tablet 50 mg PO DAILY PRN (Reason: pain) melatonin 5 mg capsule 5 mg PO DAILY nitroglycerin 0.4 mg tablet, sublingual 0.4 mg sublingual PRN PRN (Reason: Chest Pain) Qty: 25 2RF carvedilol 6.25 mg tablet 6.25 mg PO BID Qty: 180 3RF Repatha SureClick 140 mg/mL pen injector 140 mg subcut Q2W Qty: 2 12RF amlodipine 5 mg tablet 5 mg PO DAILY Qty: 90 0RF Referrals / Follow Up: Breanna Crandall, [employer] [Primary Care Provider] - Within 1 Week Disposition Disposition (needs filled in before D/C Order can be placed): Home, Self Care
--- NOTE | 2024-08-06 16:45 | CASEMGMT ---
Met with patient to complete GRIFFIN form. GRIFFIN form explained to patient who voiced understanding and signed form. Original form placed in pt?s chart and copy provided to patient. Bre Tucker, Discharge Planning Asst
[2024-08-06 17:12] VITALS: BP 144/72; RESP 16; TEMP 36.9; O2SAT 93
--- NOTE | 2024-08-06 19:26 | DS.PCM_ITS ---
Providers Date of Admission: 08/05/24 Primary Care Physician: GAVIN Watson Reason For Visit: BACK PAIN Diagnosis Discharge Diagnosis (1) Intractable low back pain: Status: Acute Code(s): M54.59 - Other low back pain Medications at Discharge Home Medications famotidine 20 mg tablet 20 mg PO DAILY STOMACH 10/02/15 aspirin 81 mg tablet,delayed release 81 mg PO DAILY HEART HEALTH 01/20/16 clonazepam 1 mg tablet 1 mg PO QHS PRN PRN RESTLESS LEG SYNDROME 05/29/22 nitroglycerin 0.4 mg sublingual tablet 0.4 mg sublingual PRN PRN Chest Pain #25 tabs 12/26/23 carvedilol 6.25 mg tablet 6.25 mg PO BID BLOOD PRESSURE #180 tabs 03/22/24 evolocumab 140 mg/mL subcutaneous pen injector (Repatha SureClick) 140 mg subcut Q2W #2 mL 05/11/24 amlodipine 5 mg tablet 5 mg PO DAILY BLOOD PRESSURE #90 tabs 06/15/24 losartan 50 mg tablet 50 mg PO DAILY 08/05/24 melatonin 5 mg capsule 5 mg PO DAILY 08/05/24 tramadol 50 mg tablet 50 mg PO DAILY PRN pain 08/05/24 Hospital Course Operations None Procedures None Summary of Care Provided Minutes Spent on Discharge: 37 Hospital Course: Per HPI: ANGELINA TEIXEIRA, is a 74 F who presents to the hospital with lumbar back pain. She denies any trauma to the area she just woke up with pain. CT scan of her abdomen and pelvis is negative for any intra-abdominal pathology, on my read disc spaces appear appropriate with no significant loss of height. Her left psoas muscle appears atrophied compared to the right side though unclear as to the significance she had had a left hip replacement 5 years ago. She states that she has been unable to ambulate or get out of bed and she denies any numbness or tingling down her extremities. She localizes her pain to be worse on the right than the left. Hospital Course: 1. Intractable low back pain on the right paraspinal muscles with an inability to complete ADLs?74-year-old female presented to the hospital after waking up with severe low back pain. She denied any radiation and it was on the right side. She was given several doses of morphine in the ER and only 1 dose of morphine overnight during her hospitalization. By the next day, today on the day of discharge she said that her pain was almost completely resolved and she was feeling much better. She did work with PT/OT and that she did not require any further physical therapy or outpatient pain medications. I discussed with her the plan for possible discharge today and she expressed understanding of the risk and benefits of going home and would like to go home today. Improvement in her symptoms she did not need any further imaging modalities at this time. 2. Coronary artery disease status post stent, essential hypertension, hyperlipidemia, chronic pain chronic medical conditions which complicate her care. Her home medications were continued where appropriate Physical Exam Narrative General: Alert, Oriented x3, Cooperative, No apparent distress HEENT: Atraumatic, PERRLA, EOMI, Normocephalic Oral: Moist Mucosa Neck: Supple, No JVD Lungs: Diminished, Normal air movement, No rhonchi, No wheeze, No rales Cardiovascular: Regular rate, Regular Rhythm, Normal S1, Normal S2, No murmurs Abdomen: Soft, Non Tender, Non-Distended, No Hepato-splenomegaly Extremities: No edema, Capillary Refill Less than 3 Seconds Skin: No rashes, No breakdown Musculoskeletal: Tenderness to palpation of her right paraspinal muscle Neurological: No focal neurological deficits, strength testing is limited by pain, denies any numbness or tingling in her lower extremities and she is intact to touch Psych/Mental Status: Normal Affect, Appropriate Weight / BMI Weight Weight: 180 lb 12.465 oz Body Mass Index (BMI) 29.2 ABG / Lab / Microbiology Data 08/06/24 07:28 08/06/24 07:28 Laboratory: Laboratory Results - last 24 hr 08/06/24 07:28: WBC 6.9, RBC 5.24, Hgb 14.1, Hct 42.5, MCV 81.1, MCH 26.9 L, MCHC 33.2, RDW Std Deviation 37.6, RDW Coeff of Carlos 12.8, Plt Count 230, MPV 9.6, Immature Gran % (Auto) 0.400, Neut % (Auto) 64.1, Lymph % (Auto) 22.2, [place] % (Auto) 10.6 H, Eos % (Auto) 1.7, Baso % (Auto) 1.0, Absolute Neuts (auto) 4.4, Absolute Lymphs (auto) 1.53, Nucleated RBC % 0, Sodium 136, Potassium 3.3, Chloride Direct 103, Carbon Dioxide 21.9 L, Anion Gap 11, BUN 11, Creatinine 0.93, Estim Creat Clear Calc 59.03, Est GFR (MDRD) Non-Af 66, BUN/Creatinine Ratio 12.1, Glucose 99, Calcium 8.7 D/C Instructions Discharge Diet: Low fat / Low cholesterol Call your doctor if you observe: Fever of 101 or Higher, Shortness of breath, Dizziness, Fainting spells, Swelling in the ankles, Chest pain and Increased palpitations (irregular heartbeat) DC O2, CPAP, BIPAP Needs Home O2 Discharge instructions: No Meaningful Use Info Meaningful Use Meaningful Use Diagnoses (Choose all that apply): None applicable Ischemic Stroke Statin Dosing Therapy Reference: STATIN DOSE THERAPY REFERENCE: * Patients > 75 years receive moderate or high dose statin therapy. * Patients 75 years or YOUNGER should receive HIGH intensity statin dose unless contraindicated. You will be required to document reason for non-treatment if statin daily dose does not meet guidelines. HIGH DOSE STATIN THERAPY DAILY Atorvastatin > than or = to 40 mg Rosuvastatin > than or = to 20 mg Amlodipine + Atorvastatin > than or = to 2.5/40 mg Ezetimibe + Simvastatin 10/80 mg Simvastatin 80mg Discharge Plan Admission Admit Date/Time: 08/05/24 13:01 Attending Provider: Sagar Berumen Primary Care Provider: Breanna Crandall Instructions Patient Instructions: ED Back Spasm, No Trauma, ED Back and Neck Pain, General Discharge Orders/Prescriptions Prescriptions: Continued famotidine 20 MG tablet 20 mg PO DAILY aspirin 81 MG tablet,delayed release (DR/EC) 81 mg PO DAILY clonazepam 1 mg tablet 1 mg PO QHS PRN PRN (Reason: RESTLESS LEG SYNDROME) losartan 50 mg tablet 50 mg PO DAILY tramadol 50 mg tablet 50 mg PO DAILY PRN (Reason: pain) melatonin 5 mg capsule 5 mg PO DAILY nitroglycerin 0.4 mg tablet, sublingual 0.4 mg sublingual PRN PRN (Reason: Chest Pain) Qty: 25 2RF carvedilol 6.25 mg tablet 6.25 mg PO BID Qty: 180 3RF Repatha SureClick 140 mg/mL pen injector 140 mg subcut Q2W Qty: 2 12RF amlodipine 5 mg tablet 5 mg PO DAILY Qty: 90 0RF Referrals / Follow Up: Breanna Crandall, [employer] [Primary Care Provider] - Within 1 Week Disposition Disposition (needs filled in before D/C Order can be placed): Home, Self Care Charges/Coding Visit Charges Inpatient E&M: 91057 Disch Hosp >30min
== END 2024-08-06 17:25 | disposition home or self-care (01) ==
LOC: ED 14:01 → MS3 15:22
PROVIDERS: Admitting Provider Family Medicine; Emergency Provider Emergency Medicine; PCP Nurse Practitioner Family; Visit Provider Family Medicine
DX: M54.50 Low back pain, unspecified (principal); J44.9 Chronic obstructive pulmonary disease, unspecified; Z87.891 Personal history of nicotine dependence; E78.5 Hyperlipidemia, unspecified; I25.10 Atherosclerotic heart disease of native coronary artery without angina pectoris; Z96.642 Presence of left artificial hip joint; I10 Essential (primary) hypertension; G89.29 Other chronic pain; Z79.82 Long term (current) use of aspirin; Z79.899 Other long term (current) drug therapy; G90.512 Complex regional pain syndrome I of left upper limb
CPT/HCPCS: 36415; 74176; 80048; 80053; 81001; 83690; 85025; 93005; 96361; 96374; 96375; 96376; 97161; 97166; 99221; 99285; A4216; G0378; J2405

== ENCOUNTER → 2024-10-28 | Outpatient (CLI) | payer MEDICARE, MEDICAID, SELFPAY ==
[2024-10-19 09:38] VITALS: BMI 29.0
[2024-10-28 17:45] LABS: Anion Gap 17 (5-15); BUN 17 mg/dL (4-19); BUN/Creat Ratio 12.7 RATIO (10-20); Carbon Dioxide 23.4 mmol/L (21.0-32.0); Chloride 100 mmol/L (98-108); Creatinine, Serum 1.33 mg/dL (0.70-1.20); EST Glomerular Filtration Rate 43 (>60); Glucose 146 mg/dL (70-99); Potassium 2.8 mmol/L (3.3-5.1); Sodium Level 140 mmol/L (133-145)
== END | disposition home or self-care (01) ==
LOC: LAB 15:10
PROVIDERS: PCP Nurse Practitioner Family; Referring Provider Internal Medicine Cardiovascular Disease; Visit Provider Internal Medicine Cardiovascular Disease
DX: Z51.81 Encounter for therapeutic drug level monitoring (principal); Z79.899 Other long term (current) drug therapy
CPT/HCPCS: 36415; 80048

== ENCOUNTER 2024-11-01 17:50 | Observation (INO) | payer MEDICARE, MEDICAID, SELFPAY ==
[2024-10-19 09:38] VITALS: BMI 29.0
[2024-11-01] VITALS (7 sets, daily range): BP systolic 127–179; BP diastolic 61–89; PULSE 64–77; RESP 17–26; TEMP 36.2–36.6; O2SAT 94–100; BMI 28.8; BMI 28.3
--- NOTE | 2024-11-01 18:19 | CT_ITS ---
PROCEDURE: ABDOMEN/PELVIS WITHOUT CONT 11/01/2024 REASON FOR EXAM: KIDNEY STONE TECHNIQUE: Abdomen and pelvis CT without intravenous contrast. Noncontrast technique limits evaluation of the abdominal and pelvic viscera. Coronal and Sagittal reconstruction series were provided. One or more dose reduction techniques were used (e.g., Automated exposure control, adjustment of the mA and/or kV according to patient size, use of iterative reconstruction technique). COMPARISON: 08/05/2024 FINDINGS: The lung bases are clear. Noncontrast images of the liver and spleen are unremarkable. There is a fat containing lesion in the left kidney which was present previously compatible with an angiomyolipoma. There is no hydronephrosis. The pancreas is unremarkable. There is no bowel obstruction. There is no free-fluid or free air. There is no bladder calculus. There is no ureteral distention. CT/Abdomen/Pelvis without Cont IMPRESSION: No acute abnormality Okay Reading [facility]
--- NOTE | 2024-11-01 18:19 | EDS_ITS ---
HPI History of Present Illness Chief Complaint: Flank Pain Narrative Narrative: Sudden nontraumatic right flank pain an hour prior arrival nausea and vomiting x 1. No hematemesis. States urine dribbling. No fevers. No chills. No history of kidney stones. States 2 months ago had similar symptoms negative workup. She is unclear if there is nephrolithiasis or any findings that she is aware of. States they did not know what was causing her symptoms. Allergies to penicillin. She drove herself here. She takes baby aspirin no anticoagulants. Denies history of gastric ulcers or kidney failure. [facility] Medical History Presence of stent in coronary artery (~06/26/17) Essential hypertension COVID-19 Fecal impaction in rectum Nausea & vomiting Diarrhea Myocardial infarction Coronary artery disease Complex regional pain syndrome type 1 affecting left hand Angiomyolipoma of kidney Osteoarthritis of left hip Pre-operative cardiovascular examination Chronic back pain RSD (reflex sympathetic dystrophy) Angiomyoma Atherosclerotic heart disease of [place] coronary artery without angina pectoris Nonrheumatic tricuspid (valve) insufficiency Old myocardial infarction Daytime somnolence Dyspnea on exertion NSTEMI (non-ST elevated myocardial infarction) Obesity (BMI 30.0-34.9) COPD (chronic obstructive pulmonary disease) HLD (hyperlipidemia) HTN (hypertension) Home Medications ?Medication ?Instructions ?Recorded ?Last Taken ?Type famotidine 20 mg tablet 20 mg PO DAILY STOMACH 10/0108/04/24 History aspirin 81 mg tablet,delayed 81 mg PO DAILY HEART HEAL TH 01/20/16 08/04/24 History release clonazepam 1 mg tablet 1 mg PO QHS PRN PRN RESTLESS LEG 05/29/22 Unknown History SYNDROME nitroglycerin 0.4 mg sublingual 0.4 mg sublingual PRN PRN Chest 12/26/23 Unknown Rx tablet Pain #25 tabs carvedilol 6.25 mg tablet 6.25 mg PO BID BLOOD PRESSUR E #180 03/22/24 08/04/24 Rx tabs evolocumab 140 mg/mL subcutaneous 140 mg subcut Q2W #2 mL 05/11/24 07/22/24 Rx pen injector (Gabriella Mosley) losartan 50 mg tablet 50 mg PO DAILY 08/05/2407/11 History melatonin 5 mg capsule 5 mg PO DAILY PRN sleep 07/11 12/31 Unknown History tramadol 50 mg tablet 50 mg PO DAILY PRN pain 07/11 12/31 Unknown History potassium chloride 20 mEq 80 meq (4 x 20 mEq) PO ONCE #4 tabs 10/29/24 Unknown Rx tablet,extended release (K-Tab) spironolactone 25 mg tablet 25 mg PO QDAY #30 tabs Unknown Rx fluticasone propionate 50 2 spray intranasal DAILY PRN PRN 11/01/24 Unknown History mcg/actuation nasal allergy symptoms spray,suspension hydrochlorothiazide 25 mg tablet 25 mg PO DAILY Unknown History Allergy/AdvReac Type Severity Reaction Status Date / Time erythromycin base Allergy Severe Rash Verified 11/01/24 17:50 venom-honey bee (bee venom Allergy Severe Anaphylaxis Verified 11/01/24 17:50 (honey bee)) atorvastatin Allergy Unknown Unknown Verified 11/01/24 17:50 Penicillins Allergy Unknown Unknown Verified 11/01/24 17:50 strawberry Allergy Anaphylaxis Verified 11/01/24 17:50 Xyosqna-Klm-Fat Reductase AdvReac Unknown Intolerance Verified 11/01/24 17:50 Inhibitor (Dpcsiyw-ZSR-LtC Reductase Inhibitor) azithromycin AdvReac Rash Verified 11/01/24 17:50 Family History Father CAD (coronary artery disease) Brother Afib Surgical History Presence of coronary angioplasty implant and graft (~06/26/17) History of back surgery left hand surgery Social History housing: house Smoking Status: Former smoker alcohol intake: current substance use type: former substance user Date of last use: 2016 and marijuana caffeine: Yes Type: carbonated beverages, coffee and tea what type of physical activity do you participate in: none seatbelt use: always do you feel safe at home: Yes ROS ROS ED Constitutional Constitutional ED: Denies chills, fever(s) or sweats ENT ENT ED: Denies sore throat Cardiovascular Cardiovascular: Denies chest pain, leg edema, palpitations or racing heartbeat Respiratory/Chest Respiratory/Chest: Denies cough, dyspnea or dyspnea on exertion Gastrointestinal Gastrointestinal: Reports nausea and vomiting; Denies abdominal pain or diarrhea Genitourinary Genitourinary ED: Denies dysuria, hematuria or urinary frequency Musculoskeletal Musculoskeletal: Reports back pain; Denies extremity pain or neck pain Integumentary Denies rash or wounds Neurologic Neurologic: Denies headache(s), paresthesias or weakness EXAM Physical Exam Const Vital Signs: 11/01/24 17:50 11/01/24 18:50 11/01/24 18:53 Temperature 97.2 F L Temperature Source Temporal Pulse Rate 64 64 65 Respiratory Rate 26 H 20 H 19 H Blood Pressure 179/89 H 172/72 H Blood Pressure Mean 119 105 Pulse Ox 100 96 95 Oxygen Delivery Method Room Air Room Air Room Air 11/01/24 20:00 11/01/24 20:58 11/01/24 22:08 Temperature 97.9 F Temperature Source Pulse Rate 77 72 Respiratory Rate 17 Blood Pressure 132/70 H 127/61 H 131/67 H Blood Pressure Mean 90 83 88 Pulse Ox 94 Oxygen Delivery Method Positive well nourished and well developed Constitutional Narrative: Uncomfortable, nontoxic standing and walking around for comfort. General Appearance ED: well developed HEENT Reports moist mucous membranes normocephalic and atraumatic Eyes General Eye ED: Yes normal appearance of both eyes Neck full ROM Chest Wall Chest: Negative for tenderness Resp normal respiratory effort and normal air movement Effort and Inspection: symmetric chest movement; Negative for respiratory distress Cardio regular rate, regular rhythm and no murmurs Peripheral Pulses: pulses 2+ throughout GI normal to inspection, nondistended, normoactive bowel sounds and non-tender Palpation: Negative for guarding or rebound tenderness present Back/Spine Back/Spine Narrative: Tender right CVA no rash. Extremity normal to inspection General Extremety ED: Negative for edema or tenderness General Extremity: Negative for edema Neuro oriented x3 and no sensory deficits noted Sensorium / Orientation: awake and alert Skin no rashes or lesions noted and no wounds MDM MDM MDM Narrative Medical decision making narrative: Interventions / MDM: Differential diagnosis: Intractable back pain. Degenerative lumbar disease. Diagnosis considered but do not suspect: Kidney stones however CT negative. Vascular thrombosis however CT negative. My EKG interpretation: N/A Imaging independently reviewed and interpreted by myself: CT abdomen pelvis without contrast: No acute process also read by radiology. CT angiogram abdomen pelvis: No acute process read by radiology. External documents reviewed: CT August 05, 2024 no kidney stones were reported. Patient admitted overnight due to intractable pain, she felt better the next day discharge home with continued home medications. Test considered but not ordered:N/A ED course: Patient uncomfortable, renal stone protocol initiated. Nontoxic. Temp 97.2. IV was established by nursing. Zofran morphine Toradol CT scan labs and urine ordered. 2009: Labs were normal white count 10.3 creatinine 1.16. CO2 25. Normal electrolytes. Urine was pending. Pain was still 7 out of 10. Digital morphine was ordered. Reevaluate patient similar symptoms requiring hospitalizations past July at which she was in overnight. She is having persistent pain with a negative noncontrast CT. Discussed further evaluation with CT angiogram for which she agrees to evaluate her vasculature. 2149: CT angiogram negative for acute vascular process. Urine 25 leukocytes 1+ bacteria she denies dysuria. I will send for culture. She still uncomfortable, she ambulated earlier and needed assistance. Reviewing her images there did note degenerative changes on my review of the spine. She has had a previous L4- L5 surgery in the past in [place] per patient. Discussed possible etiology from her spine causing radicular pain to her flank. Will start steroids. With her discomfort, will speak with hospitalist for observation admission possible advanced imaging if needed. 2154: I spoke with Dr. Rizo for admission. Re-evaluation: stable Disposition discussed with patient/family/significant other: Patient Case discussed with consulting clinician: Hospitalist This note was generated with [employer] dictation software. It may contain incorrect words, spelling, and punctuation that were not noted in checking the note before signing. Lab Data Attestation: I reviewed the patient's lab results. Labs: Laboratory Results - last 24 hr 11/01/24 11/01/24 18:05 21:00 WBC 10.3 RBC 5.58 H Hgb 15.3 H Hct 45.7 MCV 81.9 MCH 27.4 MCHC 33.5 RDW Std Deviation 37.7 RDW Coeff of Carlos 12.7 Plt Count 270 MPV 10.2 Immature Gran % (Auto) 0.500 Neut % (Auto) 79.5 H Lymph % (Auto) 11.7 L [place] % (Auto) 5.9 Eos % (Auto) 1.5 Baso % (Auto) 0.9 Absolute Neuts (auto) 8.2 H Absolute Lymphs (auto) 1.21 Nucleated RBC % 0 Sodium 142 Potassium 4.2 Chloride 105 Carbon Dioxide 25.0 Anion Gap 12 BUN 23 H Creatinine 1.16 Estim Creat Clear Calc 47.07 L Est GFR (MDRD) Non-Af 50 L BUN/Creatinine Ratio 19.7 Glucose 119 H Calcium 9.9 Urine Color Yellow Urine Clarity Clear Urine pH 6.0 Ur Specific [place] 1.010 Urine Protein 30 H Urine Glucose (UA) Normal Urine Ketones Negative Urine Occult Blood Negative Urine Nitrite Negative Urine Bilirubin Negative Urine Urobilinogen Normal Ur Leukocyte Esterase 25 H Urine RBC 0 SEEN Urine WBC 0-5 SEEN Ur Squamous Epith Cells 5-10 SEEN Ur Transition Epith Cell 0-5 SEEN Urine Bacteria 1+ Urine Mucus 0 SEEN Radiography Diagnostic Testing: Clinical Impression(s) from Imaging Studies Abdomen/Pelvis CT 11/01/24 18:19 IMPRESSION: No acute abnormality Okay Reading Location[facility] Abdomen/Pelvis CTA 11/01/24 20:17 IMPRESSION: No angiographic abnormality Reading Location[facility] Discharge Plan Dx/Rx/DC Orders Clinical Impression: Intractable back pain, Degenerative arthritis of lumbar spine Disposition Disposition: Acute Care [facility] Discharge Date/Time: 11/01/24 22:39
[2024-11-01 18:41] LABS: Absolute Lymphocyte Count 1.21 X10^3/uL (0.83-4.51); Absolute Neutrophil Count 8.2 X10^3/uL (2.0-7.7); Basophil# 0.09 X10^3/uL; Basophil% 0.9 % (0-1); Eosinophil# 0.16 X10^3/uL; Eosinophils% 1.5 % (0-5); Hematocrit 45.7 % (37-47); Hemoglobin 15.3 g/dL (12.0-15.0); Lymphocyte # 1.21 X10^3/ul (0.83-4.51); Lymphocyte % 11.7 % (19-41); Mean Corp Hgb Conc 33.5 g/dL (32-36); Mean Corpuscular Hgb 27.4 pg (27.0-32.0); Mean Corpuscular Volume 81.9 fL (81-99); Mean Platelet Vol. 10.2 fl (6.2-12.0); Monocyte# 0.61 X10^3/uL; Monocyte% 5.9 % (0-10); NRBC Flagged by Analyzer 0 % (0-5); Neutrophil # 8.22 X10^3/uL (2.7-7.7); Neutrophil % 79.5 % (47-70); Platelet Count 270 K/mm3 (150-450); RBC Distribution Width CV 12.7 % (11.6-14.6); RBC Distribution Width SD 37.7 fl (35.1-43.9); Red Blood Count 5.58 M/mm3 (4.2-5.4); White Blood Count 10.3 K/mm3 (4.4-11.0)
[2024-11-01] MEDS: 0.9% Normal Saline (1000mL) 1,000 ML 250 ML IV (18:45)
[2024-11-01] MEDS: Ketorolac 15 MG/ML Vial IV (18:45)
[2024-11-01] MEDS: Ondansetron 4 MG/2 ML Vial IV (18:45)
[2024-11-01] MEDS: Morphine 4 MG/ML Syringe IV ×2 (18:46→20:27)
[2024-11-01 19:11] LABS: Anion Gap 12 (5-15); BUN 23 mg/dL (4-19); BUN/Creat Ratio 19.7 RATIO (10-20); Calcium,Total 9.9 mg/dL (7.6-11.0); Chloride 105 mmol/L (98-108); Creatinine, Serum 1.16 mg/dL (0.70-1.20); EST Glomerular Filtration Rate 50 (>60); Estimated Creatinine Clearance 47.07 ml/min (50-250); Glucose 119 mg/dL (70-99); Potassium 4.2 mmol/L (3.3-5.1); Sodium Level 142 mmol/L (133-145)
--- NOTE | 2024-11-01 20:17 | CT_ITS ---
PROCEDURE: CTA ABD/PELVIS W/WO CONTRAST 11/01/2024 REASON FOR EXAM: RIGHT FLANK PAIN TECHNIQUE: CTA imaging of the abdomen and pelvis with intravenous contrast. Two- dimensional and three-dimensional reconstructions CONTRAST: 100 cc of contrast One or more dose reduction techniques were used (e.g., Automated exposure control, adjustment of the mA and/or kV according to patient size, use of iterative reconstruction technique). FINDINGS: Normal caliber distal thoracic aorta. Normal caliber abdominal aorta. Patent celiac artery and superior mesenteric artery. Patent renal arteries. No aortic aneurysm or dissection. There is a left hip arthroplasty present. No iliac occlusion. No bowel obstruction. No abnormal intraluminal contrast enhancement. Liver, spleen, pancreas and gallbladder are similar to the earlier study. There is no bowel obstruction, free air or free fluid. CT/CTA Abd/Pelvis W/WO Contrast IMPRESSION: No angiographic abnormality Reading Location: [facility]
[2024-11-01 21:10] LABS: Color, Urine Yellow (Yellow); Glucose, Dipstick Normal (Normal); Ketone-Dipstick Negative (Negative); Leukocyte Esterase-Dipstick 25 /ul (Negative); Mucous, Urine 0 SEEN /hpf (<or=2+); Nitrite-Dipstick Negative (Negative); Occult Blood-Urine Negative /ul (Negative); Protein-Dipstick 30 mg/dl (Negative); Red Blood Cells-Urine 0 SEEN /hpf (0-5); Urine Bilirubin Dipstick Negative (Negative); Urine Clarity Clear (Clear); Urine Urobilinogen Normal (Normal)
[2024-11-01 21:20] LABS: Bacteria 1+ /hpf (None Seen); Squamous Epithelial Cells - UA 5-10 SEEN /hpf (5-10); Transitional Epithelial - Ur 0-5 SEEN /hpf (0-5); White Blood Cells 0-5 SEEN /hpf (0-5)
[2024-11-01] MEDS: MethylPREDNISolone 125 MG/2 ML Vial IV (22:13)
--- NOTE | 2024-11-01 22:24 | PCM.HP.STD ---
HPI - General General Date of Admission: 11/01/24 Date of Service: 11/01/24 Chief Complaint: Intractable back pain HPI Narrative ANGELINA TEIXEIRA, is a 74 F who presents to the emergency room with chief complaint of intractable back pain. Patient states that approximately 5:00 this evening while she was in a car she had sudden back pain in her right flank that was excruciating. Patient has a past medical history of similar episode approximately 2 months ago for which she was hospitalized treated with pain medication and resolved in the subsequent morning without further intervention. Patient denies the pain radiating to either lower extremity. She denies any dysuria, she has had some nausea with the pain but no vomiting. She denies any chest pain or shortness of breath and/or fevers or chills. CT and CT angiogram are negative for acute findings. Patient will be admitted for observation given pain medication overnight and monitored for resolution. [facility] Medical History Presence of stent in coronary artery (~06/26/17) Essential hypertension COVID-19 Fecal impaction in rectum Nausea & vomiting Diarrhea Myocardial infarction Coronary artery disease Complex regional pain syndrome type 1 affecting left hand Angiomyolipoma of kidney Osteoarthritis of left hip Pre-operative cardiovascular examination Chronic back pain RSD (reflex sympathetic dystrophy) Angiomyoma Atherosclerotic heart disease of [place] coronary artery without angina pectoris Nonrheumatic tricuspid (valve) insufficiency Old myocardial infarction Daytime somnolence Dyspnea on exertion NSTEMI (non-ST elevated myocardial infarction) Obesity (BMI 30.0-34.9) COPD (chronic obstructive pulmonary disease) HLD (hyperlipidemia) HTN (hypertension) Home Medications ?Medication ?Instructions ?Recorded ?Last Taken ?Type famotidine 20 mg tablet 20 mg PO DAILY STOMACH 10/02/15 08/04/24 History aspirin 81 mg tablet,delayed 81 mg PO DAILY HEART HEALTH 01/20/16 08/04/24 History release clonazepam 1 mg tablet 1 mg PO QHS PRN PRN RESTLESS LEG 05/29/22 Unknown History SYNDROME nitroglycerin 0.4 mg sublingual 0.4 mg sublingual PRN PRN Chest 12/26/23 Unknown Rx tablet Pain #25 tabs carvedilol 6.25 mg tablet 6.25 mg PO BID BLOOD PRESSURE #180 03/22/24 08/04/24 Rx tabs evolocumab 140 mg/mL subcutaneous 140 mg subcut Q2W #2 mL 05/11/24 07/22/24 Rx pen injector (Gabriella Mosley) losartan 50 mg tablet 50 mg PO DAILY 08/05/24 08/04/24 History melatonin 5 mg capsule 5 mg PO DAILY PRN sleep 08/05/24 Unknown History tramadol 50 mg tablet 50 mg PO DAILY PRN pain 08/05/24 Unknown History potassium chloride 20 mEq 80 meq (4 x 20 mEq) PO ONCE #4 tabs 10/29/24 Unknown Rx tablet,extended release (K-Tab) spironolactone 25 mg tablet 25 mg PO QDAY #30 tabs 10/29/24 Unknown Rx fluticasone propionate 50 2 spray intranasal DAILY PRN PRN 11/01/24 Unknown History mcg/actuation nasal allergy symptoms spray,suspension hydrochlorothiazide 25 mg tablet 25 mg PO DAILY 11/01/24 Unknown History Allergy/AdvReac Type Severity Reaction Status Date / Time erythromycin base Allergy Severe Rash Verified 11/01/24 17:50 venom-honey bee (bee venom Allergy Severe Anaphylaxis Verified 11/01/24 17:50 (honey bee)) atorvastatin Allergy Unknown Unknown Verified 11/01/24 17:50 Penicillins Allergy Unknown Unknown Verified 11/01/24 17:50 strawberry Allergy Anaphylaxis Verified 11/01/24 17:50 [id number] Reductase AdvReac Unknown Intolerance Verified 11/01/24 17:50 Inhibitor azithromycin AdvReac Rash Verified 11/01/24 17:50 Family History Father CAD (coronary artery disease) Brother Afib Surgical History Presence of coronary angioplasty implant and graft (~06/26/17) History of back surgery left hand surgery Social History housing: house Smoking Status: Former smoker alcohol intake: current substance use type: former substance user Date of last use: 2016 and marijuana caffeine: Yes Type: carbonated beverages, coffee and tea what type of physical activity do you participate in: none seatbelt use: always do you feel safe at home: Yes ROS Constitutional Constitutional: Denies chills or fever(s) Eyes Eyes: Denies blurry vision ENT HEENT: Denies abnormal hearing Cardiovascular Cardiovascular: Denies edema Respiratory/Chest Respiratory/Chest: Denies cough Gastrointestinal Gastrointestinal: Denies abdominal pain Genitourinary Genitourinary: Denies dysuria Musculoskeletal Musculoskeletal: Reports back pain; Denies extremity pain or joint pain Integumentary Integumentary: Denies dry skin Neurologic Neurologic: Denies abnormal speech or confusion Psychiatric Psychiatric: Denies depression Vital Signs Vital Signs Vital Signs: 11/01/24 17:50 11/01/24 18:50 11/01/24 18:53 Temperature 97.2 F L Temperature Source Temporal Pulse Rate 64 64 65 Respiratory Rate 26 H 20 H 19 H Blood Pressure 179/89 H 172/72 H Blood Pressure Mean 119 105 Pulse Ox 100 96 95 Oxygen Delivery Method Room Air Room Air Room Air 11/01/24 20:00 11/01/24 20:58 11/01/24 22:08 Temperature 97.9 F Temperature Source Pulse Rate 77 72 Respiratory Rate 17 Blood Pressure 132/70 H 127/61 H 131/67 H Blood Pressure Mean 90 83 88 Pulse Ox 94 Oxygen Delivery Method Weight Weight: 178 lb 12.718 oz Body Mass Index (BMI) 28.8 Physical Exam Const oriented x3 General Appearance: cooperative and well developed HEENT normocephalic and head/scalp atraumatic Neck no lymphadenopathy Lymph Lymphatic: no lymphadenopathy noted Resp normal respiratory effort, normal air movement and clear to auscultation bilaterally Cardio regular rate, regular rhythm, S1 normal heart sound and S2 normal heart sound GI normal to inspection, nondistended, normoactive bowel sounds Extremity normal capillary refill and no calf tenderness Skin General Skin Exam: no breakdown Neuro no focal motor deficits and no sensory deficits noted Psych cooperative and affect normal Results Lab / Micro Data 11/01/24 18:05 11/01/24 18:05 Labs: Laboratory Results - last 24 hr 11/01/24 18:05: WBC 10.3, RBC 5.58 H, Hgb 15.3 H, Hct 45.7, MCV 81.9, MCH 27.4, MCHC 33.5, RDW Std Deviation 37.7, RDW Coeff of Carlos 12.7, Plt Count 270, MPV 10.2, Immature Gran % (Auto) 0.500, Neut % (Auto) 79.5 H, Lymph % (Auto) 11.7 L, [place] % (Auto) 5.9, Eos % (Auto) 1.5, Baso % (Auto) 0.9, Absolute Neuts (auto) 8.2 H, Absolute Lymphs (auto) 1.21, Nucleated RBC % 0, Sodium 142, Potassium 4.2, Chloride 105, Carbon Dioxide 25.0, Anion Gap 12, BUN 23 H, Creatinine 1.16, Estim Creat Clear Calc 47.07 L, Est GFR (MDRD) Non-Af 50 L, BUN/Creatinine Ratio 19.7, Glucose 119 H, Calcium 9.9 11/01/24 21:00: Urine Color Yellow, Urine Clarity Clear, Urine pH 6.0, Ur Specific [place] 1.010, Urine Protein 30 H, Urine Glucose (UA) Normal, Urine Ketones Negative, Urine Occult Blood Negative, Urine Nitrite Negative, Urine Bilirubin Negative, Urine Urobilinogen Normal, Ur Leukocyte Esterase 25 H, Urine RBC 0 SEEN, Urine WBC 0-5 SEEN, Ur Squamous Epith Cells 5-10 SEEN, Ur Transition Epith Cell 0-5 SEEN, Urine Bacteria 1+, Urine Mucus 0 SEEN Imaging Radiology Impression Abdomen/Pelvis CT 11/01/24 18:19 IMPRESSION: No acute abnormality Okay [facility] Abdomen/Pelvis CTA 11/01/24 20:17 IMPRESSION: No angiographic abnormality Reading Location: [facility] Assessment & Plan Assessment/Plan (1) Intractable back pain: PLAN: Plan 1. intractable back pain?admit patient to general medical floor for observation, will give Dilaudid 1 mg IV every 2 hours as needed pain and monitor for resolution of this pain in the morning. If pain persist then consider MRI. But the absence of radicular symptoms at this time I did not feel it was necessary to order MRI now and with given history that she had similar episode 2 months ago that resolved we will again try a conservative approach to her pain control at this time 2. DVT prophylaxis?low molecular weight heparin 3. hypertension?continue home medications 4. Anxiety depression?stable continue routine home medication Charges/Coding Visit Charges OBSV E&M: 99980 Observ/hosp same date L2
[2024-11-02] VITALS (10 sets, daily range): BP systolic 97–119; BP diastolic 45–70; PULSE 63–71; RESP 15–18; TEMP 36.4–36.9; O2SAT 89–94
[2024-11-02] MEDS: HYDROmorphone 1 MG/ML Syringe IV ×2 (01:25→08:02)
[2024-11-02] MEDS: Aspirin E.C. 81 MG Tablet PO (08:02)
[2024-11-02] MEDS: 0.9% Saline Lock 10 ML Syringe IV ×2 (08:02→17:20)
[2024-11-02] MEDS: Carvedilol 6.25 MG Tablet PO ×2 (08:02→17:19)
[2024-11-02] MEDS: Ondansetron 4 MG/2 ML Vial IV (08:02)
[2024-11-02] MEDS: Enoxaparin 40 MG/0.4 ML Syringe SC (09:37)
--- NOTE | 2024-11-02 09:47 | EKG12_ITS ---
Test Reason : CP Blood Pressure : */* mmHG Vent. Rate : 61 BPM Atrial Rate : 61 BPM P-R Int : 170 ms QRS Dur : 102 ms QT Int : 452 ms P-R-T Axes : 32 26 66 degrees QTcB Int : 455 ms Normal sinus rhythm Cannot rule out Anterior infarct , age undetermined Abnormal ECG When compared with ECG of 05-Aug-2024 08:12, Incomplete left bundle branch block is no longer Present Confirmed by Abel Ba ([id number]), newspaper or periodical editor ENEDELIA JORGE ([id number]) on 11/08/2024 1:21:38 PM Referred By: ESTRADA Confirmed By: Abel Ba
[2024-11-02] MEDS: proMETHazine 25 MG/ML Syringe 6.25 MG IM (10:21)
[2024-11-02 11:42] LABS: Troponin T High Sensitivity < 6 ng/L (<=14)
--- NOTE | 2024-11-02 12:28 | CASEMGMT ---
RN CM asked DC planning director to provide patient with neff form and obtain signature.
[2024-11-02 13:49] LABS: Troponin T High Sens 2 HR < 6 ng/L (<=14)
[2024-11-02 15:21] LABS: Troponin T High Sens 4 HR < 6 ng/L (<=14)
--- NOTE | 2024-11-02 15:23 | PN_ITS ---
Subjective Subjective Patient seen and examined. She was admitted with a complaint of intractable back pain. She still complains of hte back pain. She denies any fever, chills, cough, chest pain, palpitations, dizziness, nausea, vomiting or any other symptoms. Review of systems is otherwise negative. Objective Data Objective Data Vital Signs: Vital Signs Temp Pulse Resp BP Pulse Ox O2 Del Method O2 Flow Rate 97.7 F L 63 15 118/70 93 Room Air 2 11/02/24 11:11/02/24 11:11/02/24 11:11/02/24 11:11/02/24 14:08 11/02/24 14:08 11/02/24 11: Oxygen Flow Rate (L/min) 2 Oxygen Delivery Method Room Air Weight: 175 lb 4.28 oz Body Mass Index (BMI) 28.3 Intake & Output: Intake and Output for Last 24 Hours 10/31/24 11/01/24 11/02/24 23:59 23:59 23:59 Intake Total 1000 / 1000 Balance 1000 / 1000 Lab / Micro Data 11/01/24 18:05 11/01/24 18:05 Labs: Laboratory Results - last 24 hr 11/01/24 18:05: WBC 10.3, RBC 5.58 H, Hgb 15.3 H, Hct 45.7, MCV 81.9, MCH 27.4, MCHC 33.5, RDW Std Deviation 37.7, RDW Coeff of [place] 12.7, Plt Count 270, MPV 10.2, Immature Gran % (Auto) 0.500, Neut % (Auto) 79.5 H, Lymph % (Auto) 11.7 L, [place] % (Auto) 5.9, Eos % (Auto) 1.5, Baso % (Auto) 0.9, Absolute Neuts (auto) 8.2 H, Absolute Lymphs (auto) 1.21, Nucleated RBC % 0, Sodium 142, Potassium 4.2, Chloride 105, Carbon Dioxide 25.0, Anion Gap 12, BUN 23 H, Creatinine 1.16, Estim Creat Clear Calc 47.07 L, Est GFR (MDRD) Non-Af 50 L, BUN/Creatinine Ratio 19.7, Glucose 119 H, Calcium 9.9 11/01/24 21:00: Urine Color Yellow, Urine Clarity Clear, Urine pH 6.0, Ur Specific [place] 1.010, Urine Protein 30 H, Urine Glucose (UA) Normal, Urine Ketones Negative, Urine Occult Blood Negative, Urine Nitrite Negative, Urine Bilirubin Negative, Urine Urobilinogen Normal, Ur Leukocyte Esterase 25 H, Urine RBC 0 SEEN, Urine WBC 0-5 SEEN, Ur Squamous Epith Cells 5-10 SEEN, Ur Transition Epith Cell 0-5 SEEN, Urine Bacteria 1+, Urine Mucus 0 SEEN 11/02/24 01:05: Troponin T Hi Sens 2 Hr < 6 11/02/24 10:47: Troponin T High Sens < 6 11/02/24 14:44: Troponin T Hi Sens 4Hr < 6 Radiography Diagnostic Testing: Radiology Impression Abdomen/Pelvis CT 11/01/24 18:19 IMPRESSION: No acute abnormality Okay Reading Location: [facility] Abdomen/Pelvis CTA 11/01/24 20:17 IMPRESSION: No angiographic abnormality Reading Location: [facility] Physical Exam Const alert and oriented x3 Constitutional Narrative: in mild distress due to pain. HEENT normocephalic, head/scalp atraumatic, moist oral mucous membranes and oropharynx normal Eyes PERRL and EOMs intact bilaterally Neck no lymphadenopathy and supple Lymph Lymphatic: no lymphadenopathy noted and no lymphedema noted Resp normal respiratory effort, normal air movement and clear to auscultation bilaterally Cardio regular rate, regular rhythm, S1 normal heart sound, S2 normal heart sound and no murmurs GI normal to inspection, nondistended, normoactive bowel sounds, soft to palpation, non-tender and non-distended Extremity normal capillary refill, no clubbing, cyanosis or edema and no calf tenderness Skin General Skin Exam: no breakdown Neuro CN's II-XII intact bilaterally Motor Exam: general weakness Psych thought process normal and cooperative Appearance: appropriate Assessment & Plan Assessment/Plan (1) Intractable back pain: PLAN: Plan #Intractable back pain * Patient still complaining of pain. This pain is chronic and she says she is to see pain management doctor who put her on multiple chronic pain medication. * on IV dilaudid prn for pain. Will also place on PO oxycodone and PO tylenol * Will see how she does with physical therapy. If the pain persists, will get MRI of the lumbar spine. * PT/OT consult * fall precautions #Abnormal urinalysis * Urinalysis shows 1+ bacteria. Currently not having any symptoms. * Urinalysis negative for nitrite. Will get urine cultures. * Will hold off on antibiotics for now as she is asymptomatic. * #Hypertension: on losartan, spironolactone and HCTZ #ANxiety and depression: #CAD: S/p stents: On aspirin and carvedilol. On evolocumab DVT prophylaxis: lovenox Charges/Coding Visit Charges Inpatient E&M: 89345 Subs Hosp L2
--- NOTE | 2024-11-02 16:12 | CASEMGMT ---
Attempted to meet with pt to complete GRIFFIN form but she was sleeping soundly. Copy left in pts room. Will attempt to review GRIFFIN with pt again tomorrow. Bre Tucker DC Planning Asst.
[2024-11-02] MEDS: Ketorolac 15 MG/ML Vial IV (17:19)
[2024-11-03] VITALS: BP 112/60; PULSE 75; RESP 16; TEMP 36.8; O2SAT 95
[2024-11-03 05:16] VITALS: BP 128/82; PULSE 61; RESP 16; TEMP 36.7; O2SAT 95
[2024-11-03 06:43] LABS: Absolute Lymphocyte Count 1.24 X10^3/uL (0.83-4.51); Absolute Neutrophil Count 11.2 X10^3/uL (2.0-7.7); Basophil# 0.03 X10^3/uL; Basophil% 0.2 % (0-1); Hematocrit 36.9 % (37-47); Hemoglobin 12.3 g/dL (12.0-15.0); Lymphocyte # 1.24 X10^3/ul (0.83-4.51); Lymphocyte % 9.1 % (19-41); Mean Corp Hgb Conc 33.3 g/dL (32-36); Mean Corpuscular Hgb 27.8 pg (27.0-32.0); Mean Corpuscular Volume 83.5 fL (81-99); Mean Platelet Vol. 10.4 fl (6.2-12.0); Monocyte# 1.09 X10^3/uL; NRBC Flagged by Analyzer 0 % (0-5); Neutrophil # 11.18 X10^3/uL (2.7-7.7); Neutrophil % 81.8 % (47-70); Platelet Count 227 K/mm3 (150-450); RBC Distribution Width SD 39.5 fl (35.1-43.9); Red Blood Count 4.42 M/mm3 (4.2-5.4); White Blood Count 13.7 K/mm3 (4.4-11.0)
[2024-11-03 07:24] LABS: Anion Gap 9 (5-15); BUN 35 mg/dL (4-19); BUN/Creat Ratio 29.3 RATIO (10-20); Calcium,Total 8.5 mg/dL (7.6-11.0); Carbon Dioxide 21.3 mmol/L (21.0-32.0); Chloride 111 mmol/L (98-108); Creatinine, Serum 1.21 mg/dL (0.70-1.20); EST Glomerular Filtration Rate 48 (>60); Glucose 112 mg/dL (70-99); Potassium 4.4 mmol/L (3.3-5.1); Sodium Level 141 mmol/L (133-145)
[2024-11-03] MEDS: Enoxaparin 40 MG/0.4 ML Syringe SC (07:59)
[2024-11-03] MEDS: Aspirin E.C. 81 MG Tablet PO (07:59)
[2024-11-03] MEDS: Famotidine 20 MG Tablet PO (07:59)
[2024-11-03 08:00] VITALS: BP 136/70; PULSE 59; RESP 16; TEMP 36.4; O2SAT 92
[2024-11-03] MEDS: Carvedilol 6.25 MG Tablet PO (08:00)
--- NOTE | 2024-11-03 10:33 | CASEMGMT ---
Met with patient to complete GRIFFIN form. GRIFFIN form and its content were verbally explained and patient's questions were answered to the best of my ability.? Patient voiced understanding and signed GRIFFIN form.? Patient provided a copy of signed GRIFFIN form and original placed in patient's chart.? Patient had no further questions. Bre Tucker, Discharge Planning Asst
--- NOTE | 2024-11-03 11:57 | PCM.DC ---
Discharge Instructions Diet Discharge Diet: Low fat / Low cholesterol DC O2, CPAP, BIPAP needs Home O2 Discharge instructions: No Dressing / Incision Discharge Activity: Return to Normal Activity Weight Bearing Status: Weight bearing as tolerated Dressing / Incision Call your doctor if you observe: Fever of 101 or Higher, Shortness of breath, Dizziness, Swelling in the ankles, Chest pain and Uncontrolled pain Follow Up Care Test Results: Test results from this visit will be discussed in further detail at your follow-up appointment, if applicable. Discharge Plan Admission Admit Date/Time: 11/01/24 22:31 Primary Reason for Your Visit: back pain Attending Provider: Camryn Boone Primary Care Provider: Breanna Crandall Consulting Providers: Alberto Rizo Instructions Patient Instructions: ED Back and Neck Pain, General Discharge Orders/Prescriptions Prescriptions: Continued famotidine 20 MG tablet 20 mg PO DAILY aspirin 81 MG tablet,delayed release (DR/EC) 81 mg PO DAILY clonazepam 1 mg tablet 1 mg PO QHS PRN PRN (Reason: RESTLESS LEG SYNDROME) hydrochlorothiazide 25 mg tablet 25 mg PO DAILY fluticasone propionate 50 mcg/actuation spray,suspension 2 spray INTRANASAL DAILY PRN PRN (Reason: allergy symptoms) losartan 50 mg tablet 50 mg PO DAILY tramadol 50 mg tablet 50 mg PO DAILY PRN (Reason: pain) melatonin 5 mg capsule 5 mg PO DAILY PRN (Reason: sleep) nitroglycerin 0.4 mg tablet, sublingual 0.4 mg sublingual PRN PRN (Reason: Chest Pain) Qty: 25 2RF carvedilol 6.25 mg tablet 6.25 mg PO BID Qty: 180 3RF Repatha SureClick 140 mg/mL pen injector 140 mg subcut Q2W Qty: 2 12RF spironolactone 25 mg tablet 25 mg PO QDAY Qty: 30 11RF potassium chloride [K-Tab] 20 mEq tablet extended release 80 meq PO ONCE Qty: 4 0RF Referrals / Follow Up: Breanna Crandall, [employer] [Primary Care Provider] - Within 1 Week Disposition Disposition (needs filled in before D/C Order can be placed): Home, Self Care
--- NOTE | 2024-11-03 11:58 | DS.PCM_ITS ---
Providers Date of Admission: 11/01/24 Date of Discharge: 11/03/24 Primary Care Physician: Breanna Crandall, GAVIN Reason For Visit: INTRACTABLE BACK PAIN Diagnosis Discharge Diagnosis (1) Intractable back pain: Status: Acute Code(s): M54.9 - Dorsalgia, unspecified Plan #Intractable back pain * Patient still complaining of pain. This pain is chronic and she says she is to see pain management doctor who put her on multiple chronic pain medication. * on IV dilaudid prn for pain. Will also place on PO oxycodone and PO tylenol * Will see how she does with physical therapy. If the pain persists, will get MRI of the lumbar spine. * PT/OT consult * fall precautions #Abnormal urinalysis * Urinalysis shows 1+ bacteria. Currently not having any symptoms. * Urinalysis negative for nitrite. Will get urine cultures. * Will hold off on antibiotics for now as she is asymptomatic. * #Hypertension: on losartan, spironolactone and HCTZ #ANxiety and depression: #CAD: S/p stents: On aspirin and carvedilol. On evolocumab DVT prophylaxis: lovenox Medications at Discharge Home Medications famotidine 20 mg tablet 20 mg PO DAILY STOMACH 10/02/15 aspirin 81 mg tablet,delayed release 81 mg PO DAILY HEART HEALTH 01/20/16 clonazepam 1 mg tablet 1 mg PO QHS PRN PRN RESTLESS LEG SYNDROME 05/29/22 nitroglycerin 0.4 mg sublingual tablet 0.4 mg sublingual PRN PRN Chest Pain #25 tabs 12/26/23 carvedilol 6.25 mg tablet 6.25 mg PO BID BLOOD PRESSURE #180 tabs 03/22/24 evolocumab 140 mg/mL subcutaneous pen injector (Repatha SureClick) 140 mg subcut Q2W #2 mL 05/11/24 losartan 50 mg tablet 50 mg PO DAILY 08/05/24 melatonin 5 mg capsule 5 mg PO DAILY PRN sleep 08/05/24 tramadol 50 mg tablet 50 mg PO DAILY PRN pain 08/05/24 potassium chloride 20 mEq tablet,extended release (K-Tab) 80 meq (4 x 20 mEq) PO ONCE #4 tabs 10/29/24 spironolactone 25 mg tablet 25 mg PO QDAY #30 tabs 10/29/24 fluticasone propionate 50 mcg/actuation nasal spray,suspension 2 spray intranasal DAILY PRN PRN allergy symptoms 11/01/24 hydrochlorothiazide 25 mg tablet 25 mg PO DAILY 11/01/24 Hospital Course Operations None Procedures None Summary of Care Provided Minutes Spent on Discharge: 45 Hospital Course: Patient is a 74-year-old female with past medical history as outlined was admitted through the ED on 11/01/2024 with complaint of intractable back pain. She says she was in her car at approximately 5 PM on the evening of admission and she suddenly had back pain mainly in her right flank which was excruciating. She had had similar back pain about 2 months prior to admission for which she was admitted and treated with pain meds and the pain subsequently resolved. Pain did not radiate to any of her lower extremities. She denied any dysuria or any other symptoms. CT of the abdomen and pelvis without contrast showed no acute pathology and CT of the abdomen pelvis also showed no acute pathology. She was admitted and managed for intractable lower back pain. PT OT was consulted. She was placed on pain medication. She worked with therapy and felt much better. By 11/03/2024 the pain had completely resolved. She was therefore discharged home on 11/03/2024. She was continued on her home tramadol. She is to follow-up with her primary care doctor within 1 to 2 weeks and counseled to follow-up with her pain management doctor also. Patient seen and examined prior to discharge. She had no active complaints and had an uneventful night. Review of systems otherwise negative. Labs and vitals reviewed. Home medication reviewed and reconciled. Physical Exam Const alert and oriented x3 General Appearance: cooperative, comfortable, well kempt and well developed Orientation / Consciousness: awake Exam Limitations: no limitations HEENT normocephalic, head/scalp atraumatic, hearing grossly normal bilaterally, moist oral mucous membranes and oropharynx normal Mouth: oral and palatal mucosa normal Eyes PERRL, EOMs intact bilaterally and conjunctivae normal Neck no lymphadenopathy and supple Lymph Lymphatic: no lymphadenopathy noted and no lymphedema noted Resp normal respiratory effort, normal air movement and clear to auscultation bilaterally Cardio regular rate, regular rhythm, S1 normal heart sound, S2 normal heart sound and no murmurs GI normal to inspection, nondistended, normoactive bowel sounds, soft to palpation, non-tender and non-distended Extremity normal to inspection, full ROM, normal capillary refill, no clubbing, cyanosis or edema and no calf tenderness Skin no rashes or lesions noted General Skin Exam: no breakdown Neuro oriented x3, moves all extremities, no focal motor deficits and no sensory deficits noted Sensorium / Orientation: awake and alert Motor Exam: general weakness Psych thought process normal, cooperative and affect normal Appearance: appropriate Weight / BMI Weight Weight: 175 lb 4.28 oz Body Mass Index (BMI) 28.3 ABG / Lab / Microbiology Data 11/03/24 05:39 11/03/24 05:39 Laboratory: Laboratory Results - last 24 hr 11/03/24 05:39: WBC 13.7 H, RBC 4.42, Hgb 12.3, Hct 36.9 L, MCV 83.5, MCH 27.8, MCHC 33.3, RDW Std Deviation 39.5, RDW Coeff of [place] 13.0, Plt Count 227, MPV 10.4, Immature Gran % (Auto) 0.900, Neut % (Auto) 81.8 H, Lymph % (Auto) 9.1 L, [place] % (Auto) 8.0, Eos % (Auto) 0.0, Baso % (Auto) 0.2, Absolute Neuts (auto) 11.2 H, Absolute Lymphs (auto) 1.24, Nucleated RBC % 0, Sodium 141, Potassium 4.4, Chloride 111 H, Carbon Dioxide 21.3, Anion Gap 9, BUN 35 H, Creatinine 1.21 H, Estim Creat Clear Calc 44.70 L, Est GFR (MDRD) Non-Af 48 L, BUN/Creatinine Ratio 29.3 H, Glucose 112 H, Calcium 8.5 D/C Instructions Discharge Diet: Low fat / Low cholesterol Discharge Activity: Return to Normal Activity Weight Bearing Status: Weight bearing as tolerated Call your doctor if you observe: Fever of 101 or Higher, Shortness of breath, Dizziness, Swelling in the ankles, Chest pain and Uncontrolled pain DC O2, CPAP, BIPAP Needs Home O2 Discharge instructions: No DC home with Oxygen: No Meaningful Use Info Meaningful Use Meaningful Use Diagnoses (Choose all that apply): None applicable Ischemic Stroke Statin Dosing Therapy Reference: STATIN DOSE THERAPY REFERENCE: * Patients > 75 years receive moderate or high dose statin therapy. * Patients 75 years or YOUNGER should receive HIGH intensity statin dose unless contraindicated. You will be required to document reason for non-treatment if statin daily dose does not meet guidelines. HIGH DOSE STATIN THERAPY DAILY Atorvastatin > than or = to 40 mg Rosuvastatin > than or = to 20 mg Amlodipine + Atorvastatin > than or = to 2.5/40 mg Ezetimibe + Simvastatin 10/80 mg Simvastatin 80mg Discharge Plan Admission Admit Date/Time: 11/01/24 22:31 Primary Reason for Your Visit: back pain Attending Provider: Camryn Boone Primary Care Provider: Breanna Crandall Consulting Providers: Alberto Rizo Instructions Patient Instructions: ED Back and Neck Pain, General Discharge Orders/Prescriptions Prescriptions: Continued famotidine 20 MG tablet 20 mg PO DAILY aspirin 81 MG tablet,delayed release (DR/EC) 81 mg PO DAILY clonazepam 1 mg tablet 1 mg PO QHS PRN PRN (Reason: RESTLESS LEG SYNDROME) hydrochlorothiazide 25 mg tablet 25 mg PO DAILY fluticasone propionate 50 mcg/actuation spray,suspension 2 spray INTRANASAL DAILY PRN PRN (Reason: allergy symptoms) losartan 50 mg tablet 50 mg PO DAILY tramadol 50 mg tablet 50 mg PO DAILY PRN (Reason: pain) melatonin 5 mg capsule 5 mg PO DAILY PRN (Reason: sleep) nitroglycerin 0.4 mg tablet, sublingual 0.4 mg sublingual PRN PRN (Reason: Chest Pain) Qty: 25 2RF carvedilol 6.25 mg tablet 6.25 mg PO BID Qty: 180 3RF Repatha SureClick 140 mg/mL pen injector 140 mg subcut Q2W Qty: 2 12RF spironolactone 25 mg tablet 25 mg PO QDAY Qty: 30 11RF potassium chloride [K-Tab] 20 mEq tablet extended release 80 meq PO ONCE Qty: 4 0RF Referrals / Follow Up: Breanna Crandall, [employer] [Primary Care Provider] - Within 1 Week Disposition Disposition (needs filled in before D/C Order can be placed): Home, Self Care Charges/Coding Visit Charges Inpatient E&M: 56695 Disch Hosp >30min
--- NOTE | 2024-11-03 12:18 | CASEMGMT ---
SOCORRO CM into pt room, pt lying in bed eating lunch in no distress. Pt states that her pain is gone. She states that she is typically indep at home. No therapy recommended. Pt states she lives in a two story home with 3 steps to enter with her sister. Pt denies any homegoing needs. Pt does not use AD nor does she feel she needs or wants any. Pt ready to dc home.
[2024-11-03 12:45] VITALS: BP 127/70; PULSE 63; RESP 16; TEMP 36.6; O2SAT 97
== END 2024-11-03 13:00 | disposition home or self-care (01) ==
LOC: ED 22:03 → MS3 22:42
PROVIDERS: Admitting Provider Family Medicine; Emergency Provider Emergency Medicine; PCP Nurse Practitioner Family; Visit Provider Student in an Organized Health Care Education/Training Program
DX: M54.9 Dorsalgia, unspecified (principal); J44.9 Chronic obstructive pulmonary disease, unspecified; E78.5 Hyperlipidemia, unspecified; I10 Essential (primary) hypertension; I25.10 Atherosclerotic heart disease of native coronary artery without angina pectoris; Z87.891 Personal history of nicotine dependence; R10.9 Unspecified abdominal pain; Z86.16 Personal history of COVID-19; Z79.82 Long term (current) use of aspirin; G89.29 Other chronic pain; I25.2 Old myocardial infarction; F41.9 Anxiety disorder, unspecified; F32.A Depression, unspecified; Z95.5 Presence of coronary angioplasty implant and graft; R82.90 Unspecified abnormal findings in urine
CPT/HCPCS: 36415; 74174; 74176; 80048; 81001; 84484; 85025; 87086; 87088; 93005; 96361; 96372; 96374; 96375; 96376; 97116; 97162; 97166; 97530; 99221; 99284; Q9967; A4216; G0378; J2405

== ENCOUNTER → 2024-11-11 | Outpatient (CLI) | payer MEDICARE, MEDICAID, SELFPAY ==
[2024-10-19 09:38] VITALS: BMI 29.0
--- NOTE | 2024-11-11 10:04 | US_ITS ---
PROCEDURE: ABDOMEN LIMITED 11/11/2024 REASON FOR EXAM: RUQ PAIN COMPARISON: CT from 11/01/2024 FINDINGS: Liver: Measures 15.9 cm. Normal echogenicity Gallbladder: No gallstones. No gallbladder wall thickening. No pericholecystic fluid. Negative Chadwick's sign. Common bile duct: Measures 6 mm. No intrahepatic biliary dilatation. Pancreas: Unremarkable Right kidney measures 10 cm. No hydronephrosis. US/Abdomen Limited IMPRESSION: No acute cholecystitis. Reading Location: [id number]
== END | disposition home or self-care (01) ==
LOC: US 10:02
PROVIDERS: PCP Nurse Practitioner Family; Referring Provider Nurse Practitioner Family; Visit Provider Nurse Practitioner Family
DX: R10.11 Right upper quadrant pain (principal)
CPT/HCPCS: 76705

== ENCOUNTER → 2025-02-10 | Outpatient (CLI) | payer MEDICARE, MEDICAID, SELFPAY ==
[2024-10-19 09:38] VITALS: BMI 29.0
[2025-02-10 10:43] LABS: AST(SGOT) 14 U/L (<=31); Alanine Aminotransfer ALT/SGPT 9 U/L (<=34); Albumin, Serum 4.0 g/dL (3.4-4.8); Alkaline Phosphatase 72 U/L (35-104); Anion Gap 12 (5-15); BUN 25 mg/dL (4-19); BUN/Creat Ratio 16.4 RATIO (10-20); Calcium,Total 10.2 mg/dL (7.6-11.0); Carbon Dioxide 23.1 mmol/L (21.0-32.0); Chloride 105 mmol/L (98-108); Globulin 3.1 g/dL (2.2-4.2); Glucose 97 mg/dL (70-99); Potassium 4.3 mmol/L (3.3-5.1)
[2025-02-10 10:45] LABS: Bilirubin, Direct 0.22 mg/dL (0.00-0.30); Cholesterol 115 mg/dL (<=200); Low Density Lipoprotein Calc. 32 mg/dL; Triglycerides 198 mg/dL; Very Low Density Lipoprotein 40 mg/dL (5-40); cholesterol:hdl ratio screen 2.64
== END | disposition home or self-care (01) ==
LOC: LAB 09:03
PROVIDERS: Physician Assistant Medical; PCP Nurse Practitioner Family; Referring Provider Nurse Practitioner Gerontology; Visit Provider Nurse Practitioner Gerontology
DX: I10 Essential (primary) hypertension (principal); I25.10 Atherosclerotic heart disease of native coronary artery without angina pectoris; E78.5 Hyperlipidemia, unspecified
CPT/HCPCS: 36415; 80053; 80061; 82248

== ENCOUNTER → 2025-03-25 | Outpatient (CLI) | payer MEDICARE, MEDICAID, SELFPAY ==
[2024-10-19 09:38] VITALS: BMI 29.0
[2025-03-25 13:18] LABS: HIV Nonreactive (Nonreactive)
[2025-03-26 06:08] LABS: RPR Non Reactive (Non Reactive)
== END | disposition home or self-care (01) ==
LOC: MTLAB 10:35
PROVIDERS: PCP Nurse Practitioner Family; Referring Provider Nurse Practitioner Family; Visit Provider Nurse Practitioner Family
DX: Z20.9 Contact with and (suspected) exposure to unspecified communicable disease (principal); E03.9 Hypothyroidism, unspecified
CPT/HCPCS: 36415; 84439; 84443; 86703; 87491; 87591